=== PATIENT | female | born 1995 | race Caucasian/White ===

== ENCOUNTER 2020-01-02 12:39 | Inpatient (IN) | payer OTHER ==
[2020-01-02] VITALS (8 sets, daily range): BP systolic 86–102; BP diastolic 51–64
[~2020-01-02] VITALS: Ht 154.9 cm; Wt 43.1 kg
[2020-01-02] MEDS ORDERED: HumuLIN R (REGULAR) INSULIN (NovoLIN R) **100U/ML** PER UNIT IV ONE (13:00)
[2020-01-02] MEDS ORDERED: NS 1,000 ML IV ONE (13:00)
[2020-01-02] MEDS ORDERED: ONDANSETRON 4MG/2ML VIAL IV ONE (13:00)
[2020-01-02 13:12] LABS: VENOUS HCO3 4.1 MEQ/L (23.0-27.0); VENOUS O2 SATURATION 91.5 % (60.0-80.0); VENOUS PARTIAL PRESSURE CO2 15.9 mmHg (38.0-50.0); VENOUS PARTIAL PRESSURE O2 72.7 mmHg (30.0-50.0); VENOUS PH 7.026 UNITS (7.330-7.430); VENOUS STANDARD HCO3 7.7 MEQ/L; VENOUS TOTAL CO2 4.6 MEQ/L (24.0-28.0)
[2020-01-02] MEDS ORDERED: INSULIN REGULAR IN 0.9 % NACL 100 UNIT in IV 1 EA IV SCH ×6 (13:16→14:53)
[2020-01-02 13:19] LABS: BASO % 0.4 % (0.0-1.0); EOS % 0.1 % (0.0-3.0); HEMATOCRIT 45.8 % (36.0-47.0); HEMOGLOBIN 14.4 g/dl (12.0-15.5); LYMPH % 11.4 % (24.0-44.0); MEAN CORPUSCULAR HEMOGLOBIN 31.4 pg (27.0-33.0); MEAN CORPUSCULAR HGB CONC 31.4 g/dl (32.0-36.5); MONO # 0.6 10^3/uL (0.0-0.8); NEUTROPHILS # 6.8 10^3/uL (1.5-8.5); NEUTROPHILS % 80.6 % (36.0-66.0); PLATELET COUNT, AUTOMATED 291 10^3/uL (150-450); RED BLOOD COUNT 4.58 10^6/uL (4.00-5.40); WHITE BLOOD COUNT 8.4 10^3/uL (4.0-10.0)
[2020-01-02] MEDS ORDERED: INSULIN IV RATE CHANGE DOCUMENTATION ML/HR XX SCH ×3 (13:30→15:00)
[2020-01-02 13:45] LABS: OSMOLALITY SERUM 328 MOSM/KG (275-295)
[2020-01-02 14:06] LABS: HEMOGLOBIN A1c 11.7 %
[2020-01-02 14:18] LABS: ACETONE/KETONE > 46.00 MG/DL (<2.81); ALBUMIN 3.9 GM/DL (3.2-5.2); ALT/SGPT 29 U/L (12-78); BILIRUBIN,DIRECT < 0.1 MG/DL (0.0-0.2); BILIRUBIN,TOTAL 0.6 MG/DL (0.2-1.0); BLOOD UREA NITROGEN 12 MG/DL (7-18); CALCIUM LEVEL 8.7 MG/DL (8.5-10.1); CARBON DIOXIDE LEVEL 6 MEQ/L (21-32); CHLORIDE LEVEL 108 MEQ/L (98-107); CREATININE FOR GFR 1.17 MG/DL (0.55-1.30); ETHYL ALCOHOL (ETHANOL) < 0.003 % (0.000-0.010); GLUCOSE, FASTING 533 MG/DL (70-100); LIPASE 34 U/L (73-393); POTASSIUM SERUM 4.6 MEQ/L (3.5-5.1); SODIUM LEVEL 135 MEQ/L (136-145); TOTAL PROTEIN 8.6 GM/DL (6.4-8.2)
[2020-01-02] MEDS ORDERED: GABA-843 PO (14:37)
[2020-01-02] MEDS ORDERED: BASA100I SC (14:37)
[2020-01-02] MEDS ORDERED: ADME100I SC (14:37)
[2020-01-02] MEDS ORDERED: TOPI25TA10 PO (14:37)
[2020-01-02] MEDS ORDERED: OMEP-221 PO (14:37)
[2020-01-02] MEDS ORDERED: SYMB16INH INH (14:37)
[2020-01-02] MEDS: INSULIN REGULAR IN 0.9 % NACL 100 UNIT in IV 1 EA IV SCH ×2 (14:53)
[2020-01-02] MEDS ORDERED: ONDANSETRON 4MG/2ML VIAL IV PRN (15:00)
[2020-01-02] MEDS: NS 1,000 ML IV SCH ×3 (15:03→16:15)
--- NOTE | 2020-01-02 15:08 | REPVR ---
PROCEDURE INFORMATION: Exam: XR Chest, 1 View Exam date and time: 01/02/2020 2:57 PM Age: 24 years old Clinical indication: Other: Dka, R/O pna; Additional info: Dka R/O pna TECHNIQUE: Imaging protocol: XR of the chest Views: 1 view. COMPARISON: No relevant prior studies available. FINDINGS: Lungs: No acute infiltrate. Pleural space: No pleural effusion. Heart/Mediastinum: No cardiomegaly. Bones/joints: Unremarkable. IMPRESSION: No acute infiltrate. Electronically signed by: Kai Gonzalez On 01/02/2020 15:08:03 PM
[2020-01-02 15:50] LABS: C REACTIVE PROTEIN QUANTITATIV 0.54 MG/DL (0.00-0.30)
[2020-01-02] MEDS: INSULIN IV RATE CHANGE DOCUMENTATION ML/HR XX SCH ×2 (15:55→17:03)
[2020-01-02] MEDS: CEPHALEXIN 500 MG CAP PO SCH ×2 (16:00→20:21)
[2020-01-02] MEDS ORDERED: ACETAMINOPHEN TAB 650MG DOSE (2X325MG) PO PRN (16:30)
[2020-01-02] MEDS ORDERED: D5W/0.9% SODIUM CHLORIDE 1,000 ML IV SCH (16:30)
[2020-01-02] MEDS ORDERED: KETOROLAC 30 MG/ML 1ML VIAL IV ONE (16:30)
[2020-01-02] MEDS ORDERED: METOCLOPRAMIDE INJ 10MG/2ML VIAL (J2765 PER 1) IV ONE (16:30)
[2020-01-02] MEDS ORDERED: NS 1,000 ML IV SCH (17:15)
[2020-01-02] MEDS ORDERED: SODIUM CHLORIDE IV ONE (18:00)
[2020-01-02] MEDS ORDERED: D5W IV ONE (18:00)
[2020-01-02 18:11] LABS: BLOOD UREA NITROGEN 9 MG/DL (7-18); CALCIUM LEVEL 7.5 MG/DL (8.5-10.1); CARBON DIOXIDE LEVEL 9 MEQ/L (21-32); CHLORIDE LEVEL 123 MEQ/L (98-107); CREATININE FOR GFR 0.94 MG/DL (0.55-1.30); GLOMERULAR FILTRATION RATE > 60.0 (>60); GLUCOSE, FASTING 183 MG/DL (70-100); PHOSPHORUS LEVEL 1.3 MG/DL (2.5-4.9); POTASSIUM SERUM 3.6 MEQ/L (3.5-5.1); SODIUM LEVEL 146 MEQ/L (136-145)
[2020-01-02] MEDS: SODIUM BICARBONATE 325 MG TAB PO SCH ×2 (18:33→20:24)
[2020-01-02] MEDS ORDERED: LEVEMIR (INSULIN DETEMIR) 1 UNITS/0.01ML SC ONE (19:00)
[2020-01-02] MEDS ORDERED: POTASSIUM PHOSPHATE INJ 20 MMOL in D5W 250 ML IV ONE (20:00)
[2020-01-02] MEDS: VANICREAM MOISTURIZING SKIN CREAM 113GM TUBE TOP SCH (20:22)
[2020-01-02 22:42] LABS: BLOOD UREA NITROGEN 6 MG/DL (7-18); CALCIUM LEVEL 6.3 MG/DL (8.5-10.1); CARBON DIOXIDE LEVEL 11 MEQ/L (21-32); CHLORIDE LEVEL 119 MEQ/L (98-107); GLOMERULAR FILTRATION RATE > 60.0 (>60); GLUCOSE, FASTING 332 MG/DL (70-100); PHOSPHORUS LEVEL 2.2 MG/DL (2.5-4.9); POTASSIUM SERUM 3.2 MEQ/L (3.5-5.1); SODIUM LEVEL 144 MEQ/L (136-145)
[2020-01-02] MEDS ORDERED: KCL 20MEQ in NS 1000ML 1,000 ML IV SCH (23:15)
[2020-01-03] VITALS (8 sets, daily range): BP systolic 90–103; BP diastolic 52–67
[2020-01-03] MEDS: DOXYCYCLINE HYCLATE 100 MG in D5W MINI-BAG PLUS 100 ML IV SCH ×2 (00:58→12:09)
[2020-01-03 03:16] LABS: BLOOD UREA NITROGEN 4 MG/DL (7-18); CALCIUM LEVEL 6.9 MG/DL (8.5-10.1); CARBON DIOXIDE LEVEL 15 MEQ/L (21-32); CHLORIDE LEVEL 118 MEQ/L (98-107); GLOMERULAR FILTRATION RATE > 60.0 (>60); GLUCOSE, FASTING 189 MG/DL (70-100); PHOSPHORUS LEVEL 2.7 MG/DL (2.5-4.9); POTASSIUM SERUM 3.3 MEQ/L (3.5-5.1); SODIUM LEVEL 144 MEQ/L (136-145)
[2020-01-03] MEDS ORDERED: GLUCOSE 4GM CHEW TABLET PO PRN (05:15)
[2020-01-03] MEDS ORDERED: GLUCAGON INJ 1MG VIAL SC PRN (05:15)
[2020-01-03] MEDS ORDERED: DEXTROSE 50% 50 ML SYRINGE As Ordered ONE (05:20)
[2020-01-03] MEDS: DEXTROSE 50% 50 ML SYRINGE IV PRN ×3 (05:35→08:24)
[2020-01-03] MEDS: LEVOTHYROXINE 12.5MCG PER 1/2 TAB (0.0125MG) PO SCH (06:00)
[2020-01-03 06:49] LABS: HEMATOCRIT 36.9 % (36.0-47.0); MEAN CORPUSCULAR HEMOGLOBIN 31.5 pg (27.0-33.0); MEAN CORPUSCULAR HGB CONC 33.1 g/dl (32.0-36.5); MEAN CORPUSCULAR VOLUME 95.3 fl (80.0-96.0); PLATELET COUNT, AUTOMATED 230 10^3/uL (150-450); RED BLOOD COUNT 3.87 10^6/uL (4.00-5.40); WHITE BLOOD COUNT 5.3 10^3/uL (4.0-10.0)
[2020-01-03 06:57] LABS: HEMOGLOBIN 12.2 g/dl (12.0-15.5)
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
[2020-01-03 07:24] LABS: ACETONE/KETONE 13.98 MG/DL (<2.81); BLOOD UREA NITROGEN 3 MG/DL (7-18); CALCIUM LEVEL 6.8 MG/DL (8.5-10.1); CARBON DIOXIDE LEVEL 18 MEQ/L (21-32); CHLORIDE LEVEL 120 MEQ/L (98-107); GLOMERULAR FILTRATION RATE > 60.0 (>60); GLUCOSE, FASTING 80 MG/DL (70-100); PHOSPHORUS LEVEL 1.8 MG/DL (2.5-4.9); POTASSIUM SERUM 3.1 MEQ/L (3.5-5.1); SODIUM LEVEL 145 MEQ/L (136-145)
[2020-01-03] MEDS ORDERED: KCL 20MEQ in NS 1000ML 1,000 ML IV SCH (07:30)
[2020-01-03] MEDS: SODIUM BICARBONATE 325 MG TAB PO SCH ×4 (08:24→20:41)
[2020-01-03] MEDS ORDERED: D10W/0.45% SODIUM CHLORIDE 1,000 ML IV SCH (08:30)
[2020-01-03] MEDS ORDERED: INFLUENZA QUADRIVALENT PF VACCINE 0.5ML SYRINGE IM SCH (09:00)
[2020-01-03] MEDS ORDERED: POTASSIUM CHLORIDE 10 MEQ SR TABLET PO ONE (09:00)
[2020-01-03] MEDS: VANICREAM MOISTURIZING SKIN CREAM 113GM TUBE TOP SCH ×2 (09:44→20:45)
[2020-01-03] MEDS: LEVEMIR (INSULIN DETEMIR) 1 UNITS/0.01ML SC SCH ×2 (09:45→20:42)
[2020-01-03] MEDS: NEOSPORIN TOP OINT 15GM TOP SCH ×2 (09:45→20:44)
[2020-01-03] MEDS ORDERED: POTASSIUM PHOSPHATE INJ 30 MMOL in D5W 500 ML IV ONE (10:00)
[2020-01-03] MEDS: INSULIN REGULAR IN 0.9 % NACL 100 UNIT in IV 1 EA IV SCH ×2 (14:53)
[2020-01-03] MEDS ORDERED: NS 1,000 ML IV ONE (15:00)
[2020-01-03 16:31] LABS: FREE THYROXINE INDEX 1.4 % (1.3-4.8); THYROID STIMULATING HORMONE 20.1 uIU/ML (0.358-3.740); THYROXINE (T4) 4.5 UG/DL (4.5-12.0)
[2020-01-03 17:35] LABS: BLOOD UREA NITROGEN 2 MG/DL (7-18); CALCIUM LEVEL 7.6 MG/DL (8.5-10.1); CARBON DIOXIDE LEVEL 16 MEQ/L (21-32); CHLORIDE LEVEL 111 MEQ/L (98-107); CREATININE FOR GFR 0.82 MG/DL (0.55-1.30); GLOMERULAR FILTRATION RATE > 60.0 (>60); GLUCOSE, FASTING 305 MG/DL (70-100); MAGNESIUM LEVEL 1.3 MG/DL (1.8-2.4); PHOSPHORUS LEVEL 4.3 MG/DL (2.5-4.9); SODIUM LEVEL 139 MEQ/L (136-145)
[2020-01-03] MEDS ORDERED: MAG SULF 1GM/100ML (MAG RUN) 1 GM in IV 1 EA IV ONE (19:00)
[2020-01-03] MEDS ORDERED: SODIUM BICARBONATE 150 MEQ in STERILE WATER LITER BAG 1,000 ML IV SCH (20:00)
[2020-01-03] MEDS: HumaLOG INSULIN (NovoLOG) PER UNIT SC SCH (20:36)
[2020-01-03 22:49] LABS: IONIZED CALCIUM 4.3 MG/DL (4.5-5.3)
[2020-01-03 23:46] LABS: BLOOD UREA NITROGEN 2 MG/DL (7-18); CALCIUM LEVEL 7.8 MG/DL (8.5-10.1); CARBON DIOXIDE LEVEL 29 MEQ/L (21-32); CHLORIDE LEVEL 112 MEQ/L (98-107); CREATININE FOR GFR 0.44 MG/DL (0.55-1.30); GLOMERULAR FILTRATION RATE > 60.0 (>60); GLUCOSE, FASTING 41 MG/DL (70-100); MAGNESIUM LEVEL 1.8 MG/DL (1.8-2.4); PHOSPHORUS LEVEL 1.8 MG/DL (2.5-4.9); SODIUM LEVEL 144 MEQ/L (136-145)
[2020-01-04] VITALS: BP 99/57
[2020-01-04] MEDS: DOXYCYCLINE HYCLATE 100 MG in D5W MINI-BAG PLUS 100 ML IV SCH ×2 (00:01→11:24)
[2020-01-04] MEDS: DEXTROSE 50% 50 ML SYRINGE IV PRN ×3 (00:09→05:04)
[2020-01-04] MEDS ORDERED: POTASSIUM CHLORIDE 10 MEQ SR TABLET PO ONE ×2 (00:30→09:00)
[2020-01-04] MEDS ORDERED: POTASSIUM PHOSPHATE INJ 15 MMOL in D5W 250 ML IV ONE (00:30)
[2020-01-04] MEDS: HumaLOG INSULIN (NovoLOG) PER UNIT SC SCH ×5 (01:54→22:06)
[2020-01-04 04:00] VITALS: BP 88/63
[2020-01-04 04:21] LABS: IONIZED CALCIUM 3.8 MG/DL (4.5-5.3)
[2020-01-04 04:23] LABS: HEMATOCRIT 33.3 % (36.0-47.0); HEMOGLOBIN 11.3 g/dl (12.0-15.5); MEAN CORPUSCULAR HEMOGLOBIN 31.6 pg (27.0-33.0); MEAN CORPUSCULAR HGB CONC 33.9 g/dl (32.0-36.5); PLATELET COUNT, AUTOMATED 190 10^3/uL (150-450); RED BLOOD COUNT 3.58 10^6/uL (4.00-5.40); WHITE BLOOD COUNT 3.9 10^3/uL (4.0-10.0)
[2020-01-04 05:10] LABS: BLOOD UREA NITROGEN 2 MG/DL (7-18); CALCIUM LEVEL 7.4 MG/DL (8.5-10.1); CARBON DIOXIDE LEVEL 30 MEQ/L (21-32); CHLORIDE LEVEL 109 MEQ/L (98-107); CREATININE FOR GFR 0.42 MG/DL (0.55-1.30); GLOMERULAR FILTRATION RATE > 60.0 (>60); GLUCOSE, FASTING 80 MG/DL (70-100); MAGNESIUM LEVEL 1.7 MG/DL (1.8-2.4); PHOSPHORUS LEVEL 3.5 MG/DL (2.5-4.9); POTASSIUM SERUM 3.3 MEQ/L (3.5-5.1); SODIUM LEVEL 143 MEQ/L (136-145)
[2020-01-04] MEDS ORDERED: KCL 20MEQ IN D5/0.45NS 1000ML 1,000 ML IV SCH (05:45)
[2020-01-04] MEDS: LEVOTHYROXINE 12.5MCG PER 1/2 TAB (0.0125MG) PO SCH (06:43)
[2020-01-04 08:00] VITALS: BP 111/76
[2020-01-04] MEDS ORDERED: D5W/LR 1,000 ML IV ONE (08:00)
[2020-01-04] MEDS ORDERED: MAG SULF 1GM/100ML (MAG RUN) 1 GM in IV 1 EA IV ONE (08:00)
[2020-01-04] MEDS: SODIUM BICARBONATE 325 MG TAB PO SCH (08:22)
[2020-01-04] MEDS: NEOSPORIN TOP OINT 15GM TOP SCH ×2 (08:22→22:08)
[2020-01-04] MEDS: VANICREAM MOISTURIZING SKIN CREAM 113GM TUBE TOP SCH ×2 (08:22→22:06)
[2020-01-04 12:00] VITALS: BP 105/72
[2020-01-04 12:10] LABS: BLOOD UREA NITROGEN 2 MG/DL (7-18); CALCIUM LEVEL 7.9 MG/DL (8.5-10.1); CARBON DIOXIDE LEVEL 27 MEQ/L (21-32); CHLORIDE LEVEL 105 MEQ/L (98-107); CREATININE FOR GFR 0.62 MG/DL (0.55-1.30); GLOMERULAR FILTRATION RATE > 60.0 (>60); GLUCOSE, FASTING 233 MG/DL (70-100); PHOSPHORUS LEVEL 2.6 MG/DL (2.5-4.9); POTASSIUM SERUM 3.6 MEQ/L (3.5-5.1); SODIUM LEVEL 141 MEQ/L (136-145)
[2020-01-04] MEDS ORDERED: D10W 1,000 ML IV SCH (17:00)
[2020-01-04] MEDS ORDERED: D5W 1,000 ML IV ONE (17:15)
[2020-01-04] MEDS: D5W 1,000 ML IV SCH (18:25)
[2020-01-04] MEDS ORDERED: LEVEMIR (INSULIN DETEMIR) 1 UNITS/0.01ML SC SCH (21:00)
[2020-01-04 22:00] VITALS: BP 114/79
[2020-01-05] MEDS: DOXYCYCLINE HYCLATE 100 MG in D5W MINI-BAG PLUS 100 ML IV SCH (00:06)
[2020-01-05] MEDS: D5W 1,000 ML IV SCH (00:11)
[2020-01-05 06:00] VITALS: BP 113/79
[2020-01-05] MEDS: LEVOTHYROXINE 12.5MCG PER 1/2 TAB (0.0125MG) PO SCH (06:05)
[2020-01-05 07:46] LABS: IONIZED CALCIUM 4.4 MG/DL (4.5-5.3)
[2020-01-05 07:52] LABS: HEMOGLOBIN 11.9 g/dl (12.0-15.5); MEAN CORPUSCULAR HEMOGLOBIN 31.8 pg (27.0-33.0); MEAN CORPUSCULAR VOLUME 93.6 fl (80.0-96.0); PLATELET COUNT, AUTOMATED 193 10^3/uL (150-450); RED BLOOD COUNT 3.74 10^6/uL (4.00-5.40); WHITE BLOOD COUNT 3.5 10^3/uL (4.0-10.0)
[2020-01-05] MEDS: NEOSPORIN TOP OINT 15GM TOP SCH (08:14)
[2020-01-05] MEDS: VANICREAM MOISTURIZING SKIN CREAM 113GM TUBE TOP SCH (08:14)
[2020-01-05] MEDS: HumaLOG INSULIN (NovoLOG) PER UNIT SC SCH (08:15)
[2020-01-05 08:23] LABS: BLOOD UREA NITROGEN 6 MG/DL (7-18); CALCIUM LEVEL 8.3 MG/DL (8.5-10.1); CARBON DIOXIDE LEVEL 31 MEQ/L (21-32); CHLORIDE LEVEL 99 MEQ/L (98-107); CREATININE FOR GFR 0.72 MG/DL (0.55-1.30); GLOMERULAR FILTRATION RATE > 60.0 (>60); GLUCOSE, FASTING 341 MG/DL (70-100); MAGNESIUM LEVEL 1.9 MG/DL (1.8-2.4); PHOSPHORUS LEVEL 3.1 MG/DL (2.5-4.9); POTASSIUM SERUM 4.3 MEQ/L (3.5-5.1); SODIUM LEVEL 137 MEQ/L (136-145)
[2020-01-05] MEDS ORDERED: CLIN150C14 PO (08:42)
[2020-01-05] MEDS ORDERED: BACIOIN5 OD (08:42)
[2020-01-05] MEDS ORDERED: BACI1CAP PO (08:42)
[2020-01-05] MEDS ORDERED: LEVEMIR (INSULIN DETEMIR) 1 UNITS/0.01ML SC SCH (09:00)
[2020-01-05] MEDS ORDERED: GABAPENTIN 300 MG CAP PO SCH (09:00)
[2020-01-05] MEDS ORDERED: SYMBICORT 160/4.5MCG INHALER 6GM INH SCH (09:00)
[2020-01-05] MEDS ORDERED: TOPIRAMATE (TopAMAX) 25 MG TAB PO SCH (09:00)
[2020-01-05] MEDS ORDERED: LEVO25TA5 PO (10:43)
--- NOTE | 2020-01-05 11:18 | ECGEPIP ---
[facility] - ED Test Date: 2020-01-02 Pat Name: JEOVANY LEWIS Department: Room: [place] [address] Gender: Female Senior Ui Ux Designer: ERNIE : 1995 Requested By: ANGELA GAGE Order Number: [id number] Reading MD: Reg Sims Measurements Intervals [place] Rate: 125 P: 66 CT: 112 QRS: 44 QRSD: 80 T: 87 QT: 336 QTc: 485 Interpretive Statements SINUS TACHYCARDIA WITH SHORT CT INTERVAL POOR R WAVE PROGRESSION NONSPECIFIC ST & T-WAVE ABNORMALITY NO PRIORS FOR COMPARISON Electronically Signed on 01-05-2020 11:18:18 EDT by Reg Sims
--- NOTE | 2020-01-11 17:30 | IPN ---
DATE: 01/03/2020 SUBJECTIVE: The patient denies any fever or chills, cough, still complains of pleuritis and has multiple lesions on the chest, bilateral upper and lower extremities. Left lower extremity has a wound infection and one in his mouth. No nausea, vomiting, no abdominal pain, anxious to eat. The patients bicarbonate is still at 15, still on insulin drip with low potassium. PHYSICAL EXAMINATION: Temperature 98.3, pulse 90, respiratory rate 14, blood pressure 92/52, 100% on room air. General: Awake, alert, oriented to person, place and time. Slightly slow speech, improved today than yesterday. Has no word finding difficulties. Face is symmetric. Tongue is midline. Dry mucous membranes. Poor dentition with dental caries, missing teeth. No jugular venous distention (JVD), no thyromegaly. Lungs are clear to auscultation. No wheezes, rales or rhonchi. Heart: S1, S2, sinus rhythm. Abdomen is soft, nontender, non- distended. Positive bowel sounds. Extremities: No cyanosis, clubbing or pitting edema. Left lower extremity has a 1.5 cm ulcer with purulent drainage, some erythema, no tenderness. She also has a 1 cm ulcer on the anterior chest, midsternal and in the right scalp. LABORATORY DATA: White count 5.3, hemoglobin 12, hematocrit 36, platelet count 230, sodium 144, potassium 3.3, chloride 118, bicarbonate 15, BUN 4, creatinine 0.8, glucose 189. A1c 11.7. Microbiology: Wound culture and blood cultures are pending. Chest x-ray negative ASSESSMENT AND PLAN: 24-year-old female with type 1 diabetes, noncompliant with her diet and insulin at home, presents with a right leg diabetic wound infection, chronic urticaria and diabetic ketoacidosis with hypokalemia. IMPRESSION: 1. Diabetic ketoacidosis. 2. Right lower extremity diabetic wound infection. 3. Chronic urticaria. 4. Protein calorie malnutrition, body mass index (BMI) of 17. 5. History of traumatic brain injury with chronic expressive aphasia and word- finding difficulty. PLAN: The patient is kept on insulin drip until bicarbonate is at least at 18 to 21 and anion gap is closed. Will continue with doxycycline for the extremity infection. Wait for wound culture and sensitivity, transfer to med-surg floor once acidemia has resolved and advance diet to consistent carbohydrate. 7. Deep venous thrombosis (DVT) prophylaxis with Lovenox. MTDD
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
--- NOTE | 2020-01-11 17:43 | DSES ---
DATE OF ADMISSION: 01/02/2020 DATE OF DISCHARGE: 01/05/2020 PRIMARY DISCHARGE DIAGNOSIS: 1. Diabetic ketoacidosis secondary to medical noncompliance with diet and medications. 2. Dental caries. 3. Left lower extremity diabetic leg infection with chronic ulcer 4. Chronic urticaria. 5. Hypomagnesemia 6. Hypokalemia. 7. Hypophosphatemia. 8. Hypocalcemia 9. Hyponatremia. 10. Metabolic acidosis due to diabetic ketoacidosis (DKA) 11. Hypothyroidism. 12. Diabetic neuropathy DISCHARGE INSTRUCTIONS DISCHARGE MEDICATIONS: - bacitracin topically to open lesions b.i.d. for 10 days - clindamycin 150 mg q.i.d. for 7 days - Bacid one tab with meals for 7 days. - Synthroid 12.5 mcg daily. - Symbicort 2 puffs inhaled b.i.d. - Gabapentin 300 mg b.i.d. - Basaglar insulin 8 units subcutaneous b.i.d. - Insulin sliding scale - Prilosec 40 mg daily - Topamax 25 mg b.i.d. HOSPITAL COURSE: This is a 24-year-old female with history of type 1 diabetes, presented to the emergency room with medical noncompliance with her diet and insulin, intractable nausea, vomiting and abdominal pain for two days, was found to have a purulent drainage and wound infection in the right leg. I saw open lesions in the right anterior chest and scalp from chronic urticaria. No fever, chills or elevated white count. She was found to have diabetic ketoacidosis and was admitted to the intensive care unit, placed on insulin drip with IV fluids and then q one hourly fingersticks and q 4 hourly basic metabolic panel, magnesium and phosphorus tracked. She was given IV magnesium, IV potassium and phosphorus until she closed her anion gap and was started on Levemir insulin b.i.d., with subsequent hypoglycemia with glucose of 40 and 20. She was given D5 and D10 in the intensive care unit and subsequently normalized when she started having oral intake, which she tolerated well. No more nausea, vomiting or abdominal pain and was cleared by physical therapy. Due to diabetic wound infection, she was initially placed on antibiotics intravenously and transition over to clindamycin due to dental caries and possible dental abscess. Orthopantogram could not be done as this was not available. DISCHARGE INSTRUCTIONS: 1. Primary care physician is to refer the patient to an oral surgeon regarding her poor dentition, dental caries and possible early dental abscess. She is to continue on clindamycin as outpatient to complete a full course. 2. Diabetic ketoacidosis, resolved. She is to followup with her supervisor properties for better glycemic control. She will need clearance in order to proceed with dental extractions for her dental caries and rotten teeth and possible dental infection. 3. Diabetic retinopathy and peripheral neuropathy. Tech Writer follow up for better advice for glycemic control. Refer to ophthalmology and nephrology for monitoring of neuropathy and retinopathy. 4. For chronic urticaria, PCP to refer to an occupational rehabilitation aide in order to determine triggers for the patient's chronic urticaria to prevent further open lesions and diabetic infections. PHYSICAL EXAMINATION ON DISCHARGE: Temperature 98.3, pulse 87, respiratory rate 16, blood pressure 113/79, 96% on room air . General: No respiratory distress. Poor dentition, rotting teeth, gingivitis. No jugular venous distention (JVD), no thyromegaly. Lungs are clear to auscultation. No wheezing or rales. Heart: S1, S2 sinus rhythm. Abdomen: Soft, nontender, non-distended. Positive bowel sounds. Extremities: No cyanosis or clubbing. The patient has open lesion in the carvajal measuring about 1.5 cm without any purulent drainage or malodorous discharge. Open lesion on the anterior chest measuring 1 cm and a scalp lesion on the right parietal area also measuring about 1 cm without any purulent. LABORATORY DATA: White count 3.5, hemoglobin 11, hematocrit 35, platelet count 193, sodium 137, potassium 4.2, chloride 99, bicarbonate 31, BUN 6, creatinine 0.72. MICROBIOLOGY: Methicillin-resistant Staphylococcus aureus (MRSA) in the right leg sensitive to clindamycin and tetracycline. IMAGING STUDIES: Chest x-ray 01/01: No acute infiltrate. TIME SPENT ON DISCHARGE: 30 minutes. RICHMOND
== END 2020-01-05 13:03 | disposition home or self-care (01) | DRG 420 ==
LOC: M ED 12:39 → EDBD 12:39 → M ED INP 14:10 → EEVIPCON 14:10 → ENRESERV 14:25 → M ICU 15:22 → M MSPAV 01-04 16:37
PROVIDERS: ADMIT General Practice; ATTEND General Practice
DX: E10.11 Type 1 diabetes mellitus with ketoacidosis with coma (principal); E46 Unspecified protein-calorie malnutrition; E11.628 Type 2 diabetes mellitus with other skin complications; E10.622 Type 1 diabetes mellitus with other skin ulcer; L50.8 Other urticaria; L98.498 Non-pressure chronic ulcer of skin of other sites with other specified severity; F80.1 Expressive language disorder; K02.9 Dental caries, unspecified; Z87.820 Personal history of traumatic brain injury; Z79.4 Long term (current) use of insulin; Z79.899 Other long term (current) drug therapy; Z68.1 Body mass index [BMI] 19.9 or less, adult

== ENCOUNTER 2020-02-04 08:41 | Inpatient (IN) | payer OTHER ==
[~2020-02-04] VITALS: Ht 154.9 cm; Wt 44.5 kg
[~2020-02-04 08:41] MED LIST: ADME100I SC; BACI1CAP PO; BACIOIN5 OD; BASA100I SC; CLIN150C14 PO; GABA-843 PO; LEVO25TA5 PO; OMEP-221 PO; SYMB16INH INH; TOPI25TA10 PO
[2020-02-04] MEDS: PANTOPRAZOLE 40MG VIAL (C9113 PER 1) IV SCH (09:00)
[2020-02-04] MEDS ORDERED: NS 1,000 ML IV ONE (09:15)
[2020-02-04 09:43] LABS: VENOUS BASE EXCESS -28.2 (-2.0-2.0); VENOUS HCO3 2.4 MEQ/L (23.0-27.0); VENOUS O2 SATURATION 98.4 % (60.0-80.0); VENOUS PARTIAL PRESSURE CO2 13.7 mmHg (38.0-50.0); VENOUS PARTIAL PRESSURE O2 193.3 mmHg (30.0-50.0); VENOUS PH 6.866 UNITS (7.330-7.430); VENOUS STANDARD HCO3 3.2 MEQ/L; VENOUS TOTAL CO2 2.8 MEQ/L (24.0-28.0)
[2020-02-04 09:45] LABS: LYMPH # 0.3 10^3/uL (1.5-5.0); LYMPH % 7.5 % (24.0-44.0); MEAN CORPUSCULAR HEMOGLOBIN 31.7 pg (27.0-33.0); MEAN CORPUSCULAR HGB CONC 29.5 g/dl (32.0-36.5); MEAN CORPUSCULAR VOLUME 107.2 fl (80.0-96.0); MONO # 0.3 10^3/uL (0.0-0.8); MONO % 6.5 % (0.0-5.0); NEUTROPHILS # 3.7 10^3/uL (1.5-8.5); NEUTROPHILS % 85.1 % (36.0-66.0); PLATELET COUNT, AUTOMATED 112 10^3/uL (150-450); RED BLOOD COUNT 1.39 10^6/uL (4.00-5.40); WHITE BLOOD COUNT 4.3 10^3/uL (4.0-10.0)
[2020-02-04 09:48] LABS: HEMATOCRIT 14.9 % (36.0-47.0)
[2020-02-04 09:50] LABS: HEMOGLOBIN 4.4 g/dl (12.0-15.5)
[2020-02-04] MEDS ORDERED: INSULIN REGULAR IN 0.9 % NACL 100 UNIT in IV 1 EA IV SCH ×4 (09:56→15:00)
[2020-02-04] MEDS ORDERED: HumuLIN R (REGULAR) INSULIN (NovoLIN R) **100U/ML** PER UNIT IV ONE (10:00)
[2020-02-04] MEDS ORDERED: ACETAMINOPHEN TAB 650MG DOSE (2X325MG) PO ONE (10:30)
[2020-02-04 10:32] LABS: HEMATOCRIT 44.2 % (36.0-47.0); MEAN CORPUSCULAR HEMOGLOBIN 31.2 pg (27.0-33.0); MEAN CORPUSCULAR HGB CONC 30.5 g/dl (32.0-36.5); MEAN CORPUSCULAR VOLUME 102.1 fl (80.0-96.0); RED BLOOD COUNT 4.33 10^6/uL (4.00-5.40); WHITE BLOOD COUNT 13.9 10^3/uL (4.0-10.0)
[2020-02-04 10:36] LABS: HEMOGLOBIN 13.5 g/dl (12.0-15.5)
[2020-02-04 10:37] LABS: PLATELET COUNT, AUTOMATED 329 10^3/uL (150-450)
--- NOTE | 2020-02-04 10:54 | REP ---
INDICATION: DKA COMPARISON: 01/02/2020 TECHNIQUE: Portable AP view FINDINGS: The mediastinum and cardiac silhouette are stable and within normal limits for portable technique. The lung kimble are clear without acute consolidation, effusion, or pneumothorax. Skeletal structures are intact. IMPRESSION: No acute cardiopulmonary process appreciated. <Electronically signed by Faheem Gross > 02/04/20 [id number]
[2020-02-04] MEDS ORDERED: LEVO25TA5 PO (11:02)
[2020-02-04 11:09] LABS: HEMOGLOBIN A1c 12.6 %
[2020-02-04] MEDS ORDERED: NS 1,000 ML IV SCH (11:30)
[2020-02-04] MEDS: D5W/0.45% SODIUM CHLORIDE 1,000 ML IV SCH ×2 (11:52→12:40)
[2020-02-04] MEDS: INSULIN IV RATE CHANGE DOCUMENTATION ML/HR XX SCH ×3 (11:54→20:56)
[2020-02-04 12:07] LABS: HCG, SERUM QUALITATIVE NEGATIVE (NEGATIVE)
[2020-02-04 12:43] LABS: ACETONE/KETONE > 46.00 MG/DL (<2.81); ALT/SGPT 28 U/L (12-78); BILIRUBIN,DIRECT < 0.1 MG/DL (0.0-0.2); BILIRUBIN,TOTAL 0.4 MG/DL (0.2-1.0); BLOOD UREA NITROGEN 11 MG/DL (7-18); CARBON DIOXIDE LEVEL 10 MEQ/L (21-32); CHLORIDE LEVEL 113 MEQ/L (98-107); CK-MB VALUE MASS < 1.0 NG/ML (<3.6); CPK CREATINE PHOSPHOKINASE 42 U/L (26-192); CREATININE FOR GFR 0.89 MG/DL (0.55-1.30); ETHYL ALCOHOL (ETHANOL) < 0.003 % (0.000-0.010); GLOMERULAR FILTRATION RATE > 60.0 (>60); GLUCOSE, FASTING 215 MG/DL (70-100); LIPASE 95 U/L (73-393); MAGNESIUM LEVEL 2.2 MG/DL (1.8-2.4); MB/CK RELATIVE INDEX 2.38 (< OR =4); POTASSIUM SERUM 3.7 MEQ/L (3.5-5.1); SODIUM LEVEL 138 MEQ/L (136-145); TOTAL PROTEIN 8.6 GM/DL (6.4-8.2); TROPONIN I < 0.02 NG/ML (< 0.10)
[2020-02-04 12:46] LABS: OSMOLALITY SERUM 306 MOSM/KG (275-295)
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
[2020-02-04] MEDS ORDERED: NS 250 ML IV ONE (14:15)
[2020-02-04] MEDS ORDERED: MOM 30ML SUSPENSION UDC PO PRN (14:15)
[2020-02-04] MEDS ORDERED: MAALOX 30 ML SUSP *UDC PO PRN (14:15)
[2020-02-04] MEDS ORDERED: ACETAMINOPHEN TAB 650MG DOSE (2X325MG) PO PRN (14:15)
[2020-02-04] MEDS ORDERED: KCL 10MEQ/100ML SWI (KRUN) 10 MEQ, SODIUM BICARBONATE 50 MEQ in IV 1 EA IV ONE (14:30)
[2020-02-04] MEDS ORDERED: DEXTROSE 50% 50 ML SYRINGE IV PRN (14:30)
[2020-02-04] MEDS ORDERED: GLUCOSE 4GM CHEW TABLET PO PRN (14:30)
[2020-02-04] MEDS ORDERED: GLUCAGON INJ 1MG VIAL SC PRN (14:30)
[2020-02-04] MEDS ORDERED: INSULIN IV RATE CHANGE DOCUMENTATION ML/HR XX SCH (14:45)
[2020-02-04 15:56] LABS: BLOOD UREA NITROGEN 10 MG/DL (7-18); CALCIUM LEVEL 7.7 MG/DL (8.5-10.1); CARBON DIOXIDE LEVEL 13 MEQ/L (21-32); CHLORIDE LEVEL 113 MEQ/L (98-107); CREATININE FOR GFR 0.74 MG/DL (0.55-1.30); GLOMERULAR FILTRATION RATE > 60.0 (>60); GLUCOSE, FASTING 125 MG/DL (70-100); POTASSIUM SERUM 3.8 MEQ/L (3.5-5.1); SODIUM LEVEL 139 MEQ/L (136-145)
[2020-02-04 15:57] LABS: MAGNESIUM LEVEL 1.9 MG/DL (1.8-2.4); PHOSPHORUS LEVEL 1.9 MG/DL (2.5-4.9)
[2020-02-04] MEDS ORDERED: KCL IV SCH ×2 (16:00)
[2020-02-04] MEDS ORDERED: D5 IV SCH ×2 (16:00)
[2020-02-04] MEDS ORDERED: [UNRECOGNIZED DRUG - OTHER] IV SCH ×2 (16:00)
[2020-02-04] MEDS ORDERED: SODIUM BICARBONATE IV SCH ×2 (16:00)
[2020-02-04] MEDS: D5 IV SCH ×4 (16:48→17:07)
[2020-02-04] MEDS: SODIUM BICARBONATE IV SCH ×4 (16:48→17:07)
[2020-02-04] MEDS: [UNRECOGNIZED DRUG - OTHER] IV SCH ×4 (16:48→17:07)
[2020-02-04] MEDS: KCL IV SCH ×4 (16:48→17:07)
[2020-02-04 17:30] VITALS: BP 96/63
[2020-02-04] MEDS ORDERED: hydrOXYzine 10 MG TAB PO PRN (18:00)
[2020-02-04 18:36] LABS: BLOOD UREA NITROGEN 9 MG/DL (7-18); CALCIUM LEVEL 7.9 MG/DL (8.5-10.1); CARBON DIOXIDE LEVEL 15 MEQ/L (21-32); CHLORIDE LEVEL 111 MEQ/L (98-107); GLOMERULAR FILTRATION RATE > 60.0 (>60); GLUCOSE, FASTING 123 MG/DL (70-100); MAGNESIUM LEVEL 1.9 MG/DL (1.8-2.4); PHOSPHORUS LEVEL 2.1 MG/DL (2.5-4.9); POTASSIUM SERUM 3.4 MEQ/L (3.5-5.1); SODIUM LEVEL 138 MEQ/L (136-145)
[2020-02-04 19:00] VITALS: BP 105/71
[2020-02-04 19:36] LABS: ABG BASE EXCESS -11.5 (-2.0-2.0); ABG HCO3 12.9 MEQ/L (22.0-26.0); ABG O2 SATURATION 99.4 % (95.0-99.0); ABG PARTIAL PRESSURE CO2 25.7 mmHg (35.0-45.0); ABG PARTIAL PRESSURE O2 163.4 mmHg (75.0-100.0); ABG STANDARD HCO3 15.5 MEQ/L (22.0-26.0); ABG TOTAL CO2 13.7 MEQ/L (22.0-29.0)
[2020-02-04] MEDS: LEVEMIR (INSULIN DETEMIR) 1 UNITS/0.01ML SC SCH (19:42)
[2020-02-04 20:00] VITALS: BP 102/57
[2020-02-04] MEDS ORDERED: POTASSIUM PHOSPHATE IV ONE ×3 (20:00→20:30)
[2020-02-04] MEDS ORDERED: NS 0.45% IV ONE ×3 (20:00→20:30)
[2020-02-04] MEDS ORDERED: POTASSIUM CHLORIDE IV ONE (20:30)
[2020-02-04 21:00] VITALS: BP 97/57
[2020-02-04] MEDS ORDERED: ENOXAPARIN 40MG/0.4ML SYRINGE (J1650 PER 10MG) SC SCH (21:00)
[2020-02-04] MEDS ORDERED: HumaLOG INSULIN (NovoLOG) PER UNIT SC SCH (21:00)
[2020-02-04] MEDS: DOCUSATE SODIUM 100 MG CAP PO SCH (21:32)
[2020-02-04] MEDS: NEOSPORIN TOP OINT 15GM TOP SCH (21:32)
[2020-02-04] MEDS: GABAPENTIN 300 MG CAP PO SCH (21:42)
[2020-02-04 22:00] VITALS: BP 84/51
[2020-02-04 23:00] VITALS: BP 95/53
[2020-02-04 23:04] LABS: BLOOD UREA NITROGEN 7 MG/DL (7-18); CALCIUM LEVEL 7.3 MG/DL (8.5-10.1); CARBON DIOXIDE LEVEL 19 MEQ/L (21-32); CHLORIDE LEVEL 112 MEQ/L (98-107); CREATININE FOR GFR 0.68 MG/DL (0.55-1.30); GLOMERULAR FILTRATION RATE > 60.0 (>60); GLUCOSE, FASTING 74 MG/DL (70-100); MAGNESIUM LEVEL 1.7 MG/DL (1.8-2.4); PHOSPHORUS LEVEL 1.8 MG/DL (2.5-4.9); POTASSIUM SERUM 3.4 MEQ/L (3.5-5.1); SODIUM LEVEL 139 MEQ/L (136-145)
[2020-02-05] VITALS (8 sets, daily range): BP systolic 91–99; BP diastolic 56–62
[2020-02-05 03:07] LABS: BLOOD UREA NITROGEN 6 MG/DL (7-18); CALCIUM LEVEL 7.3 MG/DL (8.5-10.1); CARBON DIOXIDE LEVEL 20 MEQ/L (21-32); CHLORIDE LEVEL 113 MEQ/L (98-107); CREATININE FOR GFR 0.62 MG/DL (0.55-1.30); GLOMERULAR FILTRATION RATE > 60.0 (>60); GLUCOSE, FASTING 109 MG/DL (70-100); MAGNESIUM LEVEL 1.7 MG/DL (1.8-2.4); PHOSPHORUS LEVEL 2.9 MG/DL (2.5-4.9); POTASSIUM SERUM 3.5 MEQ/L (3.5-5.1); SODIUM LEVEL 141 MEQ/L (136-145)
[2020-02-05] MEDS ORDERED: MAG SULF 1GM/100ML (MAG RUN) 1 GM in IV 1 EA IV ONE (04:45)
[2020-02-05] MEDS ORDERED: CALCIUM CARBONATE 500 MG CHEW U/D PO PRN (06:00)
[2020-02-05] MEDS ORDERED: LEVOTHYROXINE 12.5MCG PER 1/2 TAB (0.0125MG) PO SCH (06:00)
[2020-02-05] MEDS: HumaLOG INSULIN (NovoLOG) PER UNIT SC SCH ×2 (07:30→12:54)
--- NOTE | 2020-02-05 08:12 | ECGEPIP ---
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
[2020-02-05 08:35] LABS: ABG BASE EXCESS -6.5 (-2.0-2.0); ABG HCO3 17.7 MEQ/L (22.0-26.0); ABG O2 SATURATION 98.6 % (95.0-99.0); ABG PARTIAL PRESSURE CO2 31.1 mmHg (35.0-45.0); ABG PARTIAL PRESSURE O2 108.2 mmHg (75.0-100.0); ABG STANDARD HCO3 19.2 MEQ/L (22.0-26.0); ABG TOTAL CO2 18.7 MEQ/L (22.0-29.0); ABG pH (ARTERIAL) 7.373 UNITS (7.350-7.450)
[2020-02-05] MEDS ORDERED: INFLUENZA QUADRIVALENT PF VACCINE 0.5ML SYRINGE IM PRN (09:00)
[2020-02-05] MEDS: LEVEMIR (INSULIN DETEMIR) 1 UNITS/0.01ML SC SCH (10:03)
[2020-02-05] MEDS: PANTOPRAZOLE 40MG VIAL (C9113 PER 1) IV SCH (10:03)
[2020-02-05] MEDS: GABAPENTIN 300 MG CAP PO SCH (10:03)
[2020-02-05] MEDS: DOCUSATE SODIUM 100 MG CAP PO SCH (10:04)
[2020-02-05] MEDS: NEOSPORIN TOP OINT 15GM TOP SCH (10:05)
[2020-02-05] MEDS ORDERED: PHAR1TES VI (11:07)
[2020-02-05] MEDS ORDERED: BASA100I SC (11:07)
[2020-02-05] MEDS ORDERED: GABA-843 PO (11:07)
[2020-02-05] MEDS ORDERED: ADME100I SC (11:07)
[2020-02-05] MEDS ORDERED: LEVO25TA5 PO (11:07)
[2020-02-05] MEDS ORDERED: SYMB16INH INH (11:07)
--- NOTE | 2020-02-05 11:22 | DS.PDOC ---
Discharge Summary General Date of Admission Feb 04, 2020 at 14:01 Date of Discharge 02/05/2020 Discharge Summary PROCEDURES PERFORMED DURING STAY: [None]. ADMITTING DIAGNOSES: 1. High blood sugar DISCHARGE DIAGNOSES: 1. DKA COMPLICATIONS/CHIEF COMPLAINT: DKA. HISTORY OF PRESENT ILLNESS: HPI from admitting H&P: 25 yo F with a PMHx of Type 1 DM, TBI (with expressive aphasia), chronic urticaria, presented to ED with polyuria, malaise, nausea after copious sugar intake (soda). Diagnosed with DKA. Fingerstick glucose 507. WBC 13.9. Hemoglobin 13.5. K3.7. Chloride 113. Creatinine 0.89. PH 7.09, CO2 12.3, bicarbonate 3.7. Admit to ICU for acute management requiring insulin drip. PFS to assist with PCP, access to medications on discharge HOSPITAL COURSE: 25 yo F with a PMHx of Type 1 DM, TBI (with expressive aphasia), chronic urticaria, presented to ED with polyuria, malaise, nausea after copious sugar intake (soda). Diagnosed with DKA. Admit to ICU for acute management requiring insulin drip. PFS to assist with PCP, access to medications on discharge. Patient had the fast recovery during her hospital course and was quickly transitioned off of the insulin drip to subcutaneous insulin after tolerating meals. Her anion gap closed. It seemed to big contributor to her developing DKA was inability to obtain medications as she is currently homeless and ran out of her short acting insulin in addition to that she drank soda at a green party. I've asked her case management to assist patient with obtaining medications upon discharge as well as close follow-up with her primary care doctor and die developer. The time of discharge patient was doing well sugars were controlled anion gap had closed and patient was eager to go home. # DKA: Admitted on day 1 to the ICU and then downgraded to the medical unit after being transitioned off of the insulin drip. Tolerating diet. Initially was on Bicarb drip in 0.45%NS with potassium. Insulin drip until AG <16, HCO3 > 16, pH > 7.3. Transitioned with SC levemir 8 units BID with 2 hour overlap. Consistent carbohydrate diet. Hypoglycemic precautions. CXR wnl. A1c 13.0. Suspect social issues at play (poor medication access, education, living situation). 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 Needs local PCP. Endo follow up. # Leukocytosis: possible peripheral recruitment stress rxn. CXR wnl. # Tinea capitis with superimposed seborrheic dermatitis: Recommended [id number] antidandruff shampoo as well as following up with her primary care doctor for the tinea capitis # chronic urticaria: atarax prn. # Diabetic wound on RLE: completed course of bactrim 1 mo ago. Healing # Protein-calorie malnutrition:spee Body mass index (BMI) of 17. diabetic teaching. 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 ALLERGIES: Please see below. PHYSICAL EXAMINATION ON DISCHARGE: Constitutional: Awake and alert, in no apparent distress ENT: Sclera are clear. Mucosa is moist. Respiratory: Lungs CTA bilaterally. No respiratory distress. No use of accessory muscles. Cardiovascular: RRR S1 and S2 are normal, no murmur Gastrointestinal: Abdomen is soft, non distended, non tender, BS present. Musculoskeletal: No edema. No joint deformities. RUE 5/5, LUE 5/5, BLE 5/5 Neurologic: No focal neurological deficit. Mental Status: A&O x3, normal affect Skin: Warm, dry LABORATORY DATA: Please see below. IMAGING: None PROGNOSIS: Fair ACTIVITY: [As tolerated]. DIET: Diabetic diet DISPOSITION: Home with boyfriend DISCHARGE INSTRUCTIONS: Please follow up with your primary care physician within 1 week from discharge. If you do not have one, please follow up with us to schedule an appointment. Please keep all of your follow up appointments. Please call central to book your appointments with hospital specialists. Please take all your medications as prescribed. Please call/come to Clinic or go to the Emergency Department if - Temp >101, intractable Nausea/Vomiting, Diarrhea, Mouth sores, Headaches, Altered mental status, Seizures, sudden onset of swelling, bleeding, shortness of breath or chest pain. ITEMS TO FOLLOWUP ON ON OUTPATIENT: 1. Follow-up with PCP within 2-5 days of discharge as well as endocrinology 2. 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 TIME SPENT ON DISCHARGE: 40 minutes Vital Signs/I&Os Vital Signs Date Time Temp Pulse Resp B/P (MAP) Pulse Ox O2 Delivery O2 Flow Rate FiO2 10/20/20 05:20 100.1 80 14 98/62 (74) 97 Room Air I&O- Last 24 Hours up to 6 AM 02/05/20 06:00 Intake Total 4891.3 ml Output Total 1400 ml Balance 3491.3 ml Laboratory Data Labs 24H Laboratory Tests 2 02/04/20 11:38: Bedside Glucose (Misc Panel) 172H 02/04/20 12:35: Bedside Glucose (Misc Panel) 115H 02/04/20 13:28: Bedside Glucose (Misc Panel) 122H 02/04/20 14:17: Bedside Glucose (Misc Panel) 111H 02/04/20 14:51: Anion Gap 13, Glomerular Filtration Rate > 60.0, Calcium Level 7.7L, Phosphorus Level 1.9L, Magnesium Level 1.9 02/04/20 15:27: Bedside Glucose (Misc Panel) 128H 02/04/20 16:37: Bedside Glucose (Misc Panel) 123H 02/04/20 17:40: Bedside Glucose (Misc Panel) 114H 02/04/20 17:57: Anion Gap 12, Glomerular Filtration Rate > 60.0, Calcium Level 7.9L, Phosphorus Level 2.1L, Magnesium Level 1.9 02/04/20 19:20: Blood Gas Bicarbonate Standard 15.5L, Arterial Blood pH 7.320L, Arterial Blood Partial Pressure CO2 25.7L, Arterial Blood Partial Pressure O2 163.4H, Arterial Blood Total CO2 13.7L, Arterial Blood HCO3 12.9L, Arterial Blood Base Excess - 11.5L, Arterial Blood Oxygen Saturation 99.4H 02/04/20 19:23: Bedside Glucose (Misc Panel) 201H 02/04/20 20:52: Bedside Glucose (Misc Panel) 188H 02/04/20 21:34: Bedside Glucose (Misc Panel) 119H 02/04/20 22:34: Anion Gap 8, Glomerular Filtration Rate > 60.0, Calcium Level 7.3L, Phosphorus Level 1.8L, Magnesium Level 1.7L 02/04/20 23:31: Bedside Glucose (Misc Panel) 53L 02/05/20 00:32: Bedside Glucose (Misc Panel) 110H 02/05/20 02:08: Bedside Glucose (Misc Panel) 99 02/05/20 02:26: Anion Gap 8, Glomerular Filtration Rate > 60.0, Calcium Level 7.3L, Phosphorus Level 2.9#, Magnesium Level 1.7L 02/05/20 05:26: Bedside Glucose (Misc Panel) 48L 02/05/20 06:04: Bedside Glucose (Misc Panel) 104 02/05/20 08:18: Blood Gas Bicarbonate Standard 19.2L, Arterial Blood pH 7.373, Arterial Blood Partial Pressure CO2 31.1L, Arterial Blood Partial Pressure O2 108.2H, Arterial Blood Total CO2 18.7L, Arterial Blood HCO3 17.7L, Arterial Blood Base Excess - 6.5L, Arterial Blood Oxygen Saturation 98.6 CBC/BMP Laboratory Tests 02/04/20 14:51 02/04/20 17:57 02/04/20 22:34 02/05/20 02:26 FSBS Laboratory Tests Test 02/04/20 11:38 02/04/20 12:35 02/04/20 13:28 02/04/20 14:17 Range/Units Bedside Glucose (Misc Panel) 172 115 122 111 70-105 MG/DL Test 02/04/20 15:27 02/04/20 16:37 02/04/20 17:40 02/04/20 19:23 Range/Units Bedside Glucose (Misc Panel) 128 123 114 201 70-105 MG/DL Test 02/04/20 20:52 02/04/20 21:34 02/04/20 23:31 02/05/20 00:32 Range/Units Bedside Glucose (Misc Panel) 188 119 53 110 70-105 MG/DL Test 02/05/20 02:08 02/05/20 05:26 02/05/20 06:04 Range/Units Bedside Glucose (Misc Panel) 99 48 104 70-105 MG/DL Microbiology Microbiology 02/04/20 Blood Culture - Preliminary, Resulted No growth after 24 hours . All specim... 02/04/20 Blood Culture - Preliminary, Resulted No growth after 24 hours . All specim... Discharge Medications Scheduled Blood Sugar Diagnostic (Test Strips) 1 Each Strip, 1 ORLIN BIDPC Budesonide/Formoterol (Symbicort 160-4.5 Mcg Inhaler) 6 Gm Hfa.aer.ad, 2 PUFF INH BID Gabapentin (Gabapentin) 300 Mg Capsule, 300 MG PO BID Insulin Glargine,Hum.rec.anlog (Basaglar Kwikpen U-100) 100 Unit/1 Ml Insuln.pen, 8 UNIT SC BID Insulin Lispro (Admelog) 100 Unit/1 Ml Vial, 1 DOSE SC AC PER SLIDING SCALE Levothyroxine Sodium (Levothyroxine Sodium) 25 Mcg Tablet, 12.5 MCG PO QAM NOT PICKED UP FROM PHARMACY, NEW MED Omeprazole (Omeprazole) 40 Mg Capsule.dr, 40 MG PO DAILY, (Reported) Topiramate (Topiramate) 25 Mg Tablet, 25 MG PO BID, (Reported) Allergies Coded Allergies: amoxicillin (Verified Allergy, Mild, HIVES, 02/04/20) clavulanic acid (Verified Allergy, Mild, HIVES, 02/04/20) Iodinated Contrast Media (Verified Allergy, Unknown, ANAPHYLAXIS, 0) ELLIS ZHANG MD Feb 05, 2020 11:21
[2020-02-05 11:47] LABS: APPEARANCE, URINE CLEAR (CLEAR); BACTERIA, URINE AUTO NEGATIVE (NEGATIVE); BILIRUBIN, URINE AUTO NEGATIVE (NEGATIVE); BLOOD, URINE BLOOD 2+ (NEGATIVE); COLOR, URINE STRAW (YELLOW); GLUCOSE, URINE (UA) AUTO 3+ mg/dL (NEGATIVE); KETONE, URINE AUTO NEGATIVE (NEGATIVE); LEUKOCYTE ESTERASE, URINE AUTO NEGATIVE (NEGATIVE); MUCUS, URINE SMALL (NEGATIVE); NITRITE, URINE AUTO NEGATIVE (NEGATIVE); PROTEIN, URINE AUTO NEGATIVE (NEGATIVE); RBC, URINE AUTO 3 /HPF (0-3); SPECIFIC GRAVITY URINE AUTO 1.002 (1.002-1.035); SQUAMOUS EPITHELIAL CELL UR AU 0 /HPF (0-6); UROBILINOGEN, URINE AUTO 0.2 mg/dL (0.0-2.0); WBC, URINE AUTO 2 /HPF (0-3)
[2020-02-05 12:01] LABS: HEMATOCRIT 33.3 % (36.0-47.0); MEAN CORPUSCULAR HEMOGLOBIN 31.4 pg (27.0-33.0); MEAN CORPUSCULAR HGB CONC 33.3 g/dl (32.0-36.5); MEAN CORPUSCULAR VOLUME 94.3 fl (80.0-96.0); PLATELET COUNT, AUTOMATED 251 10^3/uL (150-450); RED BLOOD COUNT 3.53 10^6/uL (4.00-5.40); WHITE BLOOD COUNT 6.1 10^3/uL (4.0-10.0)
[2020-02-05 12:12] LABS: HEMOGLOBIN 11.1 g/dl (12.0-15.5)
[2020-02-05 12:23] LABS: BLOOD UREA NITROGEN 4 MG/DL (7-18); CALCIUM LEVEL 7.5 MG/DL (8.5-10.1); CARBON DIOXIDE LEVEL 19 MEQ/L (21-32); CHLORIDE LEVEL 111 MEQ/L (98-107); CREATININE FOR GFR 0.64 MG/DL (0.55-1.30); GLOMERULAR FILTRATION RATE > 60.0 (>60); GLUCOSE, FASTING 237 MG/DL (70-100); POTASSIUM SERUM 3.6 MEQ/L (3.5-5.1); SODIUM LEVEL 140 MEQ/L (136-145)
== END 2020-02-05 14:55 | disposition home or self-care (01) | DRG 420 ==
LOC: M ED 08:41 → EDBD 08:41 → M ED INP 14:01 → ENRESERV 14:17 → M ICU 17:25 → M MS5PR 02-05 05:22
PROVIDERS: ADMIT Family Medicine; ATTEND Family Medicine
DX: E10.10 Type 1 diabetes mellitus with ketoacidosis without coma (principal); E10.628 Type 1 diabetes mellitus with other skin complications; E46 Unspecified protein-calorie malnutrition; D72.829 Elevated white blood cell count, unspecified; B35.0 Tinea barbae and tinea capitis; Z68.1 Body mass index [BMI] 19.9 or less, adult; Z87.820 Personal history of traumatic brain injury; F80.1 Expressive language disorder; L50.8 Other urticaria; Z79.4 Long term (current) use of insulin; Z79.899 Other long term (current) drug therapy; Z88.0 Allergy status to penicillin; Z88.8 Allergy status to other drugs, medicaments and biological substances; Z91.041 Radiographic dye allergy status; Z91.120 Patient's intentional underdosing of medication regimen due to financial hardship; T38.3X6A Underdosing of insulin and oral hypoglycemic [antidiabetic] drugs, initial encounter

== ENCOUNTER 2020-03-13 22:11 | Inpatient (IN) | payer OTHER ==
[~2020-03-13] VITALS: Ht 154.9 cm; Wt 48.0 kg
[~2020-03-13 22:11] MED LIST changes: +PHAR1TES VI
[2020-03-13] MEDS ORDERED: OLAN5TAB PO (22:31)
[2020-03-13] MEDS ORDERED: DEPA250T32 PO (22:31)
[2020-03-13 22:56] LABS: VENOUS BASE EXCESS -11.1 (-2.0-2.0); VENOUS HCO3 13.6 MEQ/L (23.0-27.0); VENOUS O2 SATURATION 93.8 % (60.0-80.0); VENOUS PH 7.305 UNITS (7.330-7.430); VENOUS STANDARD HCO3 15.8 MEQ/L; VENOUS TOTAL CO2 14.5 MEQ/L (24.0-28.0)
[2020-03-13 23:02] LABS: HEMATOCRIT 40.2 % (36.0-47.0); HEMOGLOBIN 13.2 g/dl (12.0-15.5); MEAN CORPUSCULAR HEMOGLOBIN 31.5 pg (27.0-33.0); MEAN CORPUSCULAR HGB CONC 32.8 g/dl (32.0-36.5); MEAN CORPUSCULAR VOLUME 95.9 fl (80.0-96.0); PLATELET COUNT, AUTOMATED 306 10^3/uL (150-450); RED BLOOD COUNT 4.19 10^6/uL (4.00-5.40); WHITE BLOOD COUNT 7.8 10^3/uL (4.0-10.0)
[2020-03-13 23:27] LABS: AMPHETAMINES LEVEL URINE NEGATIVE (NEGATIVE); BARBITURATES URINE NEGATIVE (NEGATIVE); BENZODIAZEPINES URINE NEGATIVE (NEGATIVE); CANNABINOIDS URINE NEGATIVE (NEGATIVE); COCAINE METABOLITE URINE NEGATIVE (NEGATIVE); METHADONE URINE NEGATIVE (NEGATIVE); OPIATES URINE NEGATIVE (NEGATIVE); PHENCYCLIDINE URINE NEGATIVE (NEGATIVE)
[2020-03-13 23:45] LABS: ACETAMINOPHEN LEVEL < 2.0 UG/ML (10.0-30.0); ALT/SGPT 39 U/L (12-78); BILIRUBIN,DIRECT < 0.1 MG/DL (0.0-0.2); BILIRUBIN,TOTAL 0.5 MG/DL (0.2-1.0); BLOOD UREA NITROGEN 17 MG/DL (7-18); CARBON DIOXIDE LEVEL 16 MEQ/L (21-32); CHLORIDE LEVEL 97 MEQ/L (98-107); CREATININE FOR GFR 1.22 MG/DL (0.55-1.30); ETHYL ALCOHOL (ETHANOL) < 0.003 % (0.000-0.010); GLOMERULAR FILTRATION RATE 56.7 (>60); GLUCOSE, FASTING 263 MG/DL (70-100); POTASSIUM SERUM 3.7 MEQ/L (3.5-5.1); SALICYLATE LEVEL 1.9 MG/DL (5.0-30.0); SODIUM LEVEL 132 MEQ/L (136-145); TOTAL PROTEIN 8.3 GM/DL (6.4-8.2)
[2020-03-13] MEDS ORDERED: HumuLIN R (REGULAR) INSULIN (NovoLIN R) **100U/ML** PER UNIT SC STA (23:56)
[2020-03-14] MEDS ORDERED: LEVOTHYROXINE 125MCG TABLET (0.125MG) PO ONE
[2020-03-14 00:45] LABS: VALPROIC ACID (DEPAKOTE) 5.1 UG/ML (50.0-100.0)
[2020-03-14 01:54] LABS: VENOUS BASE EXCESS -9.5 (-2.0-2.0); VENOUS HCO3 16.1 MEQ/L (23.0-27.0); VENOUS O2 SATURATION 98.1 % (60.0-80.0); VENOUS PARTIAL PRESSURE CO2 34.3 mmHg (38.0-50.0); VENOUS PARTIAL PRESSURE O2 114.3 mmHg (30.0-50.0); VENOUS STANDARD HCO3 16.9 MEQ/L; VENOUS TOTAL CO2 17.2 MEQ/L (24.0-28.0)
[2020-03-14 02:32] LABS: BLOOD UREA NITROGEN 14 MG/DL (7-18); CALCIUM LEVEL 8.4 MG/DL (8.5-10.1); CARBON DIOXIDE LEVEL 17 MEQ/L (21-32); CHLORIDE LEVEL 105 MEQ/L (98-107); CREATININE FOR GFR 0.72 MG/DL (0.55-1.30); GLOMERULAR FILTRATION RATE > 60.0 (>60); GLUCOSE, FASTING 189 MG/DL (70-100); POTASSIUM SERUM 4.5 MEQ/L (3.5-5.1); SODIUM LEVEL 135 MEQ/L (136-145)
[2020-03-14] MEDS ORDERED: LEVOTHYROXINE 25MCG TABLET (0.025MG) PO SCH (06:00)
[2020-03-14] MEDS ORDERED: LEVOTHYROXINE 12.5MCG PER 1/2 TAB (0.0125MG) PO SCH ×2 (06:00→11:56)
--- NOTE | 2020-03-14 06:46 | ECGEPIP ---
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
[2020-03-14] MEDS ORDERED: ATOR1TAB19 PO (07:20)
[2020-03-14] MEDS ORDERED: DIVA250T7 PO ×2 (07:20→19:42)
[2020-03-14] MEDS ORDERED: NS 1,000 ML IV ONE ×2 (08:00)
[2020-03-14 10:19] LABS: BLOOD UREA NITROGEN 9 MG/DL (7-18); CALCIUM LEVEL 7.9 MG/DL (8.5-10.1); CARBON DIOXIDE LEVEL 23 MEQ/L (21-32); CHLORIDE LEVEL 107 MEQ/L (98-107); CREATININE FOR GFR 0.74 MG/DL (0.55-1.30); GLOMERULAR FILTRATION RATE > 60.0 (>60); GLUCOSE, FASTING 385 MG/DL (70-100); POTASSIUM SERUM 4.8 MEQ/L (3.5-5.1); SODIUM LEVEL 137 MEQ/L (136-145)
[2020-03-14] MEDS ORDERED: DEXTROSE 50% 50 ML SYRINGE IV PRN (11:15)
[2020-03-14] MEDS ORDERED: GLUCOSE 4GM CHEW TABLET PO PRN (11:15)
[2020-03-14] MEDS ORDERED: GLUCAGON INJ 1MG VIAL SC PRN (11:15)
[2020-03-14] MEDS ORDERED: LEVEMIR (INSULIN DETEMIR) 1 UNITS/0.01ML SC ONE (12:30)
[2020-03-14] MEDS: HumaLOG INSULIN (NovoLOG) PER UNIT SC SCH ×2 (12:49→18:17)
[2020-03-14 13:40] LABS: BLOOD UREA NITROGEN 10 MG/DL (7-18); CALCIUM LEVEL 8.4 MG/DL (8.5-10.1); CARBON DIOXIDE LEVEL 22 MEQ/L (21-32); CHLORIDE LEVEL 105 MEQ/L (98-107); GLOMERULAR FILTRATION RATE > 60.0 (>60); GLUCOSE, FASTING 610 MG/DL (70-100); POTASSIUM SERUM 4.6 MEQ/L (3.5-5.1); SODIUM LEVEL 136 MEQ/L (136-145)
[2020-03-14] MEDS ORDERED: BASA100I SC (19:45)
[2020-03-14] MEDS ORDERED: SYMB16INH INH (19:45)
[2020-03-14] MEDS ORDERED: GABA-843 PO (19:45)
[2020-03-14] MEDS ORDERED: ADME100I SC (19:45)
[2020-03-14] MEDS ORDERED: OLAN5TAB PO (19:46)
[2020-03-14] MEDS ORDERED: TIRO100C3 PO (19:47)
[2020-03-14] MEDS ORDERED: GABAPENTIN 300 MG CAP PO SCH (21:00)
[2020-03-14] MEDS ORDERED: HumaLOG INSULIN (NovoLOG) PER UNIT SC SCH (21:00)
[2020-03-14] MEDS ORDERED: DIVALPROEX 250MG *ER* TAB PO SCH (21:00)
[2020-03-14] MEDS ORDERED: LEVEMIR (INSULIN DETEMIR) 1 UNITS/0.01ML SC SCH (21:00)
[2020-03-14] MEDS ORDERED: OLANZapine 5 MG TAB PO SCH (21:00)
[2020-03-15] VITALS (10 sets, daily range): BP systolic 78–103; BP diastolic 48–64
[2020-03-15] MEDS ORDERED: DEXTROSE 50% 50 ML SYRINGE IV STA (02:47)
[2020-03-15 04:23] LABS: BLOOD UREA NITROGEN 10 MG/DL (7-18); CALCIUM LEVEL 8.4 MG/DL (8.5-10.1); CARBON DIOXIDE LEVEL 25 MEQ/L (21-32); CHLORIDE LEVEL 107 MEQ/L (98-107); CREATININE FOR GFR 0.59 MG/DL (0.55-1.30); GLOMERULAR FILTRATION RATE > 60.0 (>60); GLUCOSE, FASTING 163 MG/DL (70-100); POTASSIUM SERUM 3.2 MEQ/L (3.5-5.1); SODIUM LEVEL 140 MEQ/L (136-145)
[2020-03-15] MEDS ORDERED: MAALOX 30 ML SUSP *UDC PO PRN (04:45)
[2020-03-15] MEDS ORDERED: ACETAMINOPHEN TAB 650MG DOSE (2X325MG) PO PRN (04:45)
[2020-03-15] MEDS ORDERED: MOM 30ML SUSPENSION UDC PO PRN (04:45)
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
[2020-03-15] MEDS ORDERED: POTASSIUM CHLORIDE 10 MEQ SR TABLET PO ONE (05:00)
[2020-03-15 05:42] LABS: MAGNESIUM LEVEL 1.9 MG/DL (1.8-2.4)
[2020-03-15] MEDS ORDERED: HumaLOG INSULIN (NovoLOG) PER UNIT SC SCH (06:00)
[2020-03-15] MEDS: LEVOTHYROXINE 100MCG TABLET (0.1MG) PO SCH (06:35)
[2020-03-15] MEDS: HumaLOG INSULIN (NovoLOG) PER UNIT SC SCH ×4 (07:30→20:11)
[2020-03-15] MEDS ORDERED: GLUCOSE 4GM CHEW TABLET PO PRN (07:45)
[2020-03-15] MEDS ORDERED: DEXTROSE 50% 50 ML SYRINGE IV PRN (07:45)
[2020-03-15] MEDS ORDERED: GLUCAGON INJ 1MG VIAL SC PRN (07:45)
[2020-03-15] MEDS: SYMBICORT 160/4.5MCG INHALER 6GM INH SCH ×2 (07:47→20:20)
[2020-03-15] MEDS ORDERED: NS 1,000 ML IV ONE ×3 (08:15→19:45)
[2020-03-15 08:19] LABS: BASO % 0.7 % (0.0-1.0); EOS # 0.3 10^3/uL (0.0-0.5); EOS % 4.4 % (0.0-3.0); HEMATOCRIT 37.4 % (36.0-47.0); HEMOGLOBIN 12.1 g/dl (12.0-15.5); LYMPH # 2.1 10^3/uL (1.5-5.0); LYMPH % 36.8 % (24.0-44.0); MEAN CORPUSCULAR HEMOGLOBIN 32.3 pg (27.0-33.0); MEAN CORPUSCULAR HGB CONC 32.4 g/dl (32.0-36.5); MEAN CORPUSCULAR VOLUME 99.7 fl (80.0-96.0); MONO # 0.6 10^3/uL (0.0-0.8); MONO % 11.1 % (0.0-5.0); NEUTROPHILS # 2.7 10^3/uL (1.5-8.5); NEUTROPHILS % 46.8 % (36.0-66.0); PLATELET COUNT, AUTOMATED 257 10^3/uL (150-450); RED BLOOD COUNT 3.75 10^6/uL (4.00-5.40); WHITE BLOOD COUNT 5.7 10^3/uL (4.0-10.0)
[2020-03-15] MEDS ORDERED: ATORVASTATIN 10 MG TAB PO SCH (09:00)
[2020-03-15] MEDS: LEVEMIR (INSULIN DETEMIR) 1 UNITS/0.01ML SC SCH ×2 (09:31→20:10)
[2020-03-15] MEDS: GABAPENTIN 300 MG CAP PO SCH ×2 (09:32→20:10)
[2020-03-15] MEDS: DIVALPROEX 250MG *ER* TAB PO SCH ×2 (09:32→20:10)
[2020-03-15 09:48] LABS: APPEARANCE, URINE CLOUDY (CLEAR); BACTERIA, URINE AUTO 1+ (NEGATIVE); BILIRUBIN, URINE AUTO NEGATIVE (NEGATIVE); BLOOD, URINE BLOOD NEGATIVE (NEGATIVE); COLOR, URINE YELLOW (YELLOW); GLUCOSE, URINE (UA) AUTO 3+ mg/dL (NEGATIVE); KETONE, URINE AUTO 1+ mg/dL (NEGATIVE); LEUKOCYTE ESTERASE, URINE AUTO 3+ (NEGATIVE); MUCUS, URINE SMALL (NEGATIVE); NITRITE, URINE AUTO NEGATIVE (NEGATIVE); PROTEIN, URINE AUTO NEGATIVE (NEGATIVE); RBC, URINE AUTO 7 /HPF (0-3); SPECIFIC GRAVITY URINE AUTO 1.025 (1.002-1.035); SQUAMOUS EPITHELIAL CELL UR AU 6 /HPF (0-6); UROBILINOGEN, URINE AUTO 0.2 mg/dL (0.0-2.0); WBC, URINE AUTO 30 /HPF (0-3)
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
[2020-03-15] MEDS: OLANZapine 5 MG TAB PO SCH (20:10)
[2020-03-16] VITALS: BP 108/58
[2020-03-16 04:00] VITALS: BP_SYST 108; BP_SYST 110; BP_DIAS 60
[2020-03-16 05:19] LABS: HEMATOCRIT 36.6 % (36.0-47.0); HEMOGLOBIN 11.6 g/dl (12.0-15.5); MEAN CORPUSCULAR HEMOGLOBIN 32.6 pg (27.0-33.0); MEAN CORPUSCULAR HGB CONC 31.7 g/dl (32.0-36.5); MEAN CORPUSCULAR VOLUME 102.8 fl (80.0-96.0); PLATELET COUNT, AUTOMATED 234 10^3/uL (150-450); RED BLOOD COUNT 3.56 10^6/uL (4.00-5.40); WHITE BLOOD COUNT 4.7 10^3/uL (4.0-10.0)
[2020-03-16 05:41] LABS: BLOOD UREA NITROGEN 4 MG/DL (7-18); CARBON DIOXIDE LEVEL 25 MEQ/L (21-32); CHLORIDE LEVEL 110 MEQ/L (98-107); CREATININE FOR GFR 0.56 MG/DL (0.55-1.30); GLOMERULAR FILTRATION RATE > 60.0 (>60); GLUCOSE, FASTING 177 MG/DL (70-100); POTASSIUM SERUM 3.6 MEQ/L (3.5-5.1); SODIUM LEVEL 140 MEQ/L (136-145)
[2020-03-16] MEDS: LEVOTHYROXINE 100MCG TABLET (0.1MG) PO SCH (06:18)
[2020-03-16] MEDS: SYMBICORT 160/4.5MCG INHALER 6GM INH SCH ×2 (07:02→20:19)
[2020-03-16 08:10] VITALS: BP 99/57
[2020-03-16] MEDS ORDERED: POTASSIUM CHLORIDE 10 MEQ SR TABLET PO ONE (09:00)
[2020-03-16] MEDS: HumaLOG INSULIN (NovoLOG) PER UNIT SC SCH ×4 (09:31→20:51)
[2020-03-16] MEDS: LEVEMIR (INSULIN DETEMIR) 1 UNITS/0.01ML SC SCH ×2 (09:31→20:50)
[2020-03-16] MEDS: DIVALPROEX 250MG *ER* TAB PO SCH ×2 (09:32→20:50)
[2020-03-16] MEDS: GABAPENTIN 300 MG CAP PO SCH ×2 (09:32→20:49)
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
--- NOTE | 2020-03-16 11:24 | MHCRPDOC ---
[facility] Consultation Consultation DATE OF CONSULTATION: 03/16/20 CONSULTATION REQUESTED BY: internal medicine service REASON FOR CONSULTATION: self injurious behavior RELEVANT HISTORY: The patient a 25-year-old wound with a history of bipolar and schizophrenia presents after becoming increasingly irritable last several weeks. She reports that she is prescribed Zyprexa and Depakote, she is not seeing a psychiatrist currently but has been attempting to get in with a psychiatrist back in [place]. She reports that she is not been taking her medications consistently noticing that she is becoming more irritable and lashing out more. She denies any auditory hallucinations at this time, but reports that they do occur intermittently outside of mood variation. She reports that she had been frustrated with her boyfriend attempting to injure herself by slamming her head against the wall repeatedly requiring hospitalization... PAST PSYCHIATRIC HISTORY: reports diagnosis of bipolar and schizophrenia, currently on Depakote and valproate, denies any history of suicide attempts, reports inpatient admissions several years ago. PAST MEDICAL HISTORY: diabetes FAMILY HISTORY: reports having an uncle with bipolar disorder PERSONAL AND SOCIAL HISTORY: The patient was born and raised in [place], but recently relocated to live with her spouse and [place] Resides in: [place] Marital Status: M Children: denies Employment: unemployed currently on disability SUBSTANCE ABUSE HISTORY: Smoking: denies ETOH:. Denies Illicit Drugs:. Denies LEGAL HISTORY: none elicited . MENTAL STATUS EXAMINATION: General: [Well dressed with good hygiene] Speech: some stutter present Thought processes: [Linear and logical] Thought content: hopelessness Abstract reasoning, and computation: [Intact] Description of associations: [Intact] Description of abnormal or psychotic thoughts: denies any SI at this time Judgment:, limited Insight: limited Orientation: [Alert and orientated 3] Recent and remote memory: [Intact] Attention span and concentration: [Intact] Fund of knowledge: [Adequate] Mood: ["okay"] Affect: dysthymic and constricted DIAGNOSIS: 1. Unspecified bipolar disorder. PLAN: 1., Recommend continuing home medications, at this time. 2. Admission to inpatient [facility] recommended, continue one-to-one sitter Vital Signs Vital Signs Date Time Temp Pulse Resp B/P (MAP) Pulse Ox O2 Delivery O2 Flow Rate FiO2 03/16/20 08:10 97.2 86 16 99/57 (71) 100 Room Air Laboratory Data 24H Labs Laboratory Tests 2 03/15/20 12:20: Bedside Glucose (Misc Panel) 263H 03/15/20 16:51: Bedside Glucose (Misc Panel) 197H 03/15/20 19:25: Bedside Glucose (Misc Panel) 217H 03/16/20 05:01: Nucleated Red Blood Cells % (auto) 0.0, Anion Gap 5L, Glomerular Filtration Rate > 60.0, Calcium Level 8.0L Home Medications Current Medications Current Medications Medications (Trade) Dose Ordered Sig/Yamilet Route PRN Reason Start Time Stop Time Status Last Admin Dose Admin Acetaminophen (Tylenol Tab) 650 mg Q4H PRN PO PAIN OR FEVER 03/15/20 04:45 Al Hydrox/Mg Hydrox/Simethicone (Mylanta) 30 ml DAILY PRN PO DYSPEPSIA 03/15/20 04:45 Atorvastatin Calcium (Lipitor) 10 mg DAILY PO 03/15/20 09:00 03/15/20 05:06 DC Budesonide/ Formoterol Fumarate (Symbicort 160/ 4.5mcg) 2 puff RBID INH 03/15/20 08:00 03/16/20 07:02 Dextrose (Dextrose 50%) 25 ml ASDIRECTED PRN IV SEE LABEL COMMENTS 03/14/20 11:15 03/15/20 05:06 DC Dextrose (Dextrose 50%) 25 ml ASDIRECTED PRN IV SEE LABEL COMMENTS 03/15/20 07:45 Dextrose (Dextrose 50%) 50 ml STAT STAT IV 03/15/20 02:47 03/15/20 02:48 DC 03/15/20 03:19 Divalproex Sodium (Depakote Er) 250 mg QHS PO 03/15/20 21:00 03/15/20 20:10 Divalproex Sodium (Depakote Er) 500 mg DAILY PO 03/15/20 09:00 03/16/20 09:32 Divalproex Sodium (Depakote Er) 500 mg QHS PO 03/14/20 21:00 03/15/20 05:06 DC 03/14/20 21:58 Gabapentin (Neurontin) 300 mg BID PO 03/14/20 21:00 03/15/20 05:07 DC 03/14/20 21:58 Gabapentin (Neurontin) 300 mg BID PO 03/15/20 09:00 03/16/20 09:32 Glucagon (Glucagon) 1 mg ASDIRECTED PRN SC SEE LABEL COMMENTS 03/14/20 11:15 03/15/20 05:07 DC Glucagon (Glucagon) 1 mg ASDIRECTED PRN SC SEE LABEL COMMENTS 03/15/20 07:45 Glucose (Glucose) 16 GM ASDIRECTED PRN PO SEE LABEL COMMENTS 03/14/20 11:15 03/15/20 05:07 DC Glucose (Glucose) 16 GM ASDIRECTED PRN PO SEE LABEL COMMENTS 03/15/20 07:45 Home Med (Med Rec Complete!) ASDIRECTED XX 03/14/20 20:00 03/14/20 19:51 DC Insulin Detemir (Levemir Insulin) 6 units BID SC 03/15/20 09:00 03/16/20 09:31 Insulin Detemir (Levemir Insulin) 8 units BID SC 03/14/20 21:00 03/15/20 04:45 DC 03/14/20 22:00 Insulin Human Lispro (HumaLOG INSULIN) SEE PROTOCOL TABLE AC AK 03/14/20 12:00 03/15/20 04:45 DC 03/14/20 18:17 Insulin Human Lispro (HumaLOG INSULIN) SEE PROTOCOL TABLE AC AK 03/15/20 07:30 03/16/20 09:31 Insulin Human Lispro (HumaLOG INSULIN) SEE PROTOCOL TABLE QHS AK 03/14/20 21:00 03/15/20 04:45 DC 03/14/20 22:01 Insulin Human Lispro (HumaLOG INSULIN) SEE PROTOCOL TABLE QHS AK 03/15/20 21:00 Insulin Human Lispro (HumaLOG INSULIN) See Protocol Table Q2H AK 03/15/20 06:00 03/15/20 07:44 DC Insulin Human Regular (HumuLIN R INSULIN) 5 units STAT STAT SC 03/13/20 23:56 03/13/20 23:57 DC 03/14/20 00:41 Levothyroxine Sodium (Synthroid) 12.5 mcg DAILY@0600 PO 03/14/20 06:00 03/14/20 11:56 DC Levothyroxine Sodium (Synthroid) 12.5 mcg DAILY@0600 PO 03/14/20 06:00 03/15/20 05:08 DC Levothyroxine Sodium (Synthroid) 12.5 mcg DAILY@0600 PO 03/14/20 11:56 03/14/20 11:56 DC Levothyroxine Sodium (Synthroid) 100 mcg DAILY@0600 PO 03/15/20 06:00 03/16/20 06:18 Magnesium Hydroxide (Milk Of Magnesia) 30 ml DAILY PRN PO CONSTIPATION 03/15/20 04:45 Olanzapine (ZyPREXA) 5 mg QPM PO 03/14/20 21:00 03/15/20 05:08 DC 03/14/20 21:58 Olanzapine (ZyPREXA) 5 mg QPM PO 03/15/20 21:00 03/15/20 20:10 Scheduled Atorvastatin Calcium (Atorvastatin Calcium) 10 Mg Tablet, 10 MG PO DAILY, (Reported) Budesonide/Formoterol (Symbicort 160-4.5 Mcg Inhaler) 6 Gm Hfa.aer.ad, 2 PUFF INH BID, (Reported) Divalproex Sodium (Divalproex Sodium ER) 250 Mg Tab.er.24h, 500 MG PO QAM, (Reported) Divalproex Sodium (Divalproex Sodium ER) 250 Mg Tab.er.24h, 250 MG PO QHS, (Reported) Gabapentin (Gabapentin) 300 Mg Capsule, 300 MG PO BID, (Reported) Insulin Glargine,Hum.rec.anlog (Basaglar Kwikpen U-100) 100 Unit/1 Ml Insuln.pen, 8 UNIT SC BID, (Reported) Insulin Lispro (Admelog) 100 Unit/1 Ml Vial, 1 DOSE SC per sliding scale, (Reported) Levothyroxine Sodium (Tirosint) 100 Mcg Capsule, 100 MCG PO QAM, (Reported) Olanzapine (Olanzapine) 5 Mg Tablet, 5 MG PO QPM, (Reported) Allergies Coded Allergies: amoxicillin (Verified Allergy, Mild, HIVES, 02/04/20) clavulanic acid (Verified Allergy, Mild, HIVES, 02/04/20) Iodinated Contrast Media (Verified Allergy, Unknown, ANAPHYLAXIS, 02/04/20) STEVE THORNE DO Mar 16, 2020 11:24
[2020-03-16 11:53] VITALS: BP 100/62
[2020-03-16 19:08] LABS: CHLAMYDIA DNA AMPLIFICATION NEGATIVE (NEGATIVE); GC DNA AMPLIFICATION NEGATIVE (NEGATIVE)
[2020-03-16] MEDS: OLANZapine 5 MG TAB PO SCH (20:49)
[2020-03-16 22:00] VITALS: BP 99/58
[2020-03-17] MEDS: LEVOTHYROXINE 100MCG TABLET (0.1MG) PO SCH (05:40)
[2020-03-17 06:00] VITALS: BP 99/60
[2020-03-17] MEDS: SYMBICORT 160/4.5MCG INHALER 6GM INH SCH (07:35)
[2020-03-17 08:27] LABS: HEMATOCRIT 37.3 % (36.0-47.0); HEMOGLOBIN 11.8 g/dl (12.0-15.5); MEAN CORPUSCULAR HEMOGLOBIN 31.8 pg (27.0-33.0); MEAN CORPUSCULAR HGB CONC 31.6 g/dl (32.0-36.5); MEAN CORPUSCULAR VOLUME 100.5 fl (80.0-96.0); PLATELET COUNT, AUTOMATED 228 10^3/uL (150-450); RED BLOOD COUNT 3.71 10^6/uL (4.00-5.40); WHITE BLOOD COUNT 4.5 10^3/uL (4.0-10.0)
[2020-03-17] MEDS: GABAPENTIN 300 MG CAP PO SCH (08:30)
[2020-03-17] MEDS: DIVALPROEX 250MG *ER* TAB PO SCH (08:30)
[2020-03-17] MEDS: LEVEMIR (INSULIN DETEMIR) 1 UNITS/0.01ML SC SCH (08:31)
[2020-03-17] MEDS: HumaLOG INSULIN (NovoLOG) PER UNIT SC SCH ×3 (08:31→17:00)
[2020-03-17 09:13] LABS: BLOOD UREA NITROGEN 7 MG/DL (7-18); CALCIUM LEVEL 8.3 MG/DL (8.5-10.1); CARBON DIOXIDE LEVEL 26 MEQ/L (21-32); CHLORIDE LEVEL 105 MEQ/L (98-107); CREATININE FOR GFR 0.51 MG/DL (0.55-1.30); GLOMERULAR FILTRATION RATE > 60.0 (>60); GLUCOSE, FASTING 155 MG/DL (70-100); SODIUM LEVEL 138 MEQ/L (136-145)
--- NOTE | 2020-03-17 11:44 | DS.PDOC ---
Discharge Summary General Date of Admission Mar 15, 2020 at 04:32 Date of Discharge 03/17/20 Discharge Summary PROCEDURES PERFORMED DURING STAY: [None]. ADMITTING DIAGNOSES: Hypoglycemia Hypokalemia Type 1 diabetes Hypothyroidism Intentional Self Harm/psychosis TBI with expressive aphasia Pyuria DISCHARGE DIAGNOSES: Hypoglycemia Hypokalemia Type 1 diabetes Hypothyroidism Intentional Self Harm/psychosis TBI with expressive aphasia Pyuria COMPLICATIONS/CHIEF COMPLAINT: Uncontrolled Diabetes Mellitus. HISTORY OF PRESENT ILLNESS: Patient is a 25-year-old with a history of type 1 diabetes, chronic urticaria, hypothyroidism, and TBI was initially brought to the hospital for evaluation after intentionally harming herself; plans were to transfer to an inpatient psych facility but her sugars have been labile. Therefore, she'll be admitted to the medical floor pending better control of her diabetes. HOSPITAL COURSE: During hospital stay following issue addressed Hypoglycemia Resolved Hypokalemia Replaced Type 1 diabetes Insulin sliding scale Detemir twice a day Hypothyroidism Noncompliant to treatment Continue levothyroxine Intentional Self Harm/psychosis Transfer to [facility] OF [facility] after initial stabilization Appreciate/agree with psych consult TBI with expressive aphasia Pyuria Patient denied dysuria urine for gonococcal, chlamydia infection negative DISCHARGE MEDICATIONS: Please see below. ALLERGIES: Please see below. PHYSICAL EXAMINATION ON DISCHARGE: VITAL SIGNS: Please see below. GENERAL APPEARANCE: NAD HEENT: no scleral icterus, no JVD, EOMI CARDIOVASCULAR: S1S2 LUNGS: CTA ABDOMEN: soft & not tender w palpitation MUSCULOSKELETAL: no cyanosis, no swelling INTEGUMENT: no generalized palor NEUROLOGICAL: cranial nerve function from 2-12 intact intact, follows commands LABORATORY DATA: Please see below. PROGNOSIS: Fair ACTIVITY: [As tolerated]. DIET: Diabetes DISCHARGE PLAN:ON LICENSE OF [facility] ITEMS TO FOLLOWUP ON ON OUTPATIENT: Follow-up with psychiatrist DISCHARGE CONDITION: [Stable]. TIME SPENT ON DISCHARGE: Greater than 20 minutes. Vital Signs/I&Os Vital Signs Date Time Temp Pulse Resp B/P (MAP) Pulse Ox O2 Delivery O2 Flow Rate FiO2 03/17/20 06:00 97.9 90 16 99/60 (73) 98 Room Air I&O- Last 24 Hours up to 6 AM 03/17/20 05:59 Intake Total 420 ml Output Total 800 ml Balance -380 ml Laboratory Data Labs 24H Laboratory Tests 2 03/16/20 11:49: Bedside Glucose (Misc Panel) 152H 03/16/20 16:57: Bedside Glucose (Misc Panel) 192H 03/16/20 17:09: Chlamydia trachomatis DNA ([place]) NEGATIVE, Neisseria gonorrhoeae DNA ([place]) NEGATIVE, Trichomonas vaginalis (PCR) NOT DETECTED 03/16/20 20:51: Bedside Glucose (Misc Panel) 213H 03/17/20 05:59: Bedside Glucose (Misc Panel) 180H 03/17/20 08:12: Nucleated Red Blood Cells % (auto) 0.0, Anion Gap 7L, Glomerular Filtration Rate > 60.0, Calcium Level 8.3L CBC/BMP Laboratory Tests 03/17/20 08:12 FSBS Laboratory Tests Test 03/16/20 11:49 03/16/20 16:57 03/16/20 20:51 03/17/20 05:59 Range/Units Bedside Glucose (Misc Panel) 152 192 213 180 70-105 MG/DL Microbiology Microbiology 03/15/20 Respiratory Virus Panel (PCR) ([facility]) - Final, Complete Discharge Medications Scheduled Atorvastatin Calcium (Atorvastatin Calcium) 10 Mg Tablet, 10 MG PO DAILY, (Reported) Budesonide/Formoterol (Symbicort 160-4.5 Mcg Inhaler) 6 Gm Hfa.aer.ad, 2 PUFF INH BID, (Reported) Divalproex Sodium (Divalproex Sodium ER) 250 Mg Tab.er.24h, 500 MG PO QAM, (Reported) Divalproex Sodium (Divalproex Sodium ER) 250 Mg Tab.er.24h, 250 MG PO QHS, (Reported) Gabapentin (Gabapentin) 300 Mg Capsule, 300 MG PO BID, (Reported) Insulin Glargine,Hum.rec.anlog (Basaglar Kwikpen U-100) 100 Unit/1 Ml Insuln. pen, 8 UNIT SC BID, (Reported) Insulin Lispro (Admelog) 100 Unit/1 Ml Vial, 1 DOSE SC per sliding scale, (Reported) Levothyroxine Sodium (Tirosint) 100 Mcg Capsule, 100 MCG PO QAM, (Reported) Olanzapine (Olanzapine) 5 Mg Tablet, 5 MG PO QPM, (Reported) Allergies Coded Allergies: amoxicillin (Verified Allergy, Mild, HIVES, 02/04/20) clavulanic acid (Verified Allergy, Mild, HIVES, 02/04/20) Iodinated Contrast Media (Verified Allergy, Unknown, ANAPHYLAXIS, 02/04/20) JENNIE VILLATORO DO Mar 17, 2020 11:44
[2020-03-17 14:00] VITALS: BP 110/72
--- NOTE | 2020-03-18 17:02 | ECGEPIP ---
[facility] - ED Test Date: 2020-03-14 Pat Name: JEOVANY LEWIS Department: Room: [place] [id number] Gender: Female Supervisor Fleshing: GIANA : 1995 Requested By: Reg Coates Order Number: [id number] Reading MD: Rachelle Schneider Measurements Intervals [place] Rate: 138 P: 161 SC: 140 QRS: -29 QRSD: 73 T: 0 QT: 288 QTc: 438 Interpretive Statements SINUS TACHYCARDIA PROBABLE BASELINE ARTIFACT LIMITS INTEPRETATION LOW QRS VOLTAGE IN EXTREMITY LEADS POSSIBLE ANTERIOR MYOCARDIAL INFARCTION, OF INDETERMINATE AGE INFERIOR MYOCARDIAL INFARCTION, PROBABLY OLD Electronically Signed on 03-18-2020 17:01:47 EST by Rachelle Schneider
== END 2020-03-17 17:15 | DRG 420 ==
LOC: M ED 22:11 → M ED INP 03-15 04:32 → ENRESERV 03-15 04:39 → M PCU 03-15 06:32 → M MS5PR 03-16 11:25
PROVIDERS: ADMIT Internal Medicine; ATTEND Internal Medicine
DX: E10.649 Type 1 diabetes mellitus with hypoglycemia without coma (principal); R45.851 Suicidal ideations; E03.9 Hypothyroidism, unspecified; E87.6 Hypokalemia; L50.8 Other urticaria; F31.9 Bipolar disorder, unspecified; F80.1 Expressive language disorder; E10.40 Type 1 diabetes mellitus with diabetic neuropathy, unspecified; E10.319 Type 1 diabetes mellitus with unspecified diabetic retinopathy without macular edema; F29 Unspecified psychosis not due to a substance or known physiological condition; R82.81 Pyuria; Z79.4 Long term (current) use of insulin; Z79.899 Other long term (current) drug therapy; Z91.14 Patient's other noncompliance with medication regimen; Z88.0 Allergy status to penicillin; Z88.8 Allergy status to other drugs, medicaments and biological substances; Z91.041 Radiographic dye allergy status; Z87.820 Personal history of traumatic brain injury

== ENCOUNTER 2020-03-17 14:07 | Inpatient (IN) | payer OTHER ==
[~2020-03-17] VITALS: Ht 156.2 cm; Wt 47.2 kg
[~2020-03-17 14:07] MED LIST changes: +ATOR1TAB19 PO; +DEPA250T32 PO; +DIVA250T7 PO; +OLAN5TAB PO; +TIRO100C3 PO
[2020-03-17] MEDS ORDERED: traZODone 50 MG TAB PO PRN (14:15)
[2020-03-17] MEDS ORDERED: MAALOX 30 ML SUSP *UDC PO PRN (14:15)
[2020-03-17] MEDS ORDERED: MOM 30ML SUSPENSION UDC PO PRN (14:15)
[2020-03-17] MEDS ORDERED: DEXTROSE 50% 50 ML SYRINGE IV PRN (17:30)
[2020-03-17] MEDS ORDERED: GLUCAGON INJ 1MG VIAL SC PRN (17:30)
[2020-03-17] MEDS ORDERED: GLUCOSE 4GM CHEW TABLET PO PRN (17:30)
[2020-03-17] MEDS: HumaLOG INSULIN (NovoLOG) PER UNIT SC SCH ×2 (17:30→21:00)
[2020-03-17 18:06] VITALS: BP 101/64
[2020-03-17] MEDS: LEVEMIR (INSULIN DETEMIR) 1 UNITS/0.01ML SC SCH (21:12)
[2020-03-18 06:25] VITALS: BP 110/64
[2020-03-18] MEDS: HumaLOG INSULIN (NovoLOG) PER UNIT SC SCH ×4 (06:30→21:01)
[2020-03-18] MEDS ORDERED: INFLUENZA QUADRIVALENT PF VACCINE 0.5ML SYRINGE IM ONE (09:00)
[2020-03-18] MEDS: LEVEMIR (INSULIN DETEMIR) 1 UNITS/0.01ML SC SCH ×2 (09:00→21:00)
--- NOTE | 2020-03-18 10:40 | MHHPEPDOC ---
General Date Of Admission: Mar 18, 2020 Legal Status: 9.39 Chief Complaint "It's going. History of Present Illness HISTORY OF THE PRESENT ILLNESS: Patient is a 25 -year-old , female, who presents to [facility] after attempting to slam her head into a wall, she required medical treatment, she reported a history of increasing irritability, moodiness and depression over the last several weeks, she reports that she has been compliant with her home medications, after she has not been able to see a psychiatrist for quite some time. She was brought in after she was engage in self injurious behavior, screens negative for overt bipolar disorder, but does report auditory hallucinations present at times Psychiatric Review of Systems Depression (2 or more weeks): depressed mood Sofie (4 or more days of): irritable/elevated mood, engages in risky behavior Psychosis: auditory hallucination Anxiety: situational anxiety, stressor related anxiety Past Psychiatric History Previous Psychiatric Diagnosis: bipolar disorder. Previous Psychiatric Admissions: last several years ago. Suicide Attempts:. Denies. Psychiatric Follow-up: none. Psychiatric medications: Depakote and Zyprexa. Past Medical History Medical Problems Diabetes Family Medical/Psychiatric HX Psychiatric Disorders: Yes (Uncle with bipolar disorder) Addiction History denies Social History Current Living Situation: lives with boyfriend and [place], recently moved from [facility]. Education: high school education. Employment: unemployed on disability. Social Support: some support. Legal: none elicited. Marital: reportedly no children. Mental Status Examination General Appearance: unkempt Build: thin Demeanor: average Eye Contact: avoidant Activity: average Behavior: cooperative Speech: slurred Mood: anxious Affect: constricted Thought Process: logical/linear Thought Content (Delusions): none reported, denies SI, HI, AVH Thought Content (Other): none reported Thought Content (Aggressive): none reported Perception (Hallucinations): none reported Perception (Other): none reported Cognition (Impairment of): none reported Cognition(Intelligence Est.): borderline Oriented: Oriented times three Insight: poor Judgment: Poor Psychosis: Denies Assessment The patient presents after having increasing irritability, possible depression versus bipolar, would do best on a mood stabilizing agent, likely would meet criteria for schizoaffective disorder, unspecified, we do best on a long-acting injectable antipsychotic as she reports she has difficulty of compliance Problem List Problems: (1) Schizoaffective disorder Status: Chronic Response to Treatment: Uncontrolled Discussed With: Patient Problem Text: Start paliperidone 3 mg nightly (2) Uncontrolled diabetes mellitus Status: Chronic Response to Treatment: Controlled Problem Specific Plan: Consult Specialist Initial Treatment Plan 1. Patient was admitted on a [9.39] status. 2. Complete history was obtained. 3. With patients permission, family will be contacted and database will be expanded. 4. Patients medication regimen will be reviewed and changed accordingly. 5. Patient will be provided with protected environment. 6. Patient will be treated with individual, group, and milieu therapies. 7. Patient will receive supportive psych-education. 8. Discharge planning will commence immediately. 9. Outpatient follow-up treatment will be strongly recommended. 10. The initial treatment plan will focus initially on: Depression. Risk for suicide. ESTIMATED LENGTH OF STAY: 2-4 DAYS. TIME SPENT COUNSELING AND COORDINATING INITIAL CARE: 30 minutes. Vital Signs Vital Signs Date Time Temp Pulse Resp B/P (MAP) Pulse Ox O2 Delivery O2 Flow Rate FiO2 03/18/20 06:25 99.1 86 16 110/64 (79) 03/17/20 18:06 99 Room Air Laboratory Data 24H Labs Laboratory Tests 2 03/17/20 21:07: Bedside Glucose (Misc Panel) 164H 03/18/20 06:16: Bedside Glucose (Misc Panel) 79 Medications Scheduled Atorvastatin Calcium (Atorvastatin Calcium) 10 Mg Tablet, 10 MG PO DAILY, (Reported) Budesonide/Formoterol (Symbicort 160-4.5 Mcg Inhaler) 6 Gm Hfa.aer.ad, 2 PUFF INH BID, (Reported) Divalproex Sodium (Divalproex Sodium ER) 250 Mg Tab.er.24h, 500 MG PO QAM, (Reported) Divalproex Sodium (Divalproex Sodium ER) 250 Mg Tab.er.24h, 250 MG PO QHS, (Reported) Gabapentin (Gabapentin) 300 Mg Capsule, 300 MG PO BID, (Reported) Insulin Glargine,Hum.rec.anlog (Basaglar Kwikpen U-100) 100 Unit/1 Ml Insuln.pen, 8 UNIT SC BID, (Reported) Insulin Lispro (Admelog) 100 Unit/1 Ml Vial, 1 DOSE SC per sliding scale, (Reported) Levothyroxine Sodium (Tirosint) 100 Mcg Capsule, 100 MCG PO QAM, (Reported) Olanzapine (Olanzapine) 5 Mg Tablet, 5 MG PO QPM, (Reported) Allergies Coded Allergies: amoxicillin (Verified Allergy, Mild, HIVES, 02/04/20) clavulanic acid (Verified Allergy, Mild, HIVES, 02/04/20) Iodinated Contrast Media (Verified Allergy, Unknown, ANAPHYLAXIS, 02/04/20) STEVE THORNE DO Mar 18, 2020 10:40
[2020-03-18 18:00] VITALS: BP 110/71
[2020-03-18] MEDS ORDERED: HumaLOG INSULIN (NovoLOG) PER UNIT SC ONE (18:30)
[2020-03-18] MEDS: PALIPERIDONE 3 MG ER TAB (INVEGA) PO SCH (21:00)
--- NOTE | 2020-03-18 22:32 | HPEPDOC ---
[facility] Medical History & Physical Date of Admission Mar 17, 2020 Date of Service: Mar 18, 2020 History and Physical CHIEF COMPLAINT: Intent for self-harm HISTORY OF PRESENT ILLNESS: Ms. 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 Today, she denies any fever/chills, chest pain, dyspnea, abdominal pain, or dysuria. She used to have an insulin pump and is interested in having another pump, but due to her non- compliance she does not have one. Her PCP wants her to demonstrate she can manage her insulin before being prescribed an insulin pump. PAST MEDICAL HISTORY: 1. Type 1 diabetes mellitus, located by adenopathy and neuropathy 2. Chronic urticaria 3. Tried brain injury with expressive aphasia 4. Hypothyroidism PAST SURGICAL HISTORY: 1. Cleft palate repair 2. Part of her adenoids removed. 3. Tubes inner ears 5. SOCIAL HISTORY: Tobacco use: Former smoker. She quit when she was 16 years old. Reports smoking for a couple years, about 1 pack per day. ETOH: Sometimes drinks alcohol. Last alcohol drink was a couple months ago Illicit drug use: Occasionally uses marijuana. Last use was about 3-4 months ago FAMILY HISTORY: Father: Type 1 diabetes mellitus Mother: Type 2 diabetes mellitus, high blood pressure, hyperlipidemia ALLERGIES: Please see below. REVIEW OF SYSTEMS: CONSTITUTIONAL: Denies any fever or chills. Denies lightheadedness or dizziness. ENT: Denies rhinorrhea. Denies sore throat. RESPIRATORY: Denies shortness of breath. Denies cough. CARDIOVASCULAR: Denies chest pain. GASTROINTESTINAL: Denies abdominal pain. Denies diarrhea. Denies constipation GENITOURINARY: Denies dysuria. CUTANEOUS: Reports scar on upper back MUSCULOSKELETAL: Denies muscle weakness. NEUROLOGICAL: Reports bilateral neuropathy in her legs HEMATOLOGY: Denies easy bruisability HOME MEDICATIONS: Please see below. PHYSICAL EXAMINATION: VITAL SIGNS: Temperature 99, pulse 97, respiratory rate 16, blood pressure 110/71, pulse oximetry 99 % on room air. GENERAL: Comfortable, in no apparent distress. HEENT: Head normocephalic/atraumatic, EOMI, sclera clear. NECK: Supple, no JVD. RESPIRATORY: Lungs clear to auscultation bilaterally, no rales, wheeze or rhonchi. CARDIOVASCULAR: Regular rate and rhythm. ABDOMEN: Soft, nontender, no guarding or rebound tenderness. Normal bowel sounds. MUSCLE SKELETAL: Muscle strength 5/5 in all extremities. NEUROLOGICAL: CN 312 grossly intact, no focal deficits noted. PSYCHOLOGICAL: Normal mood and affect LABORATORY DATA: See below. ASSESSMENT and PLAN: 1. Intent for self-harm Being managed in the inpatient mental health unit 2. Poorly controlled diabetes mellitus Last HbA1c was in January 2020 which was 12.6 Continue Levemir insulin scale insulin 3. Hypothyroidism Continue levothyroxine Thank you for consulting us, we will sign off at this time. If there is any further questions or concerns please do not hesitate to reconsult us. Vital Signs Vital Signs Date Time Temp Pulse Resp B/P (MAP) Pulse Ox O2 Delivery O2 Flow Rate FiO2 03/18/20 18:00 99.0 97 16 110/71 (84) 03/17/20 18:06 99 Room Air Laboratory Data Labs 24H Laboratory Tests 2 03/17/20 21:07: Bedside Glucose (Misc Panel) 164H 03/18/20 06:16: Bedside Glucose (Misc Panel) 79 03/18/20 17:00: Bedside Glucose (Misc Panel) 584*H 03/18/20 17:03: Bedside Glucose (Misc Panel) 581*H 03/18/20 17:23: Bedside Glucose Confirm (Misc) 563*H Home Medications Scheduled Atorvastatin Calcium (Atorvastatin Calcium) 10 Mg Tablet, 10 MG PO DAILY Budesonide/Formoterol (Symbicort 160-4.5 Mcg Inhaler) 6 Gm Hfa.aer.ad, 2 PUFF INH BID Divalproex Sodium (Divalproex Sodium ER) 250 Mg Tab.er.24h, 500 MG PO QAM Divalproex Sodium (Divalproex Sodium ER) 250 Mg Tab.er.24h, 250 MG PO QHS Gabapentin (Gabapentin) 300 Mg Capsule, 300 MG PO BID Insulin Glargine,Hum.rec.anlog (Basaglar Kwikpen U-100) 100 Unit/1 Ml Insuln.pen, 8 UNIT SC BID Insulin Lispro (Admelog) 100 Unit/1 Ml Vial, 1 DOSE SC per sliding scale Levothyroxine Sodium (Tirosint) 100 Mcg Capsule, 100 MCG PO QAM Olanzapine (Olanzapine) 5 Mg Tablet, 5 MG PO QPM Allergies Coded Allergies: amoxicillin (Verified Allergy, Mild, HIVES, 02/04/20) clavulanic acid (Verified Allergy, Mild, HIVES, 02/04/20) Iodinated Contrast Media (Verified Allergy, Unknown, ANAPHYLAXIS, 02/04/20) A-FIB/CHADSVASC A-FIB History Current/History of A-Fib/PAF?: No LEYLA CLANCY DO Mar 18, 2020 20:16
[2020-03-19] MEDS: LEVOTHYROXINE 100MCG TABLET (0.1MG) PO SCH (06:20)
[2020-03-19 06:28] VITALS: BP 121/62
[2020-03-19] MEDS: HumaLOG INSULIN (NovoLOG) PER UNIT SC SCH ×4 (06:48→20:20)
[2020-03-19] MEDS: LEVEMIR (INSULIN DETEMIR) 1 UNITS/0.01ML SC SCH ×2 (08:20→20:20)
[2020-03-19] MEDS: SYMBICORT 160/4.5MCG INHALER 6GM INH SCH ×2 (08:20→20:17)
--- NOTE | 2020-03-19 09:57 | MHIPNPDOC ---
[facility] Progress Note Progress Note DATE OF SERVICE: 03/19/20 HISTORY: the patient is met with today, she reports she is doing better on the paliperidone, she reports no side effects and reports that she is feeling more at ease, she's going to groups engaging well without any significant problem.. VITAL SIGNS: See below. NEW TEST RESULTS: none. CURRENT MEDICATIONS: See below. MENTAL STATUS EXAMINATION: General: [Well dressed with good hygiene] Speech: stutter chronic Thought processes: [Linear and logical] Thought content: [Future orientated] Abstract reasoning, and computation: [Intact] Description of associations: [Intact] Description of abnormal or psychotic thoughts:[Denies any suicidal or homicidal ideation. Denies any auditory or visual hallucinations. Does not appear to be responding to internal stimuli. Does not appear to be endorsing any bizarre or paranoid ideation.] Judgment: [fair] Insight: [fair] Orientation: [Alert and orientated 3] Recent and remote memory: [Intact] Attention span and concentration: [Intact] Fund of knowledge: [Adequate] Mood: ["okay"] Affect: more euthymic DIAGNOSES: 1. Schizoaffective disorder, bipolar type. ASSESSMENT: will continue with paliperidone 3 mg nightly, likely will go to injectable MANAGEMENT PLAN: continue paliperidone, injectable after another day of observation. TIME SPENT: 15 minutes. Vital Signs Vital Signs Date Time Temp Pulse Resp B/P (MAP) Pulse Ox O2 Delivery O2 Flow Rate FiO2 03/19/20 06:28 98.6 82 16 121/62 (81) 03/17/20 18:06 99 Room Air Laboratory Data 24H Labs Laboratory Tests 2 03/18/20 17:00: Bedside Glucose (Misc Panel) 584*H 03/18/20 17:03: Bedside Glucose (Misc Panel) 581*H 03/18/20 17:23: Bedside Glucose Confirm (Misc) 563*H 03/18/20 20:53: Bedside Glucose (Misc Panel) 289H 03/19/20 06:24: Bedside Glucose (Misc Panel) 67L Current Medications Current Medications Medications (Trade) Dose Ordered Sig/Yamilet Route PRN Reason Start Time Stop Time Status Last Admin Dose Admin Acetaminophen (Tylenol Tab) 650 mg Q6HP PRN PO HEADACHE or DISCOMFORT 03/17/20 14:15 Al Hydrox/Mg Hydrox/Simethicone (Mylanta) 30 ml Q4HP PRN PO HEARTBURN/INDIGESTION 03/17/20 14:15 Budesonide/ Formoterol Fumarate (Symbicort 160/ 4.5mcg) 2 puff RBID INH 03/19/20 08:00 03/19/20 08:20 Dextrose (Dextrose 50%) 25 ml ASDIRECTED PRN IV SEE LABEL COMMENTS 03/17/20 17:30 Glucagon (Glucagon) 1 mg ASDIRECTED PRN SC SEE LABEL COMMENTS 03/17/20 17:30 Glucose (Glucose) 16 GM ASDIRECTED PRN PO SEE LABEL COMMENTS 03/17/20 17:30 Insulin Detemir (Levemir Insulin) 8 units BID SC 03/17/20 21:00 03/19/20 08:20 Insulin Human Lispro (HumaLOG INSULIN) SEE PROTOCOL TABLE AC SC 03/17/20 17:30 Insulin Human Lispro (HumaLOG INSULIN) SEE PROTOCOL TABLE QHS SC 03/17/20 21:00 03/18/20 21:01 Levothyroxine Sodium (Synthroid) 100 mcg DAILY@06 PO 03/19/20 06:00 03/19/20 06:20 Magnesium Hydroxide (Milk Of Magnesia) 30 ml DAILYPRN PRN PO CONSTIPATION 03/17/20 14:15 Paliperidone (Invega) 3 mg QHS PO 03/18/20 21:00 03/18/20 21:00 Trazodone HCl (Desyrel) 50 mg QHSP PRN PO INSOMNIA 03/17/20 14:15 03/18/20 21:00 Allergies Coded Allergies: amoxicillin (Verified Allergy, Mild, HIVES, 02/04/20) clavulanic acid (Verified Allergy, Mild, HIVES, 02/04/20) Iodinated Contrast Media (Verified Allergy, Unknown, ANAPHYLAXIS, 02/04/20) STEVE THORNE DO Mar 19, 2020 09:57
[2020-03-19 19:47] VITALS: BP 135/59
[2020-03-19] MEDS: PALIPERIDONE 3 MG ER TAB (INVEGA) PO SCH (20:17)
[2020-03-19] MEDS: GABAPENTIN 300 MG CAP PO SCH (20:18)
[2020-03-20] MEDS: LEVOTHYROXINE 100MCG TABLET (0.1MG) PO SCH (05:58)
[2020-03-20 06:47] VITALS: BP 95/60
[2020-03-20] MEDS: HumaLOG INSULIN (NovoLOG) PER UNIT SC SCH ×4 (07:21→20:10)
[2020-03-20] MEDS: ATORVASTATIN 10 MG TAB PO SCH (09:11)
[2020-03-20] MEDS: SYMBICORT 160/4.5MCG INHALER 6GM INH SCH ×2 (09:12→20:10)
[2020-03-20] MEDS: GABAPENTIN 300 MG CAP PO SCH ×2 (09:12→20:10)
[2020-03-20] MEDS: LEVEMIR (INSULIN DETEMIR) 1 UNITS/0.01ML SC SCH ×2 (09:13→20:10)
[2020-03-20] MEDS: POLYSPORIN TOPICAL OINTMENT 15GM TOP SCH (09:18)
--- NOTE | 2020-03-20 10:38 | MHIPNPDOC ---
[facility] Progress Note Progress Note DATE OF SERVICE: 03/20/20 HISTORY: the patient is met with today, she reports she is doing very well, feeling much more at ease and that she is tolerating the medication very well. She denies any side effects, she is been more social nursing staff report. She is more engaged. She's very open to the injectable medication and feels that it be quite helpful as she has difficulty being compliant as an outpatient, causing her to become more irritable and unable to function. VITAL SIGNS: See below. NEW TEST RESULTS: none. CURRENT MEDICATIONS: See below. MENTAL STATUS EXAMINATION: General: [Well dressed with good hygiene] Speech: stutter chronic Thought processes: [Linear and logical] Thought content: [Future orientated] Abstract reasoning, and computation: [Intact] Description of associations: [Intact] Description of abnormal or psychotic thoughts:[Denies any suicidal or homicidal ideation. Denies any auditory or visual hallucinations. Does not appear to be responding to internal stimuli. Does not appear to be endorsing any bizarre or paranoid ideation.] Judgment: [fair] Insight: [fair] Orientation: [Alert and orientated 3] Recent and remote memory: [Intact] Attention span and concentration: [Intact] Fund of knowledge: [Adequate] Mood: ["okay"] Affect: more euthymic DIAGNOSES: 1. Schizoaffective disorder, bipolar type. ASSESSMENT: will start the injectable series, with likely discharge on Tuesday MANAGEMENT PLAN: continue paliperidone 3 mg QHS, loading dose of paliperidone depot 234 mg given intramuscular, with 2nd dose on Tuesday before discharge TIME SPENT: 15 minutes. Vital Signs Vital Signs Date Time Temp Pulse Resp B/P (MAP) Pulse Ox O2 Delivery O2 Flow Rate FiO2 03/20/20 06:47 98.6 81 16 95/60 (72) 99 03/17/20 18:06 Room Air Laboratory Data 24H Labs Laboratory Tests 2 03/19/20 12:04: Bedside Glucose (Misc Panel) 441H 03/19/20 17:21: Bedside Glucose (Misc Panel) 301H 03/19/20 20:12: Bedside Glucose (Misc Panel) 192H 03/20/20 06:04: Bedside Glucose (Misc Panel) 167H Current Medications Current Medications Medications (Trade) Dose Ordered Sig/Yamilet Route PRN Reason Start Time Stop Time Status Last Admin Dose Admin Acetaminophen (Tylenol Tab) 650 mg Q6HP PRN PO HEADACHE or DISCOMFORT 03/17/20 14:15 Al Hydrox/Mg Hydrox/Simethicone (Mylanta) 30 ml Q4HP PRN PO HEARTBURN/INDIGESTION 03/17/20 14:15 Atorvastatin Calcium (Lipitor) 10 mg DAILY PO 03/20/20 09:00 03/20/20 09:11 Bacitracin/ Polymyxin B Sulfate (Polysporin Top Oint) Left arm DAILY TOP 03/20/20 09:00 03/25/20 08:59 03/20/20 09:18 Budesonide/ Formoterol Fumarate (Symbicort 160/ 4.5mcg) 2 puff RBID INH 03/19/20 08:00 03/20/20 09:12 Dextrose (Dextrose 50%) 25 ml ASDIRECTED PRN IV SEE LABEL COMMENTS 03/17/20 17:30 Gabapentin (Neurontin) 300 mg BID PO 03/19/20 21:00 03/20/20 09:12 Glucagon (Glucagon) 1 mg ASDIRECTED PRN SC SEE LABEL COMMENTS 03/17/20 17:30 Glucose (Glucose) 16 GM ASDIRECTED PRN PO SEE LABEL COMMENTS 03/17/20 17:30 Insulin Detemir (Levemir Insulin) 8 units BID SC 03/17/20 21:00 03/20/20 09:13 Insulin Human Lispro (HumaLOG INSULIN) SEE PROTOCOL TABLE AC SC 03/17/20 17:30 03/20/20 07:21 Insulin Human Lispro (HumaLOG INSULIN) SEE PROTOCOL TABLE QHS SC 03/17/20 21:00 03/18/20 21:01 Levothyroxine Sodium (Synthroid) 100 mcg DAILY@06 PO 03/19/20 06:00 03/20/20 05:58 Magnesium Hydroxide (Milk Of Magnesia) 30 ml DAILYPRN PRN PO CONSTIPATION 03/17/20 14:15 Paliperidone (Invega) 3 mg QHS PO 03/18/20 21:00 03/19/20 20:17 Trazodone HCl (Desyrel) 50 mg QHSP PRN PO INSOMNIA 03/17/20 14:15 03/18/20 21:00 Allergies Coded Allergies: amoxicillin (Verified Allergy, Mild, HIVES, 02/04/20) clavulanic acid (Verified Allergy, Mild, HIVES, 02/04/20) Iodinated Contrast Media (Verified Allergy, Unknown, ANAPHYLAXIS, 02/04/20) STEVE THORNE DO Mar 20, 2020 10:38
[2020-03-20 16:39] VITALS: BP 100/62
[2020-03-20] MEDS ORDERED: PALIPERIDONE PALMITATE 234MG/1.5ML INJ (INVEGA)(FREE PSY INPT ONLY) IM ONE (18:00)
[2020-03-20] MEDS: PALIPERIDONE 3 MG ER TAB (INVEGA) PO SCH (20:10)
[2020-03-21] MEDS: LEVOTHYROXINE 100MCG TABLET (0.1MG) PO SCH (05:59)
[2020-03-21 06:19] VITALS: BP 101/65
[2020-03-21] MEDS: HumaLOG INSULIN (NovoLOG) PER UNIT SC SCH ×4 (07:10→20:12)
[2020-03-21] MEDS: ATORVASTATIN 10 MG TAB PO SCH (08:17)
[2020-03-21] MEDS: GABAPENTIN 300 MG CAP PO SCH ×2 (08:17→20:14)
[2020-03-21] MEDS: SYMBICORT 160/4.5MCG INHALER 6GM INH SCH ×2 (08:17→20:14)
[2020-03-21] MEDS: LEVEMIR (INSULIN DETEMIR) 1 UNITS/0.01ML SC SCH ×2 (08:18→20:15)
[2020-03-21] MEDS: POLYSPORIN TOPICAL OINTMENT 15GM TOP SCH (08:18)
[2020-03-21] MEDS: ACETAMINOPHEN TAB 650MG DOSE (2X325MG) PO PRN ×2 (08:22→20:21)
--- NOTE | 2020-03-21 09:43 | MHIPNPDOC ---
[facility] Progress Note Progress Note DATE OF SERVICE: 03/21/20 HISTORY: The patient is met with today, she reports she is doing well on the medication, she reports no side effects, denying shakiness, jitteriness or other issues. She is quite well without any major irritability, feeling more at ease and improved. VITAL SIGNS: See below. NEW TEST RESULTS: none. CURRENT MEDICATIONS: See below. MENTAL STATUS EXAMINATION: General: [Well dressed with good hygiene] Speech: stutter chronic Thought processes: [Linear and logical] Thought content: [Future orientated] Abstract reasoning, and computation: [Intact] Description of associations: [Intact] Description of abnormal or psychotic thoughts:[Denies any suicidal or homicidal ideation. Denies any auditory or visual hallucinations. Does not appear to be responding to internal stimuli. Does not appear to be endorsing any bizarre or paranoid ideation.] Judgment: [fair] Insight: [fair] Orientation: [Alert and orientated 3] Recent and remote memory: [Intact] Attention span and concentration: [Intact] Fund of knowledge: [Adequate] Mood: ["okay"] Affect: more euthymic DIAGNOSES: 1. Schizoaffective disorder, bipolar type. ASSESSMENT: Will likely discharge Tuesday MANAGEMENT PLAN: continue paliperidone 3 mg QHS, final injection to be given on Tuesday before discharge TIME SPENT: 15 minutes. Vital Signs Vital Signs Date Time Temp Pulse Resp B/P (MAP) Pulse Ox O2 Delivery O2 Flow Rate FiO2 03/21/20 06:19 97.8 81 16 101/65 (77) 97 Room Air 03/20/20 16:39 98.0 Laboratory Data 24H Labs Laboratory Tests 2 03/20/20 12:00: Bedside Glucose (Misc Panel) 144H 03/20/20 17:22: Bedside Glucose (Misc Panel) 318H 03/20/20 20:06: Bedside Glucose (Misc Panel) 187H 03/21/20 06:02: Bedside Glucose (Misc Panel) 124H Current Medications Current Medications Medications (Trade) Dose Ordered Sig/Yamilet Route PRN Reason Start Time Stop Time Status Last Admin Dose Admin Acetaminophen (Tylenol Tab) 650 mg Q6HP PRN PO HEADACHE or DISCOMFORT 03/17/20 14:15 03/21/20 08:22 Al Hydrox/Mg Hydrox/Simethicone (Mylanta) 30 ml Q4HP PRN PO HEARTBURN/INDIGESTION 03/17/20 14:15 Atorvastatin Calcium (Lipitor) 10 mg DAILY PO 03/20/20 09:00 03/21/20 08:17 Bacitracin/ Polymyxin B Sulfate (Polysporin Top Oint) Left arm DAILY TOP 03/20/20 09:00 03/25/20 08:59 03/21/20 08:18 Budesonide/ Formoterol Fumarate (Symbicort 160/ 4.5mcg) 2 puff RBID INH 03/19/20 08:00 03/21/20 08:17 Dextrose (Dextrose 50%) 25 ml ASDIRECTED PRN IV SEE LABEL COMMENTS 03/17/20 17:30 Gabapentin (Neurontin) 300 mg BID PO 03/19/20 21:00 03/21/20 08:17 Glucagon (Glucagon) 1 mg ASDIRECTED PRN SC SEE LABEL COMMENTS 03/17/20 17:30 Glucose (Glucose) 16 GM ASDIRECTED PRN PO SEE LABEL COMMENTS 03/17/20 17:30 Insulin Detemir (Levemir Insulin) 8 units BID SC 03/17/20 21:00 03/21/20 08:18 Insulin Human Lispro (HumaLOG INSULIN) SEE PROTOCOL TABLE AC SC 03/17/20 17:30 03/21/20 07:10 Insulin Human Lispro (HumaLOG INSULIN) SEE PROTOCOL TABLE QHS SC 03/17/20 21:00 03/18/20 21:01 Levothyroxine Sodium (Synthroid) 100 mcg DAILY@06 PO 03/19/20 06:00 03/21/20 05:59 Magnesium Hydroxide (Milk Of Magnesia) 30 ml DAILYPRN PRN PO CONSTIPATION 03/17/20 14:15 Paliperidone (Invega) 3 mg QHS PO 03/18/20 21:00 03/20/20 20:10 Trazodone HCl (Desyrel) 50 mg QHSP PRN PO INSOMNIA 03/17/20 14:15 03/18/20 21:00 Allergies Coded Allergies: amoxicillin (Verified Allergy, Mild, HIVES, 02/04/20) clavulanic acid (Verified Allergy, Mild, HIVES, 02/04/20) Iodinated Contrast Media (Verified Allergy, Unknown, ANAPHYLAXIS, 02/04/20) STEVE THORNE DO Mar 21, 2020 09:43
[2020-03-21 16:00] VITALS: BP 111/70
[2020-03-21] MEDS: PALIPERIDONE 3 MG ER TAB (INVEGA) PO SCH (20:14)
[2020-03-22 06:34] VITALS: BP 121/73
[2020-03-22] MEDS: LEVOTHYROXINE 100MCG TABLET (0.1MG) PO SCH (06:45)
[2020-03-22] MEDS: HumaLOG INSULIN (NovoLOG) PER UNIT SC SCH ×4 (06:50→20:17)
[2020-03-22] MEDS: LEVEMIR (INSULIN DETEMIR) 1 UNITS/0.01ML SC SCH ×2 (08:47→20:16)
[2020-03-22] MEDS: ATORVASTATIN 10 MG TAB PO SCH (08:47)
[2020-03-22] MEDS: POLYSPORIN TOPICAL OINTMENT 15GM TOP SCH (08:47)
[2020-03-22] MEDS: SYMBICORT 160/4.5MCG INHALER 6GM INH SCH ×2 (08:47→20:16)
[2020-03-22] MEDS: GABAPENTIN 300 MG CAP PO SCH ×2 (08:47→20:17)
[2020-03-22 17:26] VITALS: BP 105/70
[2020-03-22] MEDS: PALIPERIDONE 3 MG ER TAB (INVEGA) PO SCH (20:17)
[2020-03-22] MEDS: ACETAMINOPHEN TAB 650MG DOSE (2X325MG) PO PRN (20:23)
[2020-03-23] MEDS: LEVOTHYROXINE 100MCG TABLET (0.1MG) PO SCH (06:14)
[2020-03-23 06:25] VITALS: BP 112/72
[2020-03-23] MEDS: HumaLOG INSULIN (NovoLOG) PER UNIT SC SCH ×4 (06:27→20:30)
[2020-03-23] MEDS: POLYSPORIN TOPICAL OINTMENT 15GM TOP SCH (09:31)
[2020-03-23] MEDS: GABAPENTIN 300 MG CAP PO SCH ×2 (09:31→20:28)
[2020-03-23] MEDS: SYMBICORT 160/4.5MCG INHALER 6GM INH SCH ×2 (09:31→20:28)
[2020-03-23] MEDS: LEVEMIR (INSULIN DETEMIR) 1 UNITS/0.01ML SC SCH ×2 (09:32→20:30)
[2020-03-23] MEDS: ATORVASTATIN 10 MG TAB PO SCH (09:32)
[2020-03-23] MEDS: ACETAMINOPHEN TAB 650MG DOSE (2X325MG) PO PRN (14:46)
[2020-03-23 18:26] VITALS: BP 98/58
[2020-03-23] MEDS: PALIPERIDONE 3 MG ER TAB (INVEGA) PO SCH (20:28)
[2020-03-24] MEDS: LEVOTHYROXINE 100MCG TABLET (0.1MG) PO SCH (06:02)
[2020-03-24 06:34] VITALS: BP 120/73
[2020-03-24] MEDS: HumaLOG INSULIN (NovoLOG) PER UNIT SC SCH ×2 (07:10→12:02)
[2020-03-24] MEDS ORDERED: PALIPERIDONE PALMITATE 156MG/1ML INJ(INVEGA)(FREE PSY INPT ONLY) IM ONE (09:00)
[2020-03-24] MEDS: ATORVASTATIN 10 MG TAB PO SCH (09:28)
[2020-03-24] MEDS: GABAPENTIN 300 MG CAP PO SCH (09:28)
[2020-03-24] MEDS: POLYSPORIN TOPICAL OINTMENT 15GM TOP SCH (09:28)
[2020-03-24] MEDS: LEVEMIR (INSULIN DETEMIR) 1 UNITS/0.01ML SC SCH (09:28)
[2020-03-24] MEDS: SYMBICORT 160/4.5MCG INHALER 6GM INH SCH (09:29)
--- NOTE | 2020-03-24 09:53 | MHDSPDOC ---
[facility] Discharge Summary Discharge Summary DATE OF ADMISSION: Mar 17, 2020 at 17:17 DATE OF DISCHARGE: Mar 24, 2020 at 14:40 DISCHARGE DIAGNOSES: Schizoaffective disorder unspecified CONSULTANTS INVOLVED:[ None (basic hospitalist screening)] REASON FOR ADMISSION & TREATMENT AND PROGRESS ON THE UNIT : The patient was admitted from the medical floor after engaging in some irritability and self mutilating behavior by slamming her head on a wall during an argument, she reports medical treatment on the medical floor before coming to our unit. She was initially started on Depakote and Zyprexa, which was changed to Invega 3 mg nightly. This was with the intention to change her to a long- acting injectable which would help improve her compliance, of which she identified was one of her issues. She then improved reported that she was becoming more euthymic and engaged less irritable and more calm. She subsequently then was injected with 234 mg intramuscular once and then observed over the weekend where she got her second injection of 154 mg doing very well, she engaged well in the unit and generally was amenable and fairly flexible. Her diabetes was well managed and she did not have any significant concerning behaviors DISCHARGE ASSESSMENT[improved] Legal status considerations: The patient at the time of discharge did not meet criteria for involuntary admission/extension due to having a [normal] mental status exam, [fair] insight into the situation, They are engaged in the discharge process, as well as being friendly and amenable in behavioral control and havent been engaging in any observed concerning behavior or ideation recently. They decline voluntary extension/admission at this time and must be discharged in good ac, as Im unable to make a case for holding the patient against their will. They may have historical risk factors of admissions and other interactions with psychiatry however, those are not modifiable from a clinical perspective. The patient will need to be discharged in good ac. MENTAL STATUS EXAMINATION ON DISCHARGE: [General: Well dressed with good hygiene Speech: Spontaneous and fluid Thought processes: Linear and logical Thought content: Future orientated Abstract reasoning, and computation: Intact Description of associations: Intact Description of abnormal or psychotic thoughts:Denies any suicidal or homicidal ideation. Denies any auditory or visual hallucinations. Does not appear to be responding to internal stimuli. Does not appear to be endorsing any bizarre or paranoid ideation. Judgment: fair Insight: fair Orientation: Alert and orientated 3 Recent and remote memory: Intact Attention span and concentration: Intact Fund of knowledge: Adequate Mood: "okay" Affect: Euthymic with a full range] PLAN/FOLLOWUP ARRANGEMENTS: Follow up appointments made (PCP and MH in 5 days of D/C date) and safety plan completed. Safety Planning aspects completed prior to discharge Long-acting injectable medication to improve compliance and reduce chance of readmission and mortality/morbidity [Family contact completed, educated on safe practices, instructed on removal and mitigation of dangerous means] [RN reviewed crisis hotline information and other aspects to empower patient to access care in interim before next appointment.] The amount of time spent in the coordination of care for this patient was approximately 30 minutes. Vital Signs/I&Os Vital Signs Date Time Temp Pulse Resp B/P (MAP) Pulse Ox O2 Delivery O2 Flow Rate FiO2 03/24/20 06:34 97.9 75 16 120/73 (89) Room Air 03/23/20 18:26 97 03/20/20 16:39 98.0 Laboratory Data Labs 24H Laboratory Tests 2 03/23/20 11:34: Bedside Glucose (Misc Panel) 335H 03/23/20 16:57: Bedside Glucose (Misc Panel) 358H 03/23/20 20:24: Bedside Glucose (Misc Panel) 186H 03/24/20 06:07: Bedside Glucose (Misc Panel) 203H Medications Scheduled Atorvastatin Calcium (Atorvastatin Calcium) 10 Mg Tablet, 10 MG PO DAILY, (Rep orted) Budesonide/Formoterol (Symbicort 160-4.5 Mcg Inhaler) 6 Gm Hfa.aer.ad, 2 PUFF INH BID, (Reported) Gabapentin (Gabapentin) 300 Mg Capsule, 300 MG PO BID, (Reported) Insulin Glargine,Hum.rec.anlog (Basaglar Kwikpen U-100) 100 Unit/1 Ml Insuln.pen, 8 UNIT SC BID, (Reported) Insulin Lispro (Admelog) 100 Unit/1 Ml Vial, 1 DOSE SC per sliding scale, (Reported) Levothyroxine Sodium (Tirosint) 100 Mcg Capsule, 100 MCG PO QAM, (Reported) Paliperidone Palmitate (Invega Sustenna) 156 Mg/1 Ml Syringe, 1 SYRINGE IM Q30D for thoughts for 30 Days, #1 next dose due 04/24/20 Allergies Coded Allergies: amoxicillin (Verified Allergy, Mild, HIVES, 02/04/20) clavulanic acid (Verified Allergy, Mild, HIVES, 02/04/20) Iodinated Contrast Media (Verified Allergy, Unknown, ANAPHYLAXIS, 02/04/20) STEVE THORNE DO Mar 24, 2020 09:53
[2020-03-24] MEDS ORDERED: INVE156I IM (10:42)
== END 2020-03-24 14:40 | disposition home or self-care (01) | DRG 750 ==
LOC: M PSY 17:17
PROVIDERS: ADMIT Psychiatry & Neurology Addiction Medicine; ATTEND Psychiatry & Neurology Addiction Medicine
DX: F25.0 Schizoaffective disorder, bipolar type (principal); E10.40 Type 1 diabetes mellitus with diabetic neuropathy, unspecified; E10.65 Type 1 diabetes mellitus with hyperglycemia; Z79.4 Long term (current) use of insulin; Z79.899 Other long term (current) drug therapy; Z88.0 Allergy status to penicillin; Z88.8 Allergy status to other drugs, medicaments and biological substances; L50.9 Urticaria, unspecified; Z87.820 Personal history of traumatic brain injury; F80.1 Expressive language disorder; Z87.891 Personal history of nicotine dependence

== ENCOUNTER 2020-06-04 23:45 | Inpatient (IN) | payer OTHER ==
[~2020-06-04] VITALS: Ht 154.9 cm; Wt 45.9 kg
[~2020-06-04 23:45] MED LIST changes: -CLIN150C14 PO; +CLIN150C15 PO; +GABA-282 PO; -GABA-843 PO; +INVE156I IM
--- OUTSIDE RECORDS SUMMARY | 2020-06-05 01:49 | CCD ---
Author Author [facility] Organization [facility] Address Unknown Phone Unavailable Care Team Providers Care Automobile Tire Builder Name Role Phone Sunny Rainey MD Unavailable Unavailable Sunny Rainey MD Unavailable Unavailable Sunny Rainey MD Unavailable Unavailable Sunny Rainey MD Unavailable Unavailable Sunny Rainey MD Unavailable Unavailable Sunny Rainey MD Unavailable Unavailable Sunny Rainey MD Unavailable Unavailable Sunny Rainey MD Unavailable Unavailable Martha GANN MD Unavailable Unavailable Martha GANN MD Unavailable Unavailable Martha GANN MD Unavailable Unavailable Martha GANN MD Unavailable Unavailable Martha GANN MD Unavailable Unavailable Martha GANN MD Unavailable Unavailable Martha GANN MD Unavailable Unavailable Martha GANN MD Unavailable Unavailable Martha GANN MD Unavailable Unavailable Martha GANN MD Unavailable Unavailable Martha GANN MD Unavailable Unavailable Martha GANN MD Unavailable Unavailable Martha GANN MD Unavailable Unavailable Martha Garrett MD Unavailable Unavailable Martha Garrett MD Unavailable Unavailable Martha Garrett MD Unavailable Unavailable Martha Garrett MD Unavailable Unavailable Martha Garrett MD Unavailable Unavailable Martha Garrett MD Unavailable Unavailable Martha Garrett MD Unavailable Unavailable Martha Garrett MD Unavailable Unavailable Martha Garrett MD Unavailable Unavailable Martha Garrett MD Unavailable Unavailable Martha Garrett MD Unavailable Unavailable Martha Garrett MD Unavailable Unavailable Martha Garrett MD Unavailable Unavailable Martha Garrett MD Unavailable Unavailable Martha Garrett MD Unavailable Unavailable Martha Garrett MD Unavailable Unavailable Martha Garrett MD Unavailable Unavailable Martha Garrett MD Unavailable Unavailable Martha Garrett MD Unavailable Unavailable Martha Garrett MD Unavailable Unavailable Martha Garrett MD Unavailable Unavailable Martha Garrett MD Unavailable Unavailable Martha Garrett MD Unavailable Unavailable Martha Garrett MD Unavailable Unavailable Martha Garrett MD Unavailable Unavailable Martha Garrett MD Unavailable Unavailable Win, S Elliot MD Unavailable Unavailable Win, S Elliot MD Unavailable Unavailable Win, S Elliot MD Unavailable Unavailable Win, S Elliot MD Unavailable Unavailable Win, S Elliot MD Unavailable Unavailable Win, S Elliot MD Unavailable Unavailable Win, S Elliot MD Unavailable Unavailable Win, S Elliot MD Unavailable Unavailable Win, S Elliot MD Unavailable Unavailable Win, S Elliot MD Unavailable Unavailable Win, S Elliot MD Unavailable Unavailable Win, S Elliot MD Unavailable Unavailable Win, S Elliot MD Unavailable Unavailable Win, S Elliot MD Unavailable Unavailable Win, S Elliot MD Unavailable Unavailable Win, S Elliot MD Unavailable Unavailable MAXX GANN MD Unavailable Unavailable Dilshad Hyatt M.D. Unavailable [phone] Dilshad Hyatt M.D. Unavailable Dilshad Hyatt M.D. Unavailable Dilshad Hyatt M.D. Unavailable [phone] Dilshad Hyatt M.D. Unavailable [phone] VANWAGNER, SOMMER DO Unavailable Unavailable VANWAGNER, SOMMER DO Unavailable Unavailable VANWAGNER, SOMMER DO Unavailable Unavailable VANWAGNER, SOMMER DO Unavailable Unavailable VANWAGNER, SOMMER DO Unavailable Unavailable VANWAGNER, SOMMER DO Unavailable Unavailable VANWAGNER, SOMMER DO Unavailable Unavailable VANWAGNER, SOMMER DO Unavailable Unavailable VANWAGNER, SOMMER DO Unavailable Unavailable VANWAGNER, SOMMER DO Unavailable Unavailable VANWAGNER, SOMMER DO Unavailable Unavailable VANWAGNER, SOMMER DO Unavailable Unavailable VANWAGNER, SOMMER DO Unavailable Unavailable VANWAGNER, SOMMER DO Unavailable Unavailable VANWAGNER, SOMMER DO Unavailable Unavailable VANWAGNER, SOMMER DO Unavailable Unavailable MAURICIO, JASON KIRSTEN CNM Unavailable Unavailable MAURICIO, JASON KIRSTEN CNM Unavailable Unavailable MAURICIO, JASON KIRSTEN CNM Unavailable Unavailable MAURICIO, JASON KIRSTEN CNM Unavailable Unavailable MAURICIO, JASONALBA MAURICEARA CNM Unavailable Unavailable MAURICIO, JASON KIRSTEN CNM Unavailable Unavailable MAURICIO, JASON KIRSTEN CNM Unavailable Unavailable MAURICIO, JASON KIRSTEN CNM Unavailable Unavailable MAURICIO, JASON KIRSTEN CNM Unavailable Unavailable ALDO ORTIZ MD Unavailable Unavailable Garcia, J Devon PA Unavailable [phone] Garcia, J Devon PA Unavailable [phone] Garcia, J Devon PA Unavailable [phone] Garcia, J Devon PA Unavailable [phone] Garcia, J Devon PA Unavailable [phone] Garcia, J Devon PA Unavailable [phone] Garcia, J Devon PA Unavailable [phone] Garcia, J Devon PA Unavailable [phone] Garcia, J Devon PA Unavailable [phone] Garcia, J Devon PA Unavailable [phone] Garcia, J Devon PA Unavailable [phone] DORA RAINEY MD Unavailable Unavailable VERÓNICA GARCIA MD Unavailable Unavailable VERÓNICA GARCIA MD Unavailable Unavailable Garcia J Devon PA Unavailable Unavailable Win, S Elliot Unavailable Unavailable Win, S Elliot MD Unavailable Unavailable Win, S Elliot MD Unavailable Unavailable Win, S Elliot MD Unavailable Unavailable Win, S Elliot MD Unavailable Unavailable Win, S Elliot MD Unavailable Unavailable Win, S Elliot MD Unavailable Unavailable Win, S Elliot MD Unavailable Unavailable Win, S Elliot MD Unavailable Unavailable Win, S Elliot MD Unavailable Unavailable Win, S Elliot MD Unavailable Unavailable Win, S Elliot MD Unavailable Unavailable Win, S Elliot MD Unavailable Unavailable Win, S Elliot MD Unavailable Unavailable Win, S Elliot MD Unavailable Unavailable Win, S Elliot MD Unavailable Unavailable Derrick Vela Debbie LOGISTICAL ENGINEER Unavailable Unavailable Sienkiewycz, L Debbie LOGISTICAL ENGINEER Unavailable Unavailable Sienkiewycz, L Debbie LOGISTICAL ENGINEER Unavailable Unavailable Sienkiewycz, L Debbie LOGISTICAL ENGINEER Unavailable Unavailable AL-Kin, Tate ANTONIO Unavailable Unavailable AL-Kin, Tate MD Unavailable Unavailable AL-Kin, Tate MD Unavailable Unavailable AL-Kin, Tate MD Unavailable Unavailable AL-Kin, Tate MD Unavailable Unavailable AL-Kin, Tate MD Unavailable Unavailable AL-Kin, Tate MD Unavailable Unavailable AL-Kni, Tate MD Unavailable Unavailable AL-Kin, Tate MD Unavailable Unavailable Brydges, I Eliud DO Unavailable Unavailable Brydges, I Eliud DO Unavailable Unavailable Brydges, I Eliud DO Unavailable Unavailable Brydges, I Eliud DO Unavailable Unavailable Brydges, I Eliud DO Unavailable Unavailable Brydges, I Eliud DO Unavailable Unavailable Brydges, I Eliud DO Unavailable Unavailable Brydges, I Eliud DO Unavailable Unavailable Brydges, I Eliud DO Unavailable Unavailable Brydges, I Eliud DO Unavailable Unavailable Brydges, I Eliud DO Unavailable Unavailable Brydges, I Eliud DO Unavailable Unavailable Brydges, I Eliud DO Unavailable Unavailable Brydges, I Eliud DO Unavailable Unavailable Brydges, I Eliud DO Unavailable Unavailable Brydges, I Eliud DO Unavailable Unavailable Brydges, I Eliud DO Unavailable Unavailable Brydges, I Eliud DO Unavailable Unavailable Brydges, I Eliud DO Unavailable Unavailable Brydges, I Eliud DO Unavailable Unavailable Brydges, I Eliud DO Unavailable Unavailable Brydges, I Eliud DO Unavailable Unavailable Brydges, I Eliud DO Unavailable Unavailable Brydges, I Eliud DO Unavailable Unavailable Brydges, I Eliud DO Unavailable Unavailable Brydges, I Eliud DO Unavailable Unavailable Brydges, I Eliud DO Unavailable Unavailable Brydges, I Eliud DO Unavailable Unavailable Brydges, I Eliud DO Unavailable Unavailable Brydges, I Eliud DO Unavailable Unavailable Brydges, I Eliud DO Unavailable Unavailable Brydges, Jacklyn Kline DO Unavailable Unavailable Re-disclosure Warning The records that you are about to access may contain information from federally-assisted alcohol or drug abuse programs. If such information is present, then the following federally mandated warning applies: This information has been disclosed to you from records protected by federal confidentiality rules (42 CFR part 2). The federal rules prohibit you from making any further disclosure of this information unless further disclosure is expressly permitted by the written consent of the person to whom it pertains or as otherwise permitted by 42 CFR part 2. A general authorization for the release of medical or other information is NOT sufficient for this purpose. The Federal rules restrict any use of the information to criminally investigate or prosecute any alcohol or drug abuse patient.The records that you are about to access may contain highly sensitive health information, the redisclosure of which is protected by Article 27-F of the [facility] Public Health law. If you continue you may have access to information: Regarding HIV / AIDS; Provided by facilities licensed or operated by the [facility] Office of Mental Health; or Provided by the [facility] Office for People With Developmental Disabilities. If such information is present, then the following [facility] mandated warning applies: This information has been disclosed to you from confidential records which are protected by state law. State law prohibits you from making any further disclosure of this information without the specific written consent of the person to whom it pertains, or as otherwise permitted by law. Any unauthorized further disclosure in violation of state law may result in a fine or senior care sentence or both. A general authorization for the release of medical or other information is NOT sufficient authorization for further disc losure. Allergies and Adverse Reactions Type Description Substance Reaction Status Data Source(s ) Allergy Allergy Amoxicillin [facility] Allergy Allergy clavulanic acid [facility] Allergy Allergy iodine BREATHING DIFFICULTY [facility] Encounters Encounter Providers Location Date Indications Data Source(s ) Outpatient Attender: Mary Garrett MD 0 06/02/2020 01:40:11 PM EST - 06/02/2020 02:21:50 PM EST [facility] Outpatient Attender: Mary Garrett MD 0 05/16/2020 02:11:21 PM EST - 05/16/2020 02:36:56 PM EST [facility] Outpatient Attender: Devon CHANG CPSCAORT-CPSCAEND 04/24/2020 03:03:00 PM EST - 04/24/2020 03:04:00 PM EST [facility] Patient discharged. Outpatient Attender: Devon SOTOttender: Jorge A CHANG CPSCAORT-CPSCAEND 03/12/2020 02:35:00 PM EST - 03/12/2020 02:36:00 PM ES T E10.65 [facility] E10.65 Patient discharged. Outpatient Attender: Devon CHANG CPSCAORT-CPSCAEND 02/13/2020 01:30:00 PM EDT [facility] Outpatient Attender: Devon CHANG CPSCAORT-CPSCAEND 12/06/2019 01:46:00 PM EDT - 12/06/2019 01:47:00 PM EDT [facility] Patient discharged. Outpatient Attender: Eliud Rose DO ER-WOUND 11/01/2019 01:50:0 0 PM EDT [facility] Outpatient Attender: Eliud Rose DO ER-WOUND 10/18/2019 01:46:0 0 PM EDT [facility] Outpatient Attender: Eliud Rose DO ER-WOUND 10/11/2019 01:42:0 0 PM EDT [facility] Outpatient Attender: Devon SOTOttender: Jorge A CHANG CPSCAORT-CPSCAEND 10/05/2019 01:51:00 PM EDT - 10/05/2019 01:52:00 PM ED T E10.65, E03.9, N92.6 [facility] E10.65, E03.9, N92.6 Patient discharged. Outpatient Attender: Eliud Rose DO ER-WOUND 10/04/2019 02:40:0 0 PM EDT [facility] Emergency Attender: Tate Hooper MD ER-ER 0 09/26/2019 07:17:00 PM EDT - 09/27/2019 04:34:00 AM EDT [facility] Patient discharged. Outpatient Attender: Eliud Rose DO ER-WOUND 07/06/2019 10:51:0 0 AM EDT [facility] Outpatient Attender: Devon Garcia PAAttender: Jorge A CHANG CPSCAORT-CPSCAEND 07/04/2019 02:15:00 PM EDT - 07/04/2019 02:16:00 PM ED T E11.65 [facility] E11.65 Patient discharged. Emergency Attender: Dora Rainey MDAttender: DORA RAINEY MD ER-ER 07/03/2019 03:43:00 PM EDT - 07/03/2019 03:56:00 PM EDT [facility] Patient discharged. Outpatient Attender: Eliud Rose DO ER-WOUND 06/29/2019 10:59:0 0 AM EDT [facility] Outpatient Attender: MAXX GANN MDAttender: MAXX GANN MD ER-WOUND 06/07/2019 09:05:00 AM [facility] Outpatient Attender: Devon CHANG CPSCAORT-CPSCAEND 06/04/2019 08:11:00 AM EST - 06/04/2019 08:12:00 AM EST [facility] Patient discharged. Outpatient Attender: SOMMER SANCHEZ DO CPSCAORT-CPSLAOPT 01:34:00 PM EST - 05/22/2019 01:35:00 PM EST [facility] Patient discharged. Outpatient Attender: KIRSTEN MARTÍNEZ CNM Attender: Tom Hyatt M.D.Attender: Elliot Leal MDAttender: Debbie Vela NP [facility] 05/08/2019 12:09:00 PM [facility] Outpatient Attender: Devon Garcia PAAttender: Jorge A CHANG CPSCAORT-CPSCAEND 05/04/2019 02:04:00 PM EST - 05/04/2019 02:05:00 PM ES T E03.9, Z3A.01 [facility] E03.9, Z3A.01 Patient discharged. Emergency Attender: Dora Rainey MDAttender: DORA RAINEY MD ER-ER 04/14/2019 07:54:00 PM EST - 04/14/2019 08:23:00 PM EST [facility] Patient discharged. Outpatient Attender: Devon Julesender: Jorge A CHANG CPSCAORT-CPSCAEND 03/29/2019 02:18:00 PM EST - 03/29/2019 02:19:00 PM ES T E10.65 [facility] E10.65 Patient discharged. Inpatient Attender: HENOK ORTIZ MDAt tender: Tate Hooper MDAdmitter: HENOK ORTIZ MD ER-3RD 11/16/2018 04:15:00 PM EDT - 11/22/2018 01:31:00 PM EDT [facility] Patient discharged. Emergency Attender: VERÓNICA GARCIA MD ER-ER 01/2019 11:54:00 AM EDT - 08/25/2018 04:43:00 PM EDT [facility] Outpatient Attender: Elliot Leal MD ER-LAB 08/25/2018 11:14:00 AM EDT [facility] Outpatient Attender: Eliud Rose DO ER-WOUND 08/16/2018 10:25:0 0 AM [facility] Outpatient Attender: Eliud Rose DO ER-WOUND 08/10/2018 [facility]55[facility] Eliud Rose DO ER-WOUND 08/04/2018 10:01:0 0 AM [facility] Outpatient Attender: Eliud Rose DO ER-WOUND 08/02/2018 01:28:0 0 PM EDT [facility] Outpatient Attender: Eliud Rose DO ER-WOUND 07/28/2018 09:56:0 0 AM [facility] Insurance Providers Payer name Policy type / Coverage type Policy ID Covered green party ID Covered green party's relationship to amos Policy Amos Plan Information NORMA [id number] SP [id number] [employer] [id number] Self [id number] [facility] [id number] Unemployed [id number] [facility] [id number] [facility] [id number] SP [id number] [employer] [id number] SP [id number] [employer] [id number] S [id number] [facility] [id number] S [id number] [employer] [id number] SP [id number] Problems, Conditions, and Diagnoses Code Display Name Description Problem Type Effective Dates Data Source(s) Z53.29 Procedure and treatment not carried out because of patient's decision for other reasons PROC/TRTMT NOT CRD OUT BEC PT DECISION FOR OTH REASONS Diagn osis 02/13/2020 01:30:[address] [facility] Z91.19 Patient's noncompliance with other medic al treatment and regimen PATIENT'S NONCOMPLIANCE W OTH MEDICAL TREATMENT AND REGIMEN Diagnosis 02/13/2020 01:30:[address] [facility] Z91.14 Patient's other noncompliance with medic ation regimen PATIENT'S OTHER NONCOMPLIANCE WITH MEDICATION REGIMEN Diagnosis 02/13/2020 01:30:[address] [facility] Z91.11 Patient's noncompliance with dietary reg imen PATIENT'S NONCOMPLIANCE WITH DIETARY REGIMEN Diagnosis 02/13/2020 01:30:00 PM [facility] Z79.4 buttermaker (current) use of insulin USP (CU RRENT) USE OF INSULIN Diagnosis 02/13/2020 01:30:[address] [facility] E03.9 Hypothyroidism, unspecified HYPOTHYROIDISM, UNSPECIFIE D Diagnosis 02/13/2020 01:30:[address] 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 NON- PRESSURE CHRONIC ULCER OF RIGHT CALF W FAT LAY Diagnosis 020 01:50:00 PM [facility] I87.311 Chronic venous hypertension (idiopathic) with ulcer of right lower extremity CHRONIC VENOUS HYPERTENSION W ULCER OF R LOW EXTREM Diagnosi s 11/01/2019 01:50:00 PM [facility] S51.802A Unspecified open wound of left forearm, initial encounter UNSPECIFIED OPEN WOUND OF LEFT FOREARM, INITIAL EN Diagnosis 10/11/2019 01:42:00 P M [facility] Y99.9 Unspecified external cause status UNSPECIFIED EX TERNAL CAUSE STATUS Diagnosis 10/04/2019 02:40:00 PM [facility] Y92.[address] or not applicable UNSPECIFIED PLACE OR NOT APPLICABLE Diagnosis 10/04/2019 02:40:00 PM [facility] Y93.9 Activity, unspecified ACTIVITY, UNSPECIFIED Diagnosis 10/04/2019 02:40:00 PM [facility] X58.XXXA Exposure to other specified factors, ini tial encounter EXPOSURE TO OTHER SPECIFIED FACTORS, INITIAL ENCOU Diagnosis 10/04/2019 02:40:00 P M [facility] S21.209A Unspecified open wound of un specified back wall of thorax without penetration into thoracic cavity, initial encounter UNSP OPN WND UNSP BK WL OF THORAX W/O PENET THOR CAV, INIT Diagnosis 10/04/2019 02:40:00 PM EDT [facility] Z79.4 buttermaker (current) use of insulin USP (CU RRENT) USE OF INSULIN Diagnosis 09/26/2019 07:17:00 PM [facility] R53.83 Other fatigue OTHER FATIGUE Diagnosis 09/26/2019 07:17:00 PM [facility] E10.649 Type 1 diabetes mellitus with hypoglycem ia without coma TYPE 1 DIABETES MELLITUS WITH HYPOGLYCEMIA WITHOUT COMA Diagnosis 09/26/2019 07:17:00 PM [facility] K02.9 Dental caries, unspecified DENTAL CARIES, UNSPECIFIED Diagnosis 07/03/2019 03:43:00 PM [facility] M19.90 Unspecified osteoarthritis, unspecified site UNSPECIFIED OSTEOARTHRITIS, UNSPECIFIED SITE Diagnosis 06/07/2019 09:05:[facility] M06.9 Rheumatoid arthritis, unspecified RHEUMATOID ART HRITIS, UNSPECIFIED Diagnosis 06/07/2019 09:05:00 AM [facility] I25.10 Atherosclerotic heart diseas e of [place] coronary artery without angina pectoris ATHSCL HEART DISEASE OF [place] CORONARY ARTERY W/O Diagnosis 06/07/2019 09:05:00 AM [facility] J45.909 Unspecified asthma, uncomplicated UNSPECIFIED THMA, UNCOMPLICATED Diagnosis 06/07/2019 09:05:00 AM [facility] E10.9 Type 1 diabetes mellitus without complic ations TYPE 1 DIABETES MELLITUS WITHOUT COMPLICATIONS Diagnosis 06/07/2019 09:05:00 AM [facility] Z3A.01 Less than 8 weeks gestation of LESS THAN 8 WEEKS GESTATION OF Diagnosis 05/04/2019 02:04:00 PM [facility] M25.511 Pain in right shoulder PAIN IN RIGHT SHOULDER Diagnosi s 04/14/2019 07:54:00 PM [facility] Surgeries/Procedures Procedure Description Date Indications Data Source(s) OFFICE OUTPATIENT VISIT 10 MINUTES OFFICE/OUTPATIENT VISIT E ST 02/13/2020 12:00:[address] [facility] GLUC BLD GLUC MNTR DEV CLEARED FDA SPEC HOME USE GLUCOSE BLO OD TEST 02/13/2020 12:00:[address] [facility] OFFICE OUTPATIENT VISIT 5 MINUTES OFFICE/OUTPATIENT VISIT ES T 05/04/2019 12:00:00 AM [facility] THYROXINE FREE ASSAY OF FREE THYROXINE 05/04/2019 12:00:00 AM [facility] THYROID STIMULATING HORMONE TSH ASSAY THYROID STIM HORMONE 0 05/04/2019 12:00:00 AM [facility] COLLECTION VENOUS BLOOD VENIPUNCTURE ROUTINE VENIPUNCTURE 12:00:00 AM [facility] GONADOTROPIN CHORIONIC QUALITATIVE CHORIONIC GONADOTROPIN SAY 05/04/2019 12:00:00 AM [facility] Results ID Date Data Source [id number] 04/01/2020 01:02:00 AM [facility] Name Value Range Interpretation Code Description Data Gisela rce(s) Supporting Document(s) Hemoglobin A1C % Less than 5.7% Above high normal [facility] HBA1C: Normal: Less than 5.7% Prediabetes: 5.7% to 6.4% Diabetes: 6.5% or higher HA1C % vs Estimated Average Glucose (eAG) % eAG % eAG 6% 126 mg/dL 10% 240 mg/dL 7% 154 mg/dL 11% 269 mg/dL 8% 183 mg/dL 12% 298 mg/dL 9% 212 mg/dL Reference: [place] [employer], 2017 ID Date Data Source [id number] 04/01/2020 01:02:00 AM [facility] Name Value Range Interpretation Code Description Data Gisela rce(s) Supporting Document(s) Sodium 137 mmol/L 137-145 Normal (applies to non-numeric resul ts) [facility] Potassium 3.5-5.1 Normal (applies to non-numeric resul ts) [facility] Chloride 106 mmol/L 98-112 Normal (applies to non-numeric resul ts) [facility] Carbon Dioxide CO2 22.0-33.0 Normal (applies to non-numer ic results) [facility] Anion Gap 4.0-11.0 Normal (applies to non-numeric resul ts) [facility] BUN 9 mg/dL 7-17 Normal (applies to non-numeric resul ts) [facility] Creatinine 0.70-1.20 Below low normal [facility] GFR >60 Normal (applies to non-numeric results) [facility] Result based on MDRD formula. Glucose Level 184 mg/dL 74-99 Above high normal [facility] The reference range is only applicable w hen fasting. Calcium-Uncorrected 8.4-10.2 Normal (applies to non-nume vanessa results) [facility] Corrected Calcium 8.4-10.2 Normal (applies to non-numeri c results) [facility] ID Date Data Source [id number] 04/01/2020 01:02:00 AM [facility] Name Value Range Interpretation Code Description Data Gisela rce(s) Supporting Document(s) Free T4 (Free Thyroxine) 0.76-1.46 Normal (applies to non -numeric results) [facility] ID Date Data Source [id number] 04/01/2020 01:02:00 AM [facility] Name Value Range Interpretation Code Description Data Gisela rce(s) Supporting Document(s) Thyroid Stimulate Hormone TSH 0.358-3.740 Above high ivana l [facility] ID Date Data Source [id number] 11/01/2019 02:00:00 PM [facility] [place] [address]PATIENT NAME: JEOVANY LEWIS DATE OF SERVICE: 11/01/19MR#: [id number] DATE OF : [birth year]ACCOUNT #: [id number], KENDRA Lizzette ([id number])Visit Report for 11/01/2019Advanced Modalities Screening Tool DetailsPatient Name:Date of Service:JEOVANY LEWIS Lizzette 11/01/2019 2:00PMMedical Record Number:[id number] Patient of /Sex:Treating RN:1995 (24 y.o. F) Renée Quinones Care Provider: Terence Valentino Clinician:Referring Provider: TreatingProvider/Construction Job Cost Estimator:Rasheed Rose PAULWeeks in Treatment: 21Advanced Modalities Screening Check ListHyperbaric Oxygen Therapy: Reviewed LCD or HBO policy from [employer] and/or NCDTherapy Not IndicatedNo Appropriate IndicationElectronic Signature(s)Signed: 11/05/2019 3:49:19 PM By: Judith QuinonesPrevious Signature: 11/01/2019 2:05:39 PM Version By: Judith QuinonesEntermaribel By: Judith Quinones on 11/01/2019 14 :29:29 Arriv al Information DetailsPatient Name:Date of Service:JEOVANY LEWIS 11/01/2019 2:00PMMedical Record Number:[id number] Patient of /Sex:Treating RN:1995 (24 y.o. F) Susanna Rangel Care Provider: Terence Valentino Clinician:Referring Provider: TreatingProvider/Construction Job Cost Estimator:Rasheed Rose PAULWeeks in Treatment: 21Visit Information History SinceLast VisitHas Dressing in Place as Prescribed: YesPatient Arrived: AmbulatoryPain Present Now: NoArrival Time: 14:01Transfer Assistance: NonePatient Identification Verified: YesSecondary Verification Process Completed: YesElectronic Signature(s)Signed: 11/01/2019 3:51:42 PM By: Rohini Rangel By: Asia Rangel on 11/01/2019 14:01: 57 Discharge Instructions DetailsPatient Name:Date of Service:JEOVANY LEWISFrancis 11/01/20192:00 PMMedical Record Number:[id number] Patient of /Sex:Treating RN:1995 (24 y.o. F) Renée Quinones Care Provider: Sade valdovinos MyoOren Clinician:Referring Provider: TreatingProvider/Construction Job Cost Estimator:Rasheed Rose PAULWeeks in Treatment: 21Follow-up AppointmentsReturn Appointment in 1 week. Should you experience any significant changes inyour wound(s) or have anyquestions regarding your home care instructions please contact the woundcenter. If after regular business hours,please call your family doctor or local emergency room. - 11/08/19 @ 1:30 PMDressing Change FrequencyDo not change entire dressing for one week.Wound Cleansing. - keep dressing dry,Primary Wound DressingOther: - MepilexAdditional Orders / InstructionsOther: - high protein dietPatient Received Instructions: YesElectronic Signature(s)Sig yash: 11/02/2019 7:43:36 AM By: Holly HillEntered By: Holly Hill on 11/01/2019 14:29:51 Enc ounter Discharge Information DetailsPatient Name:Date of Service:JEOVANY LEWIS Lizzette 11/01/2019 2:00PMMedical Record Number:[id number] Patient of /Sex:Treating RN:1995 (24 y.o. F) Renée Quinones Care Provider: Terence Valentino Clinician:Referring Provider: TreatingProvider/Construction Job Cost Estimator:Rasheed Rose PAULWeeks in Treatment: 21Encounter Discharge Information ItemsDischarge Condition: StableAmbulatory S tatus: AmbulatoryDischarge Destination: HomeTransportation: Private AutoAccompanied By: Jessie Follow-up Appointment: Moe esClinical Summary of Care: Patient DeclinedElectronic Signature(s)Signed: 11/05/2019 3:49:19 PM By: Yaron Quinones By: Judith Quinones on 11/01/2019 14:32:56 Low er Extremity Assessment DetailsPatient Name:Date of Service:JEOVANY LEWIS Lizzette 11/01/2019 2:00PMMedical Record Number:[id number] Patient of /Sex:Treating RN:1995 (24 y.o. F) Susanna Rangel Care Provider: Terence Valentino Clinician:Referring Provider: TreatingProvider/Construction Job Cost Estimator:Rasheed Rose PAULWeeks in Treatment: 21Electronic Signature(s)Signed: 11/01/2019 3:51:42 PM By: Rohini Rangel By: Asia Rangel on 11/01/2019 14:03:51 Mul ti Wound Chart DetailsPatient Name:Date of Service:JEOVANY LEWIS 11/01/2019 2:00 PMMedical Record Number:[id number] Patient of /Sex:Treating RN:1995 (24 y.o. F) Renée Quinones Care Provider: Sade valdovinos MyoOren Clinician:Referring Provider: TreatingProvider/Construction Job Cost Estimator:Rasheed Rose PAULWeeks in Treatment: 21Vital SignsHeight(in):Pulse(bpm):108Weight(lbs): BloodPressure(mmHg): 91/66Body Mass Index(BMI):Temperature(F): 97.4Respiratory 17Rate(breaths/min):N/APhotos: [2:No Photos]Wound Location: Back - Midline, Proximal Right Lower Leg -Lateral N/AWounding Event: Gradually Appeared Gradually AppearedN/APrimary Etiology: Abscess Diabetic Wound/Ulcerof the N/ALower ExtremityComorbid History: Type I Diabetes, Asthma, Type I Diabetes,Asthma, N/ACoronary Artery Disease, Coronary Artery Disease,Rheumatoid Arthritis, Rheumatoid Arthritis,Osteoarthritis OsteoarthritisDate Acquired: 03/07/2019 10/04/2019N/AWeeks of Treatment: 21 2N/AWound Status: Open Healed -Epithelialized N/AMeasurements L x W x D 0.7x0.6x0.1 0x0x0N/A(cm)Area (cm) : 0.33 0N/AVolume (cm) : 0.033 0N/A%Reduction in Area: 88.80% 100.00%N/A%Reduction in Volume: 88.80% 100.00%N/AClassification: Full Thickness Without Grade 2N/AExposed Support StructuresExudate Amount: None Present N/AN/AGranulation Amount: Large (67-100%) None Present (0%)N/AGranulation Quality: Red N/AN/ANecrotic Amount: None Present (0%) None Present (0%)N/ATreatment NotesNotesDr Rose valdovinos. Right leg wound healed. FU in one week.Electronic Signature(s)Signed: 11/05/2019 3:49:19 PM By: Yaron Quinones By: Judith Quinones on 11/01/2019 14:29:51 --Multi-Disciplinary Care Plan DetailsPatient Name:Date of Service:JEOVANY LEWIS 11/01/2019 2:00PMMedical Record Number:[id number] Patient of /Sex:Treating RN:1995 (24 y.o. F) Nani [facility] Care Provider: Sade valdovinos MyoOther Clinician:Referring Provider: TreatingProvider/Construction Job Cost Estimator:Rasheed Rose PAULWeeks in Treatment: 21Active InactiveElectronic Signature(s)Signed: 01/15/2020 2:54:47 PM By: Elba Rangelgned: 01/23/2020 2:29:21 PM By: Brock Quinones Signature: 11/05/2019 3:49:19 PM Version By: Brock Quinones Signature: 11/01/2019 2:05:35 PM Version By: Yaron Quinones By: Asia Rangel on 12/11/2019 14:39:19 Yonis n Assessment DetailsPatient Name:Date of Service:JEOVANY LEWIS 11/01/2019 2:00PMMedical Record Number:[id number] Patient of /Sex:Treating RN:1995 (24 y.o. F) Susanna Rangel Provider: Terence Valentino Clinician:Referring Provider: TreatingProvider/Construction Job Cost Estimator:Rasheed Rose PAULWeeks in Treatment: 21Active ProblemsLocation of Pain Severity andDescription of PainPatient Has Pain? NoSite LocationsPain Management and MedicationCurrent Pain Management:Electronic Signature(s)Signed: 11/01/2019 3:51:42 PM By: Rohini Rangel By: Asia Rangel on 11/01/2019 14:06:29 Patient/Caregiver Education DetailsPatient Name:Date of Service:JEOVANY LEWIS 11/01/20193872ykdkzzq9:00 PMMedical Record Number:[id number] Patient of /Gender:Treating RN:1995 (24 y.o. F) Susanna Rangel Physician: Terence Valentino Clinician:Referring Physician: TreatingPhysician/Construction Job Cost Estimator:Rasheed Rose PAULWeeks in Treatment: 21Education AssessmentEducation Provided To:PatientEducation Topics ProvidedBasic Hygiene:Methods: Explain/VerbalElectronic Signature(s)Signed: 11/01/2019 3:51:42 PM By: Rohini Rangel By: Asia Rangel on 11/01/2019 14:06:39Treatment Notes SummaryWound #2 (Proximal, Midline Back)3. Primary Dressing AppliedFoam ---Vitals DetailsPatient Name:Date of Service:JEOVANY LEWIS 11/01/2019 2:00 PMMedical Record Number:[id number] Patient of /Sex:Treating RN:1995 (24 y.o. F) Susanna Rangel Care Provider: Terence Valentino Clinician:Referring Provider: TreatingProvider/Construction Job Cost Estimator:Rasheed Rose PAULWeeks in Treatment: 21Vital SignsTime Taken: 14:02Temperature (F):97.4Pulse (bpm): 108Respiratory Rate (breaths/min): 17Blood Pressure (mmHg): 91/66Reference Range: 80 - 120 mg / dlElectronic Signature(s)Signed: 11/01/2019 3:51:42 PM By: Rohini Rangel By: Asia Rangel on 11/01/2019 14:03:43 [place] Assessment DetailsPatient Name:Date of Service:JEOVANY LEWIS 11/01/2019 2:00 PMMedical Record Number:[id number] Patient of /Sex:Treating RN:1995 (24 y.o. F) Susanna Rangel Care Provider: Terence Valentino Clinician:Referring Provider: TreatingProvider/Extende r:Rasheed Rose PAULWeeks in Treatment: 21Wound StatusWound Number: 2 Primary AbscessEtiology:Wound Location: Back - Midline, ProximalWound OpenWounding Event: Gradually AppearedStatus:Date Acquired: 03/07/2019Comorbid Type I Diabetes, Asthma, Coronary ArteryWeeks Of Treatment: 21History: Disease, Rheumatoid Arthritis, OsteoarthritisClustered Wound: NoWound MeasurementsLength: (cm) 0.7 % RedArea: 88.8%Width: (cm) 0.6 % RedVolume: 88.8%Depth: (cm) 0.1Area: (cm) 0.33Volume: (cm) 0.033Wound DescriptionClassification: Full Thickness Without Exposed SupportStructuresExudate None PresentAmount:Wound BedGranulation Amount: Large (67-100%)Granulation Quality: RedNecrotic Amount: None Present (0%)uction inuction inElectronic Signature(s)Signed: 11/01/2019 3:51:42 PM By: Al Rangelered By: Asia Rangel on 11/01/2019 14:05:44 [place] Assessment DetailsPatient Name:Date of Service:JEOVANY LEWIS 11/01/2019 2:00 PMMedical Record Number:[id number] Patient of /Sex:Treating RN:1995 (24 y.o. F) Misty Rangelimarodríguez Care Provider: Sade valdovinos MyoOren Clinician:Referring Provider: TreatingProvider /Construction Job Cost Estimator:Rasheed Rose PAULWeeks in Treatment: 21Wound StatusWound Number: 5 Primary DiabeticWound/Ulcer of the Lower ExtremityEtiology:Wound Location: Right Lower Leg - LateralWound Healed - EpithelializedWounding Event: Gradually AppearedStatus:Date Acquired: 10/04/2019Comorbid Type I Diabetes, Asthma, Coronary ArteryWeeks Of Treatment: 2History: Disease, Rheumatoid Arthritis, OsteoarthritisClustered Wound: NoPhotosWound MeasurementsLength: (cm) 0 % RedArea: 100%Width: (cm) 0 % RedVolume: 100%Depth: (cm) 0Area: (cm) 0Volume: (cm) 0Wound DescriptionClassification: Grade 2Wound BedGranulation Amount: None Present (0%)Necrotic Amount: None Present (0%)uction inuction inElectronic Signature(s)Signed: 11/01/2019 3:51:42 PM By: Elba Rangelgned: 11/05/2019 3:49:19 PM By: Judith QuinonesEntered By: Judith Quinones on 11/01/2019 14:26:46 DIC 1400TRANS:11/01/19 1400 WOUND CENTERTRANS BY:ABNER SIGNED:TIME SIGNED:REPORT COPY TO: Name Value Range Interpretation Code Description Data Gisela rce(s) Supporting Document(s) ID Date Data Source [id number] 11/01/2019 02:00:00 PM EDT [place], [place] [address]PATIENT NAME: JEOVANY LEWIS DATE OF SERVICE: 11/01/19MR#: [id number] DATE OF : [birth year]ACCOUNT #: [id number] FOWLER ([id number])Visit Report for 11/01/2019Chief Complaint Document DetailsPatient Name:Date of Service:JEOVANY LEWIS 11/01/2019 2:00 PMMedical Record Number:[id number] Patient of /Sex:Treating RN:1995 (24 y.o. F)Primary Care Provider: Terence Valentino Clinician:Referring Provider: TreatingProvider/Construction Job Cost Estimator:Rasheed Rose PAULWeeks in Treatment: 21Information Obtained from: PatientChief ComplaintBack woundsRight lateral calf venous woundElectronic Signature(s)Signed: 11/02/2019 11:10:22 AM By: Ilya Rose D.O., FACSEntered By: Eliud Rose on 11/01/2019 14:10:21 HPI DetailsPatient Name:Date of Service:JEOVANY LEWIS 11/01/2019 2:00 PMMedical Record Number:[id number] Patient of /Sex:Treating RN:1995 (24 y.o. F)Primary Care Provider: Terence Valentino Clinician:Referring Provider: TreatingProvider/Construction Job Cost Estimator:Rasheed Rose PAULWeeks in Treatment: 21History of Present IllnessHPI Description: This is a poorly controlled type 1 diabetic smoker whopresented [facility] the [facility] with a wound onher left plantar heel area. This had been present for approximately 2-3 monthsand appears to have occurred while shewas admitted to the hospital during a diabetic coma where she was unconsciousfor approximately 4 days and requiredventilator support.She had been caring for this at home and her HgbA1c on 05/27/18 was 13.4.She had started seeing an Abattoir Supervisor after this to assist with her bloodsugars.Positive DiabetesPositive TobaccoNegative Obesity (BMI 19.11)Negative Rapid Weight LossNegative Steroids or Atntpxhcowcp62/11/19: Ankle Brachial Index: Left 0.98 Right 1.0807 Wound Culture: MRSA sensitive to levaquin07/06/2019: She is on Clindamycin for a tooth abscess and the original twowounds are smaller. She has a new thirdwound on her back. She had trouble keeping the dressing on this week.10/04/2019: She was last seen on 07/05 and the back wounds remain as well as anew left forearm wound. She is eatingwell.10/11/2019: She did well this week and the wounds are smaller. She is eatingwell.10/18/2019: She did well this week and the wounds are smaller. She has a new areaon her right lateral calf. She is eatingwell.AllergiesAugmentin-liquid (Reaction: hives), Iodinated Contrast- Oral (Reaction:anaphylaxis)Family HistoryCancer - Paternal GrandparentsDiabetes - Mother,Father,Maternal GrandparentsHypertension - MotherThyroid Problems - Maternal GrandparentsNo family history of Heart Disease, Kidney Disease, Lung Disease, Seizures,Stroke, TuberculosisSocial HistoryCurrent some day smokerMarital Status - MarriedAlcohol Use - RarelyDrug Use - Current History - marijuana every day if I have i tCaffeine Use - Rarely - energy drinksMedical HistoryType I Diabetes treated with InsulinCoronary Artery DiseaseRheumatoid ArthritisOsteoarthritisThyroid disorderdepression andanxietyNotesHer culture came back with MRSA sensitive to Levaquin and that was sent on10/22/2019. She is doing well with that.The back wound is almost healed and the leg wound is healed today.She is eating well.Electronic Signature(s)Signed: 11/02/2019 11:10:22 AM By: Eliud Rose D.O., FACSEntered By: Eliud Rose on 11/01/2019 14:28:57 Demetris campbell Orders DetailsPatient Name:Date of Service:JEOVANY LEWISFrancis 11/01/2019 2:00PMMedical Record Number:[id number] Patient of /Sex:Treating RN:1995 (24 y.o. F) Renée Quinones Care Provider: Sade valdovinos MyoOther Clinician:Referring Provider: TreatingProvider/Construction Job Cost Estimator:Rasheed Rose PAULWeeks in Treatment: 21Verbal / Phone Orders: NoDiagnosis CodingFollow-up AppointmentsReturn Appointment in 1 week.Dressing Change FrequencyDo not change entire dressing for one week.Wound CleansingOther: - keep dressing dry,Primary Wound DressingOther: - MepilexAdditional Orders / Inst ructionsOther: - high protein dietElectronic Signature(s)Signed: 11/02/2019 11:10:22 AM By: Eliud Rose D.O., FACSSigned: 11/05/2019 3:49:19 PM By: Judith QuinonesPrevious Signature: 11/01/2019 2:05:28 PM Version By: Yaron Quinones By: Judith Quinones on 11/01/2019 14:28:54 Pro blem List DetailsPatient Name:Date of Service:JEOVANY LEWIS 11/01/2019 2:00PMMedical Record Number:[id number] Patient of /Sex:Treating RN:1995 (24 y.o. F)Primary Care Provider: Sade valdovinos MyoOther Clinician:Referring Provider: TreatingProvider/Construction Job Cost Estimator:Rasheed Rose PAULWeeks in Treatment: 21Active ProblemsICD-10Evaluated EncounterCode Description ActiveDate Today LmwaaoatyM14.209A Unspecified open wound of un specified back wall of06/07/2019 No Yesthorax without penetration into thoracic cavity, zxszfdwximygnfsyX19.212 Non-pressure chronic ulcer of right calf with fat layer10/18/2019 No SpptboxjawF08.311 Chronic venous hypertension (idiopathic) with ulcer of10/18/2019 No Yesright lower extremityInactive ProblemsResolved ProblemsICD-10Code DescriptionActive Date Resolved DateS51.802A Unspecified open wound of left forearm, initial encounter10/04/2019 10/04/2019S51.802S Unspecified open wound of left forearm, sequela10/04/2019 10/04/2019Electronic Signature(s)Signed: 11/02/2019 11:10:22 AM By: Eliud Rose D.O., FACSEntered By: Eliud Rose on 11/01/2019 14:10:13 DIC 1400TRANS:11/01/19 1400 WOUND CENTERTRANS BY:ABNER SIGNED:TIME SIGNED:REPORT COPY TO: Name Value Range Interpretation Code Description Data Gisela rce(s) Supporting Document(s) ID Date Data Source [id number] 11/01/2019 02:00:00 PM EDT [facility] [address]DOYMDOQ NAME: JEOVANY LEWIS DATE OF SERVICE: 11/01/19MR#: [id number] DATE OF : [birth year]ACCOUNT #: [id number] FOWLER ([id number])Visit Report for 11/01/2019Advanced Modalities Screening Tool DetailsPatient Name:Date of Service:JEOVANY LEWIS 11/01/2019 2:00PMMedical Record Number:[id number] Patient of /Sex:Treating RN:1995 (24 y.o. F) Renée Quinones Care Provider: Terence Valentino Clinician:Referring Provider: TreatingProvider/Construction Job Cost Estimator:Rasheed Rose PAULWeeks in Treatment: 21Advanced Modalities Screening Check ListHyperbaric Oxygen Therapy: Reviewed LCD or HBO policy from [employer] and/or NCDTherapy Not IndicatedNo Appropriate IndicationElectronic Signature(s)Signed: 11/05/2019 3:49:19 PM By: Judith QuinonesPrevious Signature: 11/01/2019 2:05:39 PM Version By: Yaron Quinones By: Judith Quinones on 11/01/2019 14 :29:29 Arriv al Information DetailsPatient Name:Date of Service:JEOVANY LEWISFrancis 11/01/2019 2:00PMMedical Record Number:[id number] Patient of /Sex:Treating RN:1995 (24 y.o. F) Susanna Rangel Care Provider: Terence Valentino Clinician:Referring Provider: TreatingProvider/Construction Job Cost Estimator:Rasheed Rose PAULWeeks in Treatment: 21Visit Information History SinceLast VisitHas Dressing in Place as Prescribed: YesPatient Arrived: AmbulatoryPain Present Now: NoArrival Time: 14:01Transfer Assistance: NonePatient Identification Verified: YesSecondary Verification Process Completed: YesElectronic Signature(s)Signed: 11/01/2019 3:51:42 PM By: Rohini Rangel By: Asia Rangel on 11/01/2019 14:01: 57 Discharge Instructions DetailsPatient Name:Date of Service:JEOVANY LEWISFrancis 11/01/20192:00 PMMedical Record Number:[id number] Patient of /Sex:Treating RN:1995 (24 y.o. F) Renée Quinones Care Provider: Terence Valentino Clinician:Referring Provider: TreatingProvider/Construction Job Cost Estimator:Rasheed Rose PAULWeeks in Treatment: 21Follow-up AppointmentsReturn Appointment in 1 week. Should you experience any significant changes inyour wound(s) or have anyquestions regarding your home care instructions please contact the woundcenter. If after regular business hours,please call your family doctor or local emergency room. - 11/08/19 @ 1:30 PMDressing Change FrequencyDo not change entire dressing for one week.Wound Cleansing. - keep dressing dry,Primary Wound DressingOther: - MepilexAdditional Orders / InstructionsOther: - high protein dietPatient Received Instructions: YesElectronic Signature(s)Sig yash: 11/02/2019 7:43:36 AM By: Odalys Hilled By: Holly Hill on 11/01/2019 14:29:51 Enc ounter Discharge Information DetailsPatient Name:Date of Service:JEOVANY LEWIS 11/01/2019 2:00PMMedical Record Number:[id number] Patient of /Sex:Treating RN:1995 (24 y.o. F) Renée Quinones Care Provider: Terence Valentino Clinician:Referring Provider: TreatingProvider/Construction Job Cost Estimator:Rasheed Rose PAULWeeks in Treatment: 21Encounter Discharge Information ItemsDischarge Condition: StableAmbulatory S tatus: AmbulatoryDischarge Destination: HomeTransportation: Private AutoAccompanied By: Jessie Follow-up Appointment: Moe esClinical Summary of Care: Patient DeclinedElectronic Signature(s)Signed: 11/05/2019 3:49:19 PM By: Yaron Quinones By: Judith Quinones on 11/01/2019 14:32:56 Low er Extremity Assessment DetailsPatient Name:Date of Service:JEOVANY LEWIS 11/01/2019 2:00PMMedical Record Number:[id number] Patient of /Sex:Treating RN:1995 (24 y.o. F) Susanna Rangel Care Provider: W in, MyoOther Clinician:Referring Provider: TreatingProvider/Construction Job Cost Estimator:Rasheed Rose PAULWeeks in Treatment: 21Electronic Signature(s)Signed: 11/01/2019 3:51:42 PM By: Rohini Rangel By: Asia Rangel on 11/01/2019 14:03:51 Mul ti Wound Chart DetailsPatient Name:Date of Service:LEWISJEOVANY 11/01/2019 2:00 PMMedical Record Number:[id number] Patient of /Sex:Treating RN:1995 (24 y.o. F) Renée Quinones Care Provider: Sade valdovinos MyoOren Clinician:Referring Provider: TreatingProvider/Construction Job Cost Estimator:Rasheed Rose PAULWeeks in Treatment: 21Vital SignsHeight(in):Pulse(bpm):108Weight(lbs): BloodPressure(mmHg): 91/66Body Mass Index(BMI):Temperature(F): 97.4Respiratory 17Rate(breaths/min):N/APhotos: [2:No Photos]Wound Location: Back - Midline, Proximal Right Lower Leg -Lateral N/AWounding Event: Gradually Appeared Gradually AppearedN/APrimary Etiology: Abscess Diabetic Wound/Ulcerof the N/ALower ExtremityComorbid History: Type I Diabetes, Asthma, Type I Diabetes,Asthma, N/ACoronary Artery Disease, Coronary Artery Disease,Rheumatoid Arthritis, Rheumatoid Arthritis,Osteoarthritis OsteoarthritisDate Acquired: 03/07/2019 10/04/2019N/AWeeks of Treatment: 21 2N/AWound Status: Open Healed -Epithelialized N/AMeasurements L x W x D 0.7x0.6x0.1 0x0x0N/A(cm)Area (cm) : 0.33 0N/AVolume (cm) : 0.033 0N/A%Reduction in Area: 88.80% 100.00%N/A%Reduction in Volume: 88.80% 100.00%N/AClassification: Full Thickness Without Grade 2N/AExposed Support StructuresExudate Amount: None Present N/AN/AGranulation Amount: Large (67-100%) None Present (0%)N/AGranulation Quality: Red N/AN/ANecrotic Amount: None Present (0%) None Present (0%)N/ATreatment NotesNotesDr Rose valdovinos. Right leg wound healed. FU in one week.Electronic Signature(s)Signed: 11/05/2019 3:49:19 PM By: Yaron Quinones By: Judith Quinones on 11/01/2019 14:29:51 --Multi-Disciplinary Care Plan DetailsPatient Name:Date of Service:JEOVANY LEWIS 11/01/2019 2:00PMMedical Record Number:[id number] Patient of /Sex:Treating RN:1995 (24 y.o. F) Renée Quinones Care Provider: Terence Valentino Clinician:Referring Provider: TreatingProvider/Construction Job Cost Estimator:Rasheed Rose PAULWeeks in Treatment: 21Active InactiveNutritionNursing Diagnoses:Impaired glucose control: actual or potentialGoals:Patient/caregiver verbalizes understanding of need to maintain therapeuticglucose control per primary care physicianDate Initiated: 06/07/2019T arget Resolution Date: 08/09/2019Goal Status: ActiveInterventions:Assess patient nutrition upon admission and as needed per policyProvide education on elevated blood sugars and impact on wound healingNotes:Electronic Signature(s)Signed: 11/05/2019 3:49:19 PM By: Judith QuinonesPrevious Signature: 11/01/2019 2:05:35 PM Version By: Yaron Quinones By: Stacie, Judith on 11/01/2019 14:29:16 Pain Assessment DetailsPatient Name:Date of Service:JEOVANY LEWIS 11/01/2019 2:00 PMMedical Record Number:[id number] Patient of /Sex:Treating RN:1995 (24 y.o. F) Susanna Rangel Provider: Terence Valentino Clinician:Referring Provider: TreatingProvider/Construction Job Cost Estimator:Rasheed Rose PAULWeeks in Treatment: 21Active ProblemsLocation of Pain Severity andDescription of PainPatient Has Pain? NoSite LocationsPain Management and MedicationCurrent Pain Management:Electronic Signature(s)Signed: 11/01/2019 3:51:42 PM By: Rohini Rangel By: Asia Rangel on 11/01/2019 14:06:29 Pat ient/Caregiver Education DetailsPatient Name:Date of Service:JEOVANY LEWIS 11/01/20193898hqfucza1:00 PMMedical Record Number:[id number] Patient of /Gender:Treating RN:1995 (24 y.o. F) Susanna Rangel Physician: Terence Valentino Clinician:Referring Physician: TreatingPhysician/Construction Job Cost Estimator:Rasheed Rose PAULWeeks in Treatment: 21Education AssessmentEducation Provided To:PatientEducation Topics ProvidedB asic Hygiene:Methods: Explain/VerbalElectronic Signature(s)Signed: 11/01/2019 3:51:42 PM By: Rohini Rangel By: Asia Rangel on 11/01/2019 14:06:39Treatment Notes SummaryWound #2 (Proximal, Midline Back)3. Primary Dressing AppliedFoam Vitals DetailsPatient Name:Date of Service:JEOVANY LEWIS 11/01/2019 2:00 PMMedical Record Number:[id number] Patient of /Sex:Treating RN:1995 (24 y.o. F) Susanna Rangel Care Provider: Terence Valentino Clinician:Referring Provider: TreatingProvider/Ext murphy:Rasheed Rose PAULWeeks in Treatment: 21Vital SignsTime Taken: 14:02Temperature (F):97.4Pulse (bpm): 108Respiratory Rate (breaths/min): 17Blood Pressure (mmHg): 91/66Reference Range: 80 - 120 mg / dlElectronic Signature(s)Signed: 11/01/2019 3:51:42 PM By: Rohini Rnagel By: Asia Rangel on 11/01/2019 14:03:43 Wound Assessment DetailsPatient Name:Date of Service:JEOVANY LEWIS 11/01/2019 2:00 PMMedical Record Number:[id number] Patient of /Sex:Treating RN:1995 (24 y.o. F) Susanna Rangel Care Provider: Terence Valentino Clinician:Referring Provider: TreatingProvider/Construction Job Cost Estimator:Rasheed Rose PAULWeeks in Treatment: 21Wound StatusWound Number: 2 Primary AbscessEtiology:Wound Location: Back - Midline, ProximalWound OpenWounding Event: Gradually AppearedStatus:Date Acquired: 03/07/2019Comorbid Type I Diabetes, Asthma, Coronary ArteryWeeks Of Treatment: 21History: Disease, Rheumatoid Arthritis, OsteoarthritisClustered Wound: NoWound MeasurementsLength: (cm) 0.7 % RedArea: 88.8%Width: (cm) 0.6 % RedVolume: 88.8%Depth: (cm) 0.1Area: (cm) 0.33Volume: (cm) 0.033Wound DescriptionClassification: Full Thickness Without Exposed SupportStructuresExudate None PresentAmount:Wound BedGranulation Amount: Large (67-100%)Granulation Quality: RedNecrotic Amount: None Present (0%)uction inuction inTreatment NotesWound #2 (Proximal, Midline Back)3. Primary Dressing AppliedFoamElectronic Signature(s)Signed: 11/01/2019 3:51:42 PM By: Rohini Rangel By: Asia Rangel on 11/01/2019 14:05:44 Wou nd Assessment DetailsPatient Name:Date of Service:JEOVANY LEWIS 11/01/2019 2:00 PMMedical Record Number:[id number] Patient of /Sex:Treating RN:1995 (24 y.o. F) Susanna Rangel Care Provider: Terence Valentino Clinician:Referring Provider: TreatingProvider/Construction Job Cost Estimator:Rasheed Rose PAULWeeks in Treatment: 21Wound StatusWound Number: 5 Primary DiabeticWound/Ulcer of the Lower ExtremityEtiology:Wound Location: Right Lower Leg - LateralWound Healed - EpithelializedWounding Event: Gradually AppearedStatus:Date Acquired: 10/04/2019Comorbid Type I Diabetes, Asthma, Coronary ArteryWeeks Of Treatment: 2History: Disease, Rheumatoid Arthritis, OsteoarthritisClustered Wound: NoPhotosWound MeasurementsLength: (cm) 0 % RedArea: 100%Width: (cm) 0 % RedVolume: 100%Depth: (cm) 0Area: (cm) 0Volume: (cm) 0Wound DescriptionClassification: Grade 2Wound BedGranulation Amount: None Present (0%)Necrotic Amount: None Present (0%)uction inuction inElectronic Signature(s)Signed: 11/01/2019 3:51:42 PM By: Elba Rangelgned: 11/05/2019 3:49:19 PM By: Judith QuinonesEntered By: Judith Quinones on 11/01/2019 14:26:46 DIC 1400TRANS:11/01/19 1400 WOUND CENTERTRANS BY:ABNER SIGNED:TIME SIGNED:REPORT COPY TO: Name Value Range Interpretation Code Description Data Gisela rce(s) Supporting Document(s) ID Date Data Source [id number] 10/18/2019 02:00:00 PM EDT [facility] [address] [address] NAME: JEOVANY LEWIS DATE OF SERVICE: 10/18/19MR#: [id number] DATE OF : [birth year]ACCOUNT #: [id number] FOWLER ([id number])Visit Report for 10/18/2019Advanced Modalities Screening Tool DetailsPatient Name:Date of Service:JEOVANY LEWIS 10/18/2019 2:00PMMedical Record Number:[id number] Patient of /Sex:Treating RN:1995 (24 y.o. F) Renée Quinones Care Provider: Terence Valentino Clinician:Referring Provider: TreatingProvider/Construction Job Cost Estimator:Rasheed Rose PAULWeeks in Treatment: 19Advanced Modalities Screening Check ListHyperbaric Oxygen Therapy: Reviewed LCD or HBO policy from [employer] and/or NCDTherapy Not IndicatedNo Ap propriate IndicationElectronic Signature(s)Signed: 10/18/2019 3:44:51 PM By: Yaron Quinones By: Judith Quinones on 10/18/2019 14:10:37 -----Arrival Information DetailsPatient Name:Date of Service:JEOVANY LEWIS 10/18/2019 2:00PMMedical Record Number:[id number] Patient of /Sex:Treating RN:1995 (24 y.o. F) Susanna Rangel Care Provider: Terence Valentino Clinician:Referring Provider: TreatingProvider/Construction Job Cost Estimator:Rasheed Rose PAULWeeks in Treatment: 19Visit Information History SinceLast VisitHas Dressing in Place as Prescribed: YesPatient Arrived: AmbulatoryPain Present Now: NoArrival Time: 14:03Transfer Assistance: NonePatient Identification Verified: YesSecondary Verification Process Completed: YesElectronic Signature(s)Signed: 10/18/2019 3:50:19 PM By: Rohini Rangel By: Asia Rangel on 10/18/2019 14:03:50 D ischarge Instructions DetailsPatient Name:Date of Service:JEOVANY LEWIS Lizzette 10/18/20192:00 PMMedical Record Number:[id number] Patient of /Sex:Treating RN:1995 (24 y.o. F) Renée Quinones Care Provider: Terence Valentino Clinician:Referring Provider: TreatingProvider/Construction Job Cost Estimator:Rasheed Rose PAULWeeks in Treatment: 19Follow-up AppointmentsReturn Appointment in 1 week. Should you experience any significant changes inyour wound(s) or have anyquestions regarding your home care instructions please contact the woundcenter. If after regular business hours,please call your family doctor or local emergency room. - 10/25/19 @ 2PMDressing Change FrequencyDo not change entire dressing for one week.Wound Cleansing. - keep dressing dry, on days showering- remove dressing and shower then dryarea and put new dressing on woundPrimary Wound DressingCut Bionanoplus Ag to fit wound bed - to leg and back wounds, cover back woundswith MepilexEdema Control2 Layer Compression System - Right Lower Extremity: Do not get legs withcompression wrap wet. If wraps seemtoo tight, elevate legs above level of heart for one hour. If no relief, callthe wound center.Additional Orders / Inst ructionsOther: - high protein dietPatient Received Instructions: YesElectronic Signature(s)Signed: 10/23/2019 1:09:36 PM By: Holly HillEntered By: Holly Hill on 10/18/2019 14:53:39 Encounter Discharge Information DetailsPatient Name:Date of Service:JEOVANY LEWIS Lizzette 10/18/2019 2:00PMMedical Record Number:[id number] Patient of /Sex:Treating RN:1995 (24 y.o. F) Judith QuinonesIdsanjay Angella Provider: Terence Valentino Clinician:Referring Provider: TreatingProvider/Construction Job Cost Estimator:Rasheed Rose PAULWeeks in Treatment: 19Encounter Discharge Information Items Post ProcedureVitalsDischarge Condition: Stable Temperature(F): 98.5Ambulatory Status: AmbulatoryPulse (bpm):94Discharge Destination: Home Respiratory Rate(breaths/min): 17Transportation: Private Auto Blood Pressure(mmHg): 93/63Accompanied By: selfSchberenice Follow-up Appointment: YesClinical Summary of Care: Patient DeclinedElectronic Signature(s)Signed: 10/18/2019 3:44:51 PM By: Yaron Quinones By: Judith Quinones on 10/18/2019 14:54:37 Low er Extremity Assessment DetailsPatient Name:Date of Service:LEWISJEOVANY 10/18/2019 2:00PMMedical Record Number:[id number] Patient of /Sex:Treating RN:1995 (24 y.o. F) Susanna Rangel Provi jonathan: Terence Valentino Clinician:Referring Provider: TreatingProvider/Construction Job Cost Estimator:Rasheed Rose PAULWeeks in Treatment: 19Electronic Signature(s)Signed: 10/18/2019 3:50:19 PM By: Rohini Rangel By: Asia Rangel on 10/18/2019 14:04:03 Mul ti Wound Chart DetailsPatient Name:Date of Service:JEOVANY LEWIS 10/18/2019 2:00 PMMedical Record Number:[id number] Patient of /Sex:Treating RN:1995 (24 y.o. F) Nani Quinonesimarodríguez Care Provider: Sade valdovinos, MyoOther Clinician:Referring Provider: TreatingProvider/Construction Job Cost Estimator:Rasheed Rose PAULWeeks in Treatment: 19Vital SignsHeight(in): Capillary Jwwvr458Guztmrd(mg/dl):Weight(lbs):Pulse(bpm): 102Body Mass Index(BMI):Blood Pressure(mmHg): 103/71Temperature(F): 98.6Respiratory 18Rate(breaths/min):5Photos: [2:No Photos]Wound Location: Back - Midline, Proximal Left ForearmRight Lower Leg - LateralWounding Event: Gradually Appeared Gradually AppearedGradually AppearedPrimary Etiology: Abscess AtypicalDiabetic Wound/Ulcer of theLower ExtremityComorbid History: Type I Diabetes, Asthma, Type I Diabetes,Asthma, Type I Diabetes, Asthma,Coronary Artery Disease, Coronary Artery Disease, Coronary ArteryDisease,Rheumatoid Arthritis, Rheumatoid Arthritis, Rheumatoid Arthritis,Osteoarthritis Osteoarthritis OsteoarthritisDate Acquired: 03/07/2019Weeks of Treatment: 19 20Wound Status: Open Healed -Epithelialized OpenMeasurements L x W x D 1x14.5x0.1 4k5h62w6.9x0.1(cm)Area (cm) : 11.388 00.707Volume (cm) : 1.139 00.071%Reduction in Area: -286.70% 100.00%N/A%Reduction in Volume: -286.10% 100.00%N/AClassification: Full Thickness Without Full ThicknessWithout Grade 2Exposed Support Structures Exposed Support StructuresExudate Amount: Medium N/ AMediumExudate Type: Serosanguineous N/AN/AExudate Color: red, brown N/AN/AGranulation Amount: Large (67-100%) None Present (0%)Large (67- 100%)Granulation Quality: Red N/AN/ANecrotic Amount: Small (1-33%) None Present (0%)Small (1-33%)Debridement: Debridement - Excisional N/ADebridement - ExcisionalPre-procedure 14:33 N/A14:33Verification/Time Out Taken:Pain Control: Lidocaine 2% Topical Gel N/ALidocaine 2% Topical GelTissue Debrided: Subcutaneous N/ASubcutaneousLevel: Skin/Subcutaneous Tissue N/ASkin/Subcutaneous TissueDebridement Area (sq cm): 14.5 N/A0.9Instrument: Curette N/ACuretteBleeding: Minimum N/AMinimumHemostasis Achieved: Pressure N/APressureProcedural Pain: 0 N/A0Post Procedural Pain: 1 N/C1Aepobrksgkk Treatment Procedure was tolerated well N/AProcedure was tolerated wellResponse:Post Debridement 1x14.5x0.1 N/A1x0.9x0.1Measurements L x W x D(cm)Post Debridement Volume: 1.139 N/A0.071(cm)Procedures Performed: Debridement N/ACompression TherapyDebridementTreatment NotesNotesDr Rose in. Culture obtained.Electronic Signature(s)Signed: 10/18/2019 3:44:51 PM By: Yaron Quinones By: Judith Quinones on 10/18/2019 14:41:53 -------Multi-Disciplinary Care Plan DetailsPatient Name:Date of Service:JEOVANY LEWIS 10/18/20192:00 PMMedical Record Number:[id number] Patient of /Sex:Treating RN:1995 (24 y.o. F) [facility] Care Provider: Sade valdovinos, MyoOther Clinician:Referring Provider: TreatingProvider/Construction Job Cost Estimator:Brydges, KennethTEJERA, PAULWeeks in Treatment: 19Active InactiveNutritionNursing Diagnoses:Impaired glucose control: actual or potentialGoals:Patient/caregiver verbalizes understanding of need to maintain therapeuticglucose control per primary care physicianDate Initiated: 06/07/19r Resolution Date: 08/09/2019Goal Status: ActiveInterventions:Assess patient nutrition upon admission and as needed per policyProvide education on elevated blood sugars and impact on wound healingNotes:Pain, Acute or ChronicNursing Diagnoses:Pain, acute or chronic: actual or potentialGoals:Patient will verbalize adequate pain control and receive pain controlinterventions during procedures as neededDate Initiated: 06/07/2019Target Resolution Date: 07/12/2019Goal Status: ActiveInterventions:Assess comfort goal upon admissionComplete pain assessment as per visit requirementsTreatment Activities:Administer pain control measures as ordered : 06/07/2019Notes:Wound/Skin ImpairmentNursing Diagnoses:Impaired tissue integrityGoals:Patient/caregiver will verbalize understanding of skin care regimenDate Initiated: 06/07/2019Tar Resolution Date: 07/12/2019Goal Status: ActiveInterventions:Assess ulceration(s) every visitTreatment Activities:Skin care regimen initiated : 06/07/2019Notes:Electronic Signature(s)Signed: 10/18/2019 3:44:51 PM By: Judith QuinonesEnter By: Judith Quinones on 10/18/2019 14:10:31 Yonis n Assessment DetailsPatient Name:Date of Service:JEOVANY LEWIS 10/18/2019 2:00 PMMedical Record Number:[id number] Patient of /Sex:Treating RN:1995 (24 y.o. F) Susanna Rangel Care Provider: Sade valdovinos, MyoOther Clinician:Referring Provider: TreatingProvider/Construction Job Cost Estimator:Rasheed Rose PAULWeeks in Treatment: 19Active ProblemsLocation of Pain Severity andDescription of PainPatient Has Pain? NoSite LocationsPain Management and MedicationCurrent Pain Management:Electronic Signature(s)Signed: 10/18/2019 3:50:19 PM By: Rohini Rangel By: Asia Rangel on 10/18/2019 14:04:21 Patient/Caregiver Education DetailsPatient Name:Date of Service:JEOVANY LEWIS 10/18/20195974fgupzjf3:00 PMMedical Record Number:[id number] Patient of /Gender:Treating RN:1995 (24 y.o. F) [facility]medical [facility] Care Physician: Sade valdovinos MyoOren Clinician:Referring Physician: TreatingPhysician/Construction Job Cost Estimator:Rasheed Rose PAULWeeks in Treatment: 19Education AssessmentEducation Provided To:PatientEducation Topics ProvidedBasic Hygiene:Methods: Explain/VerbalElectronic Signature(s)Signed: 10/18/2019 3:50:19 PM By: Rohini Rangel By: Asia Rangel on 10/18/2019 14:04:33Treatment Notes SummaryWound #2 (Proximal, Midline Back)3. Primary Dressing AppliedFoamSilver Dressings5. Secured withTapeNotestwo layer com pressionWound #5 (Right, Lateral Lower Leg)3. Primary Dressing AppliedFoamSilver Dressings5. Secured withTapeNotestwo layer compression --Vitals DetailsPatient Name:Date of Service:JEOVANY LEWIS 10/18/2019 2:00 PMMedical Record Number:[id number] Patient of /Sex:Treating RN:1995 (24 y.o. F) Susanna Rangel Care Provider: Terence Valentino Clinician:Referring Provider: TreatingProvider/Construction Job Cost Estimator:Rashede Rose PAULWeeks in Treatment: 19Vital SignsTime Taken: 14:05Temperature (F):98.6Pulse (bpm): 102Respiratory Rate (breaths/min): 18Blood Pressure (mmHg): 103/71Capillary Blood Glucose (mg/dl): 400Reference Range: 80 - 120 mg / dlElectronic Signature(s)Signed: 10/18/2019 3:50:19 PM By: Rohini Rangel By: Asia Rangel on 10/18/2019 14:05:28 [place] Assessment DetailsPatient Name:Date of Service:JEOVANY LEWIS 10/18/2019 2:00 PMMedical Record Number:[id number] Patient of /Sex:Treating RN:1995 (24 y.o. F) Susanna Rangel Care Provider: Terence Valentino Clinician:Referring Provider: TreatingProvider/Construction Job Cost Estimator:Rasheed Rose PAULWeeks in Treatment: 19Wound StatusWound Number: 2 Primary AbscessEtiology:Wound Location: Back - Midline, ProximalWound OpenWounding Event: Gradually AppearedStatus:Date Acquired: 03/07/2019Comorbid Type I Diabetes, Asthma, Coronary ArteryWeeks Of Treatment: 19History: Disease, Rheumatoid Arthritis, OsteoarthritisClustered Wound: NoWound MeasurementsLength: (cm) 1 % Redu-286.7%Width: (cm) 14.5 % ReduVolume: -286.1%Depth: (cm) 0.1Area: (cm) 11.388Volume: (cm) 1.139Wound DescriptionClassification: Full Thickness Without Exposed SupportStruct uresExudate MediumAmount:Exudate Type: SerosanguineousExudate Color: red, brownWound BedGranulation Amount: Large (67-100%)Granulation Quality: RedNecrotic Amount: Small (1-33%)Necrotic Quality: Adherent Sloughction in Area:ction inTreatment NotesWound #2 (Proximal, Midline Back)3. Primary Dressing AppliedFoamSilver Dressings5. Secured withTapeNotestwo layer compressionElectronic Signature(s)Signed: 10/18/2019 3:50:19 PM By: Rohini Rangel By: Asia Rangel on 10/18/2019 14:07:50 [place] Assessment DetailsPatient Name:Date of Service:JEOVANY LEWIS 10/18/2019 2:00 PMMedical Record Number:[id number] Patient of /Sex:Treating RN:1995 (24 y.o. F) Susanna Rangel Care Provider: Sade valdovinos MyoOther Clinician:Referring Provider: TreatingProvider/Construction Job Cost Estimator:Rasheed Rose PAULWeeks in Treatment: 19Wound StatusWound Number: 4 Primary AtypicalEtiology:Wound Location: Left ForearmWound Healed - EpithelializedWounding Event: Gradually AppearedStatus:Date Acquired: 09/19/2019Comorbid Type I Diabetes, Asthma, Coronary ArteryWeeks Of Treatment: 2History: Disease, Rheumatoid Arthritis, Osteoarth ritisClustered Wound: NoPhotosWound MeasurementsLength: (cm) 0 % Lsnq014%Width: (cm) 0 % ReduVolume: 100%Depth: (cm) 0Area: (cm) 0Volume: (cm) 0Wound DescriptionClassification: Full Thickness Without Exposed SupportStructuresWound BedGranulation Amount: None Present (0%)Necrotic Amount: None Present (0%)ction in Area:ction inElectronic Signature(s)Signed: 10/18/2019 3:50:19 PM By: Diony Rangelntered By: Asia Rangel on 10/18/2019 14:08:15 [place] Assessment DetailsPatient Name:Date of Service:JEOVANY LEWIS 10/18/2019 2:00 PMMedical Record Number:[id number] Patient of /Sex:Treating RN:1995 (24 y.o. F) Susanna Rangel Care Provider: Sade valdovinos MyoOther Clinician:Referring Provider: TreatingPr ovider/Construction Job Cost Estimator:Rasheed Rose PAULWeeks in Treatment: 19Wound StatusWound Number: 5 Primary Diabetic Wound/Ulcerof the Lower ExtremityEtiology:Wound Location: Right Lower Leg - LateralWound OpenWounding Event: Gradually AppearedStatus:Date Acquired: 10/04/2019Comorbid Type I Diabetes, Asthma, Coronary ArteryWeeks Of Treatment: 0History: Disease, Rheumatoid Arthritis, OsteoarthritisClustered Wound: NoPhotosWound MeasurementsLength: (cm) 1 % Reduction inWidth: (cm) 0.9 % Reduction inDepth: (cm) 0.1Area: (cm) 0.707Volume: (cm) 0.071Wound DescriptionClassification: Grade 2Exudate Amount: MediumWound BedGranulation Amount: Large (67-100%)Necrotic Amount: Small (1-33%)Necrotic Quality: Adherent SloughArea:Volume:Treatment NotesWound #5 (Right, Lateral Lower Leg)3. Primary Dressing AppliedFoamSilver Dressings5. Secured withTapeNotestwo layer compressionElectronic Signature(s)Signed: 10/18/2019 3:50:19 PM By: Rohini Rangel By: Asia Rangel on 10/18/2019 14:10:07 DICT: 10/18/19 1400TRANS:10/18/19 1400 WOUND CENTERTRANS BY:ABNER SIGNED:TIME SIGNED:REPORT COPY TO: Name Value Range Interpretation Code Description Data Gisela rce(s) Supporting Document(s) ID Date Data Source [id number] 10/18/2019 02:00:00 PM EDT [place] [facility] [place] [address]PATIENT NAME: JEOVANY LEWIS DATE OF SERVICE: 10/18/19MR#: [id number] DATE OF : [birth year]ACCOUNT #: [id number] FOWLER ([id number])Visit Report for 10/18/2019Chief Complaint Document DetailsPatient Name:Date of Service:JEOVANY LEWIS 10/18/2019 2:00 PMMedical Record Number:[id number] Patient of /Sex:Treating RN:1995 (24 y.o. F)Primary Care Provider: Sade valdovinos, MyoOther Clinician:Referring Provider: TreatingProvider/Construction Job Cost Estimator:Rasheed Rose PAULWeeks in Treatment: 19Information Obtained from: PatientChief ComplaintBack woundsRight lateral calf venous woundElectronic Signature(s)Signed: 10/22/2019 4:14:25 PM By: Eliud Rose D.O., FACSEntered By: Eliud Rose on 10/18/2019 14:40:00 HPI DetailsPatient Name:Date of Service:JEOVANY LEWIS 10/18/2019 2:00 PMMedical Record Number:[id number] Patient of /Sex:Treating RN:1995 (24 y.o. F)Primary Care Provider: Sade valdovinos MyoOther Clinician:Referring Provider: TreatingProvider/Construction Job Cost Estimator:Rasheed Rose PAULWeeks in Treatment: 19History of Present IllnessHPI Description: This is a poorly controlled type 1 diabetic smoker whopresented [facility] the [facility] with a wound onher left plantar heel area. This had been present for approximately 2-3 monthsand appears to have occurred while shewas admitted to the hospital during a diabetic coma where she was unconsciousfor approximately 4 days and requiredventilator support.She had been caring for this at home and her HgbA1c on 05/27/18 was 13.4.She had started seeing an Abattoir Supervisor after this to assist with her bloodsugars.Positive DiabetesPositive TobaccoNegative Obesity (BMI 19.11)Negative Rapid Weight LossNegative Steroids or Bdhnjpfgkfot24/11/19: Ankle Brachial Index: Left 0.98 Right 1.083: She is on Clindamycin for a tooth abscess and the original twowounds are smaller. She has a new thirdwound on her back. She had trouble keeping the dressing on this week.10/04/2019: She was last seen on 07/05 and the back wounds remain as well as anew left forearm wound. She is eatingwell.10/11/2019: She did well this week and the wounds are smaller. She is eatingwell.AllergiesAugmentin-liquid (Reaction: hives), Iodinat ed Contrast- Oral (Reaction:anaphylaxis)Family HistoryCancer - Paternal GrandparentsDiabetes - Mother,Father,Maternal GrandparentsHypertension - MotherThyroid Problems - Maternal GrandparentsNo family history of Heart Disease, Kidney Disease, Lung Disease, Seizures,Stroke, TuberculosisSocial HistoryCurrent some day smokerMarital Status - MarriedAlcohol Use - RarelyDrug Use - Current History - marijuana every day if I have itCaffeine Use - Rarely - energy drinksMedical HistoryType I Diabetes treated with InsulinCoronary Artery DiseaseRheumatoid ArthritisOsteoarthritisThyroid disorderdepression andanxie Daljit did well this week and the wounds are smaller.She has a new area on her right lateral calf.She is eating well.Electronic Signature(s)Signed: 10/22/2019 4:14:25 PM By: Eliud Rose D.O., FACSEntered By: Eliud Rose on 10/18/2019 14:40:13 Demetris campbell Orders DetailsPatient Name:Date of Service:JEOVANY LEWIS Lizzette 10/18/20192:00 PMMedical Record Number:[id number] Patient of /Sex:Treating RN:1995 (24 y.o. 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 vkrswldnvtbxQ43.311 Chronic venous hypertension (idiopathic) with ulcer ofright lower extremityFollow-up AppointmentsReturn Appointment in 1 week.Dressing Change FrequencyDo not change entire dressing for one week.Wound CleansingOther: - keep dressing dry, on days showering- remove dressing and shower thendry area and put new dressing onwoundPrimary Wound DressingAquacel Ag - to leg and back wounds, cover back wounds with MepilexEdema Control2 Layer Compression System - Right Lower ExtremityAdditional Orders / InstructionsOther: - high protein dietLaboratoryBacteria identified in Wound by Culture (MICRO) - (ICD10 L97.212 - Non-pressurechronic ulcer of right calf with fatlayer exposed)LOINC Code: 6462- 6Convenience Name: Wound culture routineElectronic Signature(s)Signed: 10/18/2019 3:44:51 PM By: Petr Quinonesigned: 10/22/2019 4:14:25 PM By: Eliud Rose D.O., FACSPrevious Signature: 10/18/2019 2:41:06 PM Version By: Eliud Rose D.O., FACSEntered By: Judith Quinones on 10/18/2019 14:43:08 Pro blem List DetailsPatient Name: Date ofService:JEOVANY LEWIS 10/18/20192:00 PMMedical Record Number:[id number] PatientAccount Number: [id number] of /Sex:Treating RN:1995 (24 y.o. F)Primary Care Provider: Elliot Valentino OtherClinician:Referring Provider: TreatingProvider/Construction Job Cost Estimator:Rasheed Rose PAULWeeks in Treatment: 19Active ProblemsICD-10Evaluated EncounterCode Description ActiveDate Today ZupjyjplyH01.209A Unspecified open wound of unspecified back wall of06/07/2019 No Yesthorax without penetration into thoracic cavity, qzswpgyzddbdswysG82.212 Non-pressure chronic ulcer of right calf with fat layer10/18/2019 No VqfjcgajdwI42.311 Chronic venous hypertension (idiopathic) with ulcer of10/18/2019 No Yesright lower extremityInactive ProblemsResolved ProblemsICD-10Code DescriptionActive Date Resolved DateS51.802A Unspecified open wound of left forearm, initial encounter10/04/2019 10/04/2019S51.802S Unspecified open wound of left forearm, sequela10/04/2019 10/04/2019Electronic Signature(s)Signed: 10/22/2019 4:14:25 PM By: Eliud Rose D.O., FACSEntered By: Eliud Rose on 10/18/2019 14:39:27 DIC 1400TRANS:10/18/19 1400 WOUND CENTERTRANS BY:ABNER SIGNED:TIME SIGNED:REPORT COPY TO: Name Value Range Interpretation Code Description Data Gisela rce(s) Supporting Document(s) ID Date Data Source [id number] 10/18/2019 02:00:00 PM EDT [place] [facility] [place] [address]PATIENT NAME: JEOVANY LEWIS DATE OF SERVICE: 10/18/19MR#: [id number] DATE OF : [birth year]ACCOUNT #: [id number] FOWLER ([id number])Visit Report for 10/18/2019Compression Therapy DetailsPatient Name:Date of Service:JEOVANY LEWIS 10/18/2019 2:00 PMMedical Record Number:[id number] Patient of /Sex:Treating RN:1995 (24 y.o. F) Nani Quinonesimarodríguez Care Provider: Sade valdovinos, MyoOther Clinician:Referring Provider: TreatingProvider/Construction Job Cost Estimator:Rasheed Rose PAULWeeks in Treatment: 19Compression Therapy Performed for Wound Assessment: Wound #5 Right,LateralLower LegPerformed By: Clinician Judith Quinones, ANNCompression Type: Double LayerPost Procedure DiagnosisSame as Pre-procedureElectronic Signature(s)Signed: 10/18/2019 3:44:51 PM By: Judith QuinonesEntered By: Judith Quinones on 10/18/2019 14:38:49 Debridement DetailsPatient Name:Date of Service:JEOVANY LEWIS Lizzette 10/18/2019 2:00 PMMedical Record Number:[id number] Patient of /Sex:Treating RN:1995 (24 y.o. F) Renée Quinones Care Provider: Terence Valentino Clinician:Referring Provider: TreatingProvider/Construction Job Cost Estimator:Rasheed Rose PAULWeeks in Treatment: 19Debridement Performed for Wound #2 Proximal,Midline BackAssessment:Performed By: Physician Eliud Rose DODebridement Type: DebridementLevel of Consciousness (Pre- Awake and AlertAwake and Alertprocedure):Pre-procedure Verification/Time Y - 14:33esOut Taken:Start Time: 14:33Pain Control: Lidocaine 2% Topical GelTotal Area Debrided (L x W): 1 (cm) x 14.5 (cm) = 14.5 (cm)Tissue and other material Non-Viable, Subcutaneous, Biofilmdebrided:Level: Skin/Subcutaneous TissueDebridement Description: ExcisionalInstrument: CuretteBleeding: MinimumHemostasis Achieved: PressureEnd Time: 14:35Procedural Pain: 0Post Procedural Pain: 1Response to Treatment: Procedure was tolerated wellLevel of Consciousness Responds to Painful Stimuli(Post-procedure):Post Debridement Measurements of Total WoundLength: (cm) 1Width: (cm) 14.5Depth: (cm) 0.1Volume: (cm) 1.139Character of Wound/Ulcer Post Debridement: ImprovedPost Procedure DiagnosisSame as Pre-procedureElectronic Signature(s)Signed: 10/18/2019 3:44:51 PM By: Petr Quinonesigned: 10/22/2019 4:14:25 PM By: Eliud Rose D.O., FACSEntered By: Judith Quinones on 10/18/2019 14:37:37 Pari ridement DetailsPatient Name:Date of Service:JEOVANY LEWISFrancis 10/18/2019 2:00 PMMedical Record Number:[id number] Patient of /Sex:Treating RN:1995 (24 y.o. F) [facility] Care Provider: Terence Valentino Clinician:Referring Provider: TreatingProvider/Construction Job Cost Estimator:Rasheed Rose PAULWeeks in Treatment: 19Debridement Performed for Wound #5 Right,Lateral Lower LegAssessment:Performed By: Physician Eliud Rose DODebridement Type: DebridementSeverity of Tissue Pre Fat layer exposedDebridement:Level of Consciousness (Pre-Level of Consciousness (Pre- Awake and Alertprocedure):Pre-procedure Verification/Time Y - 14:33esOut Taken:Start Time: 14:33Pain Control: Lidocaine 2% Topical GelTotal Area Debrided (L x W): 1 (cm) x 0.9 (cm) = 0.9 (cm)Tissue and other material Non-Viable, Subcutaneous, Biofilmdebrided:Level: Skin/Subcutaneous TissueDebridement Description: ExcisionalInstrument: CuretteBleeding: MinimumHemostasis Achieved: PressureEnd Time: 14:35Procedural Pain: 0Post Procedural Pain: 1Response to Treatment: Procedure was tolerated wellLevel of Consciousness Responds to Painful Stimuli(Post-procedure):Post Debridement Measurements of Total WoundLength: (cm) 1Width: (cm) 0.9Depth: (cm) 0.1Volume: (cm) 0.071Character of Wound/Ulcer Post Debridement: ImprovedSeverity of Tissue Post Debridement: Fat layer exposedPost Procedure DiagnosisSame as Pre-procedureElectronic Signature(s )Signed: 10/18/2019 3:44:51 PM By: Petr Quinonesigned: 10/22/2019 4:14:25 PM By: Eliud Rose D.O., FACSEntered By: Judith Quinones on 10/18/2019 14:38:27 DICT: 10/18/19 1400TRANS:10/18/19 1400 WOUND CENTERTRANS BY:ABNER SIGNED:TIME SIGNED:REPORT COPY TO: Name Value Range Interpretation Code Description Data Gisela rce(s) Supporting Document(s) ID Date Data Source [id number] 10/20/2019 12:06:[address] [facility] Name Value Range Interpretation Code Description Data Gisela rce(s) Supporting Document(s) ORGANISM [facility] COLONY COUNT N [facility] ID Date Data Source [id number] 10/11/2019 02:00:00 PM EDT [address] [id number] NAME: JEOVANY LEWIS DATE OF SERVICE: 10/11/19MR#: [id number] DATE OF : [birth year]ACCOUNT #: [id number] LEWIS ([id number])Visit Report for 10/11/2019Debridement DetailsPatient Name:Date of Service:JEOVANY LEWIS 10/11/2019 2:00 PMMedical Record Number:[id number] Patient of /Sex:Treating RN:1995 (24 y.o. F) Judith QuinonesPrimarodríguez Care Provider: Sade valdovinos, MyoOther Clinician:Referring Provider: TreatingProvider/Construction Job Cost Estimator:Rasheed Rose PAULWeeks in Treatment: 18Debridement Performed for Wound #2 Proximal,Midline BackAssessment:Performed By: Physician Eliud Rose DODebridement Type: DebridementLevel of Consciou sness (Pre- Awake and Alertprocedure):Pre-procedure Verification/Time Y - 14:20esOut Taken:Start Time: 14:20Pain Control: LidocaineTotal Area Debrided (L x W): 2 (cm) x 14.5 (cm) = 29 (cm)Tissue and other material Non-Viable, Subcutaneous, Biofilmdebrided:Level: Skin/Subcutaneous TissueDebridement Description: ExcisionalInstrument: CuretteBleeding: MinimumHemostasis Achieved: PressureEnd Time: 14:23Procedural Pain: 0Post Procedural Pain: 0Response to Treatment: Procedure was tolerated wellLevel of Consciousness Awake and Alert(Post-procedure):Post Debridement Measurements of Total WoundLength: (cm) 2Width: (cm) 14.5Depth: (cm) 0.1Volume: (cm) 2.278Character of Wound/Ulcer Post Debridement: ImprovedPost Procedure DiagnosisSame as Pre-procedureElectronic Signature(s)Signed: 10/12/2019 10:13:48 AM By: Eliud Rose D.O., FACSSigned: 10/18/2019 3:52:46 PM By: Yaron Quinones By: Judith Quinones on 10/11/2019 14:24:[address] DetailsPatient Name:Date of Service:JEOVANY LEWIS 10/11/2019 2:00 PMMedical Record Number:[id number] Patient of /Sex:Treating RN:1995 (24 y.o. F) Renée Quinones Care Provider: Sade valdovinos, MyoOther Clinician:Referring Provider: TreatingProvider/Construction Job Cost Estimator:Rasheed Rose PAULWeeks in Treatment: 18Debridement Performed for Wound #4 Left ForearmAssessment:Performed By: Physician Eliud Rose DODebridement Type: DebridementLevel of Consciousness (Pre- Awake and Alertprocedure):Pre-procedure Verification/Time Y - 14:20esOut Taken:Start Time: 14:20Pain Control: LidocaineTotal Area Debrided (L x W): 0.9 (cm) x 0.5 (cm) = 0.45 (cm)Tissue and other material Non-Viable, Subcutaneous, Biofilmdebrided:Level: Skin/Subcutaneous TissueDebridement Description: ExcisionalInstrument: CuretteBleeding: MinimumHemostasis Achieved: PressureEnd Time: 14:23Procedural Pain: 0Post Procedural Pain: 0Response to Treatment: Procedure was tolerated wellLevel of Consciousness Awake and Alert(Post-procedure):Post Debridement Measurements of Total WoundLength: (cm) 0.9Width: (cm) 0.5Depth: (cm) 0.1Volume: (cm) 0.035Character of Wound/Ulcer Post Debridement: ImprovedPost Procedure DiagnosisSame as Pre-procedureElectronic Signature(s)Signed: 10/12/2019 10:13:48 AM By: Eliud Rose D.O., FACSSigned: 10/18/2019 3:52:46 PM By: Judith QuinonesEntered By: Judith Quinones on 10/11/2019 14:25:03 DIC 1400TRANS:10/11/19 1400 WOUND CENTERTRANS BY:ABNER SIGNED:TIME SIGNED:REPORT COPY TO: Name Value Range Interpretation Code Description Data Gisela rce(s) Supporting Document(s) ID Date Data Source [id number] 10/11/2019 02:00:00 PM EDT [facility] [address] [id number] NAME: JEOVANY LEWIS DATE OF SERVICE: 10/11/19MR#: [id number] DATE OF : [birth year]ACCOUNT #: [id number] LEWIS ([id number])Visit Report for 10/11/2019Chi Complaint Document DetailsPatient Name:Date of Service:JEOVANY LEWIS 10/11/2019 2:00 PMMedical Record Number:[id number] Patient of /Sex:Treating RN:1995 (24 y.o. F)Primary Care Provider: Terence Valentino Clinician:Referring Provider: TreatingProvider/Construction Job Cost Estimator:Rasheed Rose PAULWeeks in Treatment: 18Information Obtained from: [facility] ComplaintLeft heel diabetic foot wound for approximately 3 months.Electronic Signature(s)Signed: 10/12/2019 10:13:48 AM By: Eliud Rose D.O., FACSEntered By: Eliud Rose on 10/11/2019 14:16:22 HPI DetailsPatient Name:Date of Service:JEOVANY LEWISFrancis 10/11/2019 2:00 PMMedical Record Number:[id number] Patient of /Sex:Treating RN:1995 (24 y.o. F)Primary Care Provider: Terence Valentino Clinician:Referring Provider: TreatingProvider/Construction Job Cost Estimator:Rasheed Rose PAULWeeks in Treatment: 18History of Present IllnessHPI Description: This is a poorly controlled type 1 diabetic smoker [facility]opresent[facility] with a wound onher left plantar heel area. This had been present for approximately 2-3 monthsand appears to have occurred while shewas admitted to the hospital during a diabetic coma where she was unconsciousfor approximately 4 days and requiredventilator support.She had been caring for this at home and her HgbA1c on 05/27/18 was 13.4.She had started seeing an Abattoir Supervisor after this to assist with her bloodsugars.Positive DiabetesPositive TobaccoNegative Obesity (BMI 19.11)Negative Rapid Weight LossNegative Steroids or Yubbdcgjoyjw61/11/19: Ankle Brachial Index: Left 0.98 Right 1.0807/06/2019: She is on Clindamycin for a tooth abscess and the original twowounds are smaller. She has a new thirdwound on her back. She had trouble keeping the dressing on this week.10/04/2019: She was last seen on 07/05 and the back wounds remain as well as anew left forearm wound. She is eatingwell.AllergiesAugmentin-liquid (Reaction: hives), Iodinated Contrast- Oral (Reaction:anaphylaxis)Family HistoryCancer - Paternal GrandparentsDiabetes - Mother,Father,Maternal GrandparentsHypertension - MotherThyroid Problems - Maternal GrandparentsNo family history of Heart Disease, Kidney Disease, Lung Disease, Seizures,Stroke, TuberculosisSocial HistoryCurrent some day smokerMarital Status - MarriedAlcohol Use - RarelyDrug Use - Current History - marijuana every day if I have itCaffeine Use - Rarely - energy drinksMedical HistoryType I Diabetes treated with InsulinCoronary Artery DiseaseRheumatoid ArthritisOsteoarthritisThyroid disorderdepression andanxietyNotesShe did well this week and the wounds are smaller.She is eating well.Electronic Signature(s)Signed: 10/12/2019 10:13:48 AM By: Eliud Rose D.O., FACSEntered By: Eliud Rose on 10/11/2019 14:27:30 Physician Orders DetailsPatient Name:Date of Service:JEOVANY LEWIS 10/11/2019 2:00PMMedical Record Number:[id number] Patient of /Sex:Treating RN:1995 (24 y.o. F) Renée Quinones Care Provider: Terence Valentino Clinician:Referring Provider: TreatingProvider/Construction Job Cost Estimator:Rasheed Rose PAULWeeks in Treatment: 18Verbal / Phone Orders: NoDiagnosis CodingFollow-up AppointmentsReturn Appointment in 1 week.Dressing Change FrequencyDo not change entire dressing for one week.Wound CleansingOther: - keep dressing dry, on days showering- remove dr essing and shower thendry area and put new dressing onwoundPrimary Wound DressingAquacel Ag - to both wounds, cover with MepilexAdditional Orders / InstructionsOther: - high protein dietElectronic Signature(s)Signed: 10/12/2019 10:13:48 AM By: Eliud oRse D.O., FACSSigned: 10/18/2019 3:52:46 PM By: Yaron Quinones By: Judith Quinones on 10/11/2019 14:25:41 Problem List DetailsPatient Name:Date of Service:JEOVANY LEWIS 10/11/2019 2:00PMMedical Record Number:[id number] Patient of /Sex:Treating RN:1995 (24 y.o. F)Primary Care Provider: Terence Valentino Clinician:Referring Provider: TreatingProvider/Construction Job Cost Estimator:Rasheed Rose PAULWeeks in Treatment: 18Active ProblemsICD-10Evaluated EncounterCode Description ActiveDate Today TlnksugdyD79.209A Unspecified open wound of unspecified back wall of06/07/2019 No Yesthorax without penetration into thoracic cavity, jmyxcqrhpaiyebosM74.802A Unspecified open wound of left forearm, initial encounter 10/04/2019No YesS51.802S Unspecified open wound of left forearm, sequela 10/04/2019 NoYesInactive ProblemsResolved ProblemsElectronic Signature(s)Signed: 10/12/2019 10:13:48 AM By: Eliud Rose D.O., FACSEntered By: Eliud Rose on 10/11/2019 14:16:18 DIC 1400TRANS:10/11/19 1400 WOUND CENTERTRANS BY:ABNER SIGNED:TIME SIGNED:REPORT COPY TO: Name Value Range Interpretation Code Description Data Gisela rce(s) Supporting Document(s) ID Date Data Source [id number] 10/11/2019 02:00:00 PM EDT [facility] [place] [address]PATIENT NAME: JEOVANY LEWIS DATE OF SERVICE: 10/11/19MR#: [id number] DATE OF : [birth year]ACCOUNT #: [id number] LEWIS ([id number])Visit Report for 10/11/2019Advanced Modalities Screening Tool DetailsPatient Name:Date of Service:JEOVANY LEWIS 10/11/2019 2:00PMMedical Record Number:[id number] Patient of /Sex:Treating RN:1995 (24 y.o. F) Renée Quinones Care Provider: Sade valdovinos MyoOther Clinician:Referring Provider: TreatingProvider/Construction Job Cost Estimator:Rasheed Rose PAULWeeks in Treatment: 18Advanced Modalities Screening Check ListHyperbaric Oxygen Therapy: Reviewed LCD or HBO policy from [employer] and/or NCDTherapy Not IndicatedNo Appropriate IndicationElectronic Signature(s)Signed: 10/18/2019 3:52:46 PM By: Yaron Quinones By: Judith Quinones on 10/11/2019 14:26:02 -------Arrival Information DetailsPatient Name:Date of Service:JEOVANY LEWIS 10/11/2019 2:00PMMedical Record Number:[id number] Patient of /Sex:Treating RN:1995 (24 y.o. F) Susanna Rangel Care Provider: Terence Valentino Clinician:Referring Provider: TreatingProvider/Construction Job Cost Estimator:Rasheed Rose PAULWeeks in Treatment: 18Visit Information History SinceLast VisitHas Dressing in Place as Prescribed: YesPatient Arrived: AmbulatoryPain Present Now: YesArrival Time: 13:55Transfer Assistance: NonePatient Identification Verified: YesSecondary Verification Proc ess Completed: YesElectronic Signature(s)Signed: 10/11/2019 3:22:58 PM By: Rohini Rangel By: Asia Rangel on 10/11/2019 13:56:19 ----Discharge Instructions DetailsPatient Name:Date of Service:JEOVANY LEWIS 10/11/20192:00 PMMedical Record Number:[id number] Patient of /Sex:Treating RN:1995 (24 y.o. F) Renée Quinones Care Provider: Terence Valentino Clinician:Referring Provider: TreatingProvider/Construction Job Cost Estimator:Rasheed Rose PAULWeeks in Treatment: 18Follow-up AppointmentsReturn Appointment in 1 week. Should you experience any significant changes inyour wound(s) or have anyquestions regarding your home care instructions please contact the woundcenter. If after regular business hours,please call your family doctor or local emergency room. - 10/18/19 @ 2 PMDressing Change FrequencyDo not change entire dressing for one week.Wound Cleansing. - keep dressing dry, on days showering- remove dressing and shower then dryarea and put new dressing on woundPrimary Wound DressingCut Bionanoplus Ag to fit wound bed - to both wounds, cover with MepilexAdditional Orders / InstructionsOther: - high protein dietPatient Received Instructions: YesElectronic Signature(s)Signed: 10/11/2019 3:34:40 PM By: Holly HillEntered By: Holly Hill on 10/11/2019 14:55:33 Lower Extremity Assessment DetailsPatient Name:Date of Service:JEOVANY LEWIS 10/11/2019 2:00PMMedical Record Number:[id number] Patient of /Sex:Treating RN:1995 (24 y.o. F) Susanna Rangel Care Provider: Terence Valentino Clinician:Referring Provider: TreatingProvider/Construction Job Cost Estimator:Rasheed Rose PAULWeeks in Treatment: 18Electronic Signature(s)Signed: 10/11/2019 3:22:58 PM By: Rohini Rangel By: Asia Rangel on 10/11/2019 13:57:58 Mul ti Wound Chart DetailsPatient Name:Date of Service:JEOVANY LEWIS 10/11/2019 2:00PMMedical Record Number:[id number] Patient of /Sex:Treating RN:1995 (24 y.o. F) Renée Quinones Care Provider: Sade valdovinos, MyoOther Clinician:Referring Provider: TreatingProvider/Construction Job Cost Estimator:Rasheed Rose PAULWeeks in Treatment: 18Vital SignsHeight(in): Capillary Udxcp725Kbiyawj(mg/dl):Weight(lbs):Pulse(bpm): 103Body Mass Index(BMI):Blood Pressure(mmHg): 124/85Temperature(F):Respiratory 18Rate(breaths/min):N/APhotos: [2:No Photos] [4:No Photos]N/AWound Location: [2:Back - Midline, Proximal] [4:L eft Forearm]N/AWounding Event: [2:Gradually Appeared] [4:Gradually Appeared]N/APrimary Etiology: [2:Abscess] [4:Atypical]N/AComorbid History: [2:Type I Diabetes, Asthma,] [4:Type I Diabetes,]Asthma, [2:N/A]Coronary Artery Disease, [2:Coronary Artery Disease,]Rheumatoid Arthritis, [2:Rheumatoid Arthritis,]Osteoarthritis [2:Osteoarthritis]Date Acquired: [2:03/07/2019] [4:09/19/2019]N/AWeeks of Treatment: [2:18] [4:1]N/AWound Status: [2:Open] [4:Open]N/AMeasurements L x W x D [2:2x14.5x0.1] [4:0.9x0.5x0.1]N/A(cm)Area (cm) : [2:22.777] [4:0.353]N/AVolume (cm) : [2:2.278] [4:0.035]N/A%Reduction in Area: [2:-673.40%] [4:35.80%]N/A%Reduction in Volume: [2:-672.20%] [4:36.40%]N/AClassification: [2:Full Thickness Without] [4:Full Thickness]Without [2:N/A]Exposed Support Structures [2:Exposed Support Structur es]Exudate Amount: [2:None Present] [4:None Present]N/AGranulation Amount: [2:None Present (0%)] [4:None Present (0%)]N/ANecrotic Amount: [2:Large (67- 100%)] [4:Large (67-100%)]N/ADebridement: [2:Debridement - Excisional] [4:Debridement -]Excisional [2:N/A]Pre-procedure [2:14:20] [4:14:20]N/AVerification/Time Out Taken:Pain Control: [2:Lidocaine] [4:Lidocaine]N/ATissue Debrided: [2:Subcutaneous] [4:Subcutaneous]N/ALevel: [2:Skin/Subcutaneous Tissue] [4:Skin/Subcutaneous]Tissue [2:N/A]Debridement Area (sq cm): [2:29] [4:0.45]N/AInstrument: [2:Curette] [4:Curette]N/ABleeding: [2:Minimum] [4:Minimum]N/AHemostasis Achieved: [2:Pressure] [4:Pressure]N/AProcedural Pain: [2:0] [4:0]N/APost Procedural Pain: [2:0] [4:0]N/ADebridement Treatment [2:Procedure was tolerated well] [4:Procedure was]tolerated well [2:N/A]Response:Post Debridement [2:2x14.5x0.1] [4:0.9x0.5x0.1]N/AMeasurements L x W x D(cm)Post Debridement Volume: [2:2.278] [4:0.035]N/A(cm)Procedures Performed: [2:Debridement] [4:Debridement]Treatment NotesNotesDr Brydges in and discussed dressings. Changing to Ag and MepilexElectronic Signature(s)Signed: 10/18/2019 3:52:46 PM By: Yaron Quinones By: Judith Quinones on 10/11/2019 14:26:28--- Multi-Discipli nary Care Plan DetailsPatient Name:Date of Service:JEOVANY LEWISFrancis 10/11/2019 2:00PMMedical Record Number:[id number] Patient of /Sex:Treating RN:1995 (24 y.o. F) Renée Quinones Care Provider: Terence Valentino Clinician:Referring Provider: TreatingProvider/Construction Job Cost Estimator:Rasheed Rose PAULWeeks in Treatment: 18Active InactiveNutritionNursing Diagnoses:Impaired glucose control: actual or potentialGoals:Patient/caregiver verbalizes understanding of need to maintain therapeuticglucose control per primary care physicianDate Initiated: 06/07/2019Target Resolution Date: 08/09/2019Goal Status: ActiveInterventions:Assess patient nutrition upon admission and as needed per policyProvide education on elevated blood sugars and impact on wound healingNotes:Pain, Acute or ChronicNursing Diagnoses:Pain, acute or chronic: actual or potentialGoals:Patient will verbalize adequate pain control and receive pain controlinterventions during procedures as neededDate Initiated: 06/07/2019Target Resolution Date: 07/12/2019Goal Status: ActiveInterventions:Assess comfort goal upon admissionComplete pain assessment as per visit requirementsTreatment Activities:Administer pain control measures as ordered : 06/07/2019Notes:Wound/Skin ImpairmentNursing Diagnoses:Impaired tissue integrityGoals:Patient/caregiver will verbalize understanding of skin care regimenDate Initiated: 06/07/2019Target Resolution Date: 07/12/2019Goal Status: ActiveInterventions:Assess ulceration(s) every visitTreatment Activities:Skin care regimen initiated : 06/07/2019Notes:Electronic Signature(s)Signed: 10/18/2019 3:52:46 PM By: Yaron Quinones By: Judith Quinones on 10/11/2019 14:25:56 Patient/Caregiver Education DetailsPatient Name:Date of Service:JEOVANY LEWIS 10/11/20194585intzrxm8:00PMMedical Record Number:[id number] Patient of /Gender:Treating RN:1995 (24 y.o. F) [facility] Phys[facility]: Terence Valentino Clinician:Referring Physician: TreatingPhysician/Construction Job Cost Estimator:Rasheed Rose PAULWeeks in Treatment: 18Education AssessmentEducation Provided To:PatientEducation Topics ProvidedWound/Skin Impairment:Methods: Explain/VerbalResponses: State content correctlyElectronic Signature(s)Signed: 10/18/2019 3:52:46 PM By: Yaron Quinones By: Judith Quinones on 10/11/2019 14:26:57 Vit als DetailsPatient Name:Date of Service:JEOVANY LEWIS 10/11/20192:00 PMMedical Record Number:[id number] Patient of /Sex:Treating RN:1995 (24 y.o. F) Susanna Rangel Provider: Terence Valentino Clinician:Referring Provider: TreatingProvider/Construction Job Cost Estimator:Rasheed Rose PAULWeeks in Treatment: 18Vital SignsTime Taken: 13:56Pulse (bpm):103Respiratory Rate (breaths/min): 18Blood Pressure (mmHg): 124/85Capillary Blood Glucose (mg/dl): 200Reference Range: 80 - 120 mg / dlElectronic Signature(s)Signed: 10/11/2019 3:22:58 PM By: Rohini Rangel By: Asia Rangel on 10/11/2019 13:56:59 Wound Assessment DetailsPatient Name:Date of Service:JEOVANY LEWIS Lizzette 10/11/2019 2:00 PMMedical Record Number:[id number] Patient of /Sex:Treating RN:1995 (24 y.o. F) Susanna Rangel Care Provider: Terence Valentino Clinician:Referring Provider: TreatingProvider/Construction Job Cost Estimator:Rasheed Rose PAULWeeks in Treatment: 18Wound StatusWound Number: 2 Primary AbscessEtiology:Wound Location: Back - Midline, ProximalWound OpenWounding Event: Gradually AppearedStatus:Date Acquired: 03/07/2019Comorbid Type I Diabetes, Asthma, Coronary ArteryWeeks Of Treatment: 18History: Disease, Rheumatoid Arthritis, OsteoarthritisClustered Wound: NoWound MeasurementsLength: (cm) 2 % RedArea: -673.4%Width: (cm) 14.5 % RedVolume: -672.2%Depth: (cm) 0.1Area: (cm) 22.777Volume: (cm) 2.278Wound DescriptionClassification: Full Thickness Without Exposed SupportStructuresExudate None PresentAmount:Wound BedGranulation Amount: None Present (0%)Necrotic Amount: Large (67-100%)Necrotic Quality: Adherent Sloughuction inuction inElectronic Signature(s)Signed: 10/11/2019 3:22:58 PM By: Rohini Rangel By: Asia Rangel on 10/11/2019 14:02:17- Wound Assessment DetailsPatient Name:Date of Service:JEOVANY LEWIS 10/11/2019 2:00 PMMedical Record Number:[id number] Patient of /Sex:Treating RN:1995 (24 y.o. F) Susanna Rangel Care Provider: Terence Valentino Clinician:Referring Provider: TreatingProvider/Construction Job Cost Estimator:Rasheed Rose PAULWeeks in Treatment: 18Wound StatusWound Number: 4 Primary AtypicalEtiology:Wound Location: Left ForearmWound OpenWounding Event: Gradually AppearedStatus:Date Acquired: 09/19/2019Comorbid Type I Diabetes, Asthma, Coronary ArteryWeeks Of Treatment: 1History: Disease, Rheumatoid Arthritis, OsteoarthritisClustered Wound: NoWound MeasurementsLength: (cm) 0.9 % RedArea: 35.8%Width: (cm) 0.5 % RedVolume: 36. 4%Depth: (cm) 0.1Area: (cm) 0.353Volume: (cm) 0.035Wound DescriptionClassification: Full Thickness Without Exposed SupportStructuresExudate None PresentAmount:Wound BedGranulation Amount: None Present (0%)Necrotic Amount: Large (67-100%)Necrotic Quality: Adherent Sloughuction inuction inElectronic Signature(s)Signed: 10/11/2019 3:22:58 PM By: Rohini Rangel By: Asia Rangel on 10/11/2019 14: 01:49 DICT: 10/11/19 1400TRANS:10/11/19 1400 WOUND CENTERTRANS BY:ABNER SIGNED:TIME SIGNED:REPORT COPY TO: Name Value Range Interpretation Code Description Data Gisela rce(s) Supporting Document(s) ID Date Data Source [id number] 10/05/2019 06:59:00 PM EDT [facility] Name Value Range Interpretation Code Description Data Gisela rce(s) Supporting Document(s) Sodium 133 mmol/L 137-145 Below low normal [facility] Potassium 3.5-5.1 Normal (applies to non-numeric resul ts) [facility] Chloride 100 mmol/L 98-112 Normal (applies to non-numeric resul ts) [facility] Carbon Dioxide CO2 22.0-33.0 Normal (applies to non-numer ic results) [facility] Anion Gap 4.0-11.0 Normal (applies to non-numeric resul ts) [facility] BUN 9 mg/dL 7-17 Normal (applies to non-numeric resul ts) [facility] Creatinine 0.70-1.20 Normal (applies to non-numeric resul ts) [facility] GFR 84 mL/min >60 Normal (applies to non-numeric resul ts) [facility] Result based on MDRD formula. Glucose Level 321 mg/dL 74-99 Above high normal [facility] The reference range is only applicable w hen fasting. Calcium-Uncorrected 8.4-10.2 Normal (applies to non-nume vanessa results) [facility] Corrected Calcium 8.4-10.2 Normal (applies to non-numeri c results) [facility] ID Date Data Source [id number] 10/05/2019 06:59:00 PM EDT [facility] Name Value Range Interpretation Code Description Data Gisela rce(s) Supporting Document(s) Thyroid Stimulate Hormone TSH 0.358-3.740 Above high ivana l [facility] ID Date Data Source [id number] 10/05/2019 06:59:00 PM EDT [facility] Name Value Range Interpretation Code Description Data Gisela rce(s) Supporting Document(s) Free T4 (Free Thyroxine) 0.76-1.46 Normal (applies to non -numeric results) [facility] ID Date Data Source [id number] 10/05/2019 06:46:00 PM EDT [facility] Name Value Range Interpretation Code Description Data Gisela rce(s) Supporting Document(s) Hemoglobin A1C % Less than 5.7% Above high normal [facility] HBA1C: Normal: Less than 5.7% Prediabetes: 5.7% to 6.4% Diabetes: 6.5% or higher HA1C % vs Estimated Average Glucose (eAG) % eAG % eAG 6% 126 mg/dL 10% 240 mg/dL 7% 154 mg/dL 11% 269 mg/dL 8% 183 mg/dL 12% 298 mg/dL 9% 212 mg/dL Reference: [place] [employer], 2017 ID Date Data Source [id number] 10/05/2019 06:44:00 PM EDT [facility] Name Value Range Interpretation Code Description Data Gisela rce(s) Supporting Document(s) Beta HCG Screen,Qualitative Negative Normal (appli es to non-numeric results) [facility] ID Date Data Source [id number] 10/04/2019 03:00:00 PM EDT [place], [place] [address]PATIENT NAME: JEOVANY LEWIS DATE OF SERVICE: 10/04/19MR#: [id number] DATE OF : [birth year]ACCOUNT #: [id number] LEWIS ([id number])Visit Report for 10/04/2019Debridement DetailsPatient Name:Date of Service:JEOVANY LEWIS 10/04/2019 3:00 PMMedical Record Number:[id number] Patient of /Sex:Treating RN:1995 (24 y.o. F) Renée Quinones Care Provider: Terence Valentino Clinician:Referring Provider: TreatingProvider/Construction Job Cost Estimator:Rasheed Rose PAULWeeks in Treatment: 17Debridement Performed for Wound #2 Proximal,Midline BackAssessment:Performed By: Physician Eliud Rose DODebridement Type: DebridementLevel of Consciou sness (Pre- Awake and Alertprocedure):Pre-procedure Verification/Time Y - 15:06esOut Taken:Start Time: 15:06Pain Control: Lidocaine 2% Topical GelTotal Area Debrided (L x W): 2 (cm) x 15.5 (cm) = 31 (cm)Tissue and other material Non-Viable, Subcutaneous, Biofilmdebrided:Level: Skin/Subcutaneous TissueDebridement Description: ExcisionalInstrument: CuretteBleeding: MinimumHemostasis Achieved: PressureEnd Time: 15:08Procedural Pain: 0Post Procedural Pain: 0Response to Treatment: Procedure was tolerated wellLevel of Consciousness Awake and Alert(Post-procedure):Post Debridement Measurements of Total WoundLength: (cm) 2Width: (cm) 15.5Depth: (cm) 0.1Volume: (cm) 2.435Character of Wound/Ulcer Post Debridement: ImprovedPost Procedure DiagnosisSame as Pre-procedureElectronic Signature(s)Signed: 10/05/2019 8:51:03 AM By: Eliud Rose D.O., FACSSigned: 10/10/2019 3:52:07 PM By: Judith QuinonesEntered By: Judith Quinones on 10/04/2019 15:08:41 ---DICT: 10/04/19 1500TRANS:10/04/19 1500 WOUND CENTERTRANS BY:ABNER SIGNED:TIME SIGNED:REPORT COPY TO: Name Value Range Interpretation Code Description Data Gisela rce(s) Supporting Document(s) ID Date Data Source [id number] 10/04/2019 03:00:00 PM EDT [facility] [address] [id number] NAME: JEOVANY LEWIS DATE OF SERVICE: 10/04/19MR#: [id number] DATE OF : [birth year]ACCOUNT #: [id number] LEWIS ([id number])Visit Report for 10/04/2019[facility] Complaint Document DetailsPatient Name:Date of Service:JEOVANY LEWIS 10/04/2019 3:00 PMMedical Record Number:[id number] Patient of /Sex:Treating RN:1995 (24 y.o. F)Primary Care Provider: Terence Valentino Clinician:Referring Provider: TreatingProvider/Construction Job Cost Estimator:Rasheed Rose PAULWeeks in Treatment: 17Information Obtained from: [facility] ComplaintLeft heel diabetic foot wound for approximately 3 months.Electronic Signature(s)Signed: 10/05/2019 8:51:03 AM By: Eliud Rose D.O., FACSEntered By: Eliud Rose on 10/04/2019 14:42:03 HPI DetailsPatient Name:Date of Service:JEOVANY LEWISFrancis 10/04/2019 3:00 PMMedical Record Number:[id number] Patient of /Sex:Treating RN:1995 (24 y.o. F)Primary Care Provider: Terence Valentino Clinician:Referring Provider: TreatingProvider/Construction Job Cost Estimator:Rasheed Rose PAULWeeks in Treatment: 17History of Present IllnessHPI Description: This is a poorly controlled type 1 diabetic smoker whopresented [facility] the [facility] with a wound onher left plantar heel area. This had been present for approximately 2-3 monthsand appears to have occurred while shewas admitted to the hospital during a diabetic coma where she was unconsciousfor approximately 4 days and requiredventilator support.She had been caring for this at home and her HgbA1c on 05/27/18 was 13.4.She had started seeing an Abattoir Supervisor after this to assist with her bloodsugars.Positive DiabetesPositive TobaccoNegative Obesity (BMI 19.11)Negative Rapid Weight LossNegative Steroids or Ndkcdqtaskie16/11/19: Ankle Brachial Index: Left 0.98 Right 1.0807/06/2019: She is on Clindamycin for a tooth abscess and the original twowounds are smaller. She has a new thirdwound on her back. She had trouble keeping the dressing on this week.AllergiesAugmentin-liquid (Reaction: hives), Iodinated Contrast- Oral (Reaction:anaphylaxis)Family HistoryCancer - Paternal GrandparentsDiabetes - Mother,Father,Maternal GrandparentsHypertension - MotherThyroid Problems - Maternal GrandparentsNo family history of Heart Disease, Kidney Disease, Lung Disease, Seizures,Stroke, TuberculosisSocial HistoryCurrent some day smokerMarital Status - MarriedAlcohol Use - RarelyDrug Use - Current History - marijuana every day if I have itCaffeine Use - Rarely - energy drinksMedical HistoryType I Diabetes treated with InsulinCoronary Artery DiseaseRheumatoid ArthritisOsteoarthritisThyroid disorderdepression andanxietyNotesShe was last seen on 07/05 and the back wounds remain as well as a new leftforearm wound.She is eating well.Electronic Signature(s)Signed: 10/05/2019 8:51:03 AM By: Eliud Rose D.O., FACSEntered By: Eliud Rose on 10/04/2019 15:10:34 Demetris Russo DetailsPatient Name:Date of Service:JEOVANY LEWIS 10/04/20193:00 PMMedical Record Number:[id number] Patient of /Sex:Treating RN:1995 (24 y.o. F) Renée Quinones Care Provider: Terence Valentino Clinician:Referring Provider: TreatingProvider/Construction Job Cost Estimator:Rasheed Rose PAULWeeks in Treatment: 17Verbal / Phone Orders: NoDiagnosis CodingICD-10 CodingCode DescriptionUnspecified open wound of unspecified back wall of thorax without penetrationinto thoracic cavity,S21.209A initial encounterFollow-up AppointmentsReturn Appointment in 1 week.Dressing Change FrequencyDo not change entire dressing for one week.Wound CleansingOther: - keep dressing dry, on days showering- remove dressing and shower thendry area and put new dressing onwoundPrimary Wound DressingAquacel Ag - Ag and mepilex to back wound. Neospor in and mepilex to left armwound.Additional Orders / InstructionsOther: - high protein dietElectronic Signature(s)Signed: 10/05/2019 8:51:03 AM By: Eliud Rose D.O., FACSSigned: 10/10/2019 3:52:07 PM By: Judith QuinonesEntermaribel By: Judith Quinones on 10/04/2019 15:09:39 Pro blem List DetailsPatient Name:Date of Service:JEOVANY LEWIS 10/04/20193:00 PMMedical Record Number:[id number] Patient of /Sex:Treating RN:1995 (24 y.o. F)Primary Care Provider: Terence Valentino Clinician:Referring Provider: TreatingProvider/Construction Job Cost Estimator:Rasheed Rose PAULWeeks in Treatment: 17Active ProblemsICD-10Evaluated EncounterCode Description ActiveDate Today PounuvjzwG76.209A Unspecified open wound of unspecified back wall of06/07/2019 No Yesthorax without penetration into thoracic cavity, zdaucyrlgcxtpbbmE60.802A Unspecified open wound of left forearm, initial encounter 10/04/2019No YesS51.802S Unspecified open wound of left forearm, sequela 10/04/2019No YesInactive ProblemsResolved ProblemsElectronic Signature(s)Signed: 10/05/2019 8:51:03 AM By: Eliud Rose D.O., FACSEntered By: Eliud Rose on 10/04/2019 15:11:25 DIC 1500TRANS:10/04/19 1500 WOUND CENTERTRANS BY:ABNER SIGNED:TIME SIGNED:REPORT COPY TO: Name Value Range Interpretation Code Description Data Gisela rce(s) Supporting Document(s) ID Date Data Source [id number] 10/04/2019 03:00:00 PM EDT Amanda [place] [address]PATIENT NAME: JEOVANY LEWIS DATE OF SERVICE: 10/04/19MR#: [id number] DATE OF : [birth year]ACCOUNT #: [id number] LEWIS ([id number])Visit Report for 10/04/2019Advanced Modalities Screening Tool DetailsPatient Name:Date of Service:JEOVANY LEWIS 10/04/20193:00 PMMedical Record Number:[id number] Patient of /Sex:Treating RN:1995 (24 y.o. F) Renée Quinones Care Provider: Sade valdovinos, MyoOther Clinician:Referring Provider: TreatingProvider/Construction Job Cost Estimator:Rasheed Rose PAULWeeks in Treatment: 17Advanced Modalities Screening Check ListHyperbaric Oxygen Therapy: Reviewed LCD or HBO policy from [employer] and/or NCDTherapy Not IndicatedNo Appropriate IndicationElectronic Signature(s)Signed: 10/10/2019 3:52:07 PM By: Yaron Quinones By: Judith Quinones on 10/04/2019 15:09:57 --------Arrival Information DetailsPatient Name:Date of Service:JEOVANY LEWIS 10/04/20193:00 PMMedical Record Number:[id number] Patient of /Sex:Treating RN:1995 (24 y.o. F) Susanna Rnagel Care Provider: Terence Valentino Clinician:Referring Provider: TreatingProvider/Construction Job Cost Estimator:Rasheed Rose PAULWeeks in Treatment: 17Visit Information History SinceLast VisitHas Dressing in Place as Prescribed: NoPatient Arrived: AmbulatoryPain Present Now: NoArrival Time: 14:51Transfer Assistance: NonePatient Identification Verified: YesSecondary Verification Process Completed: YesElectronic Signature(s)Signed: 10/04/2019 3:15:04 PM By: Rohini Rangel By: Asia Rangel on 10/04/2019 14:52:14 --Discharge Instructions DetailsPatient Name:Date of Service:JEOVANY LEWIS 10/04/20193:00 PMMedical Record Number:[id number] Patient of /Sex:Treating RN:1995 (24 y.o. F) Renée Quinones Care Provider: Terence Valentino Clinician:Referring Provider: TreatingProvider/Construction Job Cost Estimator:Rasheed Rose PAULWeeks in Treatment: 17Follow-up AppointmentsReturn Appointment in 1 week. Should you experience any significant changes inyour wound(s) or have anyquestions regarding your home care instructions please contact the woundcenter. If after regular business hours,please call your family doctor or local emergency room. - 10/11/19 @ 2 PMDressing Change FrequencyDo not change entire dressing for one week.Wound Cleansing. - keep dressing dry, on days showering- remove dressing and shower then dryarea and put new dressing on woundPrimary Wound DressingCut Aquacel Ag to fit wound bed - Ag and mepilex to back wound. Neosporin andmepilex to left arm wound.Additional Orders / InstructionsOther: - high protein dietPatient Received Instructions: YesElectronic Signature(s)Signed: 10/04/2019 3:36:40 PM By: Holly HillEntered By: Holly Hill on 10/04/2019 15:16:45--------- Encounter Discharge Information DetailsPatient Name:Date of Service:DEBBIE JEOVANY Lizzette 10/04/2019 3:00PMMedical Record Number:[id number] Patient of /Sex:Treating RN:1995 (24 y.o. F) Renée Quinones Care Provider: Terence Valentino Clinician:Referring Provider: TreatingProvider/Construction Job Cost Estimator:Rasheed Rose PAULWeeks in Treatment: 17Encounter Discharge Information Items Post ProcedureVitalsDischarge Condition: Stable Temperature(F): 98.6Ambulatory Status: AmbulatoryPulse (bpm):103Discharge Destination: Home Respiratory Rate(breaths/min): 16Transportation: Private Auto Blood Pressure(mmHg): 105/70Accompanied By: selfSchedule Follow-up Appointment: YesClinical Summary of Care: Patient DeclinedElectronic Signature(s)Signed: 10/10/2019 3:52:07 PM By: Yaron Quinones By: Judith Quinones on 10/04/2019 15:20:07 Low er Extremity Assessment DetailsPatient Name:Date of Service:JEOVANY LWEIS 10/04/2019 3:00PMMedical Record Number:[id number] Patient of /Sex:Treating RN:1995 (24 y.o. F) Susanna Rangel Care Provider: Terence Valentino Clinician:Referring Provider: TreatingProvider/Construction Job Cost Estimator:Rasheed Rose PAULWeeks in Treatment: 17Electronic Signature(s)Signed: 10/04/2019 3:15:04 PM By: Rohini Rangel By: Asia Rangel on 10/04/2019 14:53:07 Mul ti Wound Chart DetailsPatient Name:Date of Service:JEOVANY LEWIS 10/04/2019 3:00 PMMedical Record Number:[id number] Patient of /Sex:Treating RN:1995 (24 y.o. F) Renée Quinones Care Provider: Terence Valentino Clinician:Referring Provider: TreatingProvider/Construction Job Cost Estimator:Rasheed Rose PAULWeeks in Treatment: 17Vital SignsHeight(in):Pulse(bpm):108Weight(lbs): BloodPressure(mmHg): 114/74Body Mass Index(BMI):Temperature(F): 98.4Respiratory 17Rate(breaths/min):4Photos: [3:No Photos]Wound Location: Back - Midline, Proximal Back - Midline,Distal Left ForearmWounding Event: Gradually Appeared Gradually AppearedGradually AppearedP rimary Etiology: Abscess AbscessAtypicalComorbid History: Type I Diabetes, Asthma, Type I Diabetes,Asthma, Type I Diabetes, Asthma,Coronary Artery Disease, Coronary Artery Disease, Coronary ArteryDisease,Rheumatoid Arthritis, Rheumatoid Arthritis, Rheumatoid Arthritis,Osteoarthritis Osteoarthritis OsteoarthritisDate Acquired: 03/07/2019/06/2019Weeks of Treatment: 17 120Wound Status: Open ConvertedOpenMeasurements L x W x D 2x15.5x0.1 4w1a32y8.7x0.1(cm)Area (cm) : 24.347 00.55Volume (cm) : 2.435 00.055%Reduction in Area: -726.70% 100.00%N/A%Reduction in Volume: -725.40% 100.00%N/AClassification: Full Thickness Without Full ThicknessWithout Full Thickness WithoutExposed Support Structures Exposed Support Structures Exposed SupportStructuresExudate Amount: Medium N/AMediumExudate Type: Serosanguineous N/ASerosanguineousExudate Color: red, brown N/Ared, brownGranulation Amount: Medium (34-66%) N/ANone Present (0%)Granulation Quality: [place] N/AN/ANecrotic Amount: Medium (34-66%) N/ALarge (67-100%)Debridement: Debridement - Excisional N/AN/APre-procedure 15:06 N/AN/AVerification/Time Out Taken:Pain Control: Lidocaine 2% Topical Gel N/AN/ATissue Debrided: Subcutaneous N/AN/ALevel: Skin/Subcutaneous Tissue N/AN/ADebridement Area (sq cm): 31 N/AN/AInstrument: Curette N/AN/ABleeding: Minimum N/AN/AHemostasis Achieved: Pressure N/AN/AProcedural Pain: 0 N/AN/APost Procedural Pain: 0 N/AN/ADebridement Treatment Procedure was tolerated well N/AN/AResponse:Post Debridement 2x15.5x0.1 N/AN/AMeasurements L x W x D(cm)Post Debridement Volume: 2.435 N/AN/A(cm)Procedures Performed: Debridement N/AN/ATr eatment NotesNotesDr Rose in and discussed etiology of pt's woundsElectronic Signature(s)Signed: 10/10/2019 3:52:07 PM By: Judith QuinonesEntered By: Judith Quinones on 10/04/2019 15:10:33 Multi-Disciplinary Care Plan DetailsPatient Name:Date of Service:JEOVANY LEWISFrancis 10/04/20193:00 PMMedical Record Number:[id number] Patient of /Sex:Treating RN:1995 (24 y.o. F) [facility] Care Provider: Sade valdovinos, MyoOther Clinician:Referring Provider: TreatingProvider/Construction Job Cost Estimator:Rasheed Rose PAULWeeks in Treatment: 17Active InactiveNutritionNursing Diagnoses:Impaired glucose control: actual or potentialGoals:Patient/caregiver verbalizes understanding of need to maintain therapeuticglucose control per primary care physicianDate Initiated: 06/07/2019Target Resolution Date: 08/09/2019Goal Status: ActiveInterventions:Assess patient nutrition upon admission and as needed per policyProvide education on elevated blood sugars and impact on wound healingNotes:Pain, Acute or ChronicNursing Diagnoses:Pain, acute or chronic: actual or potentialGoals:Patient will verbalize adequate pain control and receive pain controlinterventions during procedures as neededDate Initiated: 06/07/2019Target Resolution Date: 07/12/2019Goal Status: ActiveInterventions:Assess comfort goal upon admissionComplete pain assessment as per visit requirementsTreatment Activities:Administer pain control measures as ordered : 06/07/2019Notes:Wound/Skin ImpairmentNursing Diagnoses:Impaired tissue integrityGoals:Patient/caregiver will verbalize understanding of skin care regimenDate Initiated: 06/07/2019Target Resolution Date: 07/12/2019Goal Status: ActiveInterventions:Assess ulceration(s) every visitTreatment Activities:Skin care regimen initiated : 06/07/2019Notes:Electronic Signature(s)Signed: 10/10/2019 3:52:07 PM By: Judith QuinonesEntermaribel By: Judith Quinones on 10/04/2019 15:09:47 Pain Assessment DetailsPatient Name:Date of Service:JEOVANY LEWIS 10/04/2019 3:00PMMedical Record Number:[id number] Patient of /Sex:Treating RN:1995 (24 y.o. F) Susanna Rangel Care Provider:Other Clinician:Sade valdovinos MyoReferrsalvador Provider: TreatingProvider/Construction Job Cost Estimator:Rasheed Rose PAULWeeks in Treatment: 17Active ProblemsLocation of Pain Severity andDescription of PainPatient Has Pain? NoSite LocationsPain Management and MedicationCurrent Pain Management:Electronic Signature(s)Signed: 10/04/2019 3:15:04 PM By: Rohini Rangel By: Asia Rangel on 10/04/2019 15:00:39 Pat ient/Caregiver Education DetailsPatient Name:Date of Service:JEOVANY LEWIS 10/04/20192760aupvavj2:00 PMMedical Record Number:[id number] Patient of /Gender:Treating RN:1995 (24 y.o. F) Susanna Rangel Care Physician: Terence Valentino Clinician:Referring Physician: TreatingPhysician/Construction Job Cost Estimator:Rasheed Rose PAULWeeks in Treatment: 17Education AssessmentEducation Provided To:PatientEducation Topics ProvidedBasic Hygiene:Methods: Explain/VerbalElectronic Signature(s)Signed: 10/04/2019 3:15:04 PM By: Rohini Rangel By: Asia Rangel on 10/04/2019 15:01:10Treatment Notes SummaryWound #2 (Proximal, Midline Back)3. Primary Dressing AppliedSilver DressingsOther primary dressing (specify in notes)4. Secondary DressingFoamNotesNeosporin and mepilex to arm, Ag and mepilex to back.Wound #4 (Left Forearm)3. Primary Dressing AppliedSilver DressingsOther primary dressing (specify in notes)4. Secondary DressingFoamNotesNeosporin and mepilex to arm, Ag and mepilex to back. Vitals DetailsPatient Name:Date of Service:JEOVANY LEWIS 10/04/2019 3:00 PMMedical Record Number:[id number] Patient of /Sex:Treating RN:1995 (24 y.o. F) Susanna Rangel Care Provider: Terence Valentino Clinician:Referring Provider: TreatingProvider/Construction Job Cost Estimator:Rasheed Rose PAULWeeks in Treatment: 17Vital SignsTime Taken: 14:40Temperature (F):98.4Pulse (bpm): 108Respiratory Rate (breaths/min): 17Blood Pressure (mmHg): 114/74Reference Range: 80 - 120 mg / dlElectronic Signature(s)Signed: 10/04/2019 3:15:04 PM By: Rohini Rangel By: Asia Rangel on 10/04/2019 14:52:53 Wou nd Assessment DetailsPatient Name:Date of Service:JEOVANY LEWISFrancis 10/04/2019 3:00 PMMedical Record Number:[id number] Patient of /Sex:Treating RN:1995 (24 y.o. F) Susanna Rnagel Care Provider: Terence Valentino Clinician:Referring Provider: TreatingProvider/Construction Job Cost Estimator:Rasheed Rose PAULWeeks in Treatment: 17Wound StatusWound Number: 2 Primary AbscessEtiology:Wound Location: Back - Midline, ProximalWound OpenWounding Event: Gradually AppearedStatus:Date Acquired: 03/07/2019Comorbid Type I Diabetes, Asthma, Coronary ArteryWeeks Of Treatment: 17History: Disease, Rheumatoid Arthritis, OsteoarthritisClustered Wound: NoPhotosWound MeasurementsLength: (cm) 2 % Reduct-726.7%Width: (cm) 15.5 % Reduct-725.4%Depth: (cm) 0.1Area: (cm) 24.347Volume: (cm) 2.435Wound DescriptionClassification: Full Thickness Without Exposed SupportStructuresExudate MediumAmount:Exudate Type: SerosanguineousExudate Color: red, brownWound BedGranulation Amount: Medium (34-66%)Granulation Quality: PinkNecrotic Amount: Medium (34-66%)Necrotic Quality: Adherent Sloughion in Area:ion in Volume:Treatment NotesWound #2 (Proximal, Midline Back)3. Primary Dressing AppliedSilver DressingsOther primary dressing (specify in notes)4. Secondary DressingFoamNotesNeosporin and mepilex to arm, Ag and mepilex to back.Electronic Signature(s)Signed: 10/04/2019 3:15:04 PM By: Rohini Rangel By: Asia Rangel on 10/04/2019 14:57:23 Wo und Assessment DetailsPatient Name:Date of Service:JEOVANY LEWIS 10/04/2019 3:00PMMedical Record Number:[id number] Patient of /Sex:Treating RN:1995 (24 y.o. F) Susanna Rangel Care Provider: Terence Valentino Clinician:Referring Provider: TreatingProvider/Construction Job Cost Estimator:Rasheed Rose PAULWeeks in Treatment: 17Wound StatusWound Number: 3 Primary AbscessEtiology:Wound Location: Back - Midline, DistalWound ConvertedWounding Event: Gradually AppearedStatus:Date Acquired: 07/06/2019Comorbid Type I Diabetes, Asthma, Coronary ArteryWeeks Of Treatment: 12History: Disease, Rheumatoid Arthritis, OsteoarthritisClustered Wound: NoWound MeasurementsLength: (cm) 0 % RedArea: 100%Width: (cm) 0 % RedVolume: 100%Depth: (cm) 0Area: (cm) 0Volume: (cm) 0Wound DescriptionClass ification: Full Thickness Without Exposed SupportStructuresuction inuction inElectronic Signature(s)Signed: 10/04/2019 3:15:04 PM By: Rohini Rangel By: Asia Rangel on 10/04/2019 14:57:32---- Wound Assessment DetailsPatient Name:Date of Service:JEOVANY LEWIS 10/04/2019 3:00 PMMedical Record Number:[id number] Patient of /Sex:Treating RN:1995 (24 y.o. F) Susanna Rangel Care Provider: Terence Valentino Clinician:Referring Provider: TreatingProvider/Construction Job Cost Estimator:Rasheed Rose PAULWeeks in Treatment: 17Wound StatusWound Number: 4 Primary AtypicalEtiology:Wound Location: Left ForearmWound OpenWounding Event: Gradually AppearedStatus:Date Acquired: 09/19/2019Comorbid Type I Diabetes, Asthma, Coronary ArteryWeeks Of Treatment: 0History: Disease, Rheumatoid Arthritis, OsteoarthritisClustered Wound: NoPhotosWound MeasurementsLength: (cm) 1 % ReductWidth: (cm) 0.7 % ReductDepth: (cm) 0.1Area: (cm) 0.55Volume: (cm) 0.055Wound DescriptionClassification: Full Thickness Without Exposed SupportStructuresExudate MediumAmount:Exudate Type: SerosanguineousExudate Color: red, brownWound BedGranulation Amount: None Present (0%)Necrotic Amount: Large (67-100%)Necrotic Quality: Adherent Sloughion in Area:ion in Volume:Treatment NotesWound #4 (Left Forearm)3. Primary Dressing AppliedSilver DressingsOther primary dressing (specify in notes)4. Secondary DressingFoamNotesNeosporin and mepilex to arm, Ag and mepilex to back.Electronic Signature(s)Signed: 10/04/2019 3:15:04 PM By: Rohini Rangel By: Asia Rangel on 10/04/2019 14:59:01 DIC 1500TRANS:10/04/19 1500 WOUND CENTERTRANS BY:ABNER SIGNED:TIME SIGNED:REPORT COPY TO: Name Value Range Interpretation Code Description Data Gisela rce(s) Supporting Document(s) ID Date Data Source [id number] 10/03/2019 10:02:00 AM EDT Amanda melendrez Exam Number: [id number] Reporte d By: Neil NORTH MD Signed By: GWEN NORTH MD Name Value Range Interpretation Code Description Data Gisela rce(s) Supporting Document(s) ID Date Data Source [id number] 09/27/2019 07:38:00 AM EDT Amanda melendrez Exam Number: [id number] OF EXAMINATIO N: 09/26/2019 21:29 EDTCHEST SINGLE VIEWHISTORY: Altered mental statusTECHNIQUE: Single frontal radiograph of chestCOMPARISON: None.FINDINGS:The lungs are clear. The heart is normal in size. The pulmonaryvasculature is normal in appearance.IMPRESSION:No acute disease.Electronically signed in PS360 by: Carmen Lakhani M.D. 09/27/2019 7:31EDT Reported By: Neil LAKHANI M.D. Signed By: Lianna LAKHANI M.D. Name Value Range Interpretation Code Description Data Gisela rce(s) Supporting Document(s) ID Date Data Source [id number] 09/27/2019 07:14:00 AM EDT Amanda melendrez Exam Number: [id number] OF EXAMINATIO N: 09/26/2019 19:17 EDTCT BRAIN W/O CONTRASTHISTORY: Altered mental statusTECHNIQUE:This CT exam was performed using the following dose reductiontechniques: automatic exposure control, adjustment of mA and/or kVaccording to the patient's size, and use of iterative reconstructiontechnique.Standard contiguous axial spiral imaging was obtained from the skullbase through the vertex with coronal reformatting.FINDINGS:There is no intraparenchymal hemorrhage, mass or midline shift. Theventricular system is normal in appearance. There is no extracerebralcollection. There is no fracture. The visualized sinuses are clear. .IMPRESSION:I there is no intracranial lesion.Electronically signed in PS360 by: Carmen Lakhani M.D. 09/27/2019 7:06EDT Reported By: Jean Pierre HERNANDEZD. Signed By: Lianna LAKHANI M.D. Name Value Range Interpretation Code Description Data Gisela rce(s) Supporting Document(s) ID Date Data Source [id number] 09/27/2019 03:27:00 AM EDT [facility] Name Value Range Interpretation Code Description Data Gisela rce(s) Supporting Document(s) FGLU 197 mg/dL 70-110 [facility] ID Date Data Source [id number] 09/27/2019 01:56:00 AM EDT [facility] Name Value Range Interpretation Code Description Data Gisela rce(s) Supporting Document(s) FGLU 131 mg/dL 70-110 H [facility] ID Date Data Source [id number] 09/26/2019 11:51:00 PM EDT [facility] Name Value Range Interpretation Code Description Data Gisela rce(s) Supporting Document(s) FGLU 196 mg/dL 70-110 [facility] ID Date Data Source [id number] 09/26/2019 10:25:00 PM EDT [facility] Name Value Range Interpretation Code Description Data Gisela rce(s) Supporting Document(s) FGLU 204 mg/dL 70-110 H [facility] ID Date Data Source [id number] 09/26/2019 10:27:00 PM EDT [facility] Name Value Range Interpretation Code Description Data Gisela rce(s) Supporting Document(s) PCP VISTA NEG NEGATIVE [facility] MINIMUM LEVEL OF DETECTION IS 25 ng/ml BENZODIAZEPINES [facility] MINIM[facility] LEVEL OF DETECTION IS 200 ng/ml COCAINE VISTA NEG NEGATIVE [facility] MINIMUM LEVEL OF DETECTION IS 300 ng/ml AMPHETAMINES NEG [facility]GATIVE [facility] MINIMUM LEVEL OF DETECTION IS 1000 ng/ml BARBITURATES NEG NEGATIVE N [facility] CUTOFF CONCENTRATION IS 200 ng/ml CANNABINOIDS NEG NEGATIVE [facility] CUTOFF CONCENTRATION IS 50 ng/ml METHADONE VISTA NEG NEGATIVE [facility] MINIMUM LEVEL OF DETECTION IS 300 ng/ml OPIATE VISTA NEG NEGATIVE [facility] MINIMUM DETECTION LEVEL IS 300 ng/ml ID Date Data Source [id number] 09/26/2019 10:20:00 PM EDT [facility] Name Value Range Interpretation Code Description Data Gisela rce(s) Supporting Document(s) URINE COLOR Yellow N [facility] UAPR Clear N [facility] UGLU 2+ NEGATIVE [facility] URINE BILIRUBIN [facility] UKET [facility]+ NEGATIVE [facility] USG 1.011 1.010-1.025 [facility] UBLO Negative NEGATIVE [facility] UpH 5.0 5.0-8.0 [facility] UPRO Negative Negative [facility] UUB 0.2 mg/dL 0.2-1.0 [facility] UNIT Negative Negative [facility] ULEU Trace Negative [facility] ID Date Data Source [id number] 09/26/2019 10:20:00 PM [facility]T [facility] Name Value Range Interpretation Code Description Data Gisela rce(s) Supporting Document(s) URINE RBC 0-5 RBCs/HPF NONE SEEN [facility] URINE WBC 0-5 WBCs/HPF NONE SEEN [facility] URINE BACTERIA Few [facility] EPI. Few NONE SEEN [facility] ID Date Data Source [id number] 09/26/2019 09:30:00 PM EDT [facility] Name Value Range Interpretation Code Description Data Gisela rce(s) Supporting Document(s) FGLU 198 mg/dL 70-110 H [facility] ID Date Data Source [id number] 09/26/2019 08:59:00 PM EDT [facility] Name Value Range Interpretation Code Description Data Gisela rce(s) Supporting Document(s) FGLU 225 mg/dL 70-110 H [facility] ID Date Data Source [id number] 09/26/2019 08:23:00 PM EDT [facility] Name Value Range Interpretation Code Description Data Gisela rce(s) Supporting Document(s) FGLU 55 mg/dL 70-110 L [facility] ID Date Data Source [id number] 09/26/2019 08:45:00 PM EDT [facility] Name Value Range Interpretation Code Description Data Gisela rce(s) Supporting Document(s) TROPI < 0.015 ng/mL 0.000-0.079 [facility] ID Date Data Source [id number] 09/26/2019 08:45:00 PM EDT [facility] Name Value Range Interpretation Code Description Data Gisela rce(s) Supporting Document(s) MAGNESIUM 2.0 mg/dL 1.6-2.6 [facility] ID Date Data Source [id number] 09/26/2019 08:45:00 PM EDT [facility] Name Value Range Interpretation Code Description Data Gisela rce(s) Supporting Document(s) SALICYLATE < 1.7 mg/dL 2.8-20.0 [facility] ID Date Data Source [id number] 09/26/2019 08:45:00 PM EDT [facility] Name Value Range Interpretation Code Description Data Gisela rce(s) Supporting Document(s) ACETAMINOPHEN < 2.0 ug/mL 0-30 N [facility] ID Date Data Source [id number] 09/26/2019 08:45:00 PM EDT [facility] Name Value Range Interpretation Code Description Data Gisela rce(s) Supporting Document(s) HCG QUAL SERUM Negative Negative N [facility] ID Date Data Source [id number] 09/26/2019 08:45:00 PM EDT [facility] Name Value Range Interpretation Code Description Data Gisela rce(s) Supporting Document(s) ETOH NONE DETECTED [facility] NONE DETECTED ID Date Data Source [id number] 09/26/2019 08:45:00 PM EDT [facility] Name Value Range Interpretation Code Description Data Gisela rce(s) Supporting Document(s) GLU 53 mg/dL 70-110 [facility] Patients taking Sulfasalazine may have f alsely depressedGlucose levels. Patients taking Sulfapyridine may havefalsely elevated Glucose levels. Patients should be drawnfor Glucose before the initial administration of eitherdrug. BUN 13 mg/dL 7-23 [facility] CRE 0.960 mg/dL 0.500-1.300 [facility] GFR > 60 mL/min [facility] CHLORIDE 106 mmol/L 99-110 [facility] NA 139 mmol/L 136-147 [facility] POTASSIUM 4.1 mmol/L 3.5-5.1 [facility] TCO2 22 mmol/L 20-33 [facility] ANION GAP 15.1 10.0-20.0 [facility] CA 9.9 mg/dL 8.3-10.7 [facility] ALKALINE PHOS 119 U/L 45-117 H [facility] TP 8.2 g/dL 6.0-7.8 H [facility] ALB 3.8 g/dL 3.5-5.0 [facility] ESRD Dialysis patient Albumin reference range: 2.9-4.4 g/dL GL 4.4 g/dL 2.3-3.5 H [facility] A/G 0.9 1.0-2.5 [facility] T. BILIRUBIN 0.4 mg/dL 0.1-1.1 [facility] [employer] [place] Total Bilirubin is n ot recommended forpatients undergoing treatment with eltrombopag (Promacta)due to the potential for falsely elevated results. ALTI 23 U/L 6-54 [facility] Patients taking Sulfasalazine and/or Sul fapyridine may havefalsely depressed ALT levels. Patients should be drawn forALT before the initial administration of either drug. AST 14 U/L 6-38 [facility] Patients taking Sulfasalazine and/or Sul fapyridine may havefalsely depressed AST levels. Patients should be drawn forAST before the initial administration of either drug. ID Date Data Source [id number] 09/26/2019 08:22:00 PM EDT [facility] Name Value Range Interpretation Code Description Data Gisela rce(s) Supporting Document(s) WBC 10.21 x10E3/uL 4.0-10.5 [facility] l RBC 4.42 x10E6/uL 4.20-5.40 [facility] Hemoglobin 13.0 g/dL 12.0-16.0 [facility] Hematocrit 40.3 % 37.0-47.0 [facility] MCV 91.2 fL 81.0-99.0 [facility] MCH 29.4 pg 27.0-31.0 [facility] MCHC 32.3 g/dL 32.7-35.6 L [facility] RDW 14.7 % 11.5-14.0 [facility] Platelet count 296 x10E3/uL 150-450 [facility] MPV 11.4 fl 6.9-9.5 [facility] Neutrophils 83.0 % 34-64 [facility] Lymphocytes 9.2 % 25-45 [facility] Monocytes 6.5 % 1.7-10.6 [facility] Eosinophils 0.5 % 0.4-7.0 N [facility] Basophils 0.5 % 0.1-2.0 N [facility] Imm. Gran. 0.3 % 0.1-2.0 [facility] Abs. Neutro. 8.5 x10E3/uL 1.2-7.6 [facility] Abs. Lymph. 0.9 x10E3/uL 1.0-3.5 [facility] Abs. [place]. 0.7 x10E3/uL 0.1-1.0 N [facility] Abs. Eosin. 0.1 x10E3/uL 0.1-0.7 [facility] Abs. Baso. 0.1 x10E3/uL 0.0-0.1 [facility] Abs. Imm. Gran. 0.0 x10E3/uL 0.0-0.1 N [facility] pital ANRBC% 0 % 0 N [facility] ID Date Data Source [id number] 09/27/2019 04:34:00 AM EDT [facility] Physician DocumentationClmaryann-Chandan Westbrook edical CenterName: Jeovany BarberAge: 24 yrsSex: FemaleDOB: 1995MRN: [id number] Date: 09/26/2019Time: 19:17Account#: [id number] MD:ED Physician Juan Hooper Summary:09/27/19 03:40Discharge OrderedLocation: Home Self Care nj3Nvdqcaz: new kc4Rssouwgh: are resolved th8Ijhlrjdvg: Stable ds8Vhzscoxdx- Hypoglycemia, unspecified uq0Rlpdlqca: na1- With: Private Physician- When: 2 - 3 days- Reason: Recheck today's complaints, Continuance of care, Changein ConditionDischarge Instructions:- Discharge Summary Sheet na1- HYPOGLYCEMIC REACTION [Child] dp9Eoprq:- Medication Reconciliation na1- Medication Reconciliation Form - 2nd Copy na1HPI:09/1018:40 This 24 yrs old White Female presents to ER via Ambulance with dz4jtichkkxai of Unresponsive.19:40 PT. BROUGHT TO ED BY EMS FOR AMS, EMS WAS CALLED FOR AMS, PT. WITH na1H/O IDDM, SHE TOOK HER LEVEMIR INSULIN 20 UNITS & ADMELOG INSULIN 20UNITS SQ FOR FSG READING TOO HIGH TO RECORD, ONE HOUR LATER SHE TOOKADDITIONAL 14 UNITS OF ADMELOG INSULIN SQ,SHE HAD FSG 82 MG/DL WHENCHECKED BY EMS, & 70 MG/DL IN ED ON ARRIVAL. SHE IS MILDLY LETHARGICDENIES SUBSTANCE ABUSE,ALCOHOL ABUSE, SUICIDAL ATTEMPT OR THOUGHTS,INJURIES. NO WITNESSED SEIZURES.. Onset: The symptoms/episodebegan/occurred just prior to arrival. Severity of symptoms: At theirworst the symptoms were mild. The patient has not recently seen aphysician.Historical:- Allergies: Augmentin; IODINE; IODINE CONTAINING; oral contrast;- Home Meds:1. Admelog Insulin Unknown before meals sliding scale2. gabapentin 300 mg oral cap 1 cap 2 times a day3. Levemir U-100 Insulin 100 unit/mL subcutaneous soln 22 units qAM,20 units qHS4. levothyroxine 100 mcg oral cap- PMHx: Diabetes - Type 1; GERD; HIGH CHOLESTEROL; MIGRAINES;Neuropathy; RHEUMATOID ARTHRITIS; THYROID PROBLEM;- PSHx: Adenoid excision; Appendectomy; cleft palette; tympanostomytubes;- Immunization history: Flu vaccine is up to date.- Social history: Smoking status: Patient states was never smoker oftobacco. ETOH status Denies use of ETOH.- Advance Directives:: None.ROS:19:40 Constitutional: Negative for chills, fever. Neck: Negative for injury na1or acute deformity, pain with movement, pain at rest, stiffness,swelling, tenderness. Cardiovascular: Negative for chest pain, edema,orthopnea, palpitations. Respiratory: Negative for cough, shortnessof breath, wheezing. Abdomen/GI: Negative for abdominal pain, nausea,vomiting, diarrhea. : Negative for urinary symptoms. Skin: Positivefor MULTIPLE DEEJAY ABRASIONS UPPER POSTERIOR CHEST FORM CAT SCRATCHES.Neuro: Negative for dizziness, headache, loss of consciousness,numbness, seizure activity, speech changes, syncope, visual changes,weakness. All other systems are negative.Exam :19:40 Head/Face: Normocephalic, atraumatic. Eyes: Pupils equal round and ds7zojvybib to light, extra-ocular motions intact. Lids and lashesnormal. Conjunctiva and sclera are non-icteric and not injected.Cornea within normal limits. Periorbital areas with no swelling,redness, or edema. ENT: Nares patent. No nasal discharge, no septalabnormalities noted. Tympanic membranes are normal and externalauditory canals are clear. Oropharynx with no redness, swelling, ormasses, exudates, or evidence of obstruction, uvula midline. Mucousmembranes moist. Neck: Trachea midline, no thyromegaly or massespalpated, and no cervical lymphadenopathy. Supple, full range ofmotion without nuchal rigidity, or vertebral point tenderness. NoMeningismus.19:40 Cardiovascular: Regular rate and rhythm with a normal S1 and S2. Nogallops, murmurs, or rubs. Normal PMI, no JVD. No pulse deficits.19:40 Back: No spinal tenderness. No costovertebral tenderness. Fullrange of motion. MS/ Extremity: Pulses equal, no cyanosis.Neurovascular intact. Full, normal range of motion. Neuro: Awakeand alert, GCS 15, oriented to person, place, time, and situation.Cranial nerves II-XII grossly intact. Motor strength 5/5 in allextremities. Sensory grossly intact. Cerebellar exam normal.19:40 Constitutional: The patient appears in no acute distress, alert,awake, non-diaphoretic, non-toxic, well hydrated.19:40 Cardiovascular: Edema: is not appreciated.19:40 Respiratory: the patient does not display signs of respiratorydistress, Respirations: normal, Breath sounds: are normal, clearthroughout.19:40 Abdomen/GI: Inspection: abdomen appears normal, Bowel sounds: normal,Palpation: abdomen is soft and non-tender, no appreciatedorganomegaly.19:40 Skin: MULTIPLE SKIN ABRASIONS UPPER POSTERIOR CHEST WALL.Vital Signs:19:25 BP 108 / 76 (auto/); Pulse 102 MON; Resp 13; jw519:26 Pulse 100 MON; Resp 15; Temp 98; Pulse Ox 99% ; jw519:30 Pulse 99 MON; Resp 13; Pulse Ox 100% ; kk319:31 BP 111 / 79 (auto/); Pulse 100 MON; Resp 15; Pulse Ox 100% ; kk319:40 Pulse 101 MON; Resp 13; Pulse Ox 100% ; kk319:41 BP 118 / 82 (auto/); Pulse 102 MON; Resp 12; Pulse Ox 99% ; kk319:50 Pulse 90 MON; Resp 12; Pulse Ox 99% ; kk319:51 BP 114 / 79 (auto/); Pulse 101 MON; Resp 12; Pulse Ox 99% ; kk320:01 BP 110 / 81 (auto/); Pulse 99 MON; Resp 15; Pulse Ox 99% ; Pain 0/10; kk320:15 BP 108 / 71 (auto/); Pulse 99 MON; Resp 13; Pulse Ox 99% ; kk320:21 BP 108 / 78 (auto/); Pulse 97 MON; Resp 12; Pulse Ox 99% ; kk320:31 BP 112 / 74 (auto/); Pulse 104 MON; Resp 12; Pulse Ox 99% ; kk320:41 BP 105 / 71 (auto/); Pulse 96 MON; Resp 12; Pulse Ox 98% ; kk320:51 BP 104 / 73 (auto/); Pulse 96 MON; Resp 13; Pulse Ox 98% ; kk321:01 BP 105 / 71 (auto/); Pulse 94 MON; Resp 13; Pulse Ox 98% ; Pain 0/10; kk321:16 BP 101 / 68 (auto/); Pulse 95 MON; Resp 12; Pulse Ox 98% ; kk321:31 BP 114 / 80 (auto/); Pulse 103 MON; Resp 12; Pulse Ox 99% ; kk322:07 BP 111 / 76 (auto/); Pulse 100 MON; kk322:07 Pulse 100 MON; Resp 17; Pulse Ox 99% ; Pain 0/10; kk322:16 BP 102 / 75 (auto/); Pulse 92 MON; kk322:16 Pulse 93 MON; Resp 13; Pulse Ox 98% ; kk322:31 BP 103 / 74 (auto/); Pulse 94 MON; kk322:31 Pulse 94 MON; Resp 13; Pulse Ox 98% ; kk322:46 BP 102 / 72 (auto/); Pulse 90 MON; kk322:46 Pulse 91 MON; Resp 13; Pulse Ox 97% ; kk323:01 Pulse 92 MON; Resp 13; Pulse Ox 97% ; kk323:01 BP 96 / 67 (auto/); Pulse 93 MON; Pain 0/10; kk323:16 BP 97 / 67 (auto/); Pulse 93 MON; kk323:16 Pulse 93 MON; Resp 13; Pulse Ox 97% ; kk323:31 Pulse 91 MON; Resp 13; Pulse Ox 97% ; kk323:31 BP 95 / 66 (auto/); Pulse 92 MON; Temp 98.2(TE); kk323:46 BP 95 / 70 (auto/); Pulse 90 MON; jw523:46 Pulse 90 MON; Resp 14; Pulse Ox 97% ; jw506/1100:01 Pulse 89 MON; Resp 12; Pulse Ox 98% ; jw500:01 BP 102 / 71 (auto/); Pulse 89 MON; Pain 0/10; kk300:16 BP 85 / 53 (auto/); Pulse 88 MON; jw500:16 Pulse 88 MON; Resp 13; Pulse Ox 98% ; jw500:23 BP 99 / 66 (auto/); Pulse 96 MON; jw500:23 Pulse 95 MON; Resp 11; Pulse Ox 99% ; jw500:48 Pulse 90 MON; Resp 17; Pulse Ox 98% ; kk300:49 BP 91 / 56 (auto/); Pulse 90 MON; kk301:01 BP 102 / 69 (auto/); Pulse 89 MON; kk301:01 Pulse 89 MON; Resp 13; Pulse Ox 100% ; Pain 0/10; kk301:15 Pulse 100 MON; Resp 12; Pulse Ox 99% ; kk301:16 BP 117 / 82 (auto/); Pulse 99 MON; kk301:31 BP 115 / 90 (auto/); Pulse 101 MON; kk301:31 Pulse 101 MON; Resp 13; Pulse Ox 99% ; kk301:46 BP 113 / 78 (auto/); Pulse 99 MON; kk301:46 Pulse 99 MON; Resp 14; Pulse Ox 99% ; kk302:01 BP 100 / 59 (auto/); Pulse 98 MON; kk302:01 Pulse 98 MON; Resp 15; Pulse Ox 98% ; kk302:16 BP 95 / 55 (auto/); Pulse 97 MON; kk302:16 Pulse 97 MON; Resp 16; Pulse Ox 99% ; kk302:31 BP 90 / 52 (auto/); Pulse 95 MON; kk302:31 Pulse 95 MON; Resp 14; Pulse Ox 98% ; kk303:01 BP 93 / 50 (auto/); Pulse 93 MON; kk303:01 Pulse 93 MON; Resp 13; Pulse Ox 97% ; kk303:21 BP 99 / 65 (auto/); Pulse 98 MON; kk303:21 Pulse 98 MON; Resp 17; Pulse Ox 99% ; Pain 0/10; kk303:31 BP 96 / 63 (auto/); Pulse 91 MON; kk303:31 Pulse 92 MON; Resp 15; Pulse Ox 97% ; kk303:51 BP 103 / 60 (auto/); Pulse 109 MON; Resp 15; Temp 98.2(TE); Pulse Ox zv3945% on R/A; Pain 0/10;MDM:09/1018:34 Patient medically screened. na119:50 Data reviewed: vital signs, nurses no john, EKG. ECG:. na106/1103:38 Data reviewed: lab test result(s), radiologic studies, CT scan, na1CXR:NAD.09/1018:49 Order name: ETOH; Complete Time: 21:28 na9:49 Order name: Urine Drug Screen; Complete Time: 22:35 na9:49 Order name: UA; Complete Time: 22:35 na9:49 Order name: Salicylate Level; Complete Time: 21:28 na9:49 Order name: Acetaminophen Level; Complete Time: 21:28 na9:49 Order name: CBC with diff; Complete Time: 20:28 na0:28 Interpretation: WBC 10.21; Hemoglobin 13.0; Hematocrit 40.3; Platelet yt8prxvn 296; Neutrophils 83.0.09/1018:49 Order name: CMP; Complete Time: 21:28 na9:49 Order name: HCG Qualitative - Serum; Complete Time: 21:28 na106/1019:54 Order name: Troponin-I; Complete Time: 21:28 na106/1019:54 O rder name: Magnesium Level; Complete Time: 21:28 na106/1020:24 Order name: FGLU; Complete Time: 20:75EYIX36/1020:28 Interpretation: FGLU 55. na106/1020:59 Order name: FGLU; Complete Time: 21:35JVMA23/1021:30 Order name: FGLU; Complete Time: 22:31TCUN54/1022:25 Order name: FGLU; Complete Time: 22:69ABLK16/1019:49 Order name: Accucheck; Complete Time: 19:55 na106/1019:49 Order name: EKG in Patient's Room na106/1019:49 Order name: EKG.; Complete Time: 19:55 na106/1020:15 Order name: Accucheck; Complete Time: 20:19 kk306/1020:28 Order name: Other: D10W & 100 ML/HR; Complete Time: 20:24db8041020:32 Order name: Accucheck: complete at 2044; Complete Time: 20:56 kk3061021:29 Order name: CT Brain - without IV na106/1021:29 Order name: CXR-Single View na106/1021:45 Order name: Accucheck; Complete Time: 21:45 kk306/1023:51 Order name: FGLU; Complete Time: 00:40SAEW60/1100:49 Interpretation: FGLU 196. na106/1101:56 Order name: FGLU; Complete Time: 02:18WGFF43/1102:15 Interpretation: FGLU 131. na106/1103:27 Order name: FGLU; Complete Time: 03:50XTQG68/1103:38 Interpretation: FGLU 197. na106/1022:18 Order name: Accucheck; Complete Time: 22:22 kk306/1023:43 Order name: Accucheck; Complete Time: 23:43 kk306/1101:49 Order name: Accucheck; Complete Time: 01:53 kk306/1103:24 Order name: Accucheck; Complete Time: 03:24 vs1Gkwwuautk Medications:09/1018:05 Drug: NS 0.9% 1000 ml [sodium chloride 0.9 % intravenous solution] qr2Szrpx: IV; Rate: bolus; Site: left antecubital;20:10 Follow up: Response: No adverse reaction; IV Status: Completed sk5tfmgvkip; IV converted to saline lock; IV Intake: 8761nn66:27 Drug: D50W 1 amp Route: IVP; Site: left antecubital; kk320:57 Follow up: Response: No adverse reaction jw520:47 Drug: Dextrose 10 % in Water 1000 ml Route: IV; Rate: 100 mL/hr; nw7Zayc: left antecubital;09/1099:31 Follow up: Response: No adverse reaction; IV Status: Infusion wn6fkagfefrounm; IV Intake: 300sc84:31 Drug: NS 0.9% 1000 ml [sodium chloride 0.9 % intravenous solution] gf1Zvtom: IV; Rate: bolus; Site: left antecubital;01:37 Follow up: IV Status: Completed infusion; IV Intake: 1000ml jw5EC09/1018:50 Rate is 102 beats/min. Rhythm is regular, Sinus tachycardia. QRS [place] na1is Normal. DC interval is normal. QRS interval is normal. No Q waves.T waves are Inverted in leads I, II, III, aVF, V4, V5, V6. No STchanges noted. Clinical impression: Sinus tachycardia and NONSPECIFIC T-WAVES CHANGES. Interpreted by me. Reviewed by me.Point of Care Testing:Blood Glucose:19:26 Blood Glucose: 70 mg/dL; jw520:19 Blood Glucose: 55 mg/dL; kk320:54 Blood Glucose: 225 mg/dL; kk321:21 Blood Glucose: 198 mg/dL; kk322:22 Blood Glucose: 204 mg/dL; kk323:43 Blood Glucose: 196 mg/dL; kk306/1101:53 Blood Glucose: 131 mg/dL; kk303:21 Blood Glucose: 197 mg/dL; aw8Sbgbmk:Critical Glucose Levels:Adult <50 mg/dl or >400 mg/dl <40mg/dl or >180 mg/dlSignatures:Dispatcher [employer] Tate Washington MD MD cv0OjebgConstantino Alfonso RN RN bt2ApuchMarian, RN RN kk3 Name Value Range Interpretation Code Description Data Gisela rce(s) Supporting Document(s) ID Date Data Source [id number] 09/27/2019 04:34:00 AM EDT [facility]Name: Jeovany Vaughn: 24 yrsSex: FemaleDOB: 1995MRN: [id number] Date: 09/26/2019Time: 19:17Account#: [id number] MD:Diagnosis: Hypoglycemia, unspecifiedPresentation:09/1018:21 Presenting complaint: EMS states: on arrival reported patient rd4sjwvyvftc as unresponsive to EMS but was responsive to painfulstimuli did fail the arm drop test is reported to have taken insulinabout an hour prior glucose check 82. Coronavirus Screening: Patientnegative for fever and symptoms of lower respiratory illness (e.g.,cough, difficulty breathing). Patient denies exposure to infectiousperson. Patient denies travel to [place] or affected areas in the 14days before illness onset. No symptoms or risks identified at thistime. Care prior to arrival: See EMS report. IV initiated. Glucosecheck. 82. Communicable Disease Screen: Negative for fever>/= 100degrees Fahrenheit. Communicable disease screen is negative. (-) rashor unusual skin lesion (-) travel/contact with traveler (-)respiratory symptoms.19:21 Acuity: Triage 2 jw519:21 Method Of Arrival: Ambulance: [facility] jw519:24 Acuity Assignment: Triage 2 cr4Exvcka Assessment:19:25 General: Appears slender, unkempt, Behavior is listless. Sepsis ui8Rderdvlvz: (1)Signs/symptoms infection No. Pain: Denies pain. PSS-3Now I'm going to ask you some questions that we ask everyone treatedhere, no matter what problem they are here for. It is part of [facility] policy and it helps us to make sure we are not missinganything important. Over the past 2 weeks, have you felt down,depressed, or hopeless? No. Over the past 2 weeks, have had thoughtsof killing yourself? No. In your lifetime, have you ever attempted tokill yourself? No.Historical:- Allergies: Augmentin; IODINE; IODINE CONTAINING; oral contrast;- Home Meds:1. Admelog Insulin Unknown before meals sliding scale2. gabapentin 300 mg oral cap 1 cap 2 times a day3. Levemir U-100 Insulin 100 unit/mL subcutaneous soln 22 units qAM,20 units qHS4. levothyroxine 100 mcg oral cap- PMHx: Diabetes - Type 1; GERD; HIGH CHOLESTEROL; MIGRAINES;Neuropathy; RHEUMATOID ARTHRITIS; THYROID PROBLEM;- PSHx: Adenoid excision; Appendectomy; cleft palette; tympanostomytubes;- Immunization history: Flu vaccine is up to date.- Social history: Smoking status: Patient states was never smoker ofNomanini. ETOH status Denies use of ETOH.- Advance Directives:: None.Screenin:27 Abuse screen: Denies threats or abuse. Denies injuries from another. no6Rfnuklrzuts screening: No deficits noted. Offer of HIV testing:patient was previously offered screening.19:27 Fall Risk No fall in past 12 months (0 pts). Secondary diagnosis (15 pe1zzhkck) syncopal episode. IV access (20 points). Ambulatory Aid-None/Bed Rest/Nurse Assist (0 pts). Gait- Impaired (20 pts.). MentalStatus- Overestimates/Forgets Limitations (15 pts.). Total [place] FallScale indicates High Risk Score (45 or more points). Fall preventionmeasures have been instituted. Side Rails Up X 2 Placed Close toNursing Station Frequent Obs/Assessments Occuring As availablepatient and family educated on Fall Prevention Program and Strategies.Assessment:19:25 Pain: Denies pain. Derm: Skin is diaphoretic, Skin temperature is ju5ozux Patient has small open area on chest above right breast thatpatient states is from her cat. General: Appears ill, slender,Behavior is drowsy, Smells of ketones, Denies fatigue. Neuro: Levelof Consciousness is awake, confused, lethargic, Oriented to person,place, Director Operations are weak bilaterally Moves all extremities. Gait isunsteady, Speech is slurred, Facial symmetry appears normal, Facialsymmetry: tongue is midline, Pupils are sluggish, right eye and lefteye Denies blurred vision dizziness, headache. Cardiovascular:Capillary refill < 3 seconds in bilateral fingers Heart tones S1 I8izviyzx Edema is absent. Pulses are palpable in right radial artery, right posterior tibial artery, left radial artery and left posteriortibial artery Denies fatigue, lightheadedness, palpitations, Rhythmis sinus rhythm Chest pain is denied Parent/caregiver reports patienthas had EMS states that boyfriend found patient unresponsive andstates she is a diabetic and took insulin an hour before syncopalepisode. Respiratory: Airway is patent Respiratory effort is even,unlabored, Respiratory pattern is regular, symmetrical, Breath soundsare clear bilaterally. Denies cough, shortness of breath laboredbreathing. GI: Abdomen is flat, non- distended Bowel soundshypoactive in right upper quadrant, left upper quadrant, right lowerquadrant and left lower quadrant Abd is soft and non tender X 4quads. Reports normal bowel habits, tolerance of fluids, tolerance offood, Denies cons tipation, cramping, diarrhea, nausea, vomiting. :Denies burning with urination, cramping discharge, inability to void,incontinence, pain urinary frequency, urgency. Musculoskeletal:Circulation, motion, and sensation intact.20:30 Reassessment: Patient appears in no apparent distress at this time. nv3Yppmgat states feeling better. Patient states symptoms have improved.patient more alert and oriented.21:20 Reassessment: Patient lethargic and unresponsive to questions, be9jdweqqqoo to arouse; provider notified.22:06 Reassessment: Patient appears in no apparent distress at this time. fb2Bmzlbid denies pain at this time. Patient states feeling better.Patient states symptoms have improved. Patient awake and alert.23:45 Reassessment: Patient appears in no apparent distress at this time. qt1Gbxsnki denies pain at this time. Patient is resting quietly.09/1099:32 Reassessment: Patient appears in no apparent distress at this time. im8Mapekeb denies pain at this time.00:33 Reassessment: Provider notified of abnormal vital signs. jw501:11 Reassessment: Patient appears in no apparent distress at this time. kw8Lmmwpcy denies pain at this time. Patient states feeling better.Opal ent states symptoms have improved. Patient is sitting up in bedeating a snack.02:15 Reassessment: Patient appears in no apparent distress at this time. br5Uwyfhai denies pain at this time. Patient states feeling better.Patient states symptoms have improved.03:20 Reassessment: Patient appears in no apparent distress at this time. kk3No changes from previously documented assessment.Vital Signs:09/1018:25 BP 108 / 76 (auto/); Pulse 102 MON; Resp 13; jw519:26 Pulse 100 MON; Resp 15; Temp 98; Pulse Ox 99% ; jw519:30 Pulse 99 MON; Resp 13; Pulse Ox 100% ; kk319:31 BP 111 / 79 (auto/); Pulse 100 MON; Resp 15; Pulse Ox 100% ; kk319:40 Pulse 101 MON; Resp 13; Pulse Ox 100% ; kk319:41 BP 118 / 82 (auto/); Pulse 102 MON; Resp 12; Pulse Ox 99% ; kk319:50 Pulse 90 MON; Resp 12; Pulse Ox 99% ; kk319:51 BP 114 / 79 (auto/); Pulse 101 MON; Resp 12; Pulse Ox 99% ; kk320:01 BP 110 / 81 (auto/); Pulse 99 MON; Resp 15; Pulse Ox 99% ; Pain 0/10; kk320:15 BP 108 / 71 (auto/); Pulse 99 MON; Resp 13; Pulse Ox 99% ; kk320:21 BP 108 / 78 (auto/); Pulse 97 MON; Resp 12; Pulse Ox 99% ; kk320:31 BP 112 / 74 (auto/); Pulse 104 MON; Resp 12; Pulse Ox 99% ; kk320:41 BP 105 / 71 (auto/); Pulse 96 MON; Resp 12; Pulse Ox 98% ; kk320:51 BP 104 / 73 (auto/); Pulse 96 MON; Resp 13; Pulse Ox 98% ; kk321:01 BP 105 / 71 (auto/); Pulse 94 MON; Resp 13; Pulse Ox 98% ; Pain 0/10; kk321:16 BP 101 / 68 (auto/); Pulse 95 MON; Resp 12; Pulse Ox 98% ; kk321:31 BP 114 / 80 (auto/); Pulse 103 MON; Resp 12; Pulse Ox 99% ; kk322:07 BP 111 / 76 (auto/); Pulse 100 MON; kk322:07 Pulse 100 MON; Resp 17; Pulse Ox 99% ; Pain 0/10; kk322:16 BP 102 / 75 (auto/); Pulse 92 MON; kk322:16 Pulse 93 MON; Resp 13; Pulse Ox 98% ; kk322:31 BP 103 / 74 (auto/); Pulse 94 MON; kk322:31 Pulse 94 MON; Resp 13; Pulse Ox 98% ; kk322:46 BP 102 / 72 (auto/); Pulse 90 MON; kk322:46 Pulse 91 MON; Resp 13; Pulse Ox 97% ; kk323:01 Pulse 92 MON; Resp 13; Pulse Ox 97% ; kk323:01 BP 96 / 67 (auto/); Pulse 93 MON; Pain 0/10; kk323:16 BP 97 / 67 (auto/); Pulse 93 MON; kk323:16 Pulse 93 MON; Resp 13; Pulse Ox 97% ; kk323:31 Pulse 91 MON; Resp 13; Pulse Ox 97% ; kk323:31 BP 95 / 66 (auto/); Pulse 92 MON; Temp 98.2(TE); kk323:46 BP 95 / 70 (auto/); Pulse 90 MON; jw523:46 Pulse 90 MON; Resp 14; Pulse Ox 97% ; jw506/1100:01 Pulse 89 MON; Resp 12; Pulse Ox 98% ; jw500:01 BP 102 / 71 (auto/); Pulse 89 MON; Pain 0/10; kk300:16 BP 85 / 53 (auto/); Pulse 88 MON; jw500:16 Pulse 88 MON; Resp 13; Pulse Ox 98% ; jw500:23 BP 99 / 66 (auto/); Pulse 96 MON; jw500:23 Pulse 95 MON; Resp 11; Pulse Ox 99% ; jw500:48 Pulse 90 MON; Resp 17; Pulse Ox 98% ; kk300:49 BP 91 / 56 (auto/); Pulse 90 MON; kk301:01 BP 102 / 69 (auto/); Pulse 89 MON; kk301:01 Pulse 89 MON; Resp 13; Pulse Ox 100% ; Pain 0/10; kk301:15 Pulse 100 MON; Resp 12; Pulse Ox 99% ; kk301:16 BP 117 / 82 (auto/); Pulse 99 MON; kk301:31 BP 115 / 90 (auto/); Pulse 101 MON; kk301:31 Pulse 101 MON; Resp 13; Pulse Ox 99% ; kk301:46 BP 113 / 78 (auto/); Pulse 99 MON; kk301:46 Pulse 99 MON; Resp 14; Pulse Ox 99% ; kk302:01 BP 100 / 59 (auto/); Pulse 98 MON; kk302:01 Pulse 98 MON; Resp 15; Pulse Ox 98% ; kk302:16 BP 95 / 55 (auto/); Pulse 97 MON; kk302:16 Pulse 97 MON; Resp 16; Pulse Ox 99% ; kk302:31 BP 90 / 52 (auto/); Pulse 95 MON; kk302:31 Pulse 95 MON; Resp 14; Pulse Ox 98% ; kk303:01 BP 93 / 50 (auto/); Pulse 93 MON; kk303:01 Pulse 93 MON; Resp 13; Pulse Ox 97% ; kk303:21 BP 99 / 65 (auto/); Pulse 98 MON; kk303:21 Pulse 98 MON; Resp 17; Pulse Ox 99% ; Pain 0/10; kk303:31 BP 96 / 63 (auto/); Pulse 91 MON; kk303:31 Pulse 92 MON; Resp 15; Pulse Ox 97% ; kk303:51 BP 103 / 60 (auto/); Pulse 109 MON; Resp 15; Temp 98.2(TE); Pulse Ox fn9575% on R/A; Pain 0/10;ED Course:09/1018:18 Patient arrived in ED. jw519:21 Constantino Alfonso, RN is Primary Nurse. jw519:24 Triage completed. jw519:27 Patient placed on stretcher. jw519:27 Placed in gown. Bed in low position. Call light in reach. Side rails jw5up X2. 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 Pulse ox on. NIBP on. Verbal reassurancegiven.19:28 EKG done. (by ED staff). Reviewed by Tate Sanderson MD. Maintain wh4pxzcd IV. Dressing intact. Good blood return noted. Site clean & dry.Gauge & site: 20 gauge Left AC.19:34 Tate Hooper MD is Attending Physician. na120:00 Spoke with patient who gave permission to speak with her boyfriend Ken [phone]:10 Labs drawn. Collected by lab. kk321:40 Urine collected. Clean catch specimen. kk321:42 Patient moved to [place]. kk306/1100:34 No Physician assisted procedures completed. jw503:24 Warm blanket given. kk303:58 Discontinued lock intact, bleeding controlled, pressure dressing je9fwmqpjf, No redness/swelling at site.04:05 waiting for ride. iv9Nlxxsebjbpmh Medications:09/1018:05 Drug: NS 0.9% 1000 ml [sodium chloride 0.9 % intravenous solution] hy0Wxauh: IV; Rate: bolus; Site: left antecubital;20:10 Follow up: Response: No adverse reaction; IV Status: Completed nm2lmsaaknk; IV converted to saline lock; IV Intake: 7817ec37:27 Drug: D50W 1 amp Route: IVP; Site: left antecubital; kk320:57 Follow up: Response: No adverse reaction jw520:47 Drug: Dextrose 10 % in Water 1000 ml Route: IV; Rate: 100 mL/hr; ml7Msig: left antecubital;09/1099:31 Follow up: Response: No adverse reaction; IV Status: Infusion ri8hdsezzchfgkl; IV Intake: 462uu75:31 Drug: NS 0.9% 1000 ml [sodium chloride 0.9 % intravenous solution] rf0Toess: IV; Rate: bolus; Site: left antecubital;01:37 Follow up: IV Status: Completed infusion; IV Intake: 1000ml yx6Mzans of Care Testing:Blood Glucos e:09/1018:26 Blood Glucose: 70 mg/dL; jw520:19 Blood Glucose: 55 mg/dL; kk320:54 Blood Glucose: 225 mg/dL; kk321:21 Blood Glucose: 198 mg/dL; kk322:22 Blood Glucose: 204 mg/dL; kk323:43 Blood Glucose: 196 mg/dL; kk306/1101:53 Blood Glucose: 131 mg/dL; kk303:21 Blood Glucose: 197 mg/dL; jb6Ejsqrk:Critical Glucose Levels:Adult <50 mg/dl or >400 mg/dl <40mg/dl or >180 mg/dlIntake:09/1019:10 IV: 1000ml; Total: 1000ml. kk306/1100:31 IV: 373ml; Total: 1373ml. jw501:37 IV: 1000ml; Total: 2373ml. jk2Rfqgwpf:03:40 Discharge ordered by . na103:51 Disposition: Discharged to home ambulatory, with significant other. kk303:51 Condition: ricmxstx27:51 Discharge instructions given to patient, Instructed on dischargeinstructions, follow up and referral plans. Demonstratedunderstanding of instructions.03:51 Discharge Assessment: Patient awake, alert and oriented x 3. Nocognitive and/or functional deficits noted. Patient verbalizedunderstanding of disposition instructions. Patient verbalizedunderstanding of disposition instructions. Patient has no functionaldeficits.04:34 Patient left the ED. od9Mbcygtmolk:Tate Hooper MD MD cx1YrufzConstantino humphreys RN RN sr8LehxsMarian Gudino RN RN zy6Iyvntczgpyp: (The following items were deleted from the chart)09/1019:10 20:00 Spoke with patient who gave permission to speak with her vz7pzuljacwimimi Edwards jw521:26 21:20 Reassessment: Patient lethargic and unresponsive to questions, jb9cfmmaccix to arouse. kk323:45 20:01 BP 110 / 81 Auto; Pulse 99bpm; MonitorResp 15bpm; Pulse Ox 99%; es0oh298:45 21:01 BP 105 / 71 Auto; Pulse 94bpm; MonitorResp 13bpm; Pulse Ox 98%; xo1wq366:45 22:07 Pulse 100bpm; MonitorResp 17bpm; Pulse Ox 99%; kk3 kk323:48 23:31 BP 95 / 66 Auto; Pulse 92bpm; Monitor; kk3 kk306/1101:12 00:01 BP 102 / 71 Auto; Pulse 89bpm; Monitor; jw5 kk301:12 01:01 Pulse 89bpm; MonitorResp 13bpm; Pulse Ox 100%; kk3 kk3 Name Value Range Interpretation Code Description Data Gisela rce(s) Supporting Document(s) ID Date Data Source [id number] 07/06/2019 11:00:00 AM EDT [facility] [place] [address]PATIENT NAME: JEOVANY LEWIS DATE OF SERVICE: 07/06/19MR#: [id number] DATE OF : [birth year]ACCOUNT #: [id number], KENDRA ([id number])Visit Report for 07/06/2019Advanced Modalities Screening Tool DetailsPatient Name:Date of Service:JEOVANY LEWIS 07/06/2019 11:00 AMMedical Record Number:[id number] Patient of /Sex:Treating RN:1995 (24 y.o. F) Feliciano Cervantes Care Provider: Sade vladovinos MyoOren Clinician:Referring Provider: TreatingProvider/Construction Job Cost Estimator:Rasheed Rose PAULWeeks in Treatment: 4Advanced Modalities Screening Check ListHyperbaric Oxygen Therapy: Reviewed LCD or HBO policy from [employer] and/or NCDTherapy Not IndicatedNo Appro priate IndicationElectronic Signature(s)Signed: 07/06/2019 2:41:25 PM By: Chelita CervantesEntered By: Chelita Cervantes on 07/06/2019 11:14:26 ---Allergy List DetailsPatient Name:Date of Service:JEOVANY LEWIS 07/06/2019 11:00 AMMedical Record Number:[id number] Patient of /Sex:Treating RN:1995 (24 y.o. F) Feliciano Cervantes Care Provider: Terence Valentino Clinician:Referring Provider: TreatingProvider/Construction Job Cost Estimator:Rasheed Rose PAULWeeks in Treatment: 4AllergiesActive AllergiesAugmentin-liquidReaction: hivesSeverity: ModerateIodinated Contrast- OralReaction: anaphylaxisSeverity: SevereadhesiveReaction: itching, soreness,rednessSeverity: ModerateAllergy NotesElectronic Signature(s)Signed: 07/06/2019 2:41:25 PM By: Chelita CervantesEntered By: Chelita Cervantes on 07/06/2019 10:57:20 Arr ival Information DetailsPatient Name:Date of Service:LEWISJEOVANY 07/06/201911:00 AMMedical Record Number:[id number] Patient of /Sex:Treating RN:1995 (24 y.o. F) Renée Quinones Care Provider: Terence Valentino Clinician:Referring Provider: TreatingProvider/Construction Job Cost Estimator:Rasheed Rose PAULWeeks in Treatment: 4Visit Information History SinceLast VisitAdded or deleted any medications: YesPatient Arrived: AmbulatoryAny new allergies or adverse reactions: NoArrival Time: 10:50Had a fall or experienced change in NoAccompanied By: boyfriendactivities of daily living that may affectTransfer Assistance: Nonerisk of falls:Patient Identification Verified: YesSigns or symptoms of abuse/neglect since last visit? NoSecondary Verification Process Completed: YesHospitalized since last visit: NoPatient Requires Transmission-Based NoImplantable device outside of the clinic excluding NoPrecautions:cellular tissue based products placed in the centerPatient Has Alerts: Nosince last visit:Pain Present Now: NoElectronic Signature(s)Signed: 07/10/2019 3:29:34 PM By: Judith QuinonesEntered By: Judith Quinones on 07/06/2019 10:52:30 Dis charge Instructions DetailsPatient Name:Date of Service:JEOVANY LEWIS 07/06/2019 11:00AMMedical Record Number:[id number] Patient of /Sex:Treating RN:1995 (24 y.o. F) Feliciano Cervantes Care Provider: Sade valdovinos MyoOren Clinician:Referring Provider: TreatingProvider/Construction Job Cost Estimator:Rasheed Rose PAULWeeks in Treatment: 4Follow-up AppointmentsReturn Appointment in 1 week. Should you experience any significant changes inyour wound(s) or have anyquestions regarding your home care instructions please contact the woundcenter. If after regular business hours,please call your family doctor or local emergency room. - 07/13/19 @ 11 AMDressing Change FrequencyDo not change entire dressing for one week.Wound Cleansing. - keep dressing dry, on days showering- remove dressing and shower then dryarea and put new dressing on woundPrimary Wound DressingCut Aquacel Ag to fit wound bedSecondary DressingProximel - proximel and (tegaderm if needed)Additional Orders / InstructionsOther: - high protein dietPatient Received Instructions: YesElectronic Signature(s)Signed: 07/06/2019 3:46:11 PM By: Holly HillEntered By: Holly Hill on 07/06/2019 11:19:17 Encounter Discharge Information DetailsPatient Name:Date of Service:JEOVANY LEWIS 07/06/2019 11:00AMMedical Record Number:[id number] Patient of /Sex:Treating RN:1995 (24 y.o. F) Feliciano Cervantes Care Provider: Terence Valentino Clinician:Referring Provider: TreatingProvider/Construction Job Cost Estimator:Rasheed Rose PAULWeeks in Treatment: 4Encounter Discharge Information Items Post ProcedureVitalsDischarge Condition: StableTemperature (F):97.6Ambulatory Status: AmbulatoryPulse (bpm):62Discharge Destination: Home Respiratory Rate(breaths/min): 17Transportation: Private Auto Blood Pressure(mmHg): 106/56Accompanied By: selfSchedule Follow-up Appointment: YesClinical Summary of Care: Patient DeclinedElectronic Signature(s)Signed: 07/06/2019 2:41:25 PM By: Nguyen Cervantes By: Chelita Cervantes on 07/06/2019 11:20:37 Low er Extremity Assessment DetailsPatient Name:Date of Service:JEOVANY LEWIS 07/06/2019 11:00AMMedical Record Number:[id number] Patient of /Sex:Treating RN:1995 (24 y.o. F) Feliciano Cervantes Care Provider: Terence Valentino Clinician:Referring Provider: TreatingProvider/Construction Job Cost Estimator:Rasheed Roes PAULWeeks in Treatment: 4Electronic Signature(s)Signed: 07/06/2019 2:41:25 PM By: Nguyen Cervantes By: Chelita Cervantes on 07/06/2019 10:57: 42 Multi Wound Chart DetailsPatient Name:Date of Service:JEOVANY LEWIS 07/06/2019 11:00AMMedical Record Number:[id number] Patient of /Sex:Treating RN:1995 (24 y.o. F) Feliciano Cervantes Care Provider: Sade valdovinos MyoOren Clinician:Referring Provider: TreatingProvider/Construction Job Cost Estimator:Rasheed Rose PAULWeeks in Treatment: 4Vital SignsHeight(in):Pulse(bpm):108Weight(lbs): BloodPressure(mmHg): 120/79Body Mass Index(BMI):Temperature(F): 97.7Respiratory 17Rate(breaths/min):N/APhotos:Wound Location: Back - Midline Back - Midline,Distal N/AWounding Event: Gradually Appeared Gradually AppearedN/APrimary Etiology: Abscess AbscessN/AComorbid History: Type I Diabetes, Asthma, Type I Diabetes,Asthma, N/ACoronary Artery Disease, Coronary Artery Disease,Rheumatoid Arthritis, Rheumatoid Arthritis,Osteoarthritis OsteoarthritisDate Acquired: 03/07/2019 07/06/2019N/AWeeks of Treatment: 4 0N/AWound Status: Open OpenN/AMeasurements L x W x D 0.5x0.5x0.1 0.5x0.7x0.1N/A(cm)Area (cm) : 0.196 0.275N/AVolume (cm) : 0.02 0.027N/A%Reduction in Area: 93.30% 0.00%N/A%Reduction in Volume: 93.20% 0.00%N/AClassification: Full Thickness Without Full ThicknessWithout N/AExposed Support Structures Exposed Support StructuresExudate Amount: Medium MediumN/AExudate Type: Serosanguineous SerosanguineousN/AExudate Color: red, bro wn red, brownN/AGranulation Amount: Large (67-100%) Large (67- 100%)N/AGranulation Quality: Red, [place] Red, PinkN/ANecrotic Amount: None Present (0%) Small (1-33%)N/AExposed Structures: Fat Layer (Subcutaneous Fat Layer(Subcutaneous N/ATissue) Exposed: Y esTissue) Exposed: Y esDebridement: Debridement - Excisional Debridement -Excisional N/APre-procedure 11:12 11:12N/AVerification/Time Out Taken:Pain Control: Lidocaine 2% Topical Gel Lidocaine 2%Topical Gel N/ATissue Debrided: Fat, Subcutaneous Fat, SubcutaneousN/ALevel: Skin/Subcutaneous Tissue Skin/SubcutaneousTissue N/ADebridement Area (sq cm): 0.25 0.35N/AInstrument: Curette CuretteN/ABleeding: Minimum MinimumN/AHemostasis Achieved: Silver Nitrate Silver NitrateN/AProcedural Pain: 0 0N/APost Procedural Pain: 0 0N/ADebridement Treatment Procedure was tolerated well Procedure wastolerated well N/AResponse:Post Debridement 0.5x0.5x0.1 0.5x0.7x0.1N/AMeasurements L x W x D(cm)Post Debridement Volume: 0.02 0.027N/A(cm)Periwound Skin Texture: No Abnorm alities Noted No AbnormalitiesNoted N/APeriwound Skin Moisture: No Abnormalities Noted No AbnormalitiesNoted N/APeriwound Skin Color: No Abnormalities NotedErythema: Y esN/AErythema Location: N/A CircumferentialN/ATenderness on Palpation: No NoN/AWound Preparation:Ulcer Cleansing: Ulcer Cleansing:N/ARinsed/Irrigated with Saline Rinsed/Irrigated with SalineTopical Anesthetic Applied:Topical Anesthetic Applied:Lidocaine 2% Ointment Lidocaine 2% OintmentProcedures Performed: Debridement DebridementN/ATreatment NotesElectronic Signature(s)Signed: 07/06/2019 2:41:25 PM By: Chelita CervantesEntered By: Chelita Cervantes on 07/06/2019 11:14:31 Mul ti-Disciplinary Care Plan DetailsPatient Name:Date of Service:JEOVANY LEWIS 07/06/201911:00 AMMedical Record Number:[id number] Patient of /Sex:Treating RN:1995 (24 y.o. F) Feliciano Cervantes Care Provider: Sade valdovinos MyoOther Clinician:Referring Provider: TreatingProvider/Construction Job Cost Estimator:Rasheed Rose PAULWeeks in Treatment: 4Active InactiveNutritionNursing Diagnoses:Impaired glucose control: actual or potentialGoals:Patient/caregiver verbalizes understanding of need to maintain therapeuticglucose control per primary care physicianDate Initiated: 06/07/2019Target Resolution Date: 08/09/2019Goal Status: ActiveInterventions:Assess patient nutrition upon admission and as needed per policyProvide education on elevated blood sugars and impact on wound healingNotes:Pain, Acute or ChronicNursing Diagnoses:Pain, acute or chronic: actual or potentialGoals:Patient will verbalize adequate pain control and receive pain controlinterventions during procedures as neededDate Initiated: 06/07/2019r Resolution Date: 07/12/2019Goal Status: ActiveInterventions:Assess comfort goal upon admissionComplete pain assessment as per visit requirementsTreatment Activities:Administer pain control measures as ordered : 06/07/2019Notes:Wound/Skin ImpairmentNursing Diagnoses:Impaired tiss ue integrityGoals:Patient/caregiver will verbalize understanding of skin care regimenDate Initiated: 06/07/2019Target Resolution Date: 07/12/2019Goal Status: ActiveInterventions:Assess ulceration(s) every visitTreatment Activities:Skin care regimen initiated : 06/07/2019Notes:Electronic Signature(s)Signed: 07/06/2019 2:41:25 PM By: Chelita CervantesEntered By: Chelita Cervantes on 07/06/2019 11:14:21 Pain Assessment DetailsPatient Name:Date of Service:JEOVANY LEWIS 07/06/2019 11:00 AMMedical Record Number:[id number] Patient of /Sex:Treating RN:1995 (24 y.o. F) Feliciano Cervantes Care Provider: Terence Valentino Clinician:Referring Provider: TreatingProvider/Construction Job Cost Estimator:Rasheed Rose PAULWeeks in Treatment: 4Active ProblemsLocation of Pain Severity andDescription of PainPatient Has Pain? NoSite LocationsPain Management and MedicationCurrent Pain Management:Electronic Signature(s)Signed: 07/06/2019 2:41:25 PM By: Nguyen Cervantes By: Chelita Cervantes on 07/06/2019 10:55:39 Pat ient/Caregiver Education DetailsPatient Name:Date of Service:GERALDO LEWIS07/06/20192555upouugy02:00 AMMedical Record Number:[id number] Patient of /Gender:Treating RN:1995 (24 y.o. F) Feliciano Cervantes Care Physician: Terence Valentino Clinician:Referring Physician: TreatingPhysician/Construction Job Cost Estimator:Rasheed Rose PAULWeeks in Treatment: 4Education AssessmentEducation Provided To:PatientEducation Topics ProvidedWound/Skin Impairment:Methods: Explain/VerbalResponses: State content correctlyElectronic Signature(s)Signed: 07/06/2019 2:41:25 PM By: Nguyen Cervantes By: Chelita Cervantes on 07/06/2019 10:55:14Treatment Notes SummaryWound #2 (Proximal, Midline Back)3. Primary Dressing AppliedSilver Dressings4. Secondary DressingFoamNotesAG, proximels to both wounds; pt tolerated well.Wound #3 (Distal, Midline Back)3. Primary Dressing AppliedSilver Dressings4. Secondary DressingFoamNotesAG, proximels to both wounds; pt tolerated well. Vitals DetailsPatient Name:Date of Service:LEWISJEOVANY 07/06/201911:00 AMMedical Record Number:[id number] Patient of /Sex:Treating RN:1995 (24 y.o. F) Renée Quinones Care Provider: Terence Valentino Clinician:Referring Provider: TreatingProvider/Construction Job Cost Estimator:Rasheed Rose PAULWeeks in Treatment: 4Vital SignsTime Taken: 10:52 Temperature(F): 97.7Pulse (bpm): 108Respiratory Rate (breaths/min): 17Blood Pressure (mmHg): 120/79Reference Range: 80 - 120 mg / dlElectronic Signature(s)Signed: 07/10/2019 3:29:34 PM By: Judith QuinonesProvidence Hospitalmaribel By: Judith Quinones on 07/06/2019 10:52:58-- Wound Assessment DetailsPatient Name:Date of Service:JEOVANY LEWIS 07/06/2019 11:00AMMedical Record Number:[id number] Patient of /Sex:Treating RN:1995 (24 y.o. F) Feliciano Cervantes Care Provider: W in, MyoOther Clinician:Referring Provider: TreatingProvider/Construction Job Cost Estimator:Rasheed Rose PAULWeeks in Treatment: 4Wound StatusWound Number: 2 Primary AbscessEtiology:Wound Location: Back - MidlineWound OpenWounding Event: Gradually AppearedStatus:Date Acquired: 03/07/2019Comorbid Type I Diabetes, A sthma, Coronary ArteryWeeks Of Treatment: 4History: Disease, Rheumatoid Arthritis, OsteoarthritisClustered Wound: NoPhotosWound MeasurementsLength: (cm) 0.5 % ReArea: 93.3%Width: (cm) 0.5 % ReVolume: 93.2%Depth: (cm) 0.1Area: (cm) 0.196Volume: (cm) 0.02Wound DescriptionClassification: Full Thickness Without Exposed Support FouCleansing: NoStructures Slough/Fibrin?NoExudate MediumAmount:Exudate Type: SerosanguineousExudate Color: red, brownWound BedGranulation Amount: Large (67-100%)Exposed StructureGranulation Quality: Red, [place] Fa(Subcutaneous Tissue) Exposed: YesNecrotic Amount: None Present (0%)P eriwound Skin TextureTexture CNo Abnormalities Noted: No NoNoted: NoMoistureNo Abnormalities Noted: NoWound PreparationUlcer Cleansing: Rinswith SalineTopical Anesthetic Applied: LidoOintmentl Odor Aftert LayerolorAbnormalitiesed/Irrigatedcaine 2%duction induction inElectronic Signature(s)Signed: 07/06/2019 2:41:25 PM By: Chelita CervantesEntered By: Chelita Cervantes on 07/06/2019 11:03:11 Wound Assessment DetailsPatient Name:Date of Service:JEOVANY LEWIS 07/06/201911:00 AMMedical Record Number:[id number] Patient of /Sex:Treating RN:1995 (24 y.o. F) [facility]antesPrm[facility] center [facility] Care Provider: Sade valdovinos, MyoOther Clinician:Referring Provider: TreatingProvider/Construction Job Cost Estimator:Rasheed Rose PAULWeeks in Treatment: 4Wound StatusWound Number: 3 Primary AbscessEtiology:Wound Location: Back - Midline, DistalWound OpenWounding Event: Gradually AppearedStatus:Date Acquired: 07/06/2019Comorbid Type I Diabetes, Asthma, Coronary ArteryWeeks Of Treatment: 0History: Disease, Rheumatoid Arthritis, OsteoarthritisClustered Wound: NoPhotosWound MeasurementsLength: (cm) 0.5 % RArea: 0%Width: (cm) 0.7 % RVolume: 0%Depth: (cm) 0.1Area: (cm) 0.275Volume: (cm) 0.027Wound DescriptionClassification: Full Thickness Without Exposed Support FoCleansing: NoStructures Slough/Fibrin?YesExudate MediumAmount:Exudate Type: SerosanguineousExudate Color: red, brownWound BedGranulation Amount: Large (67-100%)Exposed StructureGranulation Quality: Red, [place] Fat(Subcutaneous Tissue) Exposed: YesNecrotic Amount: Small (1-33%)Necrotic Quality: Adherent SloughPeriwound Skin TextureTextureNo Abnormalities Noted: No NoNoted: NoErythema: YesMoistureErythema Location: CircumferentialNo Abnormalities Noted: NoWound PreparationUlcer Cleansing: Rinswith SalineTopical Anesthetic Applied: LidoOintmentul Odor AfterLayerColorAbnormalitiesed/Irrigatedcaine 2%eduction ineduction inTreatment NotesWound #3 (Distal, Midline Back)3. Primary Dressing AppliedSilver Dressings4. Secondary DressingFoamNotesAG, proximels to both wounds; pt tolerated well.Electronic Signature(s)Signed: 07/06/2019 2:41:25 PM By: Nguyen Cervantes By: Chelita Cervantes on 07/06/2019 11:05:57 DIC 1100TRANS:07/06/19 1100 WOUND CENTERTRANS BY:ABNER SIGNED:TIME SIGNED:REPORT COPY TO: Name Value Range Interpretation Code Description Data Gisela rce(s) Supporting Document(s) ID Date Data Source [id number] 07/06/2019 11:00:00 AM EDT [facility] [id number] NAME: JEOVANY LEWIS DATE OF SERVICE: 07/06/19MR#: [id number] DATE OF : [birth year]ACCOUNT #: [id number], JEOVANY ([id number])Visit Report for 07/06/2019Debridement DetailsPatient Name:Date of Service:JEOVANY LEWIS 07/06/2019 11:00 AMMedical Record Number:[id number] Patient of /Sex:Treating RN:1995 (24 y.o. F) Feliciano Cervantes Care Provider: Sade valdovinos MyoOther Clinician:Referring Provider: TreatingProvider/Construction Job Cost Estimator:Rasheed Rose PAULWeeks in Treatment: 4Debridement Performed for Wound #3 Distal,Midline BackAssessment:Performed By: Physician Eliud Rose DODebridement Type: DebridementLevel of Consciousness (Pre- Awake and Alertprocedure):Pre-procedure Verification/Time Y - 11:12esOut Taken:Start Time: 11:12Pain Control: Lidocaine 2% Topical GelTotal Area Debrided (L x W): 0.5 (cm) x 0.7 (cm) = 0.35 (cm)Tissue and other material Non-Viable, Fat, Subcutaneous, Skin: Dermis , Skin:Epidermis, Fibrin/Exudatedebrided:Level: Skin/Subcutaneous TissueDebridement Description: ExcisionalInstrument: CuretteBleeding: MinimumHemostasis Achieved: Silver NitrateEnd Time: 11:13Procedural Pain: 0Post Procedural Pain: 0Response to Treatment: Procedure was tolerated wellLevel of Consciousness Awake and Alert(Post-procedure):Post Debridement Measurements of Total WoundLength: (cm) 0.5Width: (cm) 0.7Depth: (cm) 0.1Volume: (cm) 0.027Character of Wound/Ulcer Post Debridement: ImprovedPost Procedure DiagnosisSame as Pre-procedureElectronic Signature(s)Signed: 07/06/2019 2:41:25 PM By: Chelita CervantesSigned: 07/09/2019 9:22:41 AM By: Eliud Rose D.O., FACSEntered By: Chelita Cervantes on 07/06/2019 11:13:58 Debridement DetailsPatient Name:Date of Service:JEOVANY LEWIS 07/06/2019 11:00 AMMedical Record Number:[id number] Patient of /Sex:Treating RN:1995 (24 y.o. F) Feliciano Cervantes Care Provider: Sade valdovinos MyoOren Clinician:Referring Provider: TreatingProvider/Construction Job Cost Estimator:Rasheed Rose PAULWeeks in Treatment: 4Debridement Performed for Wound #2 Proximal,Midline BackAssessment:Performed By: Physician Eliud Rose DODebridement Type: DebridementLevel of Consciousness (Pre- Awake and Alertprocedure):Pre-procedure Verification/Time Y - 11:12esOut Taken:Start Time: 11:12Pain Control: Lidocaine 2% Topical GelTotal Area Debrided (L x W): 0.5 (cm) x 0.5 (cm) = 0.25 (cm)Tissue and other material Non-Viable, Fat, Subcutaneous, Skin: Dermis , Skin:Epidermis, Fibrin/Exudatedebrided:Level: Skin/Subcutaneous TissueDebridement Description: ExcisionalInstrument: CuretteBleeding: MinimumHemostasis Achieved: Silver Nitrat eEnd Time: 11:13Procedural Pain: 0Post Procedural Pain: 0Response to Treatment: Procedure was tolerated wellLevel of Consciousness Awake and Alert(Post- procedure):Post Debridement Measurements of Total WoundLength: (cm) 0.5Width: (cm) 0.5Depth: (cm) 0.1Volume: (cm) 0.02Character of Wound/Ulcer Post ImprovedDebridement:Post Procedure DiagnosisSame as Pre-procedureElectronic Signature(s)Signed: 07/06/2019 2:41:25 PM By: Chelita CervantesSigned: 07/09/2019 9:22:41 AM By: Eliud Rose D.O., FACSEntered By: Chelita Cervantes on 07/06/2019 11:14:13 -----DICT: 07/06/19 1100TRANS:07/06/19 1100 WOUND CENTERTRANS BY:ABNER SIGNED:TIME SIGNED:REPORT COPY TO: Name Value Range Interpretation Code Description Data Gisela rce(s) Supporting Document(s) ID Date Data Source [id number] 07/06/2019 11:00:00 AM EDT [facility] [place], [place] [address]PATIENT NAME: JEOVANY LEWIS DATE OF SERVICE: 07/06/19MR#: [id number] DATE OF : [birth year]ACCOUNT #: [id number], KENDRA ([id number])Visit Report for 07/06/2019Chief Complaint Document DetailsPatient Name:Date of Service:JEOVANY LEWIS 07/06/2019 11:00AMMedical Record Number:[id number] Patient of /Sex:Treating RN:1995 (24 y.o. F)Primary Care Provider: Sade valdovinos, MyoOther Clinician:Referring Provider: TreatingProvider/Construction Job Cost Estimator:Brydges, KennethTEJERA, PAULWeeks in Treatment: 4Information Obtained from: PatientChief ComplaintLeft heel diabetic foot wound for approximately 3 months.Electronic Signature(s)Signed: 07/09/2019 9:22:41 AM By: Eliud Rose D.O., FACSEntered By: Eliud Rose on 07/06/2019 10:50:11 HPI DetailsPatient Name:Date of Service:JEOVANY LEWIS 07/06/2019 11:00AMMedical Record Number:[id number] Patient of /Sex:Treating RN:1995 (24 y.o. F)Primary Care Provider: Terence Valentino Clinician:Referring Provider: TreatingProvider/Construction Job Cost Estimator:Rasheed Rose PAULWeeks in Treatment: 4History of Present IllnessHPI Description: This is a poorly controlled type 1 diabetic smoker [facility]op[facility] with a wound onher left plantar heel area. This had been present for approximately 2-3 monthsand appears to have occurred while shewas admitted to the hospital during a diabetic coma where she was unconsciousfor approximately 4 days and requiredventilator support.She had been caring for this at home and her HgbA1c on 05/27/18 was 13.4.She had started seeing an Abattoir Supervisor after this to assist with her bloodsugars.Positive DiabetesPositive TobaccoNegative Obesity (BMI 19.11)Negative Rapid Weight LossNegative Steroids or Lgnmovfmrqxa73/11/19: Ankle Brachial Index: Left 0.98 Right 1.08AllergiesAugmentin-liquid (Reaction: hives), Iodinated Contrast- Oral (Reaction:anaphylaxis)Family HistoryCancer - Paternal GrandparentsDiabetes - Mother,Father,Maternal GrandparentsHypertension - MotherThyroid Problems - Maternal GrandparentsNo family history of Heart Disease, Kidney Disease, Lung Disease, Seizures,Stroke, TuberculosisSocial HistoryCurrent some day smokerMarital Status - MarriedAlcohol Use - RarelyDrug Use - Current History - marijuana every day if I have itCaffeine Use - Rarely - energy drinksMedical HistoryType I Diabetes treated with InsulinCoronary Artery DiseaseRheumatoid ArthritisOsteoarthritisThyroid disorderdepression andanxietyNotesShe is on Clindamycin for a tooth abscess and the original two wounds aresmaller. She has a new third wound on herback.She had trouble keeping the dressing on this week.Electronic Signature(s)Signed: 07/09/2019 9:22:41 AM By: Eliud Rose D.O., FACSEntered By: Eliud Rose on 07/06/2019 11:18:06 -------Physician Orders DetailsPatient Name:Date of Service:JEOVANY LEWIS 07/06/201911:00 AMMedical Record Number:[id number] Patient of /Sex:Treating RN:1995 (24 y.o. F) Feliciano Cervantes Care Provider: Sade valdovinos, MyoOther Clinician:Referring Provider: TreatingProvider/Construction Job Cost Estimator:Rasheed Rose PAULWeeks in Treatment: 4Verbal / Phone Orders: NoDiagnosis CodingICD-10 CodingCode DescriptionUnspecified open wound of unspecified back wall of thorax without penetrationinto thoracic cavity,S21.209A initial encounterFollow-up AppointmentsReturn Appointment in 1 week.Dressing Change FrequencyDo not change entire dressing for one week.Wound CleansingOther: - keep dressing dry, on days showering- remove dressing and shower thendry area and put new dressing onwoundPrimary Wound DressingAquacel AgSecondary DressingProximel - proximel and (tegaderm if needed)Additional Orders / InstructionsOther: - high protein dietElectronic Signature(s)Signed: 07/06/2019 2:41:25 PM By: Chelita CervantesSigned: 07/09/2019 9:22:41 AM By: Eliud Rose D.O., FACSEntered By: Chelita Cervantes on 07/06/2019 11:18:21 Pro blem List DetailsPatient Name:Date of Service:JEOVANY LEWIS 07/06/201911:00 AMMedical Record Number:[id number] Patient of /Sex:Treating RN:1995 (24 y.o. F)Primary Care Provider: Terence Valentino Clinician:Referring Provider: TreatingProvider/Construction Job Cost Estimator:Rasheed Rose PAULWeeks in Treatment: 4Active ProblemsICD-10Evaluated EncounterCode Description ActiveDate Today BcoauygxqF09.209A Unspecified open wound of unspecified back wall of06/07/2019 No Yesthorax without penetration into thoracic cavity, initialencounterInactive ProblemsResolved ProblemsElectronic Signature( s)Signed: 07/09/2019 9:22:41 AM By: Eliud Rose D.O., FACSEntered By: Eliud Rose on 07/06/2019 10:50:02 DIC 1100TRANS:07/06/19 1100 WOUND CENTERTRANS BY:ABNER SIGNED:TIME SIGNED:REPORT COPY TO: Name Value Range Interpretation Code Description Data Gisela rce(s) Supporting Document(s) ID Date Data Source [id number] 07/04/2019 06:13:00 PM EDT [facility] Name Value Range Interpretation Code Description Data Gisela rce(s) Supporting Document(s) Hemoglobin A1C % Less than 5.7% Above high normal [facility] HBA1C: Normal: Less than 5.7% Prediabetes: 5.7% to 6.4% Diabetes: 6.5% or higher HA1C % vs Estimated Average Glucose (eAG) % eAG % eAG 6% 126 mg/dL 10% 240 mg/dL 7% 154 mg/dL 11% 269 mg/dL 8% 183 mg/dL 12% 298 mg/dL 9% 212 mg/dL Reference: [place] [employer], 2017 ID Date Data Source [id number] 07/04/2019 06:01:00 PM EDT [facility] Name Value Range Interpretation Code Description Data Gisela rce(s) Supporting Document(s) Sodium 137 mmol/L 137-145 Normal (applies to non-numeric resul ts) [facility] Potassium 3.5-5.1 Normal (applies to non-numeric resul ts) [facility] Chloride 103 mmol/L 98-112 Normal (applies to non-numeric resul ts) [facility] Carbon Dioxide CO2 22.0-33.0 Normal (applies to non-numer ic results) [facility] Anion Gap 4.0-11.0 Normal (applies to non-numeric resul ts) [facility] BUN 3 mg/dL 7-17 Below low normal [facility] Creatinine 0.70-1.20 Normal (applies to non-numeric resul ts) [facility] GFR >60 Normal (applies to non-numeric results) [facility] Result based on MDRD formula. Glucose Level 264 mg/dL 74-99 Above high normal [facility] The reference range is only applicable w hen fasting. Calcium-Uncorrected 8.4-10.2 Normal (applies to non-nume vanessa results) [facility] Corrected Calcium 8.4-10.2 Normal (applies to non-numeri c results) [facility] ID Date Data Source [id number] 07/04/2019 06:01:00 PM EDT [facility] Name Value Range Interpretation Code Description Data Gisela rce(s) Supporting Document(s) Free T4 (Free Thyroxine) 0.76-1.46 Normal (applies to non -numeric results) [facility] ID Date Data Source [id number] 07/04/2019 06:01:00 PM EDT [facility] Name Value Range Interpretation Code Description Data Gisela rce(s) Supporting Document(s) Thyroid Stimulate Hormone TSH 0.358-3.740 Above high ivana l [facility] ID Date Data Source [id number] 07/03/2019 03:56:00 PM EDT [facility] an[facility] Physician DocumentationClaxnatalia-Chandan Westbrook edical CenterName: Jeovany Singerge: 24 yrsSex: FemaleDOB: 1995MRN: [id number] Date: 07/03/2019Time: 15:43Account#: [id number] 1Private MD: Out of town provider, -ED PhysicianDisposition Summary:07/03/19 15:50Discharge OrderedLocation: Home Self Care mkProblem: an ongoing problem mkSymptoms: are unchanged mkCondition: Stable mkDiagnosis- Dental caries, unspecified mkFollowup: mk- With: Carola Paez, DDS- When: 2 - 3 days- Reason: Further diagnostic work-up, Recheck today's complaints,Continuance of careFollowup: mk- With: Emergency Department- When: As needed- Reason: Worsening of condition, Change in Condit ionDischarge Instructions:- Discharge Summary Sheet mk- DENTAL CAVITY mk- DENTAL PAIN mkForms:- Medication Reconciliation mk- Medication Reconciliation Form - 2nd Copy mkPrescriptions:- Clindamycin HCl 300 mg Oral Capsule- take 1 capsule by ORAL route every 6 hours for 10 days; 40 mkcapsule; Refills: 0, Product Selection PermittedDisposition:06/1809:39 Attestation: I was available for consultation throughout this zx2ltxxrbc's ED visit.HPI:06/1714:52 This 24 yrs old White Female presents to ER via Private Vehicle with mkcomplaints of Toothache.15:52 The patient presents with pain. The problem is located in the right mkjaw. Onset: The symptoms/episode began/occurred today. Duration: Thesymptoms are continuous, and are steadily getting worse. Modifyingfactors: the symptoms are aggravated by chewing. Associated signs andsymptoms: Pertinent positives: pain, Pertinent negatives: anorexia,chills, dysphagia, fever, inability to eat, nausea, redness in area,swelling, vomiting. Severity of symptoms: At their worst the symptomswere mild. The patient has not experienced similar symptoms in thepast. The patient has not recently seen a physician.Historical:- Allergies: Augmentin;- PMHx: Diabetes - Type 1; GERD; HIGH CHOLESTEROL; MIGRAINES;Neuropathy; RHEUMATOID ARTHRITIS; THYROID PROBLEM;- PSHx: Adenoid excision; cleft palette; tympanostomy tubes;Appendectomy;- Immunization history: Flu vaccine is up to date.- Family history: Reviewed and not pertinent, No immediate familymembers are acutely ill.- Social history: Smoking status: Patient states was never smoker ofCumuLogic. ETOH status Denies use of ETOH.- Advance Directives:: None.- Hospitalizations: : No recent hospitalization is reported.ROS:15:53 Constitutional: Alert, orientated, conversing appropriately. Eyes: mkNegative for blurriness, tearing, itching, and acute vison loss.Neck: Negative for injury, pain, and swelling, Cardiovascular:Negative for chest pain, palpitations, JVD, edema, murmurRespiratory: Negative for shortness of breath, cough, sputum,wheezing, pleuritic chest pain, and hemoptysis. Abdomen/GI: Negativefor abdominal pain, nausea, vomiting, diarrhea, and constipation,Back: Negative for injury and pain, : Negative for injury,bleeding, discharge, and swelling, MS/Extremity: Negative for muscleatrophy, weakness; joint range of motion, instability, redness,swelling, tenderness; spine deviation; gait. Skin: Negative for skin,hair, nail changes; itching; rashes; sores; lumps; moles. Neuro:Negative for headache, weakness, numbness, tingling, tremors, andseizure. ENT: Positive for dental pain, Negative for ear pain, nasaldischarge, rhinorrhea, sinus congestion, sinus pain, sore throat,difficulty swallowing, difficulty handling secretions.Exam:15:53 Constitutional: This is a well developed, well nourished patient who mkis awake, alert, and in no acute distress. Head/Face: Normocephalic,atraumatic. Eyes: Pupils equal round and reactive to light,extra- ocular motions intact. Lids and lashes normal. Conjunctivaand sclera are non- icteric and not injected. Cornea within normallimits. Periorbital areas with no swelling, redness, or edema.15:53 Neck: Trachea midline, no thyromegaly or masses palpated, and nocervical lymphadenopathy. Supple, full range of motion withoutnuchal rigidity, or vertebral point tenderness. No Meningismus.Chest/axilla: Normal chest wall appearance and motion. Nontenderw ith no deformity. No lesions are appreciated. Cardiovascular:Regular rate and rhythm with a normal S1 adn S2. No gallops, murmurs,or rubs. Normal PMI, no JVD. No pulse deficits. Respiratory: Lungshave equal breath sounds bilaterally. No rales, rhonchi or wheezesnoted. No increased work of breathing, no retractions or nasalflaring. Abdomen/GI: Soft, non-tender, with normal bowel sounds. Nodistension or tympany. No guarding or rebound. No evidence oftenderness throughout. Back: No spinal tenderness. Nocostovertebral tenderness. Full range of motion. Skin: Warm, drywith normal turgor. Normal color with no rashes, no lesions, and noevidence of cellulitis. MS/ Extremity: Pulses equal, no cyanosis.Neurovascular intact. Full, normal range of motion. Neuro: Awakeand alert, GCS 15, oriented to person, place, time, and situation.Cranial nerves II-XII grossly intact. Motor strength 5/5 in allextremities. Sensory grossly intact. Cerebellar exam normal.Normal gait.15:53 ENT: Mouth: Gums: reddened, swollen, on the upper right first molar,abscess, is not appreciated, Dental exam: dental caries, that ismoderate, specifically in the upper right first molar (#3), upperright cuspid (#6) and upper right lateral incisor (#7), pain, that ismild, specifically in the upper right first molar (#3).Vital Signs:15:46 BP 144 / 97; Pulse 115; Resp 16; Temp 96.1; Pulse Ox 97% on R/A; fbg15:56 klp15:56 vs deferred per Sangeeta klpMDM:15:45 Patient medically screened. mk15:49 Data reviewed: vital signs, nurses notes, old medical records. mkDispensed Medications:No medications were administeredSignatures:Pool Arroyo RN RN fbgKndeo Sangeeta, Dora Weiss MD MD th4 Name Value Range Interpretation Code Description Data Gisela rce(s) Supporting Document(s) ID Date Data Source [id number] 07/03/2019 03:56:00 PM EDT [facility]Cl[facility] terName: Jeovany BarberAge: 24 yrsSex: FemaleDOB: 1995MRN: [id number] Date: 07/03/2019Time: 15:43Account#: [id number] 1Pulises ANTONIO: Out of town provider, -Diagnosis: Dental caries, unspecifiedPresentation:06/1714:44 Presenting complaint: Patient states: I have an abscess in my cheek fbgand the tooth directly below that hurts. Chemotherapy No. CoronavirusScreening: Patient negative for fever and symptoms of lowerrespiratory illness (e.g., cough, difficulty breathing). Patientdenies exposure to infectious person. Patient denies travel to [place] affected areas in the 14 days before illness onset. No symptoms orrisks identified at this time. Communicable Disease Screen: Negativefor fever>/= 100 degrees Fahrenheit. Communicable disease screen isnegative.15:44 Acuity: Triage 4 fbg15:44 Acuity Assignment: Triage 4 15:44 Method Of Arrival: Private Vehicle fbgTriage Assessment:15:45 General: Appears well nourished, Behavior is anxious, cooperative, fbgDenies fever, chills. Sepsis Screening: (1)Signs/symptoms infectionNo. Pain: Complains of pain in right cheek and right jaw Paincurrently is 9 out of 10 on a pain scale. Scaled used was Verbal.PSS-3 Now I'm going to ask you some questions that we ask everyonetreated here, no matter what problem they are here for. It is part ofthe hospital's policy and it helps us to make sure we are not missinganything important. Over the past 2 weeks, have you felt down,depressed, or hopeless? No. Over the past 2 weeks, have had thoughtsof killing yourself? No. In your lifetime, have you ever attempted tokill yourself? No. EENT: Poor dentition noted. Reports pain.Historical:- Allergies: Augmentin;- PMHx: Diabetes - Type 1; GERD; HIGH CHOLESTEROL; MIGRAINES;Neuropathy; RHEUMATOID ARTHRITIS; THYROID PROBLEM;- PSHx: Adenoid excision; cleft palette; tympanostomy tubes;Appendectomy;- Immunization history: Flu vaccine is up to date.- Family history: Reviewed and not pertinent, No immediate familymembers are acutely ill.- Social history: Smoking status: Patient states was never smoker oftoCumuLogic. ETOH status Denies use of ETOH.- Advance Directives:: None.- Hospitalizations: : No recent hospitalization is reported.Screenin:55 Abuse screen: Denies threats or abuse. Nutritional screening: No klpdeficits noted. Offer of HIV testing: patient was previously offeredscreening. Fall Risk None identified.Assessment:15:54 Pain: Complains of pain in upper right first molar Aggravated by klpeating, drinking. Sepsis Screening: Not applicable to this patient.General: Reports taking motrin 600-800 mg without effect at night andhaving trouble sleeping. EENT: Poor dentition noted. Neuro: Level ofConsciousness is awake, alert. Respiratory: No deficits noted.Respiratory effort is even, unlabored. GI: No deficits noted.Vital Signs:15:46 BP 144 / 97; Pulse 115; Resp 16; Temp 96.1; Pulse Ox 97% on R/A; fbg15:56 klp15:56 vs deferred per Sangeeta Valdez Course:15:43 Patient arrived in ED. fbg15:43 Out of town provider, - is Private Physician. fbg15:44 Triage completed. fbg15:45 Sangeeta Wetzel FNP-C is [facility]. mk15:46 Arm band placed on right wrist. Patient placed in exam room on fbgstretcher Patient notified of wait time.15:50 Carola Paez DDS is Referral Physician. mk15:56 Patient has correct armband on for positive identification. klp15:56 No Physician assisted procedures completed. klpAdministered Medications:No medications were administeredOutcome:15:50 Discharge ordered by MD. mk15:56 Disposition: Discharged to home ambulatory, with family. klp15:56 Condition: stable.15:56 Discharge instructions given to patient, Instructed on dischargeinstructions, follow up and referral plans. medication usage,Demonstra gurdeep understanding of instructions, medications,Prescriptions given X 1.15:56 Discharge Assessment: Patient awake, alert and oriented x 3. Nocognitive and/or functional deficits noted. Patient verbalizedunderstanding of disposition instructions. Patient verbalizedunderstanding of disposition instructions. Patient has no functionaldeficits.15:56 Patient left the ED. klpSignatures:Pool Arroyo RN RN fbgPike, Kathy, RN RN klpKnight, Mary, FNP-C FNP-Cmk Name Value Range Interpretation Code Description Data Gisela rce(s) Supporting Document(s) ID Date Data Source [id number] 06/29/2019 11:15:00 AM [facility]T [facility] [address] [address]VQMTSZE NAME: JEOVANY LEWIS DATE OF SERVICE: 06/29/19MR#: [id number] DATE OF : [birth year]ACCOUNT #: [id number], KENDRA ([id number])Visit Report for 06/29/2019Advanced Modalities Screening Tool DetailsPatient Name:Date of Service:JEOVANY LEWIS 06/29/2019 11:15 AMMedical Record Number:[id number] Patient of /Sex:Treating RN:1995 (24 y.o. F) Susanna Rangel Care Provider: Terence Valentino Clinician:Referring Provider: TreatingProvider/Construction Job Cost Estimator:Rasheed Rose PAULWeeks in Treatment: 3Advanced Modalities Screening Check ListHyperbaric Oxygen Therapy: Reviewed LCD or HBO policy from [employer] and/or NCDTherapy Not IndicatedNo Appr opriate IndicationElectronic Signature(s)Signed: 06/29/2019 3:31:06 PM By: Rohini Rangel By: Asia Rangel on 06/29/2019 11:25:00 ------Arrival Information DetailsPatient Name:Date of Service:JEOVANY LEWIS 06/29/2019 11:15 AMMedical Record Number:[id number] Patient of /Sex:Treating RN:1995 (24 y.o. F) Renée Quinones Care Provider: Terence Valentino Clinician:Referring Provider: TreatingProvider/Construction Job Cost Estimator:Rasheed Rose PAULWeeks in Treatment: 3Visit Information History Since LastVisitAdded or deleted any medications: NoPatient Arrived: AmbulatoryAny new allergies or adverse reactions: NoArrival Time: 11:09Had a fall or experienced change in NoAccompanied By: significantactivities of daily living that may affectotherotherrisk of falls:Transfer Assistance: NoneSigns or symptoms of abuse/neglect since last visit? NoPatient Identification Verified: YesHospitalized since last visit: NoSecondary Verification Process Completed: YesImplantable device outside of the clinic excluding NoPatient Requires Transmission-Based Nocellular tissue based products placed in the centerPrecautions:since last visit:Patient Has Alerts: Candace Present Now: NoElectronic Signature(s)Signed: 06/29/2019 3:54:07 PM By: Quinton Quinonesed By: Judith Quinones on 06/29/2019 11:10:26 Discharge Instructions DetailsPatient Name:Date of Service:JEOVANY LEWIS 06/29/2019 11:15AMMedical Record Number:[id number] Patient of /Sex:Treating RN:1995 (24 y.o. F) Susanna Rangel Care Provider: Terence Valentino Clinician:Referring Provider: TreatingProvider/Construction Job Cost Estimator:Rasheed Rose PAULWeeks in Treatment: 3Follow-up AppointmentsReturn Appointment in 1 week. Should you experience any significant changes inyour wound(s) or have anyquestions regarding your home care instructions please contact the [facility] r. If after regular business hours,please call your family doctor or local emergency room. - 07/06/19 @ 11 AMDressing Change FrequencyDo not change entire dressing for one week.Wound Cleansing. - keep dressing dry, on days showering- remove dressing and shower then dryarea and put new dressing on woundPrimary Wound DressingCut Aquacel Ag to fit wound bedSecondary DressingProximel - proximel and (tegaderm if needed)Additional Orders / InstructionsOther: - high protein dietPatient Received Instructions: YesElectronic Signature(s)Signed: 07/02/2019 3:09:32 PM By: Holly HillSigned: 07/02/2019 3:09:32 PM By: Cindy Hill By: Holly Hill on 06/29/2019 11:34:22 Enc ounter Discharge Information DetailsPatient Name:Date of Service:JEOVANY LEWIS 06/29/2019 11:15AMMedical Record Number:[id number] Patient of /Sex:Treating RN:1995 (24 y.o. F) Renée Quinones Care Provider: Terence Valentino Clinician:Referring Provider: MoizProamyder/Construction Job Cost Estimator:Rasheed Rose PAULWeeks in Treatment: 3Encounter Discharge Information ItemsDischarge Condition: StableAmbulatory Status: AmbulatoryDischarge Destination: HomeTransportation: Private AutoAccompanied By: selfSchedule Follow-up Appointment: YesClinical Summary of Care:Electronic Signature(s)Signed: 06/29/2019 3:54:07 PM By: Quinton Quinones ed By: Judith Quinones on 06/29/2019 11:37:00 Low er Extremity Assessment DetailsPatient Name:Date of Service:JEOVANY LEWIS 06/29/2019 11:15AMMedical Record Number:[id number] Patient of /Sex:Treating RN:1995 (24 y.o. F) Renée Quinones Care Provider: Terence Valentino Clinician:Referring Provider: Dank cottoProamyder/Construction Job Cost Estimator:Rasheed Rose PAULWeeks in Treatment: 3Notesmidline backElectronic Signature(s)Signed: 06/29/2019 3:54:07 PM By: Yaron Quinones By: Judith Quinones on 06/29/2019 1 1:13:19 Phi i Wound Chart DetailsPatient Name:Date of Service:JEOVANY LEWIS 06/29/201911:15 AMMedical Record Number:[id number] Patient of /Sex:Treating RN:1995 (24 y.o. F) Susanna Rangel Care Provider: Sade valdovinos MyoOren Clinician:Referring Provider: TreatingProvider/Construction Job Cost Estimator:Rasheed Rose PAULWeeks in Treatment: 3Vital SignsHeight(in):Pulse(bpm):106Weight(lbs): BloodPressure(mmHg): 111/77Body Mass Index(BMI):Temperature(F): 97.4Respiratory 17Rate(breaths/min):N/APhotos: [N/A:N/A]Wound Location: Back - Midline N/AN/AWounding Event: Gradually Appeared N/AN/APrimary Etiology: To be determined N/AN/AComorbid History: Type I Diabetes, Asthma, N/AN/ACoronary Artery Disease,Rheumatoid Arthr itis,OsteoarthritisDate Acquired: 03/07/2019 N/AN/AWeeks of Treatment: 3 N/AN/AWound Status: Open N/AN/AMeasurements L x W x D 2x2.5x0.1 N/AN/A(cm)Area (cm) : 3.927 N/AN/AVolume (cm) : 0.393 N/AN/A%Reduction in Area: -33.30% N/AN/A%Reduction in Volume: -33.20% N/AN/AClassification: Full Thickness Without N/AN/AExposed Support StructuresExudate Amount: None Present N/AN/AGranulation Amount: Large (67-100%) N/AN/AGranulation Quality: Red, [place] N/AN/ANecrotic Amount: None Present (0%) N/AN/AExposed Structures: Fat Layer (Subcutaneous N/AN/ATissue) Exposed: Y esPeriwound Skin Texture: No Abnormalities Noted N/AN/APeriwound Skin Moisture: No Abnormalities Noted N/AN/APeriwound Skin Color: No Abnormalities Noted N/AN/ATemperature: No Abnormality N/AN/ATenderness on Palpation: No N/AN/AWound Preparation:Ulcer Cleansing: N/AN/ARinsed/Irrigated with SalineTopical Anesthetic Applied:Lidocaine 2% OintmentTreatment NotesElectronic Signature(s)Signed: 06/29/2019 3:31:06 PM By: Al Rangelered By: Asia Rangel on 06/29/2019 11:30:23 Mul ti-Disciplinary Care Plan DetailsPatient Name:Date of Service:JEOVANY LEWIS 06/29/201911:15 AMMedical Record Number:[id number] Patient of /Sex:Treating RN:1995 (24 y.o. F) Susanna Rangel Care Provider: Sade valdovinos MyoOther Clinician:Referring Provider: TreatingProvider/Construction Job Cost Estimator:Rasheed Rose PAULWeeks in Treatment: 3Active InactiveNutritionNursing Diagnoses:Impaired glucose control: actual or potentialGoals:Patient/caregiver verbalizes understanding of need to maintain therapeuticglucose control per primary care physicianDate Initiated: 06/07/2019Target Resolution Date: 08/09/2019Goal Status: ActiveInterventions:Assess patient nutrition upon admission and as needed per policyProvide education on elevated blood sugars and impact on wound healingNotes:Pain, Acute or ChronicNursing Diagnoses:Pain, acute or chronic: actual or potentialGoals:Patient will verbalize adequate pain control and receive pain controlinterventions during procedures as neededDate Initiated: 06/07/2019Target Resolution Date: 07/12/2019Goal Status: ActiveInterventions:Assess comfort goal upon admissionComplete pain assessment as per visit requirementsTreatment Activities:Administer pain control measures as ordered : 06/07/2019Notes:Wound/Skin ImpairmentNursing Diagnoses:Impaired ti ssue integrityGoals:Patient/caregiver will verbalize understanding of skin care regimenDate Initiated: 06/07/2019Target Resolution Date: 07/12/2019Goal Status: ActiveInterventions:Assess ulceration(s) every visitTreatment Activities:Skin care regimen initiated : 06/07/2019Notes:Electronic Signature(s)Signed: 06/29/2019 3:31:06 PM By: Rohini Rangel By: Asia Rangel on 06/29/2019 11:24:56------- Pain Assessment DetailsPatient Name:Date of Service:JEOVANY LEWIS 06/29/201911:15 AMMedical Record Number:[id number] Patient of /Sex:Treating RN:1995 (24 y.o. F) Renée Quinones Care Provider: Sade valdovinos, MyoOther Clinician:Referring Provider: TreatingProvider/Construction Job Cost Estimator:Rasheed Rose PAULWeeks in Treatment: 3Active ProblemsLocation of Pain Severity andDescription of PainPatient Has Pain? NoSite LocationsPain Management and MedicationCurrent Pain Management:Electronic Signature(s)Signed: 06/29/2019 3:54:07 PM By: Yaron Quinones By: Judith Quinones on 06/29/2019 11:18:51 Pat ient/Caregiver Education DetailsPatient Name:Date of Service:JEOVANY LEWIS06/29/20195104waxlxtd61:15 AMMedical Record Number:[id number] Patient of /Gender:Treating RN:1995 (24 y.o. F) Renée Quinones Care Physician: Terence Valentino Clinician:Referring Physician: TreatingPhysician/Construction Job Cost Estimator:Rasheed Rose PAULWeeks in Treatment: 3Education AssessmentEducation Provided To:PatientEducation Topics ProvidedWound/Skin Impairment:Methods: Explain/VerbalResponses: State content correctlyElectronic Signature(s)Signed: 06/29/2019 3:54:07 PM By: Judith QuinonesEntered By: Judith Quinones on 06/29/2019 11:19:20Treatment Notes SummaryWound #2 (Midline Back)3. Primary Dressing AppliedFoamSilver Dressings Vi tals DetailsPatient Name:Date of Service:JEOVANY LEWIS 06/29/2019 11:15AMMedical Record Number:[id number] Patient of /Sex:Treating RN:1995 (24 y.o. F) Renée Quinones Care Provider: Terence Valentino Clinician:Referring Provider: TreatingProvider/Construction Job Cost Estimator:Rasheed Rose PAULWeeks in Treatment: 3Vital SignsTime Taken: 11:10Temperature (F):97.4Pulse (bpm): 106Respiratory Rate (breaths/min): 17Blood Pressure (mmHg): 111/77Reference Range: 80 - 120 mg / dlNotesPt states blood sugar was critical high this morning at 6am. States she tookher insulin 13u amalog.Electronic Signature(s)Signed: 06/29/2019 3:54:07 PM By: Judith QuinonesEntermaribel By: Judith Quinones on 06/29/2019 11:12:45 W[address] Assessment DetailsPatient Name:Date of Service:JEOVANY LEWIS 06/29/2019 11:15 AMMedical Record Number:[id number] Patient of /Sex:Treating RN:1995 (24 y.o. F) Renée Quinones Care Provider:Other Clinician:Sade valdovinos MyoReferring Provider: TreatingProvider/Construction Job Cost Estimator:Rasheed Rose PAULWeeks in Treatment: 3Wound StatusWound Number: 2 Primary To bedeterminedEtiology:Wound Location: Back - MidlineWound OpenWounding Event: Gradually AppearedStatus:Date Acquired: 03/07/2019Comorbid Type I Diabetes, Asthma, Coronary ArteryWeeks Of Treatment: 3History: Disease, Rheumatoid Arthritis, OsteoarthritisClustered Wound: NoPhotos Wound MeasurementsLength: (cm) 2 % RArea: -33.3%Width: (cm) 2.5 % RVolume: - 33.2%Depth: (cm) 0.1 TunNoArea: (cm) 3.927 UnNoVolume: (cm) 0.393Wound DescriptionClassification: Full Thickness Without Exposed Support FouCleansing: NoStructures Slough/Fibrin?NoExudate None PresentAmount:Wound BedGranulation Amount: Large (67-100%)Exposed StructureGranulation Quality: Red, [place] Fat(Subcutaneous Tissue) Exposed: YesNecrotic Amount: None Present (0%)Periwound Skin TextureTextureNo Abnormalities Noted: Yes NoNoted: YesMoisture TemperaturNo Abnormalities Noted: Yes TemNo AbnormalityWound PreparationUlcer Cl eansing: Rinsewith SalineTopical Anesthetic Applied: LidocOintmentl Odor AfterLayerColorAbnormalitiese / Painperature:d/Irrigatedaine 2%eduction ineduction inneling:dermining:Treatment NotesWound #2 (Midline Back)3. Primary Dressing AppliedFoamSilver DressingsElectronic Signature(s)Signed: 06/29/2019 3:54:07 PM By: Judith QuinonesEntered By: Judith Quinones on 06/29/2019 11:18:22 DICT: 06/29/19 1115TRANS:06/29/19 [facility] WOUND CENTERTRANS BY:ABNER SIGNED:TIME SIGNED:REPORT COPY TO: Name Value Range Interpretation Code Description Data Gisela rce(s) Supporting Document(s) ID Date Data Source [id number] 06/29/2019 11:15:00 AM [place] [address]PATIENT NAME: JEOVANY LEWIS DATE OF SERVICE: 06/29/19MR#: [id number] DATE OF : [birth year]ACCOUNT #: [id number], KENDRA ([id number])Visit Report for 06/29/2019Chief Complaint Document DetailsPatient Name:Date of Service:JEOVANY LEWIS 06/29/2019 11:15AMMedical Record Number:[id number] Patient of /Sex:Treating RN:1995 (24 y.o. F)Primary Care Provider: Terence Valentino Clinician:Referring Provider: TreatingProvider/Construction Job Cost Estimator:Rasheed Rose PAULWeeks in Treatment: 3Information Obtained from: PatientChief ComplaintLeft heel diabetic foot wound for approximately 3 months.Electronic Signature(s)Signed: 07/02/2019 12:45:22 PM By: Eliud Rose D.O., FACSEntered By: Eliud Rose on 06/29/2019 11:01:22 HPI DetailsPatient Name:Date of Service:JEOVANY LEWIS 06/29/2019 11:15AMMedical Record Number:[id number] Patient of /Sex:Treating RN:1995 (24 y.o. F)Primary Care Provider: Sade valdovinos MyoOren Clinician:Referring Provider: TreatingProvider/Construction Job Cost Estimator:Rasheed Rose PAULWeeks in Treatment: 3History of Present IllnessHPI Description: This is a poorly controlled type 1 diabetic smoker [facility]opresent[facility] with a wound onher left plantar heel area. This had been present for approximately 2-3 monthsand appears to have occurred while shewas admitted to the hospital during a diabetic coma where she was unconsciousfor approximately 4 days and requiredventilator support.She had been caring for this at home and her HgbA1c on 05/27/18 was 13.4.She had started seeing an Abattoir Supervisor after this to assist with her bloodsugars.Positive DiabetesPositive TobaccoNegative Obesity (BMI 19.11)Negative Rapid Weight LossNegative Steroids or Wmmxiswszqza73/11/19: Ankle Brachial Index: Left 0.98 Right 1.08AllergiesAugmentin-liquid (Reaction: hives), Iodinated Contrast- Oral (Reaction:anaphylaxis)Family HistoryCancer - Paternal GrandparentsDiabetes - Mother,Father,Maternal GrandparentsHypertension - MotherThyroid Problems - M aternal GrandparentsNo family history of Heart Disease, Kidney Disease, Lung Disease, Seizures,Stroke, TuberculosisSocial HistoryCurrent some day smokerMarital Status - MarriedAlcohol Use - RarelyDrug Use - Current History - marijuana every day if I have itCaffeine Use - Rarely - energy drinksMedical HistoryType I Diabetes treated with InsulinCoronary Artery DiseaseRheumatoid ArthritisOsteoarthritisThyroid disorderdepression andanxietyNotesShe did not get the Doxycycline and the wounds actually look pretty good today.She was last seen 06/07/2019Electronic Signature(s)Signed: 07/02/2019 12:45:22 PM By: Eliud Rose D.O., FACSEntered By: Eliud Rose on 06/29/2019 11:37:29 Phy sician Orders DetailsPatient Name:Date of Service:JEOVANY LEWIS 06/29/201911:15 AMMedical Record Number:[id number] Patient of /Sex:Treating RN:1995 (24 y.o. F) Susanna Rangel Care Provider: Sade valdovinos MyoOther Clinician:Referring Provider: TreatingProvider/Construction Job Cost Estimator:Rasheed Rose PAULWeeks in Treatment: 3Verbal / Phone Orders: NoDiagnosis CodingICD-10 CodingCode DescriptionUnspecified open wound of unspecified back wall of thorax without penetrationinto thoracic cavity,S21.209A initial encounterFollow-up AppointmentsReturn Appointment in 1 week.Dressing Change FrequencyDo not change entire dressing for one week.Wound CleansingOther: - keep dressing dry, on days showering- remove dressing and shower thendry area and put new dressing onwoundPrimary Wound DressingAquacel AgSecondary DressingProximel - proximel and (tegaderm if needed)Additional Orders / InstructionsOther: - high protein dietElectronic Signature(s)Signed: 06/29/2019 3:31:06 PM By: Elba Rangelgned: 07/02/2019 12:45:22 PM By: Eliud Rose D.O., FACSEntered By: Asia Rangel on 06/29/2019 11:29:30 Pro blem List DetailsPatient Name:Date of Service:JEOVANY LEWIS 06/29/201911:15 AMMedical Record Number:[id number] Patient of /Sex:Treating RN:1995 (24 y.o. F)Primary Care Provider: Terence Valentino Clinician:Referring Provider: TreatingProvider/Construction Job Cost Estimator:Rasheed Rose PAULWeeks in Treatment: 3Active ProblemsICD-10Evaluated EncounterCode Description ActiveDate Today WovxqvjywA20.209A Unspecified open wound of unspecified back wall of06/07/2019 No Yesthorax without penetration into thoracic cavity, initialencounterInactive ProblemsResolved ProblemsElectronic Signature(s)Signed: 07/02/2019 12:45:22 PM By: Eliud Rose D.O., FACSEntered By: Eliud Rose on 06/29/2019 11:01:04 DIC 1115TRANS:06/29/19 1115 WOUND CENTERTRANS BY:ABNER SIGNED:TIME SIGNED:REPORT COPY TO: Name Value Range Interpretation Code Description Data Gisela rce(s) Supporting Document(s) ID Date Data Source [id number] 06/07/2019 09:15:00 AM EST [facility] [place] [id number] NAME: JEOVANY LEWIS DATE OF SERVICE: 06/07/19MR#: [id number] DATE OF : [birth year]ACCOUNT #: [id number], KENDRA ([id number])Visit Report for 06/07/2019Abuse/Suicide Risk Screen DetailsPatient Name:Date of Service:JEOVANY LEWIS 06/07/2019 9:15 AMMedical Record Number:[id number] Patient of /Sex:Treating RN:1995 (24 y.o. F) Susanna Rangel Care Provider: Terence Valentino Clinician:Referring Provider: TreatingProvider/Construction Job Cost Estimator:GABRIELA GANN PAULWeeks in Treatment: 0Abuse/Suicide Risk Screen ItemsAnswerABUSE/SUICIDE RISK SCREEN:Has anyone close to you tried to hurt or harm you recently?NoDo you feel uncomfortable with anyone in your family?NoHas anyone forced you do things that you didnt want to do?NoDo you have any thoughts of harming yourself?NoPatient displays signs or symptoms of abuse and/or neglect.NoElectronic Signature(s)Signed: 06/07/2019 1:49:24 PM By: Rohini Rangel By: Asia Rangel on 06/07/2019 09:09:16 Act ivities of Daily Living DetailsPatient Name:Date of Service:JEOVANY LEWIS 06/07/2019 9:15 AMMedical Record Number:[id number] Patient of /Sex:Treating RN:1995 (24 y.o. F) Danielle Rangel Care Provider: Terence Valentino Clinician:Referring Provider: TreatingProvider/Construction Job Cost Estimator:GABRIELA GANN PAULWeeks in Treatment: 0Activities of Daily Living ItemsAnswerActivities of Daily Living (Please select one for each item)Drive Automobile Completely AbleTake Medications Completely AbleUse Telephone Completely AbleCare for Appearance Completely AbleUse Toilet Completely AbleBath / Shower Completely AbleDress Self Completely AbleFeed Self Completely AbleWalk Completely AbleGet In / Out Bed Completely AbleHousework Completely AblePrepare Meals Completely AbleHandle Money Completely AbleShop for Self Completely AbleElectronic Signature(s)Signed: 06/07/2019 1:49:24 PM By: Rohini Rangel By: Asia Rangel on 06/07/2019 09:09:39 Advanced Modalities Screening Tool DetailsPatient Name:Date of Service:JEOVANY LEWIS 06/07/20199:15 AMMedical Record Number:[id number] Patient of /Sex:Treating RN:1995 (24 y.o. F) Feliciano Cervantes Care Provider: Terence Valentino Clinician:Referring Provider: MoizProvider/Construction Job Cost Estimator:GABRIELA GANN PAULWeeks in Treatment: 0Advanced Modalities Screening Check ListHyperbaric Oxygen Therapy: Reviewed LCD or HBO policy from [employer] and/or NCDTherapy Not IndicatedNo Appropriate IndicationElectronic Signature(s)Signed: 06/07/2019 2:57:37 PM By: Nguyen Cervantes By: Chelita Cervantes on 06/07/2019 10:07:33 All ergy List DetailsPatient Name:Date of Service:JEOVANY LEWIS 06/07/2019 9:15 AMMedical Record Number:[id number] Patient of /Sex:Treating RN:1995 (24 y.o. F) Susanna Rangel Care Provider: Terence Valentino Clinician:Referring Provider: Ivonne Pierre/Construction Job Cost Estimator:GABRIELA GANN PAULWeeks in Treatment: 0AllergiesActive AllergiesAugmentin-liquidReaction: hivesSeverity: ModerateIodinated Contrast- OralReaction: anaphylaxisSeverity: SevereAllergy NotesElectronic Signature(s)Signed: 06/07/2019 1:49:24 PM By: Rohini Rangel By: Asia Rangel on 06/07/2019 09:17:14 --Arrival Information DetailsPatient Name:Date of Service:JEOVANY LEWIS 06/07/2019 9:15 AMMedical Record Number:[id number] Patient of /Sex:Treating RN:1995 (24 y.o. F) Susanna Rangel Care Provider: Terence Valentino Clinician:Referring Provider: TreatingProvider/Construction Job Cost Estimator:GABRIELA GANN PAULWeeks in Treatment: 0Visit Information History Since LastVisitPain Present Now: NoPatient Arrived: AmbulatoryArrival Time: 09:08Arrival Time: 09:08Transfer Assistance: NonePatient Identification Verified: YesSecondary Verification Process Completed: YesElectronic Signature(s)Signed: 06/07/2019 1:49:24 PM By: Rohini Rangel By: Asia Rangel on 06/07/2019 09:08:59 Dis charge Instructions DetailsPatient Name:Date of Service:JEOVANY LEWIS 06/07/2019 9:15 AMMedical Record Number:[id number] Patient of /Sex:Treating RN:1995 (24 y.o. F) Feliciano Cervantes Care Provider: Terence Valentino Clinician:Referring Provider: TreatingProvider/Construction Job Cost Estimator:GABRIELA GANN PAULWeeks in Treatment: 0Follow-up AppointmentsReturn Appointment in 1 week. Should you experience any significant changes inyour wound(s) or have anyquestions regarding your home care instructions please contact the woundcenter. If after regular business hours,please call your family doctor or local emergency room. - Start DoxycyclineDressing Change FrequencyChange dressing every other day or as needed for excessive drainage.Wound Cleansing. - keep dressing dry, on days showering- remove dressing and shower then dryarea and put new dressing on woundPrimary Wound DressingCut Aquacel Ag to fit wound bedSecondary DressingProximel - proximel and (tegaderm if needed)Additional Orders / InstructionsOther: - high protein dietElectronic Signature(s)Signed: 06/07/2019 1:31:03 PM By: Maxx Gann MDEntered By: Maxx Gann on 06/07/2019 10:56:22 ---------Education Assessment DetailsPatient Name:Date of Service:JEOVANY LEWIS 06/07/2019 9:15 AMMedical Record Number:[id number] Patient of /Sex:Treating RN:1995 (24 y.o. F) Tammy Shen Care Provider: Terence Valentino Clinician:Referring Provider: TreatingProvider/Construction Job Cost Estimator:GABRIELA GANN PAULWeeks in Treatment: 0Learning Preferences/Education Level/Primary LanguageLearning Preference: ExplanationHighest Education Level: High SchoolPreferred Language: EnglishCognitive Barrier Assessment/BeliefsLanguage Barrier: NoTranslator Needed: NoMemory Deficit: NoEmotional Barrier: NoCultural/Restoration Beliefs Affecting Medical Care: NoPhysical Barrier AssessmentDecreased Hand dexterity: NoKnowledge/Comprehension AssessmentKnowledge Level: MediumComprehension Level: MediumAbility to understand written Mediuminstructions:Ability to understand verbal Mediuminstructions:Motivation AssessmentAnxiety Level: CalmCooperation: CooperativePerception: CoherentElectronic Signature(s)Signed: 06/08/2019 4:14:48 PM By: Felisha Shen RNEntered By: Felisha Shen on 06/07/2019 08:50:12 Enc ounter Discharge Information DetailsPatient Name:Date of Service:JEOVANY LEWIS 06/07/20199:15 AMMedical Record Number:[id number] Patient of /Sex:Treating RN:1995 (24 y.o. F) Feliciano Cervantes Care Provider: Terence Valentino Clinician:Referring Provider: TreatingProvider/Construction Job Cost Estimator:GABRIELA GANN PAULWeeks in Treatment: 0Encounter Discharge Information Items Post ProcedureVitalsDischarge Condition: Stable Temperature(F): 97.8Ambulatory Status: AmbulatoryPulse (bpm):66Discharge Destination: Home Respiratory Rate(breaths/min): 17Transportation: Private Auto Blood Pressure(mmHg): 110/68Accompanied By: Jovanna Follow-up Appointment: YesClinical Summary of Care: Patient DeclinedElectronic Signature(s)Signed: 06/07/2019 2:57:37 PM By: Marizol Cervantesed By: Chelita Cervantes on 06/07/2019 10:28:33 Fal l Risk Assessment DetailsPatient Name:Date of Service:JEOVANY LEWIS :15 AMMedical Record Number:[id number] Patient of /Sex:Treating RN:1995 (24 y.o. F) Susanna Rangel Care Provider: Terence Valentino Clinician:Referring Provider: TreatingProvider/Construction Job Cost Estimator:GABRIELA GANN PAULWeeks in Treatment: 0Fall Risk Assessment ItemsHave you had 2 or more falls in the last 12 months?0 NoHave you had any fall that resulted in injury in the last 12 months?0 NoFALL RISK A SSESSMENT:History of falling - immediate or within 3 months0 NoSecondary diagnosis0 NoAmbulatory aidNone/bed rest/wheelchair/nurse0 NoCrutches/cane/walker0 NoFurniture0 NoIVAccess/Saline Lock0 NoGait/Zaki ningNormal/bed rest/immobile0 NoWeak0 NoImpaired0 NoMental StatusOriented to own ability0 YesOverestimates or forgets limitationsElectronic Signature(s)Signed: 06/07/2019 1:49:24 PM By: Diony Rangelntmauricio By: Asia Rangel on 06/07/2019 09:22:06 Chuyita t Assessment DetailsPatient Name:Date of Service:LEWISJEOVANY :15 AM Patient of /Sex:Treating RN:1995 (24 y.o. F) Susanna Rangel Care Provider: Terence Valentino Clinician:Referring Provider: TreatingProvider/Construction Job Cost Estimator:GABRIELA GANN PAULWeeks in Treatment: 0Foot Assessment ItemsSite Locations+ = Sensation present, - = Sensation absent, C = Callus, U = UlcerR = Redness, W = Warmth, M = Maceration, PU = Pre-ulcerative lesionF = Fissure, S = Swelling, D = DrynessAssessmentRight:Left:Other Deformity: No NoPrior Foot Ulcer: No NoPrior Amputation: No NoCharcot Joint: No NoAmbulatory Status:Gait:Electronic Signature(s)Signed: 06/07/2019 1:49:24 PM By: Rohini Rangel By: Asia Rangel on 06/07/2019 09:22:18 Low er Extremity Assessment DetailsPatient Name:Date of Service:JEOVANY LEWIS 06/07/2019 9:15 AMMedical Record Number:[id number] Patient of /Sex:Treating RN:1995 (24 y.o. F) Jorge A Rangel Care Provider: Terence Valentino Clinician:Referring Provider: TreatingProvider/Construction Job Cost Estimator:GABRIELA GANN PAULWeeks in Treatment: 0Electronic Signature(s)Signed: 06/07/2019 1:49:24 PM By: Rohini Rangel By: Asia Rangel on 06/07/2019 09:22:25 Mul ti Wound Chart DetailsPatient Name:Date of Service:JEOVANY LEWIS 06/07/2019 9:15 AMMedical Record Number:[id number] Patient of /Sex:Treating RN:1995 (24 y.o. F) Feliciano Cervantes Care Provider: Terence Valentino Clinician:Referring Provider: TreatingProvider/Construction Job Cost Estimator:GABRIELA GANN PAULWeeks in Treatment: 0Vital SignsHeight(in): 61 Capillary [id number](mg/dl):Weight(lbs): 106Pulse(bpm): 103Body Mass Index(BMI): 20Blood Pressure(mmHg): 108/71Temperature(F): 98.3Respiratory 17Rate(breaths/min):N/APhotos: [N/A:N/A]Wound Location: Back - Midline N/AN/AWounding Event: Gradually Appeared N/AN/APrimary Etiology: To be determin ed N/AN/AComorbid History: Type I Diabetes, Asthma, N/AN/ACoronary Artery Disease,Rheumatoid Arthritis,OsteoarthritisDate Acquired: 03/07/2019 N/AN/AWeeks of Treatment: 0 N/AN/AWound Status: Open N/AN/AMeasurements L x W x D 1.5x2.5x0.1 N/AN/A(cm)Area (cm) : 2.945 N/AN/AVolume (cm) : 0.295 N/AN/AClassification: Full Thickness Without N/AN/AExposed Support StructuresExudate Amount: Medium N/AN/AExudate Type: Serosanguineous N/AN/AExudate Color: red, brown N/AN/AGranulation Amount: Small (1-33%) N/AN/AGranulation Quality: [place] N/AN/ANecrotic Amount: Large (67-100%) N/AN/APeriwound Skin Texture: No Abnormalities Noted N/AN/APeriwound Skin Moisture: No Abnormalities Noted N/AN/APeriwound Skin Color: No Abnormalities Noted N/AN/ATenderness on Palpation: No N/AN/AWound Preparation:Ulcer Cleansing: N/AN/ARinsed/Irrigated with SalineTopical Anesthetic Applied:Lidocaine 2% OintmentTreatment NotesElectronic Signature(s)Signed: 06/07/2019 2:57:37 PM By: Chelita CervantesEntered By: Chelita Cervantes on 06/07/2019 10:07:46 Mul ti-Disciplinary Care Plan DetailsPatient Name:Date of Service:JEOVANY LEWIS 06/07/20199:15 AMMedical Record Number:[id number] Patient of /Sex:Treating RN:1995 (24 y.o. F) Feliciano Cervantes Care Provider: Sade valdovinos MyoOther Clinician:Referring Provider: TreatingProvider/Construction Job Cost Estimator:GABRIELA GANN PAULWeeks in Treatment: 0Active InactiveNutritionNursing Diagnoses:Impaired glucose control: actual or potentialGoals:Patient/caregiver verbalizes understanding of need to maintain therapeuticglucose control per primary care physicianDate Initiated: 06/07/2019Target Resolution Date: 08/09/2019Goal Status: ActiveInterventions:Assess patient nutrition upon admission and as needed per policyProvide education on elevated blood sugars and impact on wound healingNotes:Pain, Acute or ChronicNursing Diagnoses:Pain, acute or chronic: actual or potentialGoals:Patient will verbalize adequate pain control and receive pain controlinterventions during procedures as neededDate Initiated: 06/07/2019 Resolution Date: 07/12/2019Go Status: ActiveInterventions:Assess comfort goal upon admissionComplete pain assessment as per visit requirementsTreatment Activities:Administer pain control measures as ordered : 06/07/2019Notes:Wound/Skin ImpairmentNursing Diagnoses:Impaired tissue integrityGoals:Patient/caregiver will verbalize understanding of skin care regimenDate Initiated: 06/07/2019Target Resolution Date: 07/12/2019Go Status: ActiveInterventions:Assess ulceration(s) every visitTreatment Activities :Skin care regimen initiated : 06/07/2019Notes:Electronic Signature(s)Signed: 06/07/2019 2:57:37 PM By: Chelita CervantesEntered By: Chelita Cervantes on 06/07/2019 10:14:33 Nutrition Risk Assessment DetailsPatient Name:Date of Service:GERALDO LEWISRA 06/07/20199:15 AMMedical Record Number:[id number] Patient of /Sex:Treating RN:1995 (24 y.o. F) Susanna Rangel Care Provider: Sade valdovinos MyoOther Clinician:Referring Provider: TreatingProvider/Construction Job Cost Estimator:GABRIELA GANN PAULWeeks in Treatment: 0Height (in):Weight (lbs):Body Mass Index (BMI):Nutrition Risk Assessment ItemsNUTRITION RISK SCREEN:I have an illness or condition that made me change the kind and/or amount of0 Nofood I eatI eat fewer than two meals per day0 Wai eat few fruits and vegetables, or milk products0 Wai have three or more drinks of beer, liquor or wine almost every day0 Wai have tooth or mouth problems that make it hard for me to eat0 Wai don't always have enough money to buy the food I need0 Wai eat alone most of the time0 Wai take three or more different prescribed or xusm-gsg-nbfkuus drugs a day0 NoWithout wanting to, I have lost or gained 10 pounds in the last six months0 Wai am not always physically able to shop, cook and/or feed myself0 NoNutrition ProtocolsGood Risk ProtocolModerate Risk ProtocolElectronic Signature(s)Signed: 06/07/2019 1:49:24 PM By: Rohini Rangel By: Asia Rangel on 06/07/2019 09:22:13 Yonis n Assessment DetailsPatient Name:Date of Service:LEWISJEOVANY 06/07/2019 9:15 AMMedical Record Number:[id number] Patient of /Sex:Treating RN:1995 (24 y.o. F) Susanna Rangel Care Provider: Terence Valentino Clinician:Referring Provider: TreatingProvider/Construction Job Cost Estimator:GABRIELA GANN PAULWeeks in Treatment: 0Active ProblemsLocation of Pain Severity andDescription of PainPatient Has Pain? NoSite LocationsPain Management and MedicationCurrent Pain Management:Electronic Signature(s)Signed: 06/07/2019 1:49:24 PM By: Rohini Rangel By: Asia Rangel on 06/07/2019 09:33:12 Patient/Caregiver Education DetailsPatient Name:Date of Service:GERALDO LEWIS06/07/20196556ktbqrbg9:15 AMMedical Record Number:[id number] Patient of /Gender:Treating RN:1995 (24 y.o. F) Susanna Rangel Care Physician: Terence Valentino Clinician:Referring Physician: TreatingPhysician/Construction Job Cost Estimator:GABRIELA GANN PAULWeeks in Treatment: 0Education AssessmentEducation Provided To:PatientEducation Topics ProvidedBasic Hygiene:Methods: Explain/VerbalWound Debridement:Methods: Explain/VerbalResponses: State content correctlyWound/Skin Impairment:Methods: Explain/VerbalResponses: State content correctlyElectronic Signature(s)Signed: 06/07/2019 2:57:37 PM By: Chelita CervantesEntermaribel By: Chelita Cervantes on 06/07/2019 10:15:38Treatment Notes SummaryWound #2 (Midline Back)3. Primary Dressing AppliedSilver Dressings4. Secondary DressingFoamNotesAG, proximel applied to wound per order; pt tolerated well. Vitals DetailsPatient Name:Date of Service:JEOVANY LEWIS 06/07/2019 9:15 AMMedical Record Number:[id number] Patient of /Sex:Treating RN:1995 (24 y.o. F) Susanna Rangel Care Provider: Terence Valentino Clinician:Referring Provider: TreatingProvider/Construction Job Cost Estimator:GABRIELA GANN PAULWeeks in Treatment: 0Vital SignsTime Taken: 09:27Temperature (F):98.3Height (in): 61Pulse (bpm):103Weight (lbs): 106 Respiratory Rate(breaths/min): 17Body Mass Index (BMI): 20 Blood Pressure(mmHg): 108/71Capillary Blood Glucose (mg/dl): 300Refer ence Range: 80 - 120 mg / dlAirwayElectronic Signature(s)Signed: 06/07/2019 1:49:24 PM By: Rohini Rangel By: Asia Rangel on 06/07/2019 09:28:48 Wound Assessment DetailsPatient Name:Date of Service:JEOVANY LEWIS 06/07/2019 9:15 AMMedical Record Number:[id number] Patient of /Sex:Treating RN:1995 (24 y.o. F) Susanna Rangel Care Provider: Terence Valentino Clinician:Referring Provider: TreatingProvider/Construction Job Cost Estimator:GABRIELA GANN PAULWeeks in Treatment: 0Wound StatusWound Number: 2 Primary To bedeterminedEtiology:Wound Location: Back - MidlineWound OpenWounding Event: Gradually AppearedStatus:Date Acquired: 03/07/2019Date Acquired: 03/07/2019Comorbid Type I Diabetes, Asthma, Coronary ArteryWeeks Of Treatment: 0History: Disease, Rheumatoid Arthritis, OsteoarthritisClustered Wound: NoPhotosWound MeasurementsLength: (cm) 1.5 %Area:Width: (cm) 2.5 %Volume:Depth: (cm) 0.1Area: (cm) 2.945Volume: (cm) 0.295Wound DescriptionClassification: Full Thickness Without Exposed Support SYesStructuresExudate MediumAmount:Exudate Type: SerosanguineousExudate Color: red, brownWound BedGranulation Amount: Small (1-33%)Granulation Quality: PinkNecrotic Amount: Large (67-100%)Necrotic Quality: Adherent SloughPeriwound Skin TextureTextureNo Abnormalities Noted: No NoNoted: NoMoistureNo Abnormaliti es Noted: NoWound PreparationUlcer Cleansing: Rinwith SalineTopical Anesthetic Applied: LidOintmentlough/Fibrin?ColorAbnormalitiessed/Irrigatedocaine 2%Reduction inReduction inTreatment NotesWound #2 (Midline Back)3. Primary Dressing AppliedSilver Dressings4. Secondary DressingFoamNotesAG, proximel applied to wound per order; pt tolerated well.Electronic Signature(s)Signed: 06/07/2019 1:49:24 PM By: Rohini Rangel By: Asia Rangel on 06/07/2019 09:32:57 DIC 4TRANS:06/07/19914 WOUND CENTERTRANS BY:ABNER SIGNED:TIME SIGNED:REPORT COPY TO: Name Value Range Interpretation Code Description Data Gisela rce(s) Supporting Document(s) ID Date Data Source [id number] 06/07/2019 09:15:00 AM EST [facility] [address]ONFHSVE NAME: JEOVANY LEWIS DATE OF SERVICE: 06/07/19MR#: [id number] DATE OF : [birth year]ACCOUNT #: [id number], KENDRA ([id number])Visit Report for 06/07/2019Debridement DetailsPatient Name:Date of Service:JEOVANY LEWIS 06/07/2019 9:15 AMMedical Record Number:[id number] Patient of /Sex:Treating RN:1995 (24 y.o. F) Feliciano Cervantes Care Provider: Terence Valentino Clinician:Referring Provider: TreatingProvider/Construction Job Cost Estimator:GABRIELA GANN PAULWeeks in Treatment: 0Debridement Performed for Wound #2 Midline BackAssessment:Performed By: Physician MAXX GANN MDDebdenise Type: DebridementLevel of Consciousness (Pre- Awake and Alertprocedure):Pre-procedure Verification/Time Y - 10:08esOut Taken:Start Time: 10:08Pain Control: Lidocaine 2% Topical GelTotal Area Debrided (L x W): 1.5 (cm) x 2.5 (cm) = 3.75 (cm)Tissue and other material Non-Viable, Fat, Subcutaneous, Skin: Dermis , Skin:Epidermis, Fibrin/Exudatedebrided:Level: Skin/Subcutaneous TissueDebridement Description: ExcisionalInstrument: CuretteBleeding: MinimumHemostasis Achieved: PressureEnd Time: 10:09Procedural Pain: 0Post Procedural Pain: 0Response to Treatment: Procedure was tolerated wellLevel of Consciousness Awake and Alert(Post-procedure):Post Debridement Andreia surements of Total WoundLength: (cm) 1.5Width: (cm) 2.5Depth: (cm) 0.1Volume: (cm) 0.295Character of Wound/Ulcer Post Debridement: ImprovedPost Procedure DiagnosisSame as Pre-procedureElectronic Signature(s)Signed: 06/07/2019 1:31:03 PM By: Maxx Gann MDSigned: 06/07/2019 2:57:37 PM By: Chelita CervantesEntered By: Chelita Crevantes on 06/07/2019 10:09:42 DICT: 06/07/19 0915TRANS:06/07/19 0915 WOUND CENTERTRANS BY:ABNER SIGNED:TIME SIGNED:REPORT COPY TO: Name Value Range Interpretation Code Description Data Gisela rce(s) Supporting Document(s) ID Date Data Source [id number] 06/07/2019 09:15:00 AM EST [address] [address] NAME: JEOVANY LEWIS DATE OF SERVICE: 06/07/19MR#: [id number] DATE OF : [birth year]ACCOUNT #: [id number], KENDRA ([id number])Visit Report for 06/07/2019Chief Complaint Document DetailsPatient Name:Date of Service:JEOVANY LEWIS 06/07/2019 9:15AMMedical Record Number:[id number] Patient of /Sex:Treating RN:1995 (24 y.o. F)Primary Care Provider: Sade valdovinos, MyoOther Clinician:Referring Provider: TreatingProvider/Construction Job Cost Estimator:GABRIELA GANN PAULWeeks in Treatment: 0Information [facility]: [facility] ComplaintLeft heel diabetic foot wound for approximately 3 months.06/07/19 - The patient is seen at this time for wounds on her back attributed toscratching. She has multiple skin lesions onher arms, legs and torso which she attributes to her cat. She is hypothyroid onlevothyroxine and a Type I diabetic.Electronic Signature(s)Signed: 06/07/2019 1:31:03 PM By: Maxx Gann MDEntered By: Maxx Gann on 06/07/2019 10:55:38 HPI DetailsPatient Name:Date of Service:JEOVANY LEWIS 06/07/2019 9:15AMMedical Record Number:[id number] Patient of /Sex:Treating RN:1995 (24 y.o. F)Primary Care Provider: Sade valdovinos, MyoOther Clinician:Referring Provider: TreatingProvider/Construction Job Cost Estimator:GABRIELA GANN PAULWeeks in Treatment: 0History of Present IllnessLocation: wounds on backQuality: no painSeverity: No cellulitisDuration: a couple of monthsHPI Desc ription: This is a poorly controlled type 1 diabetic smoker [facility]op[facility] with a wound onher left plantar heel area. This had been present for approximately 2-3 monthsand appears to have occurred while shewas admitted to the hospital during a diabetic coma where she was unconsciousfor approximately 4 days and requiredventilator support.She had been caring for this at home and her HgbA1c on 05/27/18 was 13.4.She had started seeing an Abattoir Supervisor after this to assist with her bloodsugars.Positive DiabetesPositive TobaccoNegative Obesity (BMI 19.11)Negative Rapid Weight LossNe gative Steroids or Kcpugzwpcwoh58/11/19: Ankle Brachial Index: Left 0.98 Right 1.08AllergiesAugmentin-liquid (Reaction: hives), Iodinated Contrast- Oral (Reaction:anaphylaxis)Family HistoryCancer - Paternal GrandparentsDiabetes - Mother,Father,Maternal GrandparentsHypertension - MotherThyroid Problems - Maternal GrandparentsNo family history of Heart Disease, Kidney Disease, Lung Disease, Seizures,Stroke, TuberculosisSocial HistoryCurrent some day smokerMarital Status - MarriedAlcohol Use - RarelyDrug Use - Current History - marijuana every day if I have itCaffeine Use - Rarely - energy drinksMedical HistoryType I Diabetes treated with InsulinCoronary Artery DiseaseRheumatoid ArthritisOsteoarthritisThyroid disorderdepression andanxietyElectronic Signature(s)Signed: 06/07/2019 1:31:03 PM By: Maxx Gann MDEntered By: Maxx Gann on 06/07/2019 10:55:48 Phy sical Exam DetailsPatient Name:Date of Service:JEOVANY LEWIS 06/07/20199:15 AMMedical Record Number:[id number] Patient of /Sex:Treating RN:1995 (24 y.o. F)Primary Care Provider: Terence Valentino Clinician:Referring Provider: TreatingProvider/Construction Job Cost Estimator:GABRIELA GANN PAULWeeks in Treatment: 0ConstitutionalSitting or standing Blood Pressure is within target range for patient.. Pulseregular and within target range for patient..Respirations regular, non-labored and within target range.. Temperature isnormal and within the target range for thepatient.. No change in weight.. Patient's appearance is neat and clean. Appearsin no acute distress. Well nourished andwell developed..EyesConjunctivae clear. No discharge..Ears, Nose, Mouth, and ThroatExternal ears and nose are within normal limits No lesions present.. Patientcan hear normal speaking tones withoutdifficulty..NeckNeck supple and symmetrical. No masses or crepitus. Thyroid within normallimits, without enlargement, tenderness ormasses..RespiratoryRespiratory effort is easy and symmetric bilaterally. Rate is normal at restand on room air.. Bilateral breath sounds areclear and equal in all lobes with no wheezes, rales or rhonchi..CardiovascularHeart rhythm and rate regular, without murmur or gallop.. No carotid bruitsnoted.. Pedal pulses palpable and strongbilaterally.. Extremities are free of varicosities, clubbing or edema.Peripheral pulses strong and equal. Capillary refill < 3seconds..Gastrointestinal (GI)Abdomen is soft and non-distended without masses or tenderness. Bowel soundsactive in all quadrants.. Liver andspleen not palpable..LymphaticNo lymphadenopathy or glandu lar swelling noted in neck..MusculoskeletalGait and station stable.. Digits and nails without clubbing, cyanosis,infection, petechiae, ischemia, or inflammatoryconditions.. Spine / Ribs / Pelvis without misalignment, asymmetry,crepitation, pain, masses, flaccid, atrophy or abnormalmovement.. Spine / Ribs / Pelvis without misalignment, asymmetry, crepitation,pain, masses, flaccid, atrophy or abnormalmovement.. Right upper extremity without misalignment, asymmetry, crepitation,pain, masses, flaccid, atrophy orabnormal movement. Functional range of motion.. Left upper extremity withoutmisalignment, asymmetry, crepitation, pain,masses, flaccid, atrophy or abnormal movement. Functional range of motion..Right lower extremity without misalignment,asymmetry, crepitation, pain, masses, flaccid, atrophy or abnormal movement. Nocyanosis, clubbing or edema. Functionalrange of motion.. Left lower extremity without misalignment, asymmetry,crepitation, pain, masses, flaccid, atrophy orabnormal movement. No cyanosis, clubbing or edema. Functional range of motion..Integumentary (Hair, Skin)She has multiple wounds on limbs and torso in different stages of healing,mostly superficial, with no cellulits..Neurologi calSensation normal to touch, pin, and vibration. Sensation intact to 10 grammonofilament in extremities..PsychiatricJudgement and insight intact..Electronic Signature(s)Signed: 06/07/2019 1:31:03 PM By: Maxx Gann MDEntered By: Maxx Gann on 06/07/2019 10:55:58 Demetris Russo DetailsPatient Name:Date of Service:JEOVANY LEWIS 06/07/20199:15 AMMedical Record Number:[id number] Patient of /Sex:Treating RN:1995 (24 y.o. F) Feliciano Cervantes Care Provider: Terence Valentino Clinician:Referring Provider: TreatingProvider/Construction Job Cost Estimator:GABRIELA GANN PAULWeeks in Treatment: 0Verbal / Phone Orders: NoDiagnosis CodingFollow-up AppointmentsReturn Appointment in 1 week. - Start DoxycyclineDressing Change FrequencyChange Dressing every other day.Wound CleansingOther: - keep dressing dry, on days showering- remove dressing and shower thendry area and put new dressing onwoundPrimary Wound DressingAquacel AgSecondary DressingProximel - proximel and (tegaderm if needed)Additional Orders / InstructionsOther: - high protein dietPatient MedicationsAllergies: Iodinated Contrast- Oral, Augmentin-liquidNotifications Medication IndicationStart Enddoxycycline hyclate 06/07/2019DOSE 1 - oral 100 mg tablet - 1 tablet oral bidElectronic Signature(s)Signed: 06/07/2019 1:31:03 PM By: Maxx Gann MDPrevious Signature: 06/07/2019 10:50:18 AM Version By: Maxx Gann MDPrevious Signature: 06/07/2019 10:35:11 AM Version By: Maxx Gann MDEntered By: Maxx Gann on 06/07/2019 10:56:21 Problem List DetailsPatient Name:Date of Service:JEOVANY LEWIS 06/07/2019 9:15AMMedical Record Number:[id number] Patient of /Sex:Treating RN:1995 (24 y.o. F)Primary Care Provider: Terence Valentino Clinician:Referring Provider: TreatingProvider/Construction Job Cost Estimator:GABRIELA GANN PAULWeeks in Treatment: 0Active ProblemsICD-10Evaluated EncounterCode Description ActiveDate Today KtjvhdnqeA94.209A Unspecified open wound of unspecified back wall of06/07/2019 No Yesthorax without penetration into thoracic cavity, initialencounterInactive Pr oblemsResolved ProblemsNotesThe patient is seen for wounds on her back attributed to scratching. She haslesions in arms and legs and also her torsoin different stages of healing. No cellulitis is noted. She attributes thelesions on her skin to her cat.Electronic Signature(s)Signed: 06/07/2019 1:31:03 PM By: Maxx Gann MDEntered By: Maxx Gann on 06/07/2019 10:55:29Prescription 06/07/2019Patient Name: JEOVANY LEWISProvider:MAXX GANN MDDate of : 1995NPI#:[id number]: FDEA#:[id number] #: [phone] #:[id number] Address: [address] [id number] Contrast- OralReaction: anaphylaxisSeverity: SevereAugmentin-liquidReaction: hivesSeverity: ModerateMedicationMedication:Route: Strength:Form:doxycycline hyclate 100 mg tablet oral 100 mgtabletClass:TETRACYCLINE ANTIBIOTICSDose:Frequency / Time:I ndication:1 1 tablet oral bidNumber of Refills:Number of Units:0 Sixty (60) Tablet(s)Generic Substitution:Start Date: End Date:One Time Use:Substitution Permitted 06/07/2019NoNote to Pharmacy:Signature(s):Date(s):Electronic Signature(s)Signed: 06/07/2019 1:31:03 PM By: Maxx Gann MDEntered By: Maxx Gann on 06/07/2019 10:56:22 DIC 4TRANS:06/07/19914 WOUND CENTERTRANS BY:ABNER SIGNED:TIME SIGNED:REPORT COPY TO: Name Value Range Interpretation Code Description Data Gisela rce(s) Supporting Document(s) ID Date Data Source [id number] 05/08/2019 12:39:00 PM EST [facility] PATIENT:[id number]:MERLYN LEWIS SEC #:[id number]:[id number] OF :[birth year]SERVICE DATE:05/08/19PROVIDER:Elliot Leal M.D.LOCATION:[place] MHCHARGES:23189 EP-LEV 4 SICK - [id number] OJ-YBM-4-SICK PROFESSIONALDOCUMENT TEXT:[facility] [birth year], Age: 24, female [facility] 37BMR Number: [id number] MANI Montiel [id number]: [id number] P: [phone] Date/Time: 05/08/19, 1230 F: [phone]: Elliot Leal M.D. Patient Intake-AdultSelf ReferralProviders seen since last Jaye GARCIA [facility] ENDOCRIOLOGYMay we obtain med record?:YesChief Complaint-MED F/UAdditional complaintsPT HERE FOR MED F/U. SAW DEVON GARCIA . NO NEW ORDERS. NO COMPLAINTS. NEED REFILLS [facility] MedicationsPatient Medications ReconciledYesPharmacies On [facility] HospitalCurrent MedicationsCurrent MedicationsLast Reconciled 05/08/2019-1256 Nigel Beltre Medications:Budesonide/Formoterol Fumarate (Symbicort 160-4.5 Mcg Inhaler)10.2 GM HFA.AER.ADReported, Active2 PUFF INHALATION Twice Daily, , 0 RefillsLevothyroxine Sodium (Tirosint)100 MCG CAPSULEReported,100 MCG ORAL Daily, , 0 RefillsInsulin Lispro (Admelog Solostar)100 UNIT/1 ML INSULN.PENReported,, , 0 RefillsInstructions:SLIDING SCALE SCANNED IN CHART STARTS WITH 7UNITS 70-100 UQNL018-213 16UNInsulin Detemir (Levemir Flextouch)100 UNIT/1 ML INSULN.PENReported,, , 0 RefillsInstructions:2OUN IN AM AND 20 AT PMGabapentin (Gabapentin)300 MG CAPSULEOrdered: MG ORAL Twice Daily, #60 , 1 RefillsOmeprazole (Omeprazole)40 MG CAPSULE.DROrdered: 04/26/2039 MG ORAL Daily, #30 , 1 RefillsNoreth A-Et Estra/Fe Fumarate (Loestrin Fe 1-20 Tablet)1 EACH TABLETOrdered: TAB ORAL Daily, #28 , 2 RefillsInstructions:daily but do not start until after test has returnedasnegative ( call for results)Loratadine (Claritin)10 MG TABLETOrdered: TAB ORAL Daily, #30 , 0 RefillsDx: R21 - RashAlbuterol Sulfate (Ventolin Hfa)18 GM HFA.AER.ADReported,2 PUFF INHALATION Every 4 hrs PRN for COUGH OR WHEEZE, , 0 RefillsInstructions:FOR HOME AND SCHOOLDoes patient take any OTC MedsNoAllergies*Coded Allergies:iodine (Unknown,BREATHING DIFFICULTY 05/08/19)clavulanic acid (Unknown,HIVES 05/08/19)amoxicillin (Unknown,HIVES 05/08/19)Vitals*Date/Time:05/08/19 1257Taken by:Carol BeltreRecorded by:Carol BeltreHeight:5 ft 2 in / 157.48 cmWeight:110 lbs 0 oz / 49.895 kgBSA:1.48 m2BMI:20.1 kg/t9Hztbs:102Respiration:16Blood Pressure:100/60 / Sitti ng, Left ArmPulse Oximetry:98%, RMHealth Maint/Disease MgmtHealth Maintenance and Disease Management was reviewed and updated.New and Updated Items:General Health Maintenance Next Due Freq/Seq Last DoneBlood Pressure Diastolic (New) 05/08/2020 1Y 05/08/2019Blood Pressure Systolic (New) 05/08/2020 1Y 05/08/2019Body Mass Index (New) 05/08/2020 12M 05/08/2019Not Seen with in 1 Year (New) 05/08/2020 1Y 05/08/2019Tobacco Use Screening (New) 05/08/2020 1Y 05/08/2019LMPLast menstrual periodDefinite (04/13/19)Pain Scale*Pain fceby3Eldpbesoqr InformationAppropriate for Hep-C testing:NoHx Drug Resistant Organism?Yes (NOSE)Immunization up to dateCurrent influenza vaccination?NoDate last FLU Vaccine:UNKNOWNWant influenza Vaccination?YesAnnual Depression ScreeningDate last Sreenin08/08/18Advance Directive/Self CareAdvance DirectivesExisting Advanced Directive:No (WILL BRING IN COPY TO BE SCANN)Self carePrimary day to day Caregiver:SELFPast, Family, and Social HxAdvance Directive/Self CareAdvance DirectivesExisting Advanced Directive:No (WILL BRING IN COPY TO BE SCANN)Past Medical HistoryEndocrineREPORTS HX OF: Diabetes Type 1, Hypothyroidism.RespiratoryREPORTS HX OF: Allergies/hay fever, Asthma.CardiovascularREPORTS HX OF: Benign murmur.GastrointestinalREPORTS HX OF: GERD.Age at jzhipszr17Injjslbwb ubojjggNlphbzb3Jqat1Zgex0Ltikvfq8CAN/ZWO2Rwrs pbskpl5GucefgsgspphtpsCZAWRTH HX OF: Osteoarthritis, Other musculoskeletal hx (ARTHRITIS).NeurologicREPORTS HX OF: Headaches, Seizures, Stroke.PsychiatricREPORTS HX OF: Anxiety, Depression.Family Medical HistoryNo known family hxNo known family historyFamily historyFamily history - endocrineREPORTS HX OF: Diabetes type 2 (MOTHER , FATHER).Family history - psychiatricREPORTS HX OF: Anxiety disorder (FATHER), Depression (MOTHER).Tobacco UseSmoking StatusCurrent SmokerTobacco detailsCigarettesAlcohol UseIntakeDenies use (0-1 A WEEK)Substance UseSubstanceDenies useSafetySt. Elizabeths Medical Center heater temp set <120 degYesWorking smoke detector in homeYesFire extinguisher in homeYesCarbon monox detector in homeYesFirearms in homeNoFirearms unloaded and lockedNo (NA)Vehicle safetySeatbelt useAlwaysPersonal safetyHx of physical abuseYesHistory of Present Illness (R)Darnell is a 24 years old female with Hx of Type 1 DM on insulin, asthma,GERD, hypothyroidism, previous hx of stroke (? hemorrhagic stroke)without any residual weakness, anxiety, depression who presents today forfollow up. She presents today with her partner. She recently [facility] and lives with her partner.Since the last visit, she states that she was not in the hospital or inER.She states that she is trying to get better with her insulin shots andher medications. She does follow with endocrinology and [facility] Her insulin doses were adj usted. She onlycomplains of frequent migraine headache about 4-5 times a week. Shestates the she was on topiramate in the past but does not know why she isnot on this meds at this time. She denies any aura symptoms. She statesthat her migraine is a lot controlled when she was on topiramate.She denies any headache at this time.She would like to get the symbicort prescription. She states that she wasgiven symbicort inh when she was dmitted to the hospital last year andshe finds her breathing is better with cymbicort than the advair. Shedenies any recent asthma exacerbation.Otherwise, she denies any other medical concerns or complains today.She would like to get the flu shot.Review of Systems (R)Review of SystemsGENERAL:No weight change, change in appetite, thirst, fever or chills.HEENT:migraine headacheCARDIOPULMONARY:No chest pain, palpitations or shortness of breath.GASTROINTESTINAL:No anorexia, nausea or vomiting.GENITOURINARY:No dysuria or pyuria. Urinary frequency, suprapubic painENDOCRINE:No goiter, lethargy or heat/cold intolerance.HEMATOLOGY/ONCOLOGY:No pallor, bruising or bleeding.MUSCULOSKELETAL:No change in strength. No swelling.NEUROLOGIC:migraine headachePSYCHIATRIC:No change in personality, affect or depression.SKIN:No rashes, lesionsPhysical Exam, [place]pine (R)Physcial ExamGENERAL APPEARANCE:The patient is alert, oriented to time, place, person. is in no acutedistress.HEENT:Head is normocephalic atraumatic. Pupils are equal and reactive.NECK:Supple without lymphadenopathy. thyroid feels normal. no carotid bruits.HEART:Regular rate and rhythm. no murmurs, gallops appreciated.L UNGS:Normal breath sounds. No crackles or wheezes are heard.ABDOMEN:Soft, nontender, nondistended with good bowel sounds heard.EXTREMITIES:boot on the left leg, not opened today.NEUROLOGICAL:Grossly nonfocal.SKIN: a lot of scars noted on both arms. mild non tender localizedswelling on the arms, which the patient reports of giving the insulin.the area is not tender. No fluctuation noted.Assessment/Plan, [place]pine RAssessment/PlanProblem ListLast reviewed 05/08/19-1401 Elliot Leal SCurrent Visit Problems:* G43.919 - Intractable migraine without status migrainosus, unspecifiedmigraine type* Type 1 diabetes mellitus with unspecified complications* Z23 - Flu vaccine need* E03.9 - Hypothyroidism, unspecified type* J45.909 - Persistent asthma without complication, unspecified asthmaseverity* K21.9 - Gastroesophageal reflux disease, esophagitis presence notspecifiedOrdersPrescriptions - Last Reconciled 05/08/2019-1256 Betsey Beltre -Topiramate 25 MG TABLET, 05/08/2024 MILLIGRAM ORAL At Bedtime, #30 TABLET, Refills 3Changed -Gabapentin 300 MG CAPSULE, MILLIGRAM ORAL Twice Daily, #60 CAPSULE, Refills 3Omeprazole 40 MG CAPSULE.DR, 05/08/2039 MILLIGRAM ORAL Daily, #30 CAPSULE, Refills 3Budesonide/Formoterol Fumarate (Symbicort 160- 4.5 Mcg Inhaler)10.2 GM HFA.AER.AD, PUFF INHALATION Twice Daily, #1 EACH, Refills 3Reported -Levothyroxine Sodium (Tirosint) 100 MCG [id number] MICROGRAM ORAL DailyInsulin Lispro (Admelog Solostar) 100 UNIT/1 ML INSULN.PENInstructions - SLIDING SCALE SCANNED IN CHART STARTS WITH 7UNITS 70- 100ENDS 451-500 16UNInsulin Detemir (Levemir Flextouch) 100 UNIT/1 ML INSULN.PENInstructions - 2OUN IN AM AND 20 [facility] -Insulin Lispro (Admelog Solostar) 100 UNIT/1 ML INSULN.PEN, UNIT SUB-Q Three Times a DayInsulin Glargine,Hum.rec.anlog (Basaglar Kwikpen U-100)100 UNIT/1 ML INSULN.PEN, 08/08/1921 UNIT SUB-Q AMLevothyroxine Sodium 88 MCG TABLET, 08/09/1987 MICROGRAM ORAL DailyFluticasone/Salmeterol (Advair Hfa 115-21 Mcg Inhaler) 12 GMAER.W.ADAP, PUFF INHALATION Twice DailyOffice ProceduresFlu Adult (Today at [facility] ([facility]))Dx - Flu vaccine needAssessment/Plan# Migraine headache - restart topiramate 25 mg daily for franco raineprophylaxis.Side effects discussed# Type 1 DM with hyperglycemia and neuropathyShe is now following with endocrinology. continue with thisShe is on insulin.continue with gabapentin 300 mg bid for the neuropathy# HypothyroidismShe is now following with endocrinology for this# GERD - doing well with omeprazole# Asthma - start the symbicort 2 puff bid. D/cadvair.# Anxiety/depression - patient to follow with mental health.Flu vaccine given today.Patient was taught the correct way of injecting her insulin, has toinject subcutaneously instead of into the muscles. She is to apply theice application t o the localized swelling in arms area. Patient willstart following with the wound clinic for the skin ulcers on the bodywhich does not look infected.Plan of care discussed with the patient, patient verbalizes understandingand agree with the plan. All questions fully answered to theirsatisfaction. Follow up in 4 months for annual physical or sooner ifneeded.Patient InstructionsPlease call the LEAD NUCLEAR MEDICINE TECHNOLOGIST for an [facility] [place], [place] [address]P: [phone]/[facility] given and explainedYes at 14 05.Dictated on 05/08/19 1239 by Elliot Leal M.D.Transcribed on 05/08/19 1239 by Elliot Leal SSign by Elliot Leal M.D. on 05/08/19 1405Sign by: Elliot Leal M.D. Name Value Range Interpretation Code Description Data Gisela rce(s) Supporting Document(s) ID Date Data Source [id number] 05/04/2019 06:39:00 PM [facility] Name Value Range Interpretation Code Description Data Gisela rce(s) Supporting Document(s) Free T4 (Free Thyroxine) 0.76-1.46 Normal (applies to non -numeric results) [facility] ID Date Data Source [id number] 05/04/2019 06:39:00 PM [facility] Name Value Range Interpretation Code Description Data Gisela rce(s) Supporting Document(s) Thyroid Stimulate Hormone TSH 0.358-3.740 Above high ivana l [facility] ID Date Data Source [id number] 05/04/2019 06:18:00 PM [facility] Name Value Range Interpretation Code Description Data Gisela rce(s) Supporting Document(s) Beta HCG Screen,Qualitative Negative Normal (appli es to non-numeric results) [facility] ID Date Data Source [id number] 04/14/2019 08:23:00 PM EST [facility] Physician DocumentationClaxton-Chandan matthew CenterName: Jeovany Vaughn: 24 yrsSex: FemaleDOB: 1995MRN: [id number] Date: 04/14/2019Time: 19:54Account#: [id number] MD: Galina Houser Physician Dora RaineyDiscarleen Summary:04/14/19 20:17Discharge OrderedLocation: Home Self Care ii3Avqcprt: an ongoing problem ib8Pmdokifm: are unchanged sg1Xcvyaaytt: Stable uh6Lrdullbwk- Pain in right shoulder oz0Cwzunndl: th4- With: Marco Houser- When: 1 week- Reason: Recheck today's complaints, Continuance of careDischarge Instructions:- Discharge Summary Sheet th4- MUSCLE STRAIN, Extremity th4- SHOULDER PAIN (Uncertain Cause) qx2Tayuu:- Medication Reconciliation th4- Medication Reconciliation Form - 2nd Copy th4HPI:03/2820:13 This 24 yrs old White Female presents to ER via Private Vehicle with ht3yobzzwhsuh of Shoulder Pain.20:13 Patient reports a two-month history of intermittent right shoulder xj3vmpo. She describes the p ain as throbbing. Nothing seems to make itbetter. Moving and lifting the right upper extremity makes it worse.She has been taking ibuprofen. Denies any nausea or vomiting. Nofever or recent illness. Patient is right-hand dominant. Denies anynumbness or tingling. Denies any specific injury or trauma. Shedenies any other problems or any other complaints..Historical:- Allergies: Augmentin; IODINE; IODINE CONTAINING; oral contrast;- Home Meds:1. levothyroxine 100 mcg oral cap2. Levemir U-100 Insulin 100 unit/mL subcutaneous soln 22 units qAM,20 units qHS3. Admelog Insulin Unknown before meals sliding scale4. gabapentin 300 mg oral cap 1 cap 2 times a day- PMHx: Diabetes - Type 1; GERD; HIGH CHOLESTEROL; MIGRAINES;RHEUMATOID ARTHRITIS; THYROID PROBLEM; neuropathy;- PSHx: Adenoid excision; cleft palette; tympanostomy tubes;- Immunization history: Flu vaccine is up to date.- Social history: Smoking status: Patient uses tobacco products,light tobacco smoker.- Advance Directives:: Health Care Proxy.ROS:20:14 Constitutional: Negative for chills, fever. Neck: Negative for acute oo7fnhjhja. Abdomen/GI: Negative for nausea, vomiting. MS/extremity:Positive for pain. Skin: Negative for abrasions, ecchymosis,erythema, laceration(s). Neuro: Negative for numbness, tingling.Exam:20:15 Constitutional: This is a well developed, well nourished patient who th4is awake, alert, and in no acute distress. Head/Face: Normocephalic,atraumatic.20:15 Neck: External neck: is normal, ROM/movement: is normal, is supple.20:15 Musculoskeletal/extremity: Extremities: grossly normal except: Rightupper extremity-mild tenderness over the proximal shoulder/lateralneck area. This is in the area of the upper trapezius. There is nobony tenderness. No tenderness over the clavicle. No deformity,erythema, ecchymosis, edema, or break in the skin. Normal motor,vascular, sensory exam.20:15 Skin: Appearance: Color: normal in color, Temperature: warm,Moisture: dry.20:15 Neuro: Orientation: is normal, Mentation: is normal.20:15 Psych: Behavior/mood is pleasant, cooperative.Vital Signs:19:58 BP 117 / 87; Pulse 91; Resp 16; Temp 97.2(TE); Pulse Ox 98% on R/A; eu6Cdmhcm 47.7 kg (R); Pain 8/10;20:22 BP 115 / 85; Pulse 90; Resp 16; Pulse Ox 98% ; tp2MDM:20:05 Patient medically screened. th420:16 Data reviewed: vital signs, nurses notes. ED course: Patient remained tn6mjrous in the ER. Patient with shoulder pain most consistent withmuscle strain. I recommended that she continue NSAIDs. We discussedthe use of ice, heat, stretching. Follow up with primary care doctor.A ctivity as tolerated. No specific injury. No indication for imaging..Dispensed Medications:No medications were administeredSignatures:Dora Rainey MD MD ha8ArzadkyhqSeda Canas RN RN cm4 Name Value Range Interpretation Code Description Data Gisela rce(s) Supporting Document(s) ID Date Data Source [id number] 04/14/2019 08:23:00 PM EST [facility] Nurse[facility] NotesClaxA[facility] terName: Jeovany Singerge: 24 yrsSex: FemaleDOB: 1995MRN: [id number] Date: 04/14/2019Time: 19:54Account#: [id number] 5BPrivate MD: Irene HouseroDiagnosis: Pain in right shoulderPresentation:03/2819:55 Presenting complaint: Patient states: her right shoulder has been qn3wfkvcrv for a couple months. "the pain will go away for a little bitand then come back twice as bad so I think there is something wrongwith it". Communicable Disease Screen: Negative for fever>/= 100degrees Fahrenheit. Communicable disease screen is negative. (-) rashor unusual skin lesion (-) travel/contact with traveler (-)respiratory symptoms.19:55 Acuity: Triage 4 cm419:55 Method Of Arrival: Private Vehicle cm419:56 Acuity Assignment: Triage 4 sd9Twudlg Assessment:19:56 General: Appears in no apparent distress, Behavior is cooperative. rt5Zafmjr Screening: (1)Signs/symptoms infection No. Pain: Complains ofpain in right shoulder Pain does not radiate. Pain currently is 8 outof 10 on a pain scale. Scaled used was Verbal Quality of pain isdescribed as throbbing, Pain began a couple months ago. Pain:Aggravated by repositioning. PSS-3 Now I'm going to ask you somequestions that we ask everyone treated here, no matter what problemthey are here for. It is part of the hospital's policy and it helpsus to make sure we are not missing anything important. Over the past2 weeks, have you felt down, depressed, or hopeless? No. Over thepast 2 weeks, have had thoughts of killing yourself? No. In yourlifetime, have you ever attempted to kill yourself? No. Neuro: Levelof Consciousness is awake, alert. Respiratory: Airway is patentRespiratory effort is even, Respiratory pattern is regular.Musculoskeletal: Reports pain in right shoulder.Historical:- Allergies: Augmentin; IODINE; IODINE CONTAINING; oral contrast;- Home Meds:1. levothyroxine 100 mcg oral cap2. Levemir U-100 Insulin 100 unit/mL subcutaneous soln 22 units qAM,20 units qHS3. Admelog Insulin Unknown before meals sliding scale4. gabapentin 300 mg oral cap 1 cap 2 times a day- PMHx: Diabetes - Type 1; GERD; HIGH CHOLESTEROL; MIGRAINES;RHEUMATOID ARTHRITIS; THYROID PROBLEM; neuropathy;- PSHx: Adenoid excision; cleft palette; tympanostomy tubes;- Immunization history: Flu vaccine is up to date.- Social history: Smoking status: Patient uses tobacco products,light tobacco smoker.- Advance Directives:: Health Care Proxy.Screenin:12 Abuse screen: Denies threats or abuse. Denies injuries from another. ey4Orwneyyvnzg screening: No deficits noted. Offer of HIV testing:patient was previously offered screening. Fall Risk None identified.Assessment:20:12 Reassessment: Patient appears in no apparent distres s at this time. am3Vuxdwj Screening: Sepsis is not suspected at this time. General:Appears in no apparent distress, Behavior is appropriate for age,cooperative.20:21 Derm: multiple sites of "scabbing" noted to scalp, face, arms, hands. lr1Lbivf Signs:19:58 BP 117 / 87; Pulse 91; Resp 16; Temp 97.2(TE); Pulse Ox 98% on R/A; su6Ztfcpk 47.7 kg (R); Pain 8/10;20:22 BP 115 / 85; Pulse 90; Resp 16; Pulse Ox 98% ; tp2ED Course:19:54 Patient arrived in ED. cm419:55 Marco Houser is Private Physician. cm419:55 Seda Canas, ANN is Primary Nurse. cm419:56 Triage completed. cm420:05 Dora Rainey MD is Attending Physician. th420:12 Patient has correct armband on for positive identification. Placed in mr1xbja. Bed in low position. Call light in reach. Side rails up X2.Door closed. Noise minimized. Verbal reassurance given. Pillow given.Head of bed elevated.20:13 No Physician assisted procedures completed. tp220:17 Marco Houser is Referral Physician. uf2Lteikcmoknoh Medications:No medications were administeredOutcome:20:17 Discharge ordered by . th420:22 Disposition: Discharged to home ambulatory. tp220:22 Condition: stable, Condition: yjlndxqe60:22 Instructed on discharge instructions, follow up and referral plans.20:22 Discharge Assessment: Patient verbalized understanding of dispositioninstructions. Patient has no functional deficits.20:23 Patient left the ED. pf3Sbahpxykak:Dora Rainey MD MD zy9KleoaePerla jimenez RN RN kg5DpszdpoehSeda Canas RN RN cm4 Name Value Range Interpretation Code Description Data Gisela rce(s) Supporting Document(s) Procedure Vital Signs ID Date Data Source [id number] 04/25/2020 12:36:00 AM [facility] Name Value Range Interpretation Code Description Data Source(s) Weight (Calculated Kilograms) 45.08 45.08 [facility] Height (Calculated Centimeters) 152.4 152. 4 [facility] Body Mass Index (BMI) 19.[address] [facility] ID Date Data Source [id number] 04/01/2020 01:02:00 AM [facility] Name Value Range Interpretation Code Description Data Source(s) Weight (Calculated Kilograms) 45.08 45.08 [facility] Height (Calculated Centimeters) 152.4 152. 4 [facility] Body Mass Index (BMI) 19.[address] [facility] ID Date Data Source [id number] 03/12/2020 03:35:00 PM [facility] Name Value Range Interpretation Code Description Data Source(s) Weight (Calculated Kilograms) 45.08 45.08 [facility] Height (Calculated Centimeters) 152.4 152. 4 [facility] Body Mass Index (BMI) 19.[address] [facility] ID Date Data Source [id number] 12/07/2019 12:24:00 AM [facility] Name Value Range Interpretation Code Description Data Source(s) Weight (Calculated Kilograms) 45.08 45.08 [facility] Height (Calculated Centimeters) 152.4 152. 4 [facility] Body Mass Index (BMI) 19.[address] [facility] ID Date Data Source [id number] 10/06/2019 12:18:00 AM [facility] Name Value Range Interpretation Code Description Data Source(s) Weight (Calculated Kilograms) 45.08 45.08 [facility] Height (Calculated Centimeters) 152.4 152. 4 [facility] Body Mass Index (BMI) 19.[address] [facility] ID Date Data Source [id number] 07/05/2019 12:29:00 AM [facility] Name Value Range Interpretation Code Description Data Source(s) Weight (Calculated Kilograms) 45.08 45.08 [facility] Height (Calculated Centimeters) 152.4 152. 4 [facility] Body Mass Index (BMI) 19.[address] [facility] ID Date Data Source [id number] 06/05/2019 12:04:00 AM [facility] Name Value Range Interpretation Code Description Data Source(s) Weight (Calculated Kilograms) 45.08 45.08 [facility] Height (Calculated Centimeters) 152.4 152. 4 [facility] Body Mass Index (BMI) 19.[address] [facility] ID Date Data Source [id number] 05/23/2019 12:38:00 AM [facility] Name Value Range Interpretation Code Description Data Source(s) Weight (Calculated Kilograms) 45.08 45.08 [facility] Height (Calculated Centimeters) 152.4 152. 4 [facility] Body Mass Index (BMI) 19.[address] [facility] ID Date Data Source [id number] 06/06/2019 02:40:00 PM [facility] Name Value Range Interpretation Code Description Data Source(s) Weight (Calculated Kilograms) 45.08 45.08 [facility] Height (Calculated Centimeters) 152.4 152. 4 [facility] Body Mass Index (BMI) 19.[address] [facility] ID Date Data Source [id number] 06/01/2019 12:48:00 PM [facility] Name Value Range Interpretation Code Description Data Source(s) Weight (Calculated Kilograms) 45.08 45.08 [facility] Height (Calculated Centimeters) 152.4 152. 4 [facility] Body Mass Index (BMI) 19.[address] [facility] ID Date Data Source [id number] 09/26/2019 07:27:00 PM EDT [facility] Name Value Range Interpretation Code Description Data Source(s) WEIGHT 50.4 kilos 50.4 kilos [facility] HEIGHT 152.4 centimeters 152.4 centimeters [facility] WEIGHT 50.4 kilos 50.4 kilos [facility] HEIGHT 152.4 centimeters 152.4 centimeters [facility]
[2020-06-05 01:55] LABS: BASO % 0.7 % (0.0-1.0); EOS # 0.1 10^3/uL (0.0-0.5); HEMOGLOBIN 14.3 g/dl (12.0-15.5); LYMPH # 1.5 10^3/uL (1.5-5.0); LYMPH % 26.1 % (24.0-44.0); MEAN CORPUSCULAR HEMOGLOBIN 31.1 pg (27.0-33.0); MEAN CORPUSCULAR VOLUME 91.3 fl (80.0-96.0); MONO # 0.4 10^3/uL (0.0-0.8); MONO % 7.5 % (2.0-8.0); NEUTROPHILS # 3.7 10^3/uL (1.5-8.5); NEUTROPHILS % 63.2 % (36.0-66.0); PLATELET COUNT, AUTOMATED 258 10^3/uL (150-450); WHITE BLOOD COUNT 5.9 10^3/uL (4.0-10.0)
[2020-06-05] MEDS ORDERED: NS 1,000 ML IV ONE ×2 (02:00→04:45)
--- OUTSIDE RECORDS SUMMARY | 2020-06-05 02:01 | CCD ---
Author Author [facility] Organization [facility] Address Unknown Phone Unavailable Care Team Providers Care Contracts Administrator Name Role Phone Sunny Rainey MD Unavailable Unavailable Sunny Rainey MD Unavailable Unavailable Sunny Raieny MD Unavailable Unavailable Sunny Rainey MD Unavailable [...] Unavailable Unavailable Martha Garrett MD Unavailable Unavailable Matrha Garrett MD Unavailable Unavailable Martha Garrett MD [...] MD Unavailable Unavailable Dilshad Hyatt M.D. Unavailable [phone] Dilshad Hyatt M.D. Unavailable [phone] Dilshad Hyatt M.D. Unavailable Dilshad Hyatt M.D. Unavailable [phone] Dilshad Hyatt M.D. Unavailable VANWAGNER, SOMMER DO Unavailable Unavailable VANWAGNER, [...] Unavailable Unavailable Garcia, J Devon PA Unavailable [phone] Garcia, J Devon PA Unavailable [phone] Garcia, J Devon PA Unavailable [phone] Garcia, J Devon PA Unavailable [phone] Garcia, J Devon PA Unavailable [phone] Garcia, J Devon PA Unavailable [phone] Garcia, J Devon PA Unavailable [phone] Garcia, J Devon PA Unavailable [phone] Garcia, J Devon PA Unavailable [phone] Garcia, J Devon PA Unavailable [phone] Garcia, J Devon PA Unavailable [phone] DORA RAINEY MD Unavailable Unavailable VERÓNICA GARCIA [...] Elliot MD Unavailable Unavailable Derrick Vela Debbie RUBY DEVELOPER Unavailable Unavailable Sienkiewycz, L Debbie RUBY DEVELOPER Unavailable Unavailable Sienkiewycz, L Debbie RUBY DEVELOPER Unavailable Unavailable Sienkiewycz, L Debbie RUBY DEVELOPER Unavailable Unavailable AL-Kin, Tate ANTONIO Unavailable Unavailable [...] is protected by Article 27-F of the [facility] Public Health law. If you continue you may have access to information: Regarding HIV / AIDS; Provided by facilities licensed or operated by the [facility] Office of Mental Health; or Provided by the [facility] Office for People With Developmental Disabilities. If such information is present, then the following [facility] mandated warning applies: This information has [...] law may result in a fine or long-term sentence or both. A general authorization for the release of medical or other information is NOT sufficient authorization for further disc losure. Allergies and Adverse Reactions Type Description Substance Reaction Status Data Source(s ) Allergy Allergy Amoxicillin [facility] All[facility] Allergy clavulanic acid [facility] Allergy Allergy iodine BREATHING DIFF[facility] Encounters Encounter Providers Location Date Indications [...] PM EST - 04/24/2020 03:04:00 PM EST [facility] Patient discharged. Outpatient Attender: Devon SOTOttender: Jorge A CHANG CPSCAORT-CPSCAEND 03/12/2020 02:35:00 PM EST - 03/12/2020 02:36:00 PM ES T E10.65 [facility] E10.65 Patient discharged. Outpatient Attender: Devon CHANG CPSCAORT-CPSCAEND 02/13/2020 01:30:00 PM EDT [facility] Outpatient Attender: Devon CHANG CPSCAORT-CPSCAEND 12/06/2019 01:46:00 PM EDT - 12/06/2019 01:47:00 PM EDT [facility] Patient discharged. Outpatient Attender: Eliud Rose DO ER-WOUND 11/01/2019 01:50:0 0 PM EDT [facility] Outpatient Attender: Eliud Rose DO ER-WOUND 10/18/2019 01:46:0 0 PM EDT [facility] Outpatient Attender: Eliud Rose DO ER-WOUND 10/11/2019 01:42:0 0 PM EDT [facility] Outpatient Attender: Devon SOTOttender: Jorge A CHANG CPSCAORT-CPSCAEND 10/05/2019 01:51:00 PM EDT - 10/05/2019 01:52:00 PM ED T E10.65, E03.9, N92.6 [facility] E10.65, E03.9, N92.6 Patient discharged. Outpatient Attender: Eliud Rose DO ER-WOUND 10/04/2019 02:40:0 0 PM EDT [facility] Emergency Attender: Tate Hooper MD ER-ER 0 09/26/2019 07:17:00 PM EDT - 09/27/2019 04:34:00 AM EDT [facility] Patient discharged. Outpatient Attender: Eliud Rose DO ER-WOUND 07/06/2019 10:51:0 0 AM EDT [facility] Outpatient Attender: Devon Garcia PAAttender: Jorge A CHANG CPSCAORT-CPSCAEND 07/04/2019 02:15:00 PM EDT - 07/04/2019 02:16:00 PM ED T E11.65 [facility] E11.65 Patient discharged. Emergency Attender: Dora Rainey MDAttender: DORA RAINEY MD ER-ER 07/03/2019 03:43:00 PM EDT - 07/03/2019 03:56:00 PM EDT [facility] Patient discharged. Outpatient Attender: Eliud Rose DO ER-WOUND 06/29/2019 10:59:0 0 AM EDT [facility] Outpatient Attender: MAXX GANN MDAttender: MAXX GANN MD ER-WOUND 06/07/2019 09:05:00 AM [facility] Outpatient Attender: Devon CHANG CPSCAORT-CPSCAEND 06/04/2019 08:11:00 AM EST - 06/04/2019 08:12:00 AM EST [facility] Patient discharged. Outpatient Attender: SOMMER SANCHEZ DO CPSCAORT-CPSLAOPT 01:34:00 PM EST - 05/22/2019 01:35:00 PM EST [facility] Patient [facility]. Outpatient Attender: KIRSTEN MARTÍNEZ CNM Attender: Tom Hyatt M.D.Attender: Elliot Leal MDAttender: Debbie Vela [facility] 05/08/2019 12:09:00 PM [facility] Outpatient Attender: Devon Garcia PAAttender: Jorge A CHANG CPSCAORT-CPSCAEND 05/04/2019 02:04:00 PM EST - 05/04/2019 02:05:00 PM ES T E03.9, Z3A.01 [facility] E03.9, Z3A.01 Patient discharged. Emergency Attender: Dora Rainey MDAttender: DORA RAINEY MD ER-ER 04/14/2019 07:54:00 PM EST - 04/14/2019 08:23:00 PM EST [facility] Patient [facility] Outpatient Attender: Devon Julesender: Jorge A CHANG CPSCAORT-CPSCAEND 03/29/2019 02:18:00 PM EST - 03/29/2019 02:19:00 PM ES T E10.65 [facility] E10.65 Patient discharged. Inpatient Attender: HENOK ORTIZ MDAt tender: Tate Hooper MDAdmitter: HENOK ORTIZ MD ER-3RD 11/16/2018 04:15:00 PM EDT - 11/22/2018 01:31:00 PM EDT [facility] Patient discharged. Emergency Attender: VERÓNICA GARCIA MD ER-ER 01/2019 11:54:00 AM EDT - 08/25/2018 04:43:00 PM EDT [facility] Outpatient Attender: Elliot Leal MD ER-LAB 08/25/2018 11:14:00 AM EDT [facility] Outpatient Attender: Eliud Rose DO ER-WOUND 08/16/2018 10:25:0 0 AM [facility] Outpatient Attender: Eliud Rose DO ER-WOUND 08/10/2018 09:55:0 [facility] Att[facility]: Eliud Rose DO ER-WOUND 08/04/2018 10:01:0 0 AM [facility] Outpatient Attender: Eliud Rose DO ER-WOUND 08/02/2018 01:28:0 0 PM EDT [facility] Outpatient Attender: Eliud Rose DO ER-WOUND 07/28/2018 09:56:0 0 AM [facility] Insurance Providers Payer name Policy type / Coverage type Policy ID Covered democrat ID Covered democrat's relationship to amos Policy Amos Plan Information NORMA [id number] SP [id number] [employer] [id number] Self [id number] [facility] [id number] Unemployed [id number] [facility] [id number] [facility] [id number] SP [id number] [employer] [id number] SP [id number] [employer] [id number] S 7 [id number] [facility] [id number] S [id number] [employer] [id number] SP [id number] Problems, Conditions, and Diagnoses Code Display Name Description Problem Type Effective Dates Data Source(s) Z53.29 Procedure and treatment not carried out because of patient's decision for other reasons PROC/TRTMT NOT CRD OUT BEC PT DECISION FOR OTH REASONS Diagn osis 02/13/2020 01:30:00 PM [facility] Z91.19 Patient's noncompliance with other medic al treatment and regimen PATIENT'S NONCOMPLIANCE W OTH MEDICAL TREATMENT AND REGIMEN Diagnosis 02/13/2020 01:30:00 PM [facility] Z91.14 Patient's other noncompliance with medic ation regimen PATIENT'S OTHER NONCOMPLIANCE WITH MEDICATION REGIMEN Diagnosis 02/13/2020 01:30:00 PM [facility] Z91.11 Patient's noncompliance with dietary reg imen PATIENT'S NONCOMPLIANCE WITH DIETARY REGIMEN Diagnosis 02/13/2020 01:30:00 PM [facility] Z79.4 oil heaterman (current) use of insulin CORRECTION (CU RRENT) USE OF INSULIN Diagnosis 02/13/2020 01:30:00 PM [facility] E03.9 Hypothyroidism, unspecified HYPOTHYROIDISM, UNSPECIFIE D Diagnosis 02/13/2020 01:30:00 PM [facility] E10.65 Type 1 diabetes mellitus with hyperglyce abdi TYPE 1 DIABETES MELLITUS WITH HYPERGLYCEMIA Diagnosis 02/13/2020 01:30:00 PM [facility] 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 NON- PRESSURE CHRONIC ULCER OF RIGHT CALF W FAT LAY Diagnosis 020 01:50:00 PM [facility] I87.311 Chronic venous hypertension (idiopathic) with ulcer of right lower extremity CHRONIC VENOUS HYPERTENSION W ULCER OF R LOW EXTREM Diagnosi s 11/01/2019 01:50:00 PM [facility] S51.802A Unspecified open wound of left forearm, initial encounter UNSPECIFIED OPEN WOUND OF LEFT FOREARM, INITIAL EN Diagnosis 10/11/2019 01:42:00 P M [facility] Y99.9 Unspecified external cause status UNSPECIFIED EX TERNAL CAUSE STATUS Diagnosis 10/04/2019 02:40:00 PM [facility] Y92.[address] or not applicable UNSPECIFIED PLACE OR NOT APPLICABLE Diagnosis 10/04/2019 02:40:00 PM [facility] Y93.9 Activity, unspecified ACTIVITY, UNSPECIFIED Diagnosis 10/04/2019 02:40:00 PM [facility] X58.XXXA Exposure to other specified factors, ini tial encounter EXPOSURE TO OTHER SPECIFIED FACTORS, INITIAL ENCOU Diagnosis 10/04/2019 02:40:00 P M [facility] S21.209A Unspecified open wound of un specified back wall of thorax without penetration into thoracic cavity, initial encounter UNSP OPN WND UNSP BK WL OF THORAX W/O PENET THOR CAV, INIT Diagnosis 10/04/2019 02:40:00 PM EDT [facility] Z79.4 oil heaterman (current) use of insulin CORRECTION (CU RRENT) USE OF INSULIN Diagnosis 09/26/2019 07:17:00 PM [facility] R53.83 Other fatigue OTHER FATIGUE Diagnosis 09/26/2019 07:17:00 PM [facility] E10.649 Type 1 diabetes mellitus with hypoglycem ia without coma TYPE 1 DIABETES MELLITUS WITH HYPOGLYCEMIA WITHOUT COMA Diagnosis 09/26/2019 07:17:00 PM [facility] K02.9 Dental caries, unspecified DENTAL CARIES, UNSPECIFIED Diagnosis 07/03/2019 03:43:00 PM [facility] M19.90 Unspecified osteoarthritis, unspecified site UNSPECIFIED OSTEOARTHRITIS, UNSPECIFIED SITE Diagnosis 06/07/2019 09:05:[facility] M[facility].9 Rheumatoid arthritis, unspecified RHEUMATOID ART HRITIS, UNSPECIFIED Diagnosis 06/07/2019 09:05:00 AM [facility] I25.10 Atherosclerotic heart diseas e of [place] coronary artery without angina pectoris ATHSCL HEART DISEASE OF [place] CORONARY ARTERY W/O Diagnosis 06/07/2019 09:05:00 AM [facility] J45.909 Unspecified asthma, uncomplicated UNSPECIFIED THMA, UNCOMPLICATED Diagnosis 06/07/2019 09:05:00 AM [facility] E10.9 Type 1 diabetes mellitus without complic ations TYPE 1 DIABETES MELLITUS WITHOUT COMPLICATIONS Diagnosis 06/07/2019 09:05:[address] [facility] Z3A.01 Less than 8 weeks gestation of LESS THAN 8 WEEKS GESTATION OF Diagnosis 05/04/2019 02:04:00 PM [facility] M25.511 Pain in right shoulder PAIN IN RIGHT SHOULDER Diagnosi s 04/14/2019 07:54:00 PM [facility] Surgeries/Procedures Procedure Description Date Indications Data Source(s) OFFICE OUTPATIENT VISIT 10 MINUTES OFFICE/OUTPATIENT VISIT E ST 02/13/2020 12:00:00 AM [facility] GLUC BLD GLUC MNTR DEV CLEARED FDA SPEC HOME USE GLUCOSE BLO OD TEST 02/13/2020 12:00:00 AM [facility] OFFICE OUTPATIENT VISIT 5 MINUTES OFFICE/OUTPATIENT VISIT ES T 05/04/2019 12:00:00 AM [facility] THYROXINE FREE ASSAY OF FREE THYROXINE 05/04/2019 12:00:00 AM [facility] THYROID STIMULATING HORMONE TSH ASSAY THYROID STIM HORMONE 0 05/04/2019 12:00:00 AM [facility] COLLECTION VENOUS BLOOD VENIPUNCTURE ROUTINE VENIPUNCTURE 12:00:00 AM [facility] GONADOTROPIN CHORIONIC QUALITATIVE CHORIONIC GONADOTROPIN SAY 05/04/2019 12:00:00 AM [facility] Results ID Date Data Source [id number] 04/01/2020 01:02:00 AM [facility] Name Value Range Interpretation Code Description Data Gisela rce(s) Supporting Document(s) Hemoglobin A1C % Less than 5.7% Above high normal [facility] HBA1C: Normal: Less than 5.7% Prediabetes: 5.7% to 6.4% Diabetes: 6.5% or higher HA1C % vs Estimated Average Glucose (eAG) % eAG % eAG 6% 126 mg/dL 10% 240 mg/dL 7% 154 mg/dL 11% 269 mg/dL 8% 183 mg/dL 12% 298 mg/dL 9% 212 mg/dL Reference: [place] [employer], 2017 ID Date Data Source [id number] 04/01/2020 01:02:00 AM [facility] Name Value Range Interpretation Code Description Data Gisela rce(s) Supporting Document(s) Sodium 137 mmol/L 137-145 Normal (applies to non-numeric resul ts) [facility] Potassium 3.5-5.1 Normal (applies to non-numeric resul ts) [facility] Chloride 106 mmol/L 98-112 Normal (applies to non-numeric resul ts) [facility] Carbon Dioxide CO2 22.0-33.0 Normal (applies to non-numer ic results) [facility] Anion Gap 4.0-11.0 Normal (applies to non-numeric resul ts) [facility] BUN 9 mg/dL 7-17 Normal (applies to non-numeric resul ts) [facility] Creatinine 0.70-1.20 Below low normal [facility] GFR >60 Normal (applies to non-numeric results) [facility] Result based on MDRD formula. Glucose Level 184 mg/dL 74-99 Above high normal [facility] The reference range is only applicable w hen fasting. Calcium-Uncorrected 8.4-10.2 Normal (applies to non-nume vanessa results) [facility] Corrected Calcium 8.4-10.2 Normal (applies to non-numeri c results) [facility] ID Date Data Source [id number] 04/01/2020 01:02:00 AM [facility] Name Value Range Interpretation Code Description Data Gisela rce(s) Supporting Document(s) Free T4 (Free Thyroxine) 0.76-1.46 Normal (applies to non -numeric results) [facility] ID Date Data Source [id number] 04/01/2020 01:02:00 AM [facility] Name Value Range Interpretation Code Description Data Gisela rce(s) Supporting Document(s) Thyroid Stimulate Hormone TSH 0.358-3.740 Above high ivana l [facility] ID Date Data Source [id number] 11/01/2019 02:00:00 PM EDT [facility] [place] [place] [address]PATIENT NAME: JEOVANY LEWIS DATE OF SERVICE: 11/01/19MR#: [id number] DATE OF : [birth year]ACCOUNT #: [id number], KENDRA Lizzette ([id number])Visit Report for 11/01/2019Advanced Modalities Screening Tool DetailsPatient Name:Date of Service:JEOVANY LEWIS Lizzette 11/01/2019 2:00PMMedical Record Number:[id number] Patient of /Sex:Treating RN:1995 (24 y.o. F) Renée Quinones Care Provider: Terence Valentino Clinician:Referring Provider: TreatingProvider/Accounting Teacher:Rasheed Rose PAULWeeks in Treatment: 21Advanced Modalities Screening Check ListHyperbaric Oxygen Therapy: Reviewed LCD or HBO policy from [employer] and/or NCDTherapy Not IndicatedNo Appropriate IndicationElectronic Signature(s)Signed: 11/05/2019 3:49:19 PM By: Judith QuinonesPrevious Signature: 11/01/2019 2:05:39 PM Version By: Judith QuinonesEntermaribel By: Judith Quinones on 11/01/2019 14 :29:29 Arriv al Information DetailsPatient Name:Date of Service:JEOVANY LEWIS 11/01/2019 2:00PMMedical Record Number:[id number] Patient of /Sex:Treating RN:1995 (24 y.o. F) Susanna Rangel Care Provider: Terence Valentino Clinician:Referring Provider: TreatingProvider/Accounting Teacher:Rasheed Rose PAULWeeks in Treatment: 21Visit Information History SinceLast VisitHas Dressing in Place as Prescribed: YesPatient Arrived: AmbulatoryPain Present Now: NoArrival Time: 14:01Transfer Assistance: NonePatient Identification Verified: YesSecondary Verification Process Completed: YesElectronic Signature(s)Signed: 11/01/2019 3:51:42 PM By: Rohini Rangel By: Asia Rangel on 11/01/2019 14:01: 57 Discharge Instructions DetailsPatient Name:Date of Service:JEOVANY LEWISFrancis 11/01/20192:00 PMMedical Record Number:[id number] Patient of /Sex:Treating RN:1995 (24 y.o. F) Renée Quinones Care Provider: Sade valdovinos MyoOren Clinician:Referring Provider: TreatingProvider/Accounting Teacher:Rasheed Rose PAULWeeks in Treatment: 21Follow-up AppointmentsReturn Appointment [...] of Service:JEOVANY LEWIS Lizzette 11/01/2019 2:00PMMedical Record Number:[id number] Patient of /Sex:Treating RN:1995 (24 y.o. F) Renée Quinones Care Provider: Terence Valentino Clinician:Referring Provider: TreatingProvider/Accounting Teacher:Rasheed Rose PAULWeeks in Treatment: 21Encounter Discharge Information ItemsDischarge Condition: StableAmbulatory S tatus: AmbulatoryDischarge Destination: HomeTransportation: Private AutoAccompanied By: Jessie Follow-up Appointment: Moe esClinical Summary of Care: Patient DeclinedElectronic Signature(s)Signed: 11/05/2019 3:49:19 PM By: Yaron Quinones By: Judith Quinones on 11/01/2019 14:32:56 Low er Extremity Assessment DetailsPatient Name:Date of Service:JEOVANY LEWIS Lizzette 11/01/2019 2:00PMMedical Record Number:[id number] Patient of /Sex:Treating RN:1995 (24 y.o. F) Susanna Rangel Care Provider: Terence Valentino Clinician:Referring Provider: TreatingProvider/Accounting Teacher:Rasheed Rose PAULWeeks in Treatment: 21Electronic Signature(s)Signed: 11/01/2019 3:51:42 PM By: Rohini Rangel By: Asia Rangel on 11/01/2019 14:03:51 Mul ti Wound Chart DetailsPatient Name:Date of Service:JEOVANY LEWIS 11/01/2019 2:00 PMMedical Record Number:[id number] Patient of /Sex:Treating RN:1995 (24 y.o. F) Renée Quinones Care Provider: Sade valdovinos MyoOren Clinician:Referring Provider: TreatingProvider/Accounting Teacher:Rasheed Rose PAULWeeks in Treatment: 21Vital SignsHeight(in):Pulse(bpm):108Weight(lbs): BloodPressure(mmHg): [...] Name:Date of Service:JEOVANY LEWIS 11/01/2019 2:00PMMedical Record Number:[id number] Patient of /Sex:Treating RN:1995 (24 y.o. F) [facility] Care Provider: Sade valdovinos MyoOther Clinician:Referring Provider: TreatingProvider/Accounting Teacher:Rasheed Rose PAULWeeks in Treatment: 21Active InactiveElectronic Signature(s)Signed: 01/15/2020 2:54:47 PM By: Elba Rangelgned: 01/23/2020 2:29:21 PM By: Brock Quinones Signature: 11/05/2019 3:49:19 PM Version By: Brock Quinones Signature: 11/01/2019 2:05:35 PM Version By: Yaorn Quinones By: Asia Rangel on 12/11/2019 14:39:19 Yonis n Assessment DetailsPatient Name:Date of Service:JEOVANY LEWIS 11/01/2019 2:00PMMedical Record Number:[id number] Patient of /Sex:Treating RN:1995 (24 y.o. F) Susanna Rangel Provider: Terence Valentino Clinician:Referring Provider: TreatingProvider/Accounting Teacher:Rasheed Rose PAULWeeks in Treatment: 21Active ProblemsLocation of Pain Severity andDescription of PainPatient Has Pain? NoSite LocationsPain Management and MedicationCurrent Pain Management:Electronic Signature(s)Signed: 11/01/2019 3:51:42 PM By: Rohini Rangel By: Asia Rangel on 11/01/2019 14:06:29 Patient/Caregiver Education DetailsPatient Name:Date of Service:JEOVANY LEWIS 11/01/20196751ccpmspj3:00 PMMedical Record Number:[id number] Patient of /Gender:Treating RN:1995 (24 y.o. F) Susnana Rangel Physician: Terence Valentino Clinician:Referring Physician: TreatingPhysician/Accounting Teacher:Rasheed Rose PAULWeeks in Treatment: 21Education AssessmentEducation Provided To:PatientEducation Topics ProvidedBasic Hygiene:Methods: Explain/VerbalElectronic Signature(s)Signed: 11/01/2019 3:51:42 PM By: Rohini Rangel By: Asia Rangel on 11/01/2019 14:06:39Treatment Notes SummaryWound #2 (Proximal, Midline Back)3. Primary Dressing AppliedFoam ---Vitals DetailsPatient Name:Date of Service:JEOVANY LEWIS 11/01/2019 2:00 PMMedical Record Number:[id number] Patient of /Sex:Treating RN:1995 (24 y.o. F) Susanna Rangel Care Provider: Terence Valentino Clinician:Referring Provider: TreatingProvider/Accounting Teacher:Rasheed Rose PAULWeeks in Treatment: 21Vital SignsTime Taken: 14:02Temperature (F):97.4Pulse (bpm): 108Respiratory Rate (breaths/min): 17Blood Pressure (mmHg): 91/66Reference Range: 80 - 120 mg / dlElectronic Signature(s)Signed: 11/01/2019 3:51:42 PM By: Rohini Rangel By: Asia Rangel on 11/01/2019 14:03:43 [address] Assessment DetailsPatient Name:Date of Service:JEOVANY LEWIS 11/01/2019 2:00 PMMedical Record Number:[id number] Patient of /Sex:Treating RN:1995 (24 y.o. F) [...] of Service:JEOVANY LEWIS 11/01/2019 2:00 PMMedical Record Number:[id number] Patient of /Sex:Treating RN:1995 (24 y.o. F) Misty Rangelimarodríguez Care Provider: Sade valdovinos MyoOren Clinician:Referring Provider: TreatingProvider /Accounting Teacher:Rasheed Rose PAULWeeks in Treatment: 21Wound StatusWound Number: [...] rce(s) Supporting Document(s) ID Date Data Source [id number] 11/01/2019 02:00:00 PM EDT [place], [place] [address]PATIENT NAME: JEOVANY LEWIS DATE OF SERVICE: 11/01/19MR#: [id number] DATE OF : [birth year]ACCOUNT #: [id number] FOWLER ([id number])Visit Report for 11/01/2019Chief Complaint Document DetailsPatient Name:Date of Service:JEOVANY LEWIS 11/01/2019 2:00 PMMedical Record Number:[id number] Patient of /Sex:Treating RN:1995 (24 y.o. F)Primary Care Provider: Terence Valentino Clinician:Referring Provider: TreatingProvider/Accounting Teacher:Rasheed Rose PAULWeeks in Treatment: 21Information Obtained from: PatientChief ComplaintBack woundsRight lateral calf venous woundElectronic Signature(s)Signed: 11/02/2019 11:10:22 AM By: Ilya Rose D.O., FACSEntered By: lEiud Rose on 11/01/2019 14:10:21 HPI DetailsPatient Name:Date of Service:JEOVANY LEWIS 11/01/2019 2:00 PMMedical Record Number:[id number] Patient of /Sex:Treating RN:1995 (24 y.o. F)Primary Care Provider: Terence Valentino Clinician:Referring Provider: TreatingProvider/Accounting Teacher:Rasheed Rose PAULWeeks in Treatment: 21History of Present IllnessHPI Description: This is a poorly controlled type 1 diabetic sm[facility] with a wound onher left plantar heel area. This had been present for approximately 2-3 monthsand appears to have occurred while shewas admitted to the hospital during a diabetic coma where she was unconsciousfor approximately 4 days and requiredventilator support.She had been caring for this at home and her HgbA1c on 05/27/18 was 13.4.She had started seeing an Ui Application Developer after this to assist with her bloodsugars.Positive DiabetesPositive TobaccoNegative Obesity (BMI 19.11)Negative Rapid Weight LossNegative Steroids or Vqychekylqps36/11/19: Ankle Brachial Index: Left 0.98 Right 1.0807 [...] Name:Date of Service:JEOVANY LEWISFrancis 11/01/2019 2:00PMMedical Record Number:[id number] Patient of /Sex:Treating RN:1995 (24 y.o. F) Renée Quinones Care Provider: Sade valdovinos MyoOther Clinician:Referring Provider: TreatingProvider/Accounting Teacher:Rasheed Rose PAULWeeks in Treatment: 21Verbal / Phone [...] Name:Date of Service:JEOVANY LEWIS 11/01/2019 2:00PMMedical Record Number:[id number] Patient of /Sex:Treating RN:1995 (24 y.o. F)Primary Care Provider: Sade valdovinos MyoOther Clinician:Referring Provider: TreatingProvider/Accounting Teacher:Rasheed Rose PAULWeeks in Treatment: 21Active ProblemsICD-10Evaluated EncounterCode Description ActiveDate Today BrvtehogsI77.209A Unspecified open wound of un specified back wall of06/07/2019 No Yesthorax without penetration into thoracic cavity, aljdsdrwdvpuoatqY48.212 Non-pressure chronic ulcer of right calf with fat layer10/18/2019 No TczwkegdzfF31.311 Chronic venous hypertension (idiopathic) with ulcer of10/18/2019 [...] rce(s) Supporting Document(s) ID Date Data Source [id number] 11/01/2019 02:00:00 PM EDT [facility] [address]VUOFKYW NAME: JEOVANY LEWIS DATE OF SERVICE: 11/01/19MR#: [id number] DATE OF : [birth year]ACCOUNT #: [id number] FOWLER ([id number])Visit Report for 11/01/2019Advanced Modalities Screening Tool DetailsPatient Name:Date of Service:JEOVANY LEWIS 11/01/2019 2:00PMMedical Record Number:[id number] Patient of /Sex:Treating RN:1995 (24 y.o. F) Renée Quinones Care Provider: Terence Valentino Clinician:Referring Provider: TreatingProvider/Accounting Teacher:Rasheed Rose PAULWeeks in Treatment: 21Advanced Modalities Screening Check ListHyperbaric Oxygen Therapy: Reviewed LCD or HBO policy from Mac and/or NCDTherapy Not IndicatedNo Appropriate IndicationElectronic Signature(s)Signed: 11/05/2019 3:49:19 PM By: Judith QuinonesPrevious Signature: 11/01/2019 2:05:39 PM Version By: Yaron Quinones By: Judith Quinones on 11/01/2019 14 :29:29 Arriv al Information DetailsPatient Name:Date of Service:JEOVANY LEWISFrancis 11/01/2019 2:00PMMedical Record Number:[id number] Patient of /Sex:Treating RN:1995 (24 y.o. F) Susanna Rangel Care Provider: Terence Valentino Clinician:Referring Provider: TreatingProvider/Accounting Teacher:Rasheed Rose PAULWeeks in Treatment: 21Visit Information History SinceLast VisitHas Dressing in Place as Prescribed: YesPatient Arrived: AmbulatoryPain Present Now: NoArrival Time: 14:01Transfer Assistance: NonePatient Identification Verified: YesSecondary Verification Process Completed: YesElectronic Signature(s)Signed: 11/01/2019 3:51:42 PM By: Rohini Rangel By: Asia Rangel on 11/01/2019 14:01: 57 Discharge Instructions DetailsPatient Name:Date of Service:JEOVANY LEWISFrancis 11/01/20192:00 PMMedical Record Number:[id number] Patient of /Sex:Treating RN:1995 (24 y.o. F) Renée Quinones Care Provider: Terence Valentino Clinician:Referring Provider: TreatingProvider/Accounting Teacher:Rasheed Rose PAULWeeks in Treatment: 21Follow-up AppointmentsReturn Appointment [...] high protein dietPatient Received Instructions: YesElectronic Signature(s)Sig ysah: 11/02/2019 7:43:36 AM By: Odalys Hilled By: [place] on 11/01/2019 14:29:51 Enc ounter Discharge Information DetailsPatient Name:Date of Service:JEOVANY LEWIS 11/01/2019 2:00PMMedical Record Number:[id number] Patient of /Sex:Treating RN:1995 (24 y.o. F) Renée Quinones Care Provider: Terence Valentino Clinician:Referring Provider: TreatingProvider/Accounting Teacher:Rasheed Rose PAULWeeks in Treatment: 21Encounter Discharge Information ItemsDischarge Condition: StableAmbulatory S tatus: AmbulatoryDischarge Destination: HomeTransportation: Private AutoAccompanied By: Jessie Follow-up Appointment: Moe esClinical Summary of Care: Patient DeclinedElectronic Signature(s)Signed: 11/05/2019 3:49:19 PM By: Yaron Quinones By: Judith Quinones on 11/01/2019 14:32:56 Low er Extremity Assessment DetailsPatient Name:Date of Service:JEOVANY LEWIS 11/01/2019 2:00PMMedical Record Number:[id number] Patient of /Sex:Treating RN:1995 (24 y.o. F) Susanna Rangel Care Provider: W in, MyoOther Clinician:Referring Provider: TreatingProvider/Accounting Teacher:Rasheed Rose PAULWeeks in Treatment: 21Electronic Signature(s)Signed: 11/01/2019 3:51:42 PM By: Rohini Rangel By: Asia Rangel on 11/01/2019 14:03:51 Mul ti Wound Chart DetailsPatient Name:Date of Service:LEWISJEOVANY 11/01/2019 2:00 PMMedical Record Number:[id number] Patient of /Sex:Treating RN:1995 (24 y.o. F) Renée Quinones Care Provider: Sade valdovinos MyoOren Clinician:Referring Provider: TreatingProvider/Accounting Teacher:Rasheed Rose PAULWeeks in Treatment: 21Vital SignsHeight(in):Pulse(bpm):108Weight(lbs): BloodPressure(mmHg): [...] Name:Date of Service:JEOVANY LEWIS 11/01/2019 2:00PMMedical Record Number:[id number] Patient of /Sex:Treating RN:1995 (24 y.o. F) Renée Quinones Care Provider: Terence Valentino Clinician:Referring Provider: TreatingProvider/Accounting Teacher:Rasheed Rose PAULWeeks in Treatment: 21Active InactiveNutritionNursing Diagnoses:Impaired [...] of Service:JEOVANY LEWIS 11/01/2019 2:00 PMMedical Record Number:[id number] Patient of /Sex:Treating RN:1995 (24 y.o. F) Susanna Rangel Provider: Terence Valentino Clinician:Referring Provider: TreatingProvider/Accounting Teacher:Rasheed Rose PAULWeeks in Treatment: 21Active ProblemsLocation of Pain Severity andDescription of PainPatient Has Pain? NoSite LocationsPain Management and MedicationCurrent Pain Management:Electronic Signature(s)Signed: 11/01/2019 3:51:42 PM By: Rohini Rangel By: Asia Rangel on 11/01/2019 14:06:29 Pat ient/Caregiver Education DetailsPatient Name:Date of Service:JEOVANY LEWIS 11/01/20192045bwfpbxu9:00 PMMedical Record Number:[id number] Patient of /Gender:Treating RN:1995 (24 y.o. F) Susanna Rangel Physician: Terence Valentino Clinician:Referring Physician: TreatingPhysician/Accounting Teacher:Rasheed Rose PAULWeeks in Treatment: 21Education AssessmentEducation Provided To:PatientEducation Topics ProvidedB asic Hygiene:Methods: Explain/VerbalElectronic Signature(s)Signed: 11/01/2019 3:51:42 PM By: Rohini Rangel By: Asia Rangel on 11/01/2019 14:06:39Treatment Notes SummaryWound #2 (Proximal, Midline Back)3. Primary Dressing AppliedFoam Vitals DetailsPatient Name:Date of Service:JEOVANY LEWIS 11/01/2019 2:00 PMMedical Record Number:[id number] Patient of /Sex:Treating RN:1995 (24 y.o. F) Susanna Rangel Care Provider: Terence Valentino Clinician:Referring Provider: TreatingProvider/Ext murphy:Rasheed Rose PAULWeeks in Treatment: 21Vital SignsTime Taken: 14:02Temperature (F):97.4Pulse (bpm): 108Respiratory Rate (breaths/min): 17Blood Pressure (mmHg): 91/66Reference Range: 80 - 120 mg / dlElectronic Signature(s)Signed: 11/01/2019 3:51:42 PM By: Rohini Rangel By: Asia Rangel on 11/01/2019 14:03:43 Wound Assessment DetailsPatient Name:Date of Service:JEOVANY LEWIS 11/01/2019 2:00 PMMedical Record Number:[id number] Patient of /Sex:Treating RN:1995 (24 y.o. F) Susanna Rangel Care Provider: Terence Valentino Clinician:Referring Provider: TreatingProvider/Accounting Teacher:Rasheed Rose PAULWeeks in Treatment: 21Wound StatusWound Number: [...] of Service:JEOVANY LEWIS 11/01/2019 2:00 PMMedical Record Number:[id number] Patient of /Sex:Treating RN:1995 (24 y.o. F) Susanna Rangel Care Provider: Terence Valentino Clinician:Referring Provider: TreatingProvider/Accounting Teacher:Rasheed Rose PAULWeeks in Treatment: 21Wound StatusWound Number: [...] rce(s) Supporting Document(s) ID Date Data Source [id number] 10/18/2019 02:00:00 PM [address] [facility] [address] [address]VJFHODR NAME: JEOVANY LEWIS DATE OF SERVICE: 10/18/19MR#: [id number] DATE OF : [birth year]ACCOUNT #: [id number] FOWLER ([id number])Visit Report for 10/18/2019Advanced Modalities Screening Tool DetailsPatient Name:Date of Service:JEOVANY LEWIS 10/18/2019 2:00PMMedical Record Number:[id number] Patient of /Sex:Treating RN:1995 (24 y.o. F) Renée Quinones Care Provider: Terence Valentino Clinician:Referring Provider: TreatingProvider/Accounting Teacher:Rasheed Rose PAULWeeks in Treatment: 19Advanced Modalities Screening Check ListHyperbaric Oxygen Therapy: Reviewed LCD or HBO policy from [employer] and/or NCDTherapy Not IndicatedNo Ap propriate IndicationElectronic Signature(s)Signed: 10/18/2019 3:44:51 PM By: Yaron Quinones By: Judith Quinones on 10/18/2019 14:10:37 -----Arrival Information DetailsPatient Name:Date of Service:JEOVANY LEWIS 10/18/2019 2:00PMMedical Record Number:[id number] Patient of /Sex:Treating RN:1995 (24 y.o. F) Susanna Rangel Care Provider: Terence Valentino Clinician:Referring Provider: TreatingProvider/Accounting Teacher:Rasheed Rose PAULWeeks in Treatment: 19Visit Information History SinceLast VisitHas Dressing in Place as Prescribed: YesPatient Arrived: AmbulatoryPain Present Now: NoArrival Time: 14:03Transfer Assistance: NonePatient Identification Verified: YesSecondary Verification Process Completed: YesElectronic Signature(s)Signed: 10/18/2019 3:50:19 PM By: Rohini Rangel By: Asia Rangel on 10/18/2019 14:03:50 D ischarge Instructions DetailsPatient Name:Date of Service:JEOVANY LEWIS Lizzette 10/18/20192:00 PMMedical Record Number:[id number] Patient of /Sex:Treating RN:1995 (24 y.o. F) Renée Quinones Care Provider: Terence Valentino Clinician:Referring Provider: TreatingProvider/Accounting Teacher:Rasheed Rose PAULWeeks in Treatment: 19Follow-up AppointmentsReturn Appointment [...] put new dressing on woundPrimary Wound DressingCut FoodBuzz Ag to fit wound bed - to [...] of Service:JEOVANY LEWIS Lizzette 10/18/2019 2:00PMMedical Record Number:[id number] Patient of /Sex:Treating RN:1995 (24 y.o. F) Judith QuinonesMosanjay Angella Provider: Terence Valentino Clinician:Referring Provider: TreatingProvider/Accounting Teacher:Rasheed Rose PAULWeeks in Treatment: 19Encounter Discharge Information Items Post ProcedureVitalsDischarge Condition: Stable Temperature(F): 98.5Ambulatory Status: AmbulatoryPulse (bpm):94Discharge Destination: Home Respiratory Rate(breaths/min): 17Transportation: Private Auto Blood Pressure(mmHg): 93/63Accompanied By: selfSchberenice Follow-up Appointment: YesClinical Summary of Care: Patient DeclinedElectronic Signature(s)Signed: 10/18/2019 3:44:51 PM By: Yaron Quinones By: Judith Quinones on 10/18/2019 14:54:37 Low er Extremity Assessment DetailsPatient Name:Date of Service:LEWISJEOVANY 10/18/2019 2:00PMMedical Record Number:[id number] Patient of /Sex:Treating RN:1995 (24 y.o. F) Susanna Rangel Provi jonathan: Terence Valentino Clinician:Referring Provider: TreatingProvider/Accounting Teacher:Rasheed Rose PAULWeeks in Treatment: 19Electronic Signature(s)Signed: 10/18/2019 3:50:19 PM By: Rohini Rangel By: Asia Rangel on 10/18/2019 14:04:03 Mul ti Wound Chart DetailsPatient Name:Date of Service:JEOVANY LEWIS 10/18/2019 2:00 PMMedical Record Number:[id number] Patient of /Sex:Treating RN:1995 (24 y.o. F) Nani Quinonesimarodríguez Care Provider: Sade valdovinos, MyoOther Clinician:Referring Provider: TreatingProvider/Accounting Teacher:Rasheed Rose PAULWeeks in Treatment: 19Vital SignsHeight(in): Capillary Lpapn366Dndfqif(mg/dl):Weight(lbs):Pulse(bpm): 102Body Mass Index(BMI):Blood Pressure(mmHg): 103/71Temperature(F): 98.6Respiratory 18Rate(breaths/min):5Photos: [...] OpenMeasurements L x W x D 1x14.5x0.1 6w6c66g7.9x0.1(cm)Area (cm) : 11.388 00.707Volume (cm) : 1.139 [...] N/APressureProcedural Pain: 0 N/A0Post Procedural Pain: 1 N/Z5Rwkcuiajdqr Treatment Procedure was tolerated well N/AProcedure was tolerated wellResponse:Post Debridement 1x14.5x0.1 N/A1x0.9x0.1Measurements L x W x D(cm)Post Debridement Volume: 1.139 N/A0.071(cm)Procedures Performed: Debridement N/ACompression TherapyDebridementTreatment NotesNotesDr Rose in. Culture obtained.Electronic Signature(s)Signed: 10/18/2019 3:44:51 PM By: Yaron Quinones By: Judith Quinones on 10/18/2019 14:41:53 -------Multi-Disciplinary Care Plan DetailsPatient Name:Date of Service:JEOVANY LEWIS 10/18/20192:00 PMMedical Record Number:[id number] Patient of /Sex:Treating RN:1995 (24 y.o. F) [facility] Care Provider: Sade valdovinos, MyoOther Clinician:Referring Provider: TreatingProvider/Accounting Teacher:Brydges, KennethTEJERA, PAULWeeks in Treatment: 19Active InactiveNutritionNursing Diagnoses:Impaired [...] of Service:JEOVANY LEWIS 10/18/2019 2:00 PMMedical Record Number:[id number] Patient of /Sex:Treating RN:1995 (24 y.o. F) Susanna Rangel Care Provider: Sade valdovinos, MyoOther Clinician:Referring Provider: TreatingProvider/Accounting Teacher:Rasheed Rose PAULWeeks in Treatment: 19Active ProblemsLocation of Pain Severity andDescription of PainPatient Has Pain? NoSite LocationsPain Management and MedicationCurrent Pain Management:Electronic Signature(s)Signed: 10/18/2019 3:50:19 PM By: Rohini Rangel By: Asia Rangel on 10/18/2019 14:04:21 Patient/Caregiver Education DetailsPatient Name:Date of Service:JEOVANY LEWIS 10/18/20199721dmsvaie4:00 PMMedical Record Number:[id number] Patient of /Gender:Treating RN:1995 (24 y.o. F) [facility]y [facility]angelhel[facility] Care Physician: Sade valdovinos MyoOren Clinician:Referring Physician: TreatingPhysician/Accounting Teacher:Rasheed Rose PAULWeeks in Treatment: 19Education AssessmentEducation Provided To:PatientEducation Topics ProvidedBasic Hygiene:Methods: Explain/VerbalElectronic Signature(s)Signed: 10/18/2019 3:50:19 PM By: Rohini Rangel By: Asia Rangel on 10/18/2019 14:04:33Treatment Notes SummaryWound #2 (Proximal, Midline Back)3. Primary Dressing AppliedFoamSilver Dressings5. Secured withTapeNotestwo layer com pressionWound #5 (Right, Lateral Lower Leg)3. Primary Dressing AppliedFoamSilver Dressings5. Secured withTapeNotestwo layer compression --Vitals DetailsPatient Name:Date of Service:JEOVANY LEWIS 10/18/2019 2:00 PMMedical Record Number:[id number] Patient of /Sex:Treating RN:1995 (24 y.o. F) Susanna Rangel Care Provider: Terence Valentino Clinician:Referring Provider: TreatingProvider/Accounting Teacher:Rasheed Rose PAULWeeks in Treatment: 19Vital SignsTime Taken: 14:05Temperature (F):98.6Pulse (bpm): 102Respiratory Rate (breaths/min): 18Blood Pressure (mmHg): 103/71Capillary Blood Glucose (mg/dl): 400Reference Range: 80 - 120 mg / dlElectronic Signature(s)Signed: 10/18/2019 3:50:19 PM By: Rohini Rangel By: Asia Rangel on 10/18/2019 14:05:28 [place] Assessment DetailsPatient Name:Date of Service:JEOVANY LEWIS 10/18/2019 2:00 PMMedical Record Number:[id number] Patient of /Sex:Treating RN:1995 (24 y.o. F) Susanna Rangel Care Provider: Terence Valentino Clinician:Referring Provider: TreatingProvider/Accounting Teacher:Rasheed Rose PAULWeeks in Treatment: 19Wound StatusWound Number: [...] of Service:JEOVANY LEWIS 10/18/2019 2:00 PMMedical Record Number:[id number] Patient of /Sex:Treating RN:1995 (24 y.o. F) Susanna Rangel Care Provider: Sade valdovinos MyoOther Clinician:Referring Provider: TreatingProvider/Accounting Teacher:Rasheed Rose PAULWeeks in Treatment: 19Wound StatusWound Number: 4 Primary AtypicalEtiology:Wound Location: Left ForearmWound Healed - EpithelializedWounding Event: Gradually AppearedStatus:Date Acquired: 09/19/2019Comorbid Type I Diabetes, Asthma, Coronary ArteryWeeks Of Treatment: 2History: Disease, Rheumatoid Arthritis, Osteoarth ritisClustered Wound: NoPhotosWound MeasurementsLength: (cm) 0 % Mbza986%Width: (cm) 0 % ReduVolume: 100%Depth: (cm) 0Area: (cm) 0Volume: (cm) 0Wound DescriptionClassification: Full Thickness Without Exposed SupportStructuresWound BedGranulation Amount: None Present (0%)Necrotic Amount: None Present (0%)ction in Area:ction inElectronic Signature(s)Signed: 10/18/2019 3:50:19 PM By: Diony Rangelntered By: Asia Rangel on 10/18/2019 14:08:15 [place] Assessment DetailsPatient Name:Date of Service:JEOVANY LEWIS 10/18/2019 2:00 PMMedical Record Number:[id number] Patient of /Sex:Treating RN:1995 (24 y.o. F) Susanna Ranegl Care Provider: Sade valdovinos MyoOther Clinician:Referring Provider: TreatingPr ovider/Accounting Teacher:Rasheed Rose PAULWeeks in Treatment: 19Wound StatusWound Number: [...] rce(s) Supporting Document(s) ID Date Data Source [id number] 10/18/2019 02:00:00 PM EDT [facility] [place], [place] [address]PATIENT NAME: JEOVANY LEWIS DATE OF SERVICE: 10/18/19MR#: [id number] DATE OF : [birth year]ACCOUNT #: [id number] FOWLER ([id number])Visit Report for 10/18/2019Chief Complaint Document DetailsPatient Name:Date of Service:JEOVANY LEWIS 10/18/2019 2:00 PMMedical Record Number:[id number] Patient of /Sex:Treating RN:1995 (24 y.o. F)Primary Care Provider: Sade valdovinos, MyoOther Clinician:Referring Provider: TreatingProvider/Accounting Teacher:Rasheed Rose PAULWeeks in Treatment: 19Information Obtained from: PatientChief ComplaintBack woundsRight lateral calf venous woundElectronic Signature(s)Signed: 10/22/2019 4:14:25 PM By: Eliud Rose D.O., FACSEntered By: Eliud Rose on 10/18/2019 14:40:00 HPI DetailsPatient Name:Date of Service:JEOVANY LEWIS 10/18/2019 2:00 PMMedical Record Number:[id number] Patient of /Sex:Treating RN:1995 (24 y.o. F)Primary Care Provider: Sade valdovinos MyoOther Clinician:Referring Provider: TreatingProvider/Accounting Teacher:Rasheed Rose PAULWeeks in Treatment: 19History of Present IllnessHPI Description: This is a poorly controlled type 1 diabetic sm[facility] with a wound onher left plantar heel area. This had been present for approximately 2-3 monthsand appears to have occurred while shewas admitted to the hospital during a diabetic coma where she was unconsciousfor approximately 4 days and requiredventilator support.She had been caring for this at home and her HgbA1c on 05/27/18 was 13.4.She had started seeing an Ui Application Developer after this to assist with her bloodsugars.Positive DiabetesPositive TobaccoNegative Obesity (BMI 19.11)Negative Rapid Weight LossNegative Steroids or Vtgmneeakphy08/11/19: Ankle Brachial Index: Left 0.98 Right 1.083: [...] of Service:JEOVANY LEWIS Lizzette 10/18/20192:00 PMMedical Record Number:[id number] Patient of /Sex:Treating RN:1995 (24 y.o. 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 F)Primary Care Provider: Elliot Valentino OtherClinician:Referring Provider: TreatingProvider/Accounting Teacher:Rasheed Rose PAULWeeks in Treatment: 19Active ProblemsICD-10Evaluated EncounterCode Description ActiveDate Today YwyoalkkoF41.209A Unspecified open wound of unspecified back wall of06/07/2019 No Yesthorax without penetration into thoracic cavity, ezhwxqxyerbcgdcaR39.212 Non-pressure chronic ulcer of right calf with fat layer10/18/2019 No RerqusairhI90.311 Chronic venous hypertension (idiopathic) with ulcer of10/18/2019 [...] rce(s) Supporting Document(s) ID Date Data Source [id number] 10/18/2019 02:00:00 PM EDT [facility] [place], [place] [address]PATIENT NAME: JEOVANY LEWIS DATE OF SERVICE: 10/18/19MR#: [id number] DATE OF : [birth year]ACCOUNT #: [id number] FOWLER ([id number])Visit Report for 10/18/2019Compression Therapy DetailsPatient Name:Date of Service:JEOVANY LEWIS 10/18/2019 2:00 PMMedical Record Number:[id number] Patient of /Sex:Treating RN:1995 (24 y.o. F) Nani Quinonesimarodríguez Care Provider: Sade valdovinos, MyoOther Clinician:Referring Provider: TreatingProvider/Accounting Teacher:Rasheed Rose PAULWeeks in Treatment: 19Compression Therapy Performed for Wound Assessment: Wound #5 Right,LateralLower LegPerformed By: Clinician Judith Quinones, ANNCompression Type: Double LayerPost Procedure DiagnosisSame as Pre-procedureElectronic Signature(s)Signed: 10/18/2019 3:44:51 PM By: Judith QuinonesEntered By: Judith Quinones on 10/18/2019 14:38:49 Debridement DetailsPatient Name:Date of Service:JEOVANY LEWIS Lizzette 10/18/2019 2:00 PMMedical Record Number:[id number] Patient of /Sex:Treating RN:1995 (24 y.o. F) Renée Quinones Care Provider: Terence Valentino Clinician:Referring Provider: TreatingProvider/Accounting Teacher:Rasheed Rose PAULWeeks in Treatment: 19Debridement Performed for [...] of Service:JEOVANY LEWISFrancis 10/18/2019 2:00 PMMedical Record Number:[id number] Patient of /Sex:Treating RN:1995 (24 y.o. F) [facility]: Terence Valentino Clinician:Referring Provider: TreatingProvider/Accounting Teacher:Rasheed Rose PAULWeeks in Treatment: 19Debridement Performed for [...] rce(s) Supporting Document(s) ID Date Data Source [id number] 10/20/2019 12:06:00 PM EDT [facility] Name Value Range Interpretation Code Description Data Gisela rce(s) Supporting Document(s) ORGANISM [employer] [facility] COLONY COUNT N [facility] ID Date Data Source [id number] 10/11/2019 02:00:00 PM EDT [address] [address]FVUREFX NAME: JEOVANY LEWIS DATE OF SERVICE: 10/11/19MR#: [id number] DATE OF : [birth year]ACCOUNT #: [id number] LEWIS ([id number])Visit Report for 10/11/2019Debridement DetailsPatient Name:Date of Service:JEOVANY LEWIS 10/11/2019 2:00 PMMedical Record Number:[id number] Patient of /Sex:Treating RN:1995 (24 y.o. F) Judith QuinonesPrimarodríguez Care Provider: Sade valdovnios, MyoOther Clinician:Referring Provider: TreatingProvider/Accounting Teacher:Rasheed Rose PAULWeeks in Treatment: 18Debridement Performed for [...] of Service:JEOVANY LEWIS 10/11/2019 2:00 PMMedical Record Number:[id number] Patient of /Sex:Treating RN:1995 (24 y.o. F) Renée Quinones Care Provider: Sade valdovinos, MyoOther Clinician:Referring Provider: TreatingProvider/Accounting Teacher:Rasheed Rose PAULWeeks in Treatment: 18Debridement Performed for [...] rce(s) Supporting Document(s) ID Date Data Source [id number] 10/11/2019 02:00:00 PM EDT [facility] [address]AN[address] [address]QJCITNZ NAME: JEOVANY LEWIS DATE OF SERVICE: 10/11/19MR#: [id number] DATE OF : [birth year]ACCOUNT #: [id number] LEWIS ([id number])Visit Report for 10/11/2019Chi Complaint Document DetailsPatient Name:Date of Service:JEOVANY LEWIS 10/11/2019 2:00 PMMedical Record Number:[id number] Patient of /Sex:Treating RN:1995 (24 y.o. F)Primary Care Provider: Terence Valentino Clinician:Referring Provider: TreatingProvider/Accounting Teacher:Rasheed Rose PAULWeeks in Treatment: 18Information Obtained from: [facility] ComplaintLeft heel diabetic foot wound for approximately 3 months.Electronic Signature(s)Signed: 10/12/2019 10:13:48 AM By: Eliud Rose D.O., FACSEntered By: Eliud Rose on 10/11/2019 14:16:22 HPI DetailsPatient Name:Date of Service:JEOVANY LEWISFrancis 10/11/2019 2:00 PMMedical Record Number:[id number] Patient of /Sex:Treating RN:1995 (24 y.o. F)Primary Care Provider: Terence Valentino Clinician:Referring Provider: TreatingProvider/Accounting Teacher:Rasheed Rose PAULWeeks in Treatment: 18History of Present IllnessHPI Description: This is a poorly controlled type 1 diabetic smoker [facility] with a wound onher left plantar heel area. This had been present for approximately 2-3 monthsand appears to have occurred while shewas admitted to the hospital during a diabetic coma where she was unconsciousfor approximately 4 days and requiredventilator support.She had been caring for this at home and her HgbA1c on 05/27/18 was 13.4.She had started seeing an Ui Application Developer after this to assist with her bloodsugars.Positive DiabetesPositive TobaccoNegative Obesity (BMI 19.11)Negative Rapid Weight LossNegative Steroids or Adabebfrbglu86/11/19: Ankle Brachial Index: Left 0.98 Right 1.0807/06/2019: [...] Name:Date of Service:JEOVANY LEWIS 10/11/2019 2:00PMMedical Record Number:[id number] Patient of /Sex:Treating RN:1995 (24 y.o. F) Renée Quinones Care Provider: Terence Valentino Clinician:Referring Provider: TreatingProvider/Accounting Teacher:Rasheed Rose PAULWeeks in Treatment: 18Verbal / Phone [...] dietElectronic Signature(s)Signed: 10/12/2019 10:13:48 AM By: Eliud Rose D.O., FACSSigned: 10/18/2019 3:52:46 PM By: Yaron Quinones By: Judith Quinones on 10/11/2019 14:25:41 Problem List DetailsPatient Name:Date of Service:JEOVANY LEWIS 10/11/2019 2:00PMMedical Record Number:[id number] Patient of /Sex:Treating RN:1995 (24 y.o. F)Primary Care Provider: Terence Valentino Clinician:Referring Provider: TreatingProvider/Accounting Teacher:Rasheed Rose PAULWeeks in Treatment: 18Active ProblemsICD-10Evaluated EncounterCode Description ActiveDate Today JlvpabjjpP08.209A Unspecified open wound of unspecified back wall of06/07/2019 No Yesthorax without penetration into thoracic cavity, rafragnvdrkjurytC79.802A Unspecified open wound of left forearm, initial encounter 10/04/2019No YesS51.802S Unspecified open wound of left forearm, sequela 10/04/2019 NoYesInactive ProblemsResolved ProblemsElectronic Signature(s)Signed: 10/12/2019 10:13:48 AM By: Eliud Rose D.O., FACSEntered By: Eliud Rose on 10/11/2019 14:16:18 DIC 1400TRANS:10/11/19 1400 WOUND CENTERTRANS BY:ABNER SIGNED:TIME SIGNED:REPORT COPY TO: Name Value Range Interpretation Code Description Data Gisela rce(s) Supporting Document(s) ID Date Data Source [id number] 10/11/2019 02:00:00 PM EDT [facility] [place], [place] [address]PATIENT NAME: JEOVANY LEWIS DATE OF SERVICE: 10/11/19MR#: [id number] DATE OF : [birth year]ACCOUNT #: [id number] LEWIS ([id number])Visit Report for 10/11/2019Advanced Modalities Screening Tool DetailsPatient Name:Date of Service:JEOVANY LEWIS 10/11/2019 2:00PMMedical Record Number:[id number] Patient of /Sex:Treating RN:1995 (24 y.o. F) Renée Quinones Care Provider: Sade valdovinos MyoOther Clinician:Referring Provider: TreatingProvider/Accounting Teacher:Rasheed Rose PAULWeeks in Treatment: 18Advanced Modalities Screening Check ListHyperbaric Oxygen Therapy: Reviewed LCD or HBO policy from Mac and/or NCDTherapy Not IndicatedNo Appropriate IndicationElectronic Signature(s)Signed: 10/18/2019 3:52:46 PM By: Yaron Quinones By: Judith Quinones on 10/11/2019 14:26:02 -------Arrival Information DetailsPatient Name:Date of Service:JEOVANY LEWIS 10/11/2019 2:00PMMedical Record Number:[id number] Patient of /Sex:Treating RN:1995 (24 y.o. F) Susanna Rangel Care Provider: Terence Valentino Clinician:Referring Provider: TreatingProvider/Accounting Teacher:Rasheed Rose PAULWeeks in Treatment: 18Visit Information History SinceLast VisitHas Dressing in Place as Prescribed: YesPatient Arrived: AmbulatoryPain Present Now: YesArrival Time: 13:55Transfer Assistance: NonePatient Identification Verified: YesSecondary Verification Proc ess Completed: YesElectronic Signature(s)Signed: 10/11/2019 3:22:58 PM By: Rohini Rangel By: Asia Rangel on 10/11/2019 13:56:19 ----Discharge Instructions DetailsPatient Name:Date of Service:JEOVANY LEWIS 10/11/20192:00 PMMedical Record Number:[id number] Patient of /Sex:Treating RN:1995 (24 y.o. F) Renée Quinones Care Provider: Terence Valentino Clinician:Referring Provider: TreatingProvider/Accounting Teacher:Rasheed Rose PAULWeeks in Treatment: 18Follow-up AppointmentsReturn Appointment [...] put new dressing on woundPrimary Wound DressingCut FoodBuzz Ag to fit wound bed - to both wounds, cover with MepilexAdditional Orders / InstructionsOther: - high protein dietPatient Received Instructions: YesElectronic Signature(s)Signed: 10/11/2019 3:34:40 PM By: Holly HillEntered By: Holly Hill on 10/11/2019 14:55:33 Lower Extremity Assessment DetailsPatient Name:Date of Service:JEOVANY LEWIS 10/11/2019 2:00PMMedical Record Number:[id number] Patient of /Sex:Treating RN:1995 (24 y.o. F) Susanna Rangel Care Provider: Terence Valentino Clinician:Referring Provider: TreatingProvider/Accounting Teacher:Rasheed Rose PAULWeeks in Treatment: 18Electronic Signature(s)Signed: 10/11/2019 3:22:58 PM By: Rohini Rangel By: Asia Rangel on 10/11/2019 13:57:58 Mul ti Wound Chart DetailsPatient Name:Date of Service:JEOVANY LEWIS 10/11/2019 2:00PMMedical Record Number:[id number] Patient of /Sex:Treating RN:1995 (24 y.o. F) Renée Quinones Care Provider: Sade valdovinos, MyoOther Clinician:Referring Provider: TreatingProvider/Accounting Teacher:Rasheed Rose PAULWeeks in Treatment: 18Vital SignsHeight(in): Capillary Wbpwm622Hyzcsqe(mg/dl):Weight(lbs):Pulse(bpm): 103Body Mass Index(BMI):Blood Pressure(mmHg): 124/85Temperature(F):Respiratory 18Rate(breaths/min):N/APhotos: [2:No [...] Name:Date of Service:JEOVANY LEWISFrancis 10/11/2019 2:00PMMedical Record Number:[id number] Patient of /Sex:Treating RN:1995 (24 y.o. F) Renée Quinones Care Provider: Terence Valentino Clinician:Referring Provider: TreatingProvider/Accounting Teacher:Rasheed Rose PAULWeeks in Treatment: 18Active InactiveNutritionNursing Diagnoses:Impaired [...] Patient/Caregiver Education DetailsPatient Name:Date of Service:JEOVANY LEWIS 10/11/20190306mxhitfj8:00PMMedical Record Number:[id number] Patient of /Gender:Treating RN:1995 (24 y.o. F) [facility]: Terence Valentino Clinician:Referring Physician: TreatingPhysician/Accounting Teacher:Rasheed Rose PAULWeeks in Treatment: 18Education AssessmentEducation Provided To:PatientEducation Topics ProvidedWound/Skin Impairment:Methods: Explain/VerbalResponses: State content correctlyElectronic Signature(s)Signed: 10/18/2019 3:52:46 PM By: Yaron Quinones By: Judith Quinones on 10/11/2019 14:26:57 Vit als DetailsPatient Name:Date of Service:JEOVANY LEWIS 10/11/20192:00 PMMedical Record Number:[id number] Patient of /Sex:Treating RN:1995 (24 y.o. F) Susanna Rangel Provider: Terence Valentino Clinician:Referring Provider: TreatingProvider/Accounting Teacher:Rasheed Rose PAULWeeks in Treatment: 18Vital SignsTime Taken: 13:56Pulse (bpm):103Respiratory Rate (breaths/min): 18Blood Pressure (mmHg): 124/85Capillary Blood Glucose (mg/dl): 200Reference Range: 80 - 120 mg / dlElectronic Signature(s)Signed: 10/11/2019 3:22:58 PM By: Rohini Rangel By: Asia Rangel on 10/11/2019 13:56:59 Wound Assessment DetailsPatient Name:Date of Service:JEOVANY LEWIS Lizzette 10/11/2019 2:00 PMMedical Record Number:[id number] Patient of /Sex:Treating RN:1995 (24 y.o. F) Susanna Rangel Care Provider: Terence Valentino Clinician:Referring Provider: TreatingProvider/Accounting Teacher:Rasheed Rose PAULWeeks in Treatment: 18Wound StatusWound Number: [...] of Service:JEOVANY LEWIS 10/11/2019 2:00 PMMedical Record Number:[id number] Patient of /Sex:Treating RN:1995 (24 y.o. F) Susanna Rangel Care Provider: Terence Valentino Clinician:Referring Provider: TreatingProvider/Accounting Teacher:Rasheed Rose PAULWeeks in Treatment: 18Wound StatusWound Number: [...] rce(s) Supporting Document(s) ID Date Data Source [id number] 10/05/2019 06:59:[address] [facility] Name Value Range Interpretation Code Description Data Gisela rce(s) Supporting Document(s) Sodium 133 mmol/L 137-145 Below low normal [facility] Potassium 3.5-5.1 Normal (applies to non-numeric resul ts) [facility] Chloride 100 mmol/L 98-112 Normal (applies to non-numeric resul ts) [facility] Carbon Dioxide CO2 22.0-33.0 Normal (applies to non-numer ic results) [facility] Anion Gap 4.0-11.0 Normal (applies to non-numeric resul ts) [facility] BUN 9 mg/dL 7-17 Normal (applies to non-numeric resul ts) [facility] Creatinine 0.70-1.20 Normal (applies to non-numeric resul ts) [facility] GFR 84 mL/min >60 Normal (applies to non-numeric resul ts) [facility] Result based on MDRD formula. Glucose Level 321 mg/dL 74-99 Above high normal [facility] The reference range is only applicable w hen fasting. Calcium-Uncorrected 8.4-10.2 Normal (applies to non-nume vanessa results) [facility] Corrected Calcium 8.4-10.2 Normal (applies to non-numeri c results) [facility] ID Date Data Source [id number] 10/05/2019 06:59:[address] [facility] Name Value Range Interpretation Code Description Data Gisela rce(s) Supporting Document(s) Thyroid Stimulate Hormone TSH 0.358-3.740 Above high ivana l [facility] ID Date Data Source [id number] 10/05/2019 06:59:[address] [facility] Name Value Range Interpretation Code Description Data Gisela rce(s) Supporting Document(s) Free T4 (Free Thyroxine) 0.76-1.46 Normal (applies to non -numeric results) [facility] ID Date Data Source [id number] 10/05/2019 06:46:[address] [facility] Name Value Range Interpretation Code Description Data Gisela rce(s) Supporting Document(s) Hemoglobin A1C % Less than 5.7% Above high normal [facility] HBA1C: Normal: Less than 5.7% Prediabetes: 5.7% to 6.4% Diabetes: 6.5% or higher HA1C % vs Estimated Average Glucose (eAG) % eAG % eAG 6% 126 mg/dL 10% 240 mg/dL 7% 154 mg/dL 11% 269 mg/dL 8% 183 mg/dL 12% 298 mg/dL 9% 212 mg/dL Reference: [place] [employer], 2017 ID Date Data Source [id number] 10/05/2019 06:44:[address] [facility] Name Value Range Interpretation Code Description Data Gisela rce(s) Supporting Document(s) Beta HCG Screen,Qualitative Negative Normal (appli es to non-numeric results) [facility] ID Date Data Source [id number] 10/04/2019 03:00:00 PM EDT [place], [place] [address]PATIENT NAME: JEOVANY LEWSI DATE OF SERVICE: 10/04/19MR#: [id number] DATE OF : [birth year]ACCOUNT #: [id number] LEWIS ([id number])Visit Report for 10/04/2019Debridement DetailsPatient Name:Date of Service:JEOVANY LEWIS 10/04/2019 3:00 PMMedical Record Number:[id number] Patient of /Sex:Treating RN:1995 (24 y.o. F) Renée Quinones Care Provider: Terence Valentino Clinician:Referring Provider: TreatingProvider/Accounting Teacher:Rasheed Rose PAULWeeks in Treatment: 17Debridement Performed for [...] rce(s) Supporting Document(s) ID Date Data Source [id number] 10/04/2019 03:00:00 PM EDT [facility] [address] [address]OMBUQTP NAME: JEOVANY LEWIS DATE OF SERVICE: 10/04/19MR#: [id number] DATE OF : [birth year]ACCOUNT #: [id number] LEWIS ([id number])Visit Report for 10/04/2019[facility] Complaint Document DetailsPatient Name:Date of Service:JEOVANY LEWIS 10/04/2019 3:00 PMMedical Record Number:[id number] Patient of /Sex:Treating RN:1995 (24 y.o. F)Primary Care Provider: Terence Valentino Clinician:Referring Provider: TreatingProvider/Accounting Teacher:Rasheed Rose PAULWeeks in Treatment: 17Information Obtained from: [facility] ComplaintLeft heel diabetic foot wound for approximately 3 months.Electronic Signature(s)Signed: 10/05/2019 8:51:03 AM By: Eliud Rose D.O., FACSEntered By: Eliud Rose on 10/04/2019 14:42:03 HPI DetailsPatient Name:Date of Service:JEOVANY LEWISFrancis 10/04/2019 3:00 PMMedical Record Number:[id number] Patient of /Sex:Treating RN:1995 (24 y.o. F)Primary Care Provider: Terence Valentino Clinician:Referring Provider: TreatingProvider/Accounting Teacher:Rasheed Rose PAULWeeks in Treatment: 17History of Present IllnessHPI Description: This is a poorly controlled type 1 diabetic smoker [facility] with a wound onher left plantar heel area. This had been present for approximately 2-3 monthsand appears to have occurred while shewas admitted to the hospital during a diabetic coma where she was unconsciousfor approximately 4 days and requiredventilator support.She had been caring for this at home and her HgbA1c on 05/27/18 was 13.4.She had started seeing an Ui Application Developer after this to assist with her bloodsugars.Positive DiabetesPositive TobaccoNegative Obesity (BMI 19.11)Negative Rapid Weight LossNegative Steroids or Bkcgdzdgeyjb40/11/19: Ankle Brachial Index: Left 0.98 Right 1.0807/06/2019: [...] Name:Date of Service:JEOVANY LEWIS 10/04/20193:00 PMMedical Record Number:[id number] Patient of /Sex:Treating RN:1995 (24 y.o. F) Renée Quinones Care Provider: Terence Valentino Clinician:Referring Provider: TreatingProvider/Accounting Teacher:Rasheed Rose PAULWeeks in Treatment: 17Verbal / Phone [...] Name:Date of Service:JEOVANY LEWIS 10/04/20193:00 PMMedical Record Number:[id number] Patient of /Sex:Treating RN:1995 (24 y.o. 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, zfwsilukhrqlwnpbO00.802A Unspecified open wound of left forearm, initial encounter 10/04/2019No YesS51.802S Unspecified open wound of left forearm, sequela 10/04/2019No YesInactive ProblemsResolved ProblemsElectronic Signature(s)Signed: 10/05/2019 8:51:03 AM By: Eliud Rose D.O., FACSEntered By: Eliud Rose on 10/04/2019 15:11:25 DIC 1500TRANS:10/04/19 1500 WOUND CENTERTRANS BY:ABNER SIGNED:TIME SIGNED:REPORT COPY TO: Name Value Range Interpretation Code Description Data Gisela rce(s) Supporting Document(s) ID Date Data Source [id number] 10/04/2019 03:00:00 PM EDT [place], [place] [address]PATIENT NAME: JEOVANY LEWIS DATE OF SERVICE: 10/04/19MR#: [id number] DATE OF : [birth year]ACCOUNT #: [id number] LEWIS ([id number])Visit Report for 10/04/2019Advanced Modalities Screening Tool DetailsPatient Name:Date of Service:JEOVANY LEWIS 10/04/20193:00 PMMedical Record Number:[id number] Patient of /Sex:Treating RN:1995 (24 y.o. F) Renée Quinones Care Provider: Sade valdovinos, MyoOther Clinician:Referring Provider: TreatingProvider/Accounting Teacher:Rasheed Rose PAULWeeks in Treatment: 17Advanced Modalities Screening Check ListHyperbaric Oxygen Therapy: Reviewed LCD or HBO policy from [employer] and/or NCDTherapy Not IndicatedNo Appropriate IndicationElectronic Signature(s)Signed: 10/10/2019 3:52:07 PM By: Yaron Quinones By: Judith Quinones on 10/04/2019 15:09:57 --------Arrival Information DetailsPatient Name:Date of Service:JEOVANY LEWIS 10/04/20193:00 PMMedical Record Number:[id number] Patient of /Sex:Treating RN:1995 (24 y.o. F) Susanna Rangel Care Provider: Terence Valentino Clinician:Referring Provider: TreatingProvider/Accounting Teacher:Rasheed Rose PAULWeeks in Treatment: 17Visit Information History SinceLast VisitHas Dressing in Place as Prescribed: NoPatient Arrived: AmbulatoryPain Present Now: NoArrival Time: 14:51Transfer Assistance: NonePatient Identification Verified: YesSecondary Verification Process Completed: YesElectronic Signature(s)Signed: 10/04/2019 3:15:04 PM By: Rohini Rangel By: Asia Rangel on 10/04/2019 14:52:14 --Discharge Instructions DetailsPatient Name:Date of Service:JEOVANY LEWIS 10/04/20193:00 PMMedical Record Number:[id number] Patient of /Sex:Treating RN:1995 (24 y.o. F) Renée Quinones Care Provider: Terence Valentino Clinician:Referring Provider: TreatingProvider/Accounting Teacher:Rasheed Rose PAULWeeks in Treatment: 17Follow-up AppointmentsReturn Appointment [...] YesElectronic Signature(s)Signed: 10/04/2019 3:36:40 PM By: Holly iHllEntered By: Holly Hill on 10/04/2019 15:16:45--------- Encounter Discharge Information DetailsPatient Name:Date of Service:DEBBIE JEOVANY Lizzette 10/04/2019 3:00PMMedical Record Number:[id number] Patient of /Sex:Treating RN:1995 (24 y.o. F) Renée Quinones Care Provider: Terence Valentino Clinician:Referring Provider: TreatingProvider/Accounting Teacher:Rasheed Rose PAULWeeks in Treatment: 17Encounter Discharge Information Items Post ProcedureVitalsDischarge Condition: Stable Temperature(F): 98.6Ambulatory Status: AmbulatoryPulse (bpm):103Discharge Destination: Home Respiratory Rate(breaths/min): 16Transportation: Private Auto Blood Pressure(mmHg): 105/70Accompanied By: selfSchedule Follow-up Appointment: YesClinical Summary of Care: Patient DeclinedElectronic Signature(s)Signed: 10/10/2019 3:52:07 PM By: Yaron Quinones By: Judith Quinones on 10/04/2019 15:20:07 Low er Extremity Assessment DetailsPatient Name:Date of Service:JEOVANY LEWIS 10/04/2019 3:00PMMedical Record Number:[id number] Patient of /Sex:Treating RN:1995 (24 y.o. F) Susanna Rangel Care Provider: Terence Valentino Clinician:Referring Provider: TreatingProvider/Accounting Teacher:Rasheed Rose PAULWeeks in Treatment: 17Electronic Signature(s)Signed: 10/04/2019 3:15:04 PM By: Rohini Rangel By: Asia Rangel on 10/04/2019 14:53:07 Mul ti Wound Chart DetailsPatient Name:Date of Service:JEOVANY LEWIS 10/04/2019 3:00 PMMedical Record Number:[id number] Patient of /Sex:Treating RN:1995 (24 y.o. F) Renée Quinones Care Provider: Terence Valentino Clinician:Referring Provider: TreatingProvider/Accounting Teacher:Rasheed Rose PAULWeeks in Treatment: 17Vital SignsHeight(in):Pulse(bpm):108Weight(lbs): BloodPressure(mmHg): [...] ConvertedOpenMeasurements L x W x D 2x15.5x0.1 6x4a34d3.7x0.1(cm)Area (cm) : 24.347 00.55Volume (cm) : 2.435 00.055%Reduction in Area: -726.70% 100.00%N/A%Reduction in Volume: -725.40% 100.00%N/AClassification: Full Thickness Without Full ThicknessWithout Full Thickness WithoutExposed Support Structures Exposed Support Structures Exposed SupportStructuresExudate Amount: Medium N/AMediumExudate Type: Serosanguineous N/ASerosanguineousExudate Color: red, brown N/Ared, brownGranulation Amount: Medium (34-66%) N/ANone Present (0%)Granulation Quality: [place] N/AN/ANecrotic Amount: Medium (34-66%) N/ALarge (67-100%)Debridement: Debridement [...] Name:Date of Service:JEOVANY LEWISFrancis 10/04/20193:00 PMMedical Record Number:[id number] Patient of /Sex:Treating RN:1995 (24 y.o. F) [facility] Care Provider: Sade valdovinos, MyoOther Clinician:Referring Provider: TreatingProvider/Accounting Teacher:Rasheed Rose PAULWeeks in Treatment: 17Active InactiveNutritionNursing Diagnoses:Impaired [...] Name:Date of Service:JEOVANY LEWIS 10/04/2019 3:00PMMedical Record Number:[id number] Patient of /Sex:Treating RN:1995 (24 y.o. F) Susanna Rangel Care Provider:Other Clinician:Sade valdovinos MyoReferrsalvador Provider: TreatingProvider/Accounting Teacher:Rasheed Rose PAULWeeks in Treatment: 17Active ProblemsLocation of Pain Severity andDescription of PainPatient Has Pain? NoSite LocationsPain Management and MedicationCurrent Pain Management:Electronic Signature(s)Signed: 10/04/2019 3:15:04 PM By: Rohini Rangel By: Asia Rangel on 10/04/2019 15:00:39 Pat ient/Caregiver Education DetailsPatient Name:Date of Service:JEOVANY LEWIS 10/04/20199216zwbtxfv4:00 PMMedical Record Number:[id number] Patient of /Gender:Treating RN:1995 (24 y.o. F) Susanna Rangel Care Physician: Terence Valentino Clinician:Referring Physician: TreatingPhysician/Accounting Teacher:Rasheed Rose PAULWeeks in Treatment: 17Education AssessmentEducation Provided [...] of Service:JEOVANY LEWIS 10/04/2019 3:00 PMMedical Record Number:[id number] Patient of /Sex:Treating RN:1995 (24 y.o. F) Susanna Rangel Care Provider: Terence Valentino Clinician:Referring Provider: TreatingProvider/Accounting Teacher:Rasheed Rose PAULWeeks in Treatment: 17Vital SignsTime Taken: 14:40Temperature (F):98.4Pulse (bpm): 108Respiratory Rate (breaths/min): 17Blood Pressure (mmHg): 114/74Reference Range: 80 - 120 mg / dlElectronic Signature(s)Signed: 10/04/2019 3:15:04 PM By: Rohini Rangel By: Asia Rangel on 10/04/2019 14:52:53 Wou [address] Assessment DetailsPatient Name:Date of Service:JEOVANY LEWISFrancis 10/04/2019 3:00 PMMedical Record Number:[id number] Patient of /Sex:Treating RN:1995 (24 y.o. F) Susanna Rangel Care Provider: Terence Valentino Clinician:Referring Provider: TreatingProvider/Accounting Teacher:Rasheed Rose PAULWeeks in Treatment: 17Wound StatusWound Number: [...] Name:Date of Service:JEOVANY LEWIS 10/04/2019 3:00PMMedical Record Number:[id number] Patient of /Sex:Treating RN:1995 (24 y.o. F) Susanna Rangel Care Provider: Terence Valentino Clinician:Referring Provider: TreatingProvider/Accounting Teacher:Rasheed Rose PAULWeeks in Treatment: 17Wound StatusWound Number: [...] of Service:JEOVANY LEWIS 10/04/2019 3:00 PMMedical Record Number:[id number] Patient of /Sex:Treating RN:1995 (24 y.o. F) Susanna Rangel Care Provider: Terence Valentino Clinician:Referring Provider: TreatingProvider/Accounting Teacher:Rasheed Rose PAULWeeks in Treatment: 17Wound StatusWound Number: [...] rce(s) Supporting Document(s) ID Date Data Source [id number] 10/03/2019 10:02:00 AM EDT [facility] Exam Number: [id number] Reporte d By: Neil NORTH MD Signed By: GWEN NORTH MD Name Value Range Interpretation Code Description Data Gisela rce(s) Supporting Document(s) ID Date Data Source [id number] 09/27/2019 07:38:00 AM EDT [facility] Exam Number: [id number] OF EXAMINATIO N: 09/26/2019 21:29 EDTCHEST SINGLE [...] rce(s) Supporting Document(s) ID Date Data Source [id number] 09/27/2019 07:14:00 AM EDT [facility] Exam Number: [id number] OF EXAMINATIO N: 09/26/2019 19:17 EDTCT BRAIN [...] rce(s) Supporting Document(s) ID Date Data Source [id number] 09/27/2019 03:27:00 AM EDT [facility] Name Value Range Interpretation Code Description Data Gisela rce(s) Supporting Document(s) FGLU 197 mg/dL 70-110 [facility] ID Date Data Source [id number] 09/27/2019 01:56:00 AM EDT [facility] Name Value Range Interpretation Code Description Data Gisela rce(s) Supporting Document(s) FGLU 131 mg/dL 70-110 H [facility] ID Date Data Source [id number] 09/26/2019 11:51:00 PM EDT [facility] Name Value Range Interpretation Code Description Data Gisela rce(s) Supporting Document(s) FGLU 196 mg/dL 70-110 [facility] ID Date Data Source [id number] 09/26/2019 10:25:00 PM EDT [facility] Name Value Range Interpretation Code Description Data Gisela rce(s) Supporting Document(s) FGLU 204 mg/dL 70-110 [facility] ID Date Data Source [id number] 09/26/2019 10:27:00 PM EDT [facility] Name Value Range Interpretation Code Description Data Gisela rce(s) Supporting Document(s) PCP VISTA NEG NEGATIVE [facility] MINIMUM LEVEL OF DETECTION IS 25 ng/ml BENZODIAZEPINES [facility] LEVEL OF DETECTION IS 200 ng/ml COCAINE VISTA NEG NEGATIVE [facility] MINIMUM LEVEL OF DETECTION IS 300 ng/ml AMPHETAMINES NEG NEGATIVE [facility] MINIMUM LEVEL OF DETECTION IS 1000 ng/ml BARBITURATES NEG NEGATIVE [facility] CUTOFF CONCENTRATION IS 200 ng/ml CANNABINOIDS NEG NEGATIVE [facility] CUTOFF CONCENTRATION IS 50 ng/ml METHADONE VISTA NEG NEGATIVE [facility] MINIMUM LEVEL OF DETECTION IS 300 ng/ml OPIATE VISTA NEG NEGATIVE [facility] MINIMUM DETECTION LEVEL IS 300 ng/ml ID Date Data Source [id number] 09/26/2019 10:20:00 PM EDT [facility] Name Value Range Interpretation Code Description Data Gisela rce(s) Supporting Document(s) URINE COLOR Yellow N [facility] UAPR Clear N [facility] UGLU 2+ NEGATIVE [facility] URINE BILIRUBIN [facility] NE[facility] UKET 2+ NEGATIVE [facility] USG 1.011 1.010-1.025 [facility] UBLO Negative NEGATIVE [facility] UpH 5.0 5.0-8.0 [facility] UPRO Negative Negative [facility] UUB 0.2 mg/dL 0.2-1.0 [facility] UNIT Negative Negative [facility] ULEU Trace Negative [facility] ID Date Data Source [id number] 09/26/2019 10:20:00 PM [facility]T [facility] Name Value Range Interpretation Code Description Data Gisela rce(s) Supporting Document(s) URINE RBC 0-5 RBCs/HPF NONE SEEN [facility] URINE WBC 0-5 WBCs/HPF NONE SEEN [facility] URINE BACTERIA Few [facility] EPI. Few NONE SEEN [facility] ID Date Data Source [id number] 09/26/2019 09:30:00 PM EDT [facility] Name Value Range Interpretation Code Description Data Gisela rce(s) Supporting Document(s) FGLU 198 mg/dL 70-110 H [facility] ID Date Data Source [id number] 09/26/2019 08:59:00 PM [facility] Name Value Range Interpretation Code Description Data Gisela rce(s) Supporting Document(s) FGLU 225 mg/dL 70-110 [facility] ID Date Data Source [id number] 09/26/2019 08:23:00 PM EDT [facility] Name Value Range Interpretation Code Description Data Gisela rce(s) Supporting Document(s) FGLU 55 mg/dL 70-110 [facility] ID Date Data Source [id number] 09/26/2019 08:45:00 PM EDT [facility] Name Value Range Interpretation Code Description Data Gisela rce(s) Supporting Document(s) TROPI < 0.015 ng/mL 0.000-0.079 [facility] ID Date Data Source [id number] 09/26/2019 08:45:00 PM EDT [facility] Name Value Range Interpretation Code Description Data Gisela rce(s) Supporting Document(s) MAGNESIUM 2.0 mg/dL 1.6-2.6 [facility] ID Date Data Source [id number] 09/26/2019 08:45:00 PM EDT [facility] Name Value Range Interpretation Code Description Data Gisela rce(s) Supporting Document(s) SALICYLATE < 1.7 mg/dL 2.8-20.0 [facility] ID Date Data Source [id number] 09/26/2019 08:45:00 PM EDT [facility] Name Value Range Interpretation Code Description Data Gisela rce(s) Supporting Document(s) ACETAMINOPHEN < 2.0 ug/mL 0-30 [facility] ID Date Data Source [id number] 09/26/2019 08:45:00 PM EDT [facility] Name Value Range Interpretation Code Description Data Gisela rce(s) Supporting Document(s) HCG QUAL SERUM Negative Negative N [facility] l ID Date Data Source [id number] 09/26/2019 08:45:00 PM EDT [facility] Name Value Range Interpretation Code Description Data Gisela rce(s) Supporting Document(s) ETOH NONE DETECTED [facility] NONE DETECTED ID Date Data Source [id number] 09/26/2019 08:45:00 PM EDT [facility] Name Value Range Interpretation Code Description Data Gisela rce(s) Supporting Document(s) GLU 53 mg/dL 70-110 [facility] Patients taking Sulfasalazine may have f alsely depressedGlucose levels. Patients taking Sulfapyridine may havefalsely elevated Glucose levels. Patients should be drawnfor Glucose before the initial administration of eitherdrug. BUN 13 mg/dL 7-23 [facility] CRE 0.960 mg/dL 0.500-1.300 [facility] GFR > 60 mL/min [facility] CHLORIDE 106 mmol/L 99-110 [facility] NA 139 mmol/L 136-147 [facility] POTASSIUM 4.1 mmol/L 3.5-5.1 [facility] TCO2 22 mmol/L 20-33 [facility] ANION GAP 15.1 10.0-20.0 [facility] CA 9.9 mg/dL 8.3-10.7 [facility] ALKALINE PHOS 119 U/L 45-117 [facility] TP 8.2 g/dL 6.0-7.8 [facility] ALB 3.8 g/dL 3.5-5.0 [facility] ESRD Dialysis patient Albumin reference range: 2.9-4.4 g/dL GL 4.4 g/dL 2.3-3.5 [facility] A/G 0.9 1.0-2.5 [facility] T. BILIRUBIN 0.4 mg/dL 0.1-1.1 [facility] The [employer] [place] Total Bilirubin is n ot recommended forpatients undergoing treatment with eltrombopag (Promacta)due to the potential for falsely elevated results. ALTI 23 U/L 6-54 [facility] Patients taking Sulfasalazine and/or Sul fapyridine may havefalsely depressed ALT levels. Patients should be drawn forALT before the initial administration of either drug. AST 14 U/L 6-38 [facility] Patients taking Sulfasalazine and/or Sul fapyridine may havefalsely depressed AST levels. Patients should be drawn forAST before the initial administration of either drug. ID Date Data Source [id number] 09/26/2019 08:22:00 PM EDT [facility] Name Value Range Interpretation Code Description Data Gisela rce(s) Supporting Document(s) WBC 10.21 x10E3/uL 4.0-10.5 [facility] l RBC 4.42 x10E6/uL 4.20-5.40 [facility] Hemoglobin 13.0 g/dL 12.0-16.0 [facility] Hematocrit 40.3 % 37.0-47.0 [facility] MCV 91.2 fL 81.0-99.0 [facility] MCH 29.4 pg 27.0-31.0 [facility] MCHC 32.3 g/dL 32.7-35.6 [facility] RDW 14.7 % 11.5-14.0 [facility] Platelet count 296 x10E3/uL 150-450 [facility] ital MPV 11.4 fl 6.9-9.5 [facility] Neutrophils 83.0 % 34-64 [facility] Lymphocytes 9.2 % 25-45 L [facility] Monocytes 6.5 % 1.7-10.6 N [facility] Eosinophils 0.5 % 0.4-7.0 N [facility] Basophils 0.5 % 0.1-2.0 [facility] Imm. Gran. 0.3 % 0.1-2.0 [facility] Abs. Neutro. 8.5 x10E3/uL 1.2-7.6 [facility] Abs. Lymph. 0.9 x10E3/uL 1.0-3.5 [facility] Abs. [place]. 0.7 x10E3/uL 0.1-1.0 [facility] Abs. Eosin. 0.1 x10E3/uL 0.1-0.7 [facility] Abs. Baso. 0.1 x10E3/uL 0.0-0.1 [facility] Abs. Imm. Gran. 0.0 x10E3/uL 0.0-0.1 N [facility] pital ANRBC% 0 % 0 [facility] ID Date Data Source [id number] 09/27/2019 04:34:00 AM EDT [facility] Physician DocumentationClmaryann-Chandan Westbrook edical CenterName: Jeovany BarberAge: 24 yrsSex: FemaleDOB: 1995MRN: [id number] Date: 09/26/2019Time: 19:17Account#: [id number] MD:ED Physician Juan Hooper Summary:09/27/19 03:40Discharge OrderedLocation: Home Self Care re0Xuvhnqp: new gg9Twtscnjf: are resolved gy7Xxtpoxqow: Stable ym0Cvwrgoofr- Hypoglycemia, unspecified tm4Ggmbtkhf: na1- With: Private Physician- When: 2 - 3 days- Reason: Recheck today's complaints, Continuance of care, Changein ConditionDischarge Instructions:- Discharge Summary Sheet na1- HYPOGLYCEMIC REACTION [Child] wq5Sowue:- Medication Reconciliation na1- Medication Reconciliation Form - 2nd Copy na1HPI:09/1018:40 This 24 yrs old White Female presents to ER via Ambulance with yh0sfiqunytes of Unresponsive.19:40 PT. BROUGHT TO ED BY [...] Normocephalic, atraumatic. Eyes: Pupils equal round and ch0diqxaqfr to light, extra-ocular motions intact. Lids and [...] MON; Resp 15; Temp 98.2(TE); Pulse Ox mu8048% on R/A; Pain 0/10;MDM:09/1018:34 Patient medically screened. [...] WBC 10.21; Hemoglobin 13.0; Hematocrit 40.3; Platelet rh6wrsde 296; Neutrophils 83.0.09/1018:49 Order name: CMP; Complete Time: 21:28 na9:49 Order name: HCG Qualitative - Serum; Complete Time: 21:28 na106/1019:54 Order name: Troponin-I; Complete Time: 21:28 na106/1019:54 O rder name: Magnesium Level; Complete Time: 21:28 na106/1020:24 Order name: FGLU; Complete Time: 20:07HENY62/1020:28 Interpretation: FGLU 55. na106/1020:59 Order name: FGLU; Complete Time: 21:29HVQQ19/1021:30 Order name: FGLU; Complete Time: 22:55VOZP59/1022:25 Order name: FGLU; Complete Time: 22:66JVXF96/1019:49 Order name: Accucheck; Complete Time: 19:55 na106/1019:49 Order name: EKG in Patient's Room na106/1019:49 Order name: EKG.; Complete Time: 19:55 na106/1020:15 Order name: Accucheck; Complete Time: 20:19 kk306/1020:28 Order name: Other: D10W & 100 ML/HR; Complete Time: 20:56nk4171020:32 Order name: Accucheck: complete at 2044; Complete Time: 20:56 kk3061021:29 Order name: CT Brain - without IV na106/1021:29 Order name: CXR-Single View na106/1021:45 Order name: Accucheck; Complete Time: 21:45 kk306/1023:51 Order name: FGLU; Complete Time: 00:35XWCB38/1100:49 Interpretation: FGLU 196. na106/1101:56 Order name: FGLU; Complete Time: 02:03DMBG48/1102:15 Interpretation: FGLU 131. na106/1103:27 Order name: FGLU; Complete Time: 03:22MQSZ11/1103:38 Interpretation: FGLU 197. na106/1022:18 Order name: Accucheck; Complete Time: 22:22 kk306/1023:43 Order name: Accucheck; Complete Time: 23:43 kk306/1101:49 Order name: Accucheck; Complete Time: 01:53 kk306/1103:24 Order name: Accucheck; Complete Time: 03:24 jh1Snubzsqtn Medications:09/1018:05 Drug: NS 0.9% 1000 ml [sodium chloride 0.9 % intravenous solution] rx4Nksps: IV; Rate: bolus; Site: left antecubital;20:10 Follow up: Response: No adverse reaction; IV Status: Completed se9ivxetrhq; IV converted to saline lock; IV Intake: 4647cc81:27 Drug: D50W 1 amp Route: IVP; Site: left antecubital; kk320:57 Follow up: Response: No adverse reaction jw520:47 Drug: Dextrose 10 % in Water 1000 ml Route: IV; Rate: 100 mL/hr; er8Dprl: left antecubital;09/1099:31 Follow up: Response: No adverse reaction; IV Status: Infusion nz1jijptximjays; IV Intake: 208vi34:31 Drug: NS 0.9% 1000 ml [sodium chloride 0.9 % intravenous solution] ys0Hurzr: IV; Rate: bolus; Site: left antecubital;01:37 Follow up: IV Status: Completed infusion; IV Intake: 1000ml jw5EC09/1018:50 Rate is 102 beats/min. Rhythm is regular, Sinus tachycardia. QRS [place] na1is Normal. [place] interval is normal. QRS interval is normal. [...] 131 mg/dL; kk303:21 Blood Glucose: 197 mg/dL; ts6Zmqwio:Critical Glucose Levels:Adult <50 mg/dl or >400 mg/dl <40mg/dl or >180 mg/dlSignatures:Dispatcher [employer] Tate Washington MD MD ru1DscujConstantino Alfonso RN RN dj1KemcbMarian, RN RN kk3 Name Value Range Interpretation Code Description Data Gisela rce(s) Supporting Document(s) ID Date Data Source [id number] 09/27/2019 04:34:00 AM EDT [facility]Name: Jeovany Vaughn: 24 yrsSex: FemaleDOB: 1995MRN: [id number] Date: 09/26/2019Time: 19:17Account#: [id number] 2Private MD:Diagnosis: Hypoglycemia, unspecifiedPresentation:09/1018:21 Presenting complaint: EMS states: on arrival reported patient vr6loluovjfh as unresponsive to EMS but was responsive to painfulstimuli did fail the arm drop test is reported to have taken insulinabout an hour prior glucose check 82. Coronavirus Screening: Patientnegative for fever and symptoms of lower respiratory illness (e.g.,cough, difficulty breathing). Patient denies exposure to infectiousperson. Patient denies travel to [place] or affected areas in the 14days before illness onset. No symptoms or risks identified at thistime. Care prior to arrival: See EMS report. IV initiated. Glucosecheck. 82. Communicable Disease Screen: Negative for fever>/= 100degrees Fahrenheit. Communicable disease screen is negative. (-) rashor unusual skin lesion (-) travel/contact with traveler (-)respiratory symptoms.19:21 Acuity: Triage 2 jw519:21 Method Of Arrival: Ambulance: [facility] jw519:24 Acuity Assignment: Triage 2 ra2Gmcnah Assessment:19:25 General: Appears slender, unkempt, Behavior is listless. Sepsis jo3Sxbmcxeme: (1)Signs/symptoms infection No. Pain: Denies pain. PSS-3Now I'm going to ask you some questions that we ask everyone treatedhere, no matter what problem they are here for. It is part of [facility]'s policy and it helps us to [...] Smoking status: Patient states was never smoker of[employer]. ETOH status Denies use of ETOH.- Advance Directives:: None.Screenin:27 Abuse screen: Denies threats or abuse. Denies injuries from another. vs6Ybucjpzcjwm screening: No deficits noted. Offer of HIV testing:patient was previously offered screening.19:27 Fall Risk No fall in past 12 months (0 pts). Secondary diagnosis (15 ln1uetmfp) syncopal episode. IV access (20 points). Ambulatory [...] Derm: Skin is diaphoretic, Skin temperature is tc1nemw Patient has small open area on chest above right breast thatpatient states is from her cat. General: Appears ill, slender,Behavior is drowsy, Smells of ketones, Denies fatigue. Neuro: Levelof Consciousness is awake, confused, lethargic, Oriented to person,place, Digital Strategy Manager are weak bilaterally Moves all extremities. Gait isunsteady, Speech is slurred, Facial symmetry appears normal, Facialsymmetry: tongue is midline, Pupils are sluggish, right eye and lefteye Denies blurred vision dizziness, headache. Cardiovascular:Capillary refill < 3 seconds in bilateral fingers Heart tones S1 X8yeotrdt Edema is absent. Pulses are palpable in [...] in no apparent distress at this time. ot4Qomykyq states feeling better. Patient states symptoms have improved.patient more alert and oriented.21:20 Reassessment: Patient lethargic and unresponsive to questions, ab8covwyzrgc to arouse; provider notified.22:06 Reassessment: Patient appears in no apparent distress at this time. ol0Hzksqfd denies pain at this time. Patient states feeling better.Patient states symptoms have improved. Patient awake and alert.23:45 Reassessment: Patient appears in no apparent distress at this time. yl7Evuyknj denies pain at this time. Patient is resting quietly.09/1099:32 Reassessment: Patient appears in no apparent distress at this time. ye6Hgjnuxh denies pain at this time.00:33 Reassessment: Provider notified of abnormal vital signs. jw501:11 Reassessment: Patient appears in no apparent distress at this time. qq6Abddlxj denies pain at this time. Patient states feeling better.Opal ent states symptoms have improved. Patient is sitting up in bedeating a snack.02:15 Reassessment: Patient appears in no apparent distress at this time. cq4Aiiyplq denies pain at this time. Patient states [...] MON; Resp 15; Temp 98.2(TE); Pulse Ox xy4683% on R/A; Pain 0/10;ED Course:09/1018:18 Patient arrived in ED. jw519:21 Constantino Alfonso, RN is Primary Nurse. jw519:24 Triage completed. jw519:27 Patient placed on stretcher. jw519:27 Placed in gown. Bed in low position. Call light in reach. Side rails jw5up X2. property assessment monitor on. Pulse ox on. NIBP on. Verbal reassurancegiven.19:28 EKG done. (by ED staff). Reviewed by Tate Sanderson MD. Maintain my3yrctb IV. Dressing intact. Good blood return noted. Site clean & dry.Gauge & site: 20 gauge Left AC.19:34 Tate Hooper MD is Attending Physician. na120:00 Spoke with patient who gave permission to speak with her boyfriend Ken [phone]:10 Labs drawn. Collected by lab. kk321:40 Urine collected. Clean catch specimen. kk321:42 Patient moved to [place]. kk306/1100:34 No Physician assisted procedures completed. jw503:24 Warm blanket given. kk303:58 Discontinued lock intact, bleeding controlled, pressure dressing ff7rndwjho, No redness/swelling at site.04:05 waiting for ride. lr2Etvudampxwck Medications:09/1018:05 Drug: NS 0.9% 1000 ml [sodium chloride 0.9 % intravenous solution] uf7Kergf: IV; Rate: bolus; Site: left antecubital;20:10 Follow up: Response: No adverse reaction; IV Status: Completed ut1lohifwjf; IV converted to saline lock; IV Intake: 7341ru25:27 Drug: D50W 1 amp Route: IVP; Site: left antecubital; kk320:57 Follow up: Response: No adverse reaction jw520:47 Drug: Dextrose 10 % in Water 1000 ml Route: IV; Rate: 100 mL/hr; mw9Qjtz: left antecubital;09/1099:31 Follow up: Response: No adverse reaction; IV Status: Infusion fj4quntfarvuodf; IV Intake: 537va21:31 Drug: NS 0.9% 1000 ml [sodium chloride 0.9 % intravenous solution] vm1Mcpvb: IV; Rate: bolus; Site: left antecubital;01:37 Follow up: IV Status: Completed infusion; IV Intake: 1000ml en0Ztvwa of Care Testing:Blood Glucos e:09/1018:26 Blood Glucose: 70 mg/dL; jw520:19 Blood Glucose: 55 mg/dL; kk320:54 Blood Glucose: 225 mg/dL; kk321:21 Blood Glucose: 198 mg/dL; kk322:22 Blood Glucose: 204 mg/dL; kk323:43 Blood Glucose: 196 mg/dL; kk306/1101:53 Blood Glucose: 131 mg/dL; kk303:21 Blood Glucose: 197 mg/dL; jq7Jbrsxg:Critical Glucose Levels:Adult <50 mg/dl or >400 mg/dl <40mg/dl or >180 mg/dlIntake:09/1019:10 IV: 1000ml; Total: 1000ml. kk306/1100:31 IV: 373ml; Total: 1373ml. jw501:37 IV: 1000ml; Total: 2373ml. zg9Hysqsxx:03:40 Discharge ordered by . na103:51 Disposition: Discharged to home ambulatory, with significant other. kk303:51 Condition: orealeor56:51 Discharge instructions given to patient, Instructed on dischargeinstructions, follow up and referral plans. Demonstratedunderstanding of instructions.03:51 Discharge Assessment: Patient awake, alert and oriented x 3. Nocognitive and/or functional deficits noted. Patient verbalizedunderstanding of disposition instructions. Patient verbalizedunderstanding of disposition instructions. Patient has no functionaldeficits.04:34 Patient left the ED. ot4Dvpgzxybuf:Tate Hooper MD MD yl8KwdaaConstantino humphreys RN RN hy2IkhckMarian Gudino RN RN tm4Awawqppcahg: (The following items were deleted from the chart)09/1019:10 20:00 Spoke with patient who gave permission to speak with her cb9kqlwiovcxmimi Edwards jw521:26 21:20 Reassessment: Patient lethargic and unresponsive to questions, ez7mxjqlgpeo to arouse. kk323:45 20:01 BP 110 / 81 Auto; Pulse 99bpm; MonitorResp 15bpm; Pulse Ox 99%; rf8uy835:45 21:01 BP 105 / 71 Auto; Pulse 94bpm; MonitorResp 13bpm; Pulse Ox 98%; dq9fa004:45 22:07 Pulse 100bpm; MonitorResp 17bpm; Pulse Ox 99%; kk3 kk323:48 23:31 BP 95 / 66 Auto; Pulse 92bpm; Monitor; kk3 kk306/1101:12 00:01 BP 102 / 71 Auto; Pulse 89bpm; Monitor; jw5 kk301:12 01:01 Pulse 89bpm; MonitorResp 13bpm; Pulse Ox 100%; kk3 kk3 Name Value Range Interpretation Code Description Data Gisela rce(s) Supporting Document(s) ID Date Data Source [id number] 07/06/2019 11:00:00 AM EDT [facility] [place], [place] [address]PATIENT NAME: JEOVANY LEWIS DATE OF SERVICE: 07/06/19MR#: [id number] DATE OF : [birth year]ACCOUNT #: [id number], KENDRA ([id number])Visit Report for 07/06/2019Advanced Modalities Screening Tool DetailsPatient Name:Date of Service:JEOVANY LEWIS 07/06/2019 11:00 AMMedical Record Number:[id number] Patient of /Sex:Treating RN:1995 (24 y.o. F) Feliciano Cervantes Care Provider: Sade valdovinos MyoOren Clinician:Referring Provider: TreatingProvider/Accounting Teacher:Rasheed Rsoe PAULWeeks in Treatment: 4Advanced Modalities Screening Check ListHyperbaric Oxygen Therapy: Reviewed LCD or HBO policy from [employer] and/or NCDTherapy Not IndicatedNo Appro priate IndicationElectronic Signature(s)Signed: 07/06/2019 2:41:25 PM By: Chelita CervantesEntered By: Chelita Cervantes on 07/06/2019 11:14:26 ---Allergy List DetailsPatient Name:Date of Service:JEOVANY LEWIS 07/06/2019 11:00 AMMedical Record Number:[id number] Patient of /Sex:Treating RN:1995 (24 y.o. F) Feliciano Cervantes Care Provider: Terence Valentino Clinician:Referring Provider: TreatingProvider/Accounting Teacher:Rasheed Rose PAULWeeks in Treatment: 4AllergiesActive AllergiesAugmentin-liquidReaction: hivesSeverity: ModerateIodinated Contrast- OralReaction: anaphylaxisSeverity: SevereadhesiveReaction: itching, soreness,rednessSeverity: ModerateAllergy NotesElectronic Signature(s)Signed: 07/06/2019 2:41:25 PM By: Chelita CervantesEntered By: Chelita Cervantes on 07/06/2019 10:57:20 Arr ival Information DetailsPatient Name:Date of Service:LEWISJEOVANY 07/06/201911:00 AMMedical Record Number:[id number] Patient of /Sex:Treating RN:1995 (24 y.o. F) Renée Quinones Care Provider: Terence Valentino Clinician:Referring Provider: TreatingProvider/Accounting Teacher:Rasheed Rose PAULWeeks in Treatment: 4Visit Information History [...] Name:Date of Service:JEOVANY LEWIS 07/06/2019 11:00AMMedical Record Number:[id number] Patient of /Sex:Treating RN:1995 (24 y.o. F) Feliciano Cervantes Care Provider: Sade valdovinos MyoOren Clinician:Referring Provider: TreatingProvider/Accounting Teacher:Rasheed Rose PAULWeeks in Treatment: 4Follow-up AppointmentsReturn Appointment [...] YesElectronic Signature(s)Signed: 07/06/2019 3:46:11 PM By: Holly iHllEntered By: Holly Hill on 07/06/2019 11:19:17 Encounter Discharge Information DetailsPatient Name:Date of Service:JEOVANY LEWIS 07/06/2019 11:00AMMedical Record Number:[id number] Patient of /Sex:Treating RN:1995 (24 y.o. F) Feliciano Cervantes Care Provider: Terence Valentino Clinician:Referring Provider: TreatingProvider/Accounting Teacher:Rasheed Rose PAULWeeks in Treatment: 4Encounter Discharge Information Items Post ProcedureVitalsDischarge Condition: StableTemperature (F):97.6Ambulatory Status: AmbulatoryPulse (bpm):62Discharge Destination: Home Respiratory Rate(breaths/min): 17Transportation: Private Auto Blood Pressure(mmHg): 106/56Accompanied By: selfSchedule Follow-up Appointment: YesClinical Summary of Care: Patient DeclinedElectronic Signature(s)Signed: 07/06/2019 2:41:25 PM By: Nguyen Cervantes By: Chelita Cervantes on 07/06/2019 11:20:37 Low er Extremity Assessment DetailsPatient Name:Date of Service:JEOVANY LEWIS 07/06/2019 11:00AMMedical Record Number:[id number] Patient of /Sex:Treating RN:1995 (24 y.o. F) Feliciano Cervantes Care Provider: Terence Valentino Clinician:Referring Provider: TreatingProvider/Accounting Teacher:Rasheed Rose PAULWeeks in Treatment: 4Electronic Signature(s)Signed: 07/06/2019 2:41:25 PM By: Nguyen Cervantes By: Chelita Cervantes on 07/06/2019 10:57: 42 Multi Wound Chart DetailsPatient Name:Date of Service:JEOVANY LEWIS 07/06/2019 11:00AMMedical Record Number:[id number] Patient of /Sex:Treating RN:1995 (24 y.o. F) Feliciano Cervantes Care Provider: Sade valdovinos MyoOren Clinician:Referring Provider: TreatingProvider/Accounting Teacher:Rasheed Rose PAULWeeks in Treatment: 4Vital SignsHeight(in):Pulse(bpm):108Weight(lbs): BloodPressure(mmHg): [...] Large (67-100%) Large (67- 100%)N/AGranulation Quality: Red, [place] Red, PinkN/ANecrotic Amount: None Present (0%) Small [...] Name:Date of Service:JEOVANY LEWIS 07/06/201911:00 AMMedical Record Number:[id number] Patient of /Sex:Treating RN:1995 (24 y.o. F) Feliciano Cervantes Care Provider: Sade valdovinos MyoOther Clinician:Referring Provider: TreatingProvider/Accounting Teacher:Rasheed Rose PAULWeeks in Treatment: 4Active InactiveNutritionNursing Diagnoses:Impaired [...] of Service:JEOVANY LEWIS 07/06/2019 11:00 AMMedical Record Number:[id number] Patient of /Sex:Treating RN:1995 (24 y.o. F) Feliciano Cervantes Care Provider: Terence Valentino Clinician:Referring Provider: TreatingProvider/Accounting Teacher:Rasheed Rose PAULWeeks in Treatment: 4Active ProblemsLocation of Pain Severity andDescription of PainPatient Has Pain? NoSite LocationsPain Management and MedicationCurrent Pain Management:Electronic Signature(s)Signed: 07/06/2019 2:41:25 PM By: Nguyen Cervantes By: Chelita Cervantes on 07/06/2019 10:55:39 Pat ient/Caregiver Education DetailsPatient Name:Date of Service:GERALDO LEWIS07/06/20192238nnidrjs84:00 AMMedical Record Number:[id number] Patient of /Gender:Treating RN:1995 (24 y.o. F) Feliciano Cervantes Care Physician: Terence Valentino Clinician:Referring Physician: TreatingPhysician/Accounting Teacher:Rasheed Rose PAULWeeks in Treatment: 4Education AssessmentEducation Provided [...] DetailsPatient Name:Date of Service:LEWISJEOVANY 07/06/201911:00 AMMedical Record Number:[id number] Patient of /Sex:Treating RN:1995 (24 y.o. F) Renée Quinones Care Provider: Terence Valentino Clinician:Referring Provider: TreatingProvider/Accounting Teacher:Rasheed Rose PAULWeeks in Treatment: 4Vital SignsTime Taken: 10:52 Temperature(F): 97.7Pulse (bpm): 108Respiratory Rate (breaths/min): 17Blood Pressure (mmHg): 120/79Reference Range: 80 - 120 mg / dlElectronic Signature(s)Signed: 07/10/2019 3:29:34 PM By: Judith QuinonesWexner Medical Centermaribel By: Judith Quinones on 07/06/2019 10:52:58-- Wound Assessment DetailsPatient Name:Date of Service:JEOVANY LEWIS 07/06/2019 11:00AMMedical Record Number:[id number] Patient of /Sex:Treating RN:1995 (24 y.o. F) Feliciano Cervantes Care Provider: W in, MyoOther Clinician:Referring Provider: TreatingProvider/Accounting Teacher:Rasheed Rose PAULWeeks in Treatment: 4Wound StatusWound Number: [...] BedGranulation Amount: Large (67-100%)Exposed StructureGranulation Quality: Red, [place] Fa(Subcutaneous Tissue) Exposed: YesNecrotic Amount: None Present (0%)P eriwound Skin TextureTexture CNo Abnormalities Noted: No NoNoted: NoMoistureNo Abnormalities Noted: NoWound PreparationUlcer Cleansing: Rinswith SalineTopical Anesthetic Applied: LidoOintmentl Odor Aftert LayerolorAbnormalitiesed/Irrigatedcaine 2%duction induction inElectronic Signature(s)Signed: 07/06/2019 2:41:25 PM By: Chelita CervantesEntered By: Chelita Cervantes on 07/06/2019 11:03:11 Wound Assessment DetailsPatient Name:Date of Service:JEOVANY LEWIS 07/06/201911:00 AMMedical Record Number:[id number] Patient of /Sex:Treating RN:1995 (24 y.o. F) [facility]Pr[facility] Care Provider: Sade valdovinos, MyoOther Clinician:Referring Provider: TreatingProvider/Accounting Teacher:Rasheed Rose PAULWeeks in Treatment: 4Wound StatusWound Number: [...] BedGranulation Amount: Large (67-100%)Exposed StructureGranulation Quality: Red, [place] Fat(Subcutaneous Tissue) Exposed: YesNecrotic Amount: Small (1-33%)Necrotic [...] rce(s) Supporting Document(s) ID Date Data Source [id number] 07/06/2019 11:00:00 AM EDT [facility] [address] NAME: JEOVANY LEWIS DATE OF SERVICE: 07/06/19MR#: [id number] DATE OF : [birth year]ACCOUNT #: [id number], JEOVANY ([id number])Visit Report for 07/06/2019Debridement DetailsPatient Name:Date of Service:JEOVANY LEWIS 07/06/2019 11:00 AMMedical Record Number:[id number] Patient of /Sex:Treating RN:1995 (24 y.o. F) Feliciano Cervantes Care Provider: Sade valdovinos MyoOther Clinician:Referring Provider: TreatingProvider/Accounting Teacher:Rasheed Rose PAULWeeks in Treatment: 4Debridement Performed for [...] of Service:JEOVANY LEWIS 07/06/2019 11:00 AMMedical Record Number:[id number] Patient of /Sex:Treating RN:1995 (24 y.o. F) Feliciano Cervantes Care Provider: Sade valdovinos MyoOren Clinician:Referring Provider: TreatingProvider/Accounting Teacher:Rasheed Rose PAULWeeks in Treatment: 4Debridement Performed for [...] rce(s) Supporting Document(s) ID Date Data Source [id number] 07/06/2019 11:00:00 AM EDT [facility] [place], [place] [address]PATIENT NAME: JEOVANY LEWIS DATE OF SERVICE: 07/06/19MR#: [id number] DATE OF : [birth year]ACCOUNT #: [id number], KENDRA ([id number])Visit Report for 07/06/2019Chief Complaint Document DetailsPatient Name:Date of Service:JEOVANY LEWIS 07/06/2019 11:00AMMedical Record Number:[id number] Patient of /Sex:Treating RN:1995 (24 y.o. F)Primary Care Provider: Sade valdovinos, MyoOther Clinician:Referring Provider: TreatingProvider/Accounting Teacher:Brydges, KennethTEJERA, PAULWeeks in Treatment: 4Information Obtained from: PatientChief ComplaintLeft heel diabetic foot wound for approximately 3 months.Electronic Signature(s)Signed: 07/09/2019 9:22:41 AM By: Eliud Rose D.O., FACSEntered By: Eliud Rose on 07/06/2019 10:50:11 HPI DetailsPatient Name:Date of Service:JEOVANY LEWIS 07/06/2019 11:00AMMedical Record Number:[id number] Patient of /Sex:Treating RN:1995 (24 y.o. F)Primary Care Provider: Terence Valentino Clinician:Referring Provider: TreatingProvider/Accounting Teacher:Rasheed Rose PAULWeeks in Treatment: 4History of Present IllnessHPI Description: This is a poorly controlled type 1 diabetic smoker [facility] with a wound onher left plantar heel area. This had been present for approximately 2-3 monthsand appears to have occurred while shewas admitted to the hospital during a diabetic coma where she was unconsciousfor approximately 4 days and requiredventilator support.She had been caring for this at home and her HgbA1c on 05/27/18 was 13.4.She had started seeing an Ui Application Developer after this to assist with her bloodsugars.Positive DiabetesPositive TobaccoNegative Obesity (BMI 19.11)Negative Rapid Weight LossNegative Steroids or Bfngojbsijsq73/11/19: Ankle Brachial Index: Left 0.98 Right 1.08AllergiesAugmentin-liquid [...] Name:Date of Service:JEOVANY LEWIS 07/06/201911:00 AMMedical Record Number:[id number] Patient of /Sex:Treating RN:1995 (24 y.o. F) Feliciano Cervantes Care Provider: Sade valdovinos, MyoOther Clinician:Referring Provider: TreatingProvider/Accounting Teacher:Rasheed Rose PAULWeeks in Treatment: 4Verbal / Phone [...] Name:Date of Service:JEOVANY LEWIS 07/06/201911:00 AMMedical Record Number:[id number] Patient of /Sex:Treating RN:1995 (24 y.o. F)Primary Care Provider: Terence Valentino Clinician:Referring Provider: TreatingProvider/Accounting Teacher:Rasheed Rose PAULWeeks in Treatment: 4Active ProblemsICD-10Evaluated EncounterCode Description ActiveDate Today BkxhkqozqY96.209A Unspecified open wound of unspecified back wall of06/07/2019 No Yesthorax without penetration into thoracic cavity, initialencounterInactive ProblemsResolved ProblemsElectronic Signature( s)Signed: 07/09/2019 9:22:41 AM By: Eliud oRse D.O., FACSEntered By: Eliud Rose on 07/06/2019 10:50:02 DIC 1100TRANS:07/06/19 1100 WOUND CENTERTRANS BY:ABNER SIGNED:TIME SIGNED:REPORT COPY TO: Name Value Range Interpretation Code Description Data Gisela rce(s) Supporting Document(s) ID Date Data Source [id number] 07/04/2019 06:13:[address] [facility] Name Value Range Interpretation Code Description Data Gisela rce(s) Supporting Document(s) Hemoglobin A1C % Less than 5.7% Above high normal [facility] HBA1C: Normal: Less than 5.7% Prediabetes: 5.7% to 6.4% Diabetes: 6.5% or higher HA1C % vs Estimated Average Glucose (eAG) % eAG % eAG 6% 126 mg/dL 10% 240 mg/dL 7% 154 mg/dL 11% 269 mg/dL 8% 183 mg/dL 12% 298 mg/dL 9% 212 mg/dL Reference: [place] [employer], 2017 ID Date Data Source [id number] 07/04/2019 06:01:[address] [facility] Name Value Range Interpretation Code Description Data Gisela rce(s) Supporting Document(s) Sodium 137 mmol/L 137-145 Normal (applies to non-numeric resul ts) [facility] Potassium 3.5-5.1 Normal (applies to non-numeric resul ts) [facility] Chloride 103 mmol/L 98-112 Normal (applies to non-numeric resul ts) [facility] Carbon Dioxide CO2 22.0-33.0 Normal (applies to non-numer ic results) [facility] Anion Gap 4.0-11.0 Normal (applies to non-numeric resul ts) [facility] BUN 3 mg/dL 7-17 Below low normal [facility] Creatinine 0.70-1.20 Normal (applies to non-numeric resul ts) [facility] GFR >60 Normal (applies to non-numeric results) [facility] Result based on MDRD formula. Glucose Level 264 mg/dL 74-99 Above high normal [facility] The reference range is only applicable w hen fasting. Calcium-Uncorrected 8.4-10.2 Normal (applies to non-nume vanessa results) [facility] Corrected Calcium 8.4-10.2 Normal (applies to non-numeri c results) [facility] ID Date Data Source [id number] 07/04/2019 06:01:[address] [facility] Name Value Range Interpretation Code Description Data Gisela rce(s) Supporting Document(s) Free T4 (Free Thyroxine) 0.76-1.46 Normal (applies to non -numeric results) [facility] ID Date Data Source [id number] 07/04/2019 06:01:[address] [facility] Name Value Range Interpretation Code Description Data Gisela rce(s) Supporting Document(s) Thyroid Stimulate Hormone TSH 0.358-3.740 Above high ivana l [facility] ID Date Data Source [id number] 07/03/2019 03:56:00 PM EDT [facility] Physician DocumentationClaxnatalia-Chandan [facility] edical CenterName: Jeovany Singerge: 24 yrsSex: FemaleDOB: 1995MRN: [id number] Date: 07/03/2019Time: 15:43Account#: [id number] MD: Out of town provider, -ED [...] I was available for consultation throughout this dj3hgcjhuq's ED visit.HPI:06/1714:52 This 24 yrs old White [...] Smoking status: Patient states was never smoker of[employer]. ETOH status Denies use of ETOH.- Advance [...] rce(s) Supporting Document(s) ID Date Data Source [id number] 07/03/2019 03:56:00 PM EDT [facility] terName: Jeovany BarberAge: 24 yrsSex: FemaleDOB: 1995MRN: [id number] Date: 07/03/2019Time: 15:43Account#: [id number] ANTONIO: Out of town provider, -Diagnosis: [...] Smoking status: Patient states was never smoker ofto[employer]. ETOH status Denies use of ETOH.- Advance [...] Triage completed. fbg15:45 Sangeeta Wetzel FNP-C is PSYCHIATRICP. mk15:46 Arm band placed on right wrist. [...] rce(s) Supporting Document(s) ID Date Data Source [id number] 06/29/2019 11:15:00 AM EDT [facility] [address] [address]TBVNTBE NAME: JEOVANY LEWIS DATE OF SERVICE: 06/29/19MR#: [id number] DATE OF : [birth year]ACCOUNT #: [id number], KENDRA ([id number])Visit Report for 06/29/2019Advanced Modalities Screening Tool DetailsPatient Name:Date of Service:JEOVANY LEWIS 06/29/2019 11:15 AMMedical Record Number:[id number] Patient of /Sex:Treating RN:1995 (24 y.o. F) Susanna Rangel Care Provider: Terence Valentino Clinician:Referring Provider: TreatingProvider/Accounting Teacher:Rasheed Rose PAULWeeks in Treatment: 3Advanced Modalities Screening Check ListHyperbaric Oxygen Therapy: Reviewed LCD or HBO policy from [employer] and/or NCDTherapy Not IndicatedNo Appr opriate IndicationElectronic Signature(s)Signed: 06/29/2019 3:31:06 PM By: Rohini Rangel By: Asia Rangel on 06/29/2019 11:25:00 ------Arrival Information DetailsPatient Name:Date of Service:JEOVANY LEWIS 06/29/2019 11:15 AMMedical Record Number:[id number] Patient of /Sex:Treating RN:1995 (24 y.o. F) Renée Quinones Care Provider: Terence Valentino Clinician:Referring Provider: TreatingProvider/Accounting Teacher:Rasheed Rose PAULWeeks in Treatment: 3Visit Information History [...] Name:Date of Service:JEOVANY LEWIS 06/29/2019 11:15AMMedical Record Number:[id number] Patient of /Sex:Treating RN:1995 (24 y.o. F) Susanna Rangel Care Provider: Terence Valentino Clinician:Referring Provider: TreatingProvider/Accounting Teacher:Rasheed Rose PAULWeeks in Treatment: 3Follow-up AppointmentsReturn Appointment in 1 week. Should you experience any significant changes inyour wound(s) or have anyquestions regarding your home care instructions please contact the [facility] r. If after regular business hours,please [...] Name:Date of Service:JEOVANY LEWIS 06/29/2019 11:15AMMedical Record Number:[id number] Patient of /Sex:Treating RN:1995 (24 y.o. F) Renée Quinones Care Provider: Terence Vlaentino Clinician:Referring Provider: MoizProamyder/Accounting Teacher:Rasheed Rose PAULWeeks in Treatment: 3Encounter Discharge Information ItemsDischarge Condition: StableAmbulatory Status: AmbulatoryDischarge Destination: HomeTransportation: Private AutoAccompanied By: selfSchedule Follow-up Appointment: YesClinical Summary of Care:Electronic Signature(s)Signed: 06/29/2019 3:54:07 PM By: Quinton Quinones ed By: Judith Quinones on 06/29/2019 11:37:00 Low er Extremity Assessment DetailsPatient Name:Date of Service:JEOVANY LEWIS 06/29/2019 11:15AMMedical Record Number:[id number] Patient of /Sex:Treating RN:1995 (24 y.o. F) Renée Quinones Care Provider: Terence Valentino Clinician:Referring Provider: Dank cottoProamyder/Accounting Teacher:Rasheed Rose PAULWeeks in Treatment: 3Notesmidline backElectronic Signature(s)Signed: 06/29/2019 3:54:07 PM By: Yaron Quinones By: Judith Quinones on 06/29/2019 1 1:13:19 Phi i Wound Chart DetailsPatient Name:Date of Service:JEOVANY LEWIS 06/29/201911:15 AMMedical Record Number:[id number] Patient of /Sex:Treating RN:1995 (24 y.o. F) Susanna Rangel Care Provider: Sade valdovinos MyoOren Clinician:Referring Provider: TreatingProvider/Accounting Teacher:Rasheed Rose PAULWeeks in Treatment: 3Vital SignsHeight(in):Pulse(bpm):106Weight(lbs): BloodPressure(mmHg): [...] N/AN/AGranulation Amount: Large (67-100%) N/AN/AGranulation Quality: Red, [place] N/AN/ANecrotic Amount: None Present (0%) N/AN/AExposed Structures: [...] Name:Date of Service:JEOVANY LEWIS 06/29/201911:15 AMMedical Record Number:[id number] Patient of /Sex:Treating RN:1995 (24 y.o. F) Susanna Rangel Care Provider: Sade valdovinos MyoOther Clinician:Referring Provider: TreatingProvider/Accounting Teacher:Rasheed Rose PAULWeeks in Treatment: 3Active InactiveNutritionNursing Diagnoses:Impaired [...] Name:Date of Service:JEOVANY LEWIS 06/29/201911:15 AMMedical Record Number:[id number] Patient of /Sex:Treating RN:1995 (24 y.o. F) Renée Quinones Care Provider: Sade valdovinos, MyoOther Clinician:Referring Provider: TreatingProvider/Accounting Teacher:Rasheed Rose PAULWeeks in Treatment: 3Active ProblemsLocation of Pain Severity andDescription of PainPatient Has Pain? NoSite LocationsPain Management and MedicationCurrent Pain Management:Electronic Signature(s)Signed: 06/29/2019 3:54:07 PM By: Yaron Quinones By: Judith Quinones on 06/29/2019 11:18:51 Pat ient/Caregiver Education DetailsPatient Name:Date of Service:JEOVANY LEWIS06/29/20195064yselzhv57:15 AMMedical Record Number:[id number] Patient of /Gender:Treating RN:1995 (24 y.o. F) Renée Quinones Care Physician: Terence Valentino Clinician:Referring Physician: TreatingPhysician/Accounting Teacher:Rashede Rose PAULWeeks in Treatment: 3Education AssessmentEducation Provided To:PatientEducation Topics ProvidedWound/Skin Impairment:Methods: Explain/VerbalResponses: State content correctlyElectronic Signature(s)Signed: 06/29/2019 3:54:07 PM By: Judith QuinonesEntered By: Judith Quinones on 06/29/2019 11:19:20Treatment Notes SummaryWound #2 (Midline Back)3. Primary Dressing AppliedFoamSilver Dressings Vi tals DetailsPatient Name:Date of Service:JEOVANY LEWIS 06/29/2019 11:15AMMedical Record Number:[id number] Patient of /Sex:Treating RN:1995 (24 y.o. F) Renée Quinones Care Provider: Terence Valentino Clinician:Referring Provider: TreatingProvider/Accounting Teacher:Rasheed Rose PAULWeeks in Treatment: 3Vital SignsTime Taken: [...] of Service:JEOVANY LEWIS 06/29/2019 11:15 AMMedical Record Number:[id number] Patient of /Sex:Treating RN:1995 (24 y.o. F) Renée Quinones Care Provider:Other Clinician:Sade valdovinos MyoReferring Provider: TreatingProvider/Accounting Teacher:Rasheed Rose PAULWeeks in Treatment: 3Wound StatusWound Number: [...] BedGranulation Amount: Large (67-100%)Exposed StructureGranulation Quality: Red, [place] Fat(Subcutaneous Tissue) Exposed: YesNecrotic Amount: None Present (0%)Periwound Skin TextureTextureNo Abnormalities Noted: Yes NoNoted: YesMoisture TemperaturNo Abnormalities Noted: Yes TemNo AbnormalityWound PreparationUlcer Cl eansing: Rinsewith SalineTopical Anesthetic Applied: LidocOintmentl Odor AfterLayerColorAbnormalitiese / Painperature:d/Irrigatedaine 2%eduction ineduction inneling:dermining:Treatment NotesWound #2 (Midline Back)3. Primary Dressing AppliedFoamSilver DressingsElectronic Signature(s)Signed: 06/29/2019 3:54:07 PM By: Judith QuinonesEntered By: Judith Quinones on 06/29/2019 11:18:22 DICT: 06/29/19 1115TRANS:06/29/19 [facility] WOUND CENTERTRANS BY:ABNER SIGNED:TIME SIGNED:REPORT COPY TO: Name Value Range Interpretation Code Description Data Gisela rce(s) Supporting Document(s) ID Date Data Source [id number] 06/29/2019 11:15:00 AM [place] [address]PATIENT NAME: JEOVANY LEWIS DATE OF SERVICE: 06/29/19MR#: [id number] DATE OF : [birth year]ACCOUNT #: [id number], KENDRA ([id number])Visit Report for 06/29/2019Chief Complaint Document DetailsPatient Name:Date of Service:JEOVANY LEWIS 06/29/2019 11:15AMMedical Record Number:[id number] Patient of /Sex:Treating RN:1995 (24 y.o. F)Primary Care Provider: Terence Valentino Clinician:Referring Provider: TreatingProvider/Accounting Teacher:Rasheed Rose PAULWeeks in Treatment: 3Information Obtained from: PatientChief ComplaintLeft heel diabetic foot wound for approximately 3 months.Electronic Signature(s)Signed: 07/02/2019 12:45:22 PM By: Eliud Rose D.O., FACSEntered By: Eliud Rose on 06/29/2019 11:01:22 HPI DetailsPatient Name:Date of Service:JEOVANY LEWIS 06/29/2019 11:15AMMedical Record Number:[id number] Patient of /Sex:Treating RN:1995 (24 y.o. F)Primary Care Provider: Sade valdovinos MyoOren Clinician:Referring Provider: TreatingProvider/Accounting Teacher:Rasheed Rose PAULWeeks in Treatment: 3History of Present IllnessHPI Description: This is a poorly controlled type 1 diabetic smoker [facility] with a wound onher left plantar heel area. This had been present for approximately 2-3 monthsand appears to have occurred while shewas admitted to the hospital during a diabetic coma where she was unconsciousfor approximately 4 days and requiredventilator support.She had been caring for this at home and her HgbA1c on 05/27/18 was 13.4.She had started seeing an Ui Application Developer after this to assist with her bloodsugars.Positive DiabetesPositive TobaccoNegative Obesity (BMI 19.11)Negative Rapid Weight LossNegative Steroids or Vfabvibyeyne99/11/19: Ankle Brachial Index: Left 0.98 Right 1.08AllergiesAugmentin-liquid [...] Name:Date of Service:JEOVANY LEWIS 06/29/201911:15 AMMedical Record Number:[id number] Patient of /Sex:Treating RN:1995 (24 y.o. F) Susanna Rangel Care Provider: Sade valdovinos MyoOther Clinician:Referring Provider: TreatingProvider/Accounting Teacher:Rasheed Rose PAULWeeks in Treatment: 3Verbal / Phone [...] Name:Date of Service:JEOVANY LEWIS 06/29/201911:15 AMMedical Record Number:[id number] Patient of /Sex:Treating RN:1995 (24 y.o. F)Primary Care Provider: Terence Valentino Clinician:Referring Provider: TreatingProvider/Accounting Teacher:Rasheed Rose PAULWeeks in Treatment: 3Active ProblemsICD-10Evaluated EncounterCode Description ActiveDate Today YwjyxzxcoI34.209A Unspecified open wound of unspecified back wall of06/07/2019 No Yesthorax without penetration into thoracic cavity, initialencounterInactive ProblemsResolved ProblemsElectronic Signature(s)Signed: 07/02/2019 12:45:22 PM By: Eliud Rose D.O., FACSEntered By: Eliud Rose on 06/29/2019 11:01:04 DIC 1115TRANS:06/29/19 1115 WOUND CENTERTRANS BY:ABNER SIGNED:TIME SIGNED:REPORT COPY TO: Name Value Range Interpretation Code Description Data Gisela rce(s) Supporting Document(s) ID Date Data Source [id number] 06/07/2019 09:15:00 AM EST [facility] [place] [id number] NAME: JEOVANY LEWIS DATE OF SERVICE: 06/07/19MR#: [id number] DATE OF : [birth year]ACCOUNT #: [id number], KENDRA ([id number])Visit Report for 06/07/2019Abuse/Suicide Risk Screen DetailsPatient Name:Date of Service:JEOVANY LEWIS 06/07/2019 9:15 AMMedical Record Number:[id number] Patient of /Sex:Treating RN:1995 (24 y.o. F) Susanna Rangel Care Provider: Terence Valentino Clinician:Referring Provider: TreatingProvider/Accounting Teacher:GABRIELA GANN PAULWeeks in Treatment: 0Abuse/Suicide Risk Screen [...] of Service:JEOVANY LEWIS 06/07/2019 9:15 AMMedical Record Number:[id number] Patient of /Sex:Treating RN:1995 (24 y.o. F) Danielle Rangel Care Provider: Terence Valentino Clinician:Referring Provider: TreatingProvider/Accounting Teacher:GABRIELA GANN PAULWeeks in Treatment: 0Activities of Daily [...] Name:Date of Service:JEOVANY LEWIS 06/07/20199:15 AMMedical Record Number:[id number] Patient of /Sex:Treating RN:1995 (24 y.o. F) Feliciano Cervantes Care Provider: Terence Valentino Clinician:Referring Provider: MoizProvider/Accounting Teacher:GABRIELA GANN PAULWeeks in Treatment: 0Advanced Modalities Screening Check ListHyperbaric Oxygen Therapy: Reviewed LCD or HBO policy from [employer] and/or NCDTherapy Not IndicatedNo Appropriate IndicationElectronic Signature(s)Signed: 06/07/2019 2:57:37 PM By: Nguyen Cervantes By: Chelita Cervantes on 06/07/2019 10:07:33 All ergy List DetailsPatient Name:Date of Service:JEOVANY LEWIS 06/07/2019 9:15 AMMedical Record Number:[id number] Patient of /Sex:Treating RN:1995 (24 y.o. F) Susanna Rangel Care Provider: Terence Valentino Clinician:Referring Provider: Ivonne Pierre/Accounting Teacher:GABRIELA GANN PAULWeeks in Treatment: 0AllergiesActive AllergiesAugmentin-liquidReaction: hivesSeverity: ModerateIodinated Contrast- OralReaction: anaphylaxisSeverity: SevereAllergy NotesElectronic Signature(s)Signed: 06/07/2019 1:49:24 PM By: Rohini Rangel By: Asia Rangel on 06/07/2019 09:17:14 --Arrival Information DetailsPatient Name:Date of Service:JEOVANY LEWIS 06/07/2019 9:15 AMMedical Record Number:[id number] Patient of /Sex:Treating RN:1995 (24 y.o. F) Susanna Rangel Care Provider: Terence Valentino Clinician:Referring Provider: TreatingProvider/Accounting Teacher:GABRIELA GANN PAULWeeks in Treatment: 0Visit Information History Since LastVisitPain Present Now: NoPatient Arrived: AmbulatoryArrival Time: 09:08Arrival Time: 09:08Transfer Assistance: NonePatient Identification Verified: YesSecondary Verification Process Completed: YesElectronic Signature(s)Signed: 06/07/2019 1:49:24 PM By: Rohini Rangel By: Asia Rangel on 06/07/2019 09:08:59 Dis charge Instructions DetailsPatient Name:Date of Service:JEOVANY LEWIS 06/07/2019 9:15 AMMedical Record Number:[id number] Patient of /Sex:Treating RN:1995 (24 y.o. F) Feliciano Cervantes Care Provider: Terence Valentino Clinician:Referring Provider: TreatingProvider/Accounting Teacher:GABRIELA GANN PAULWeeks in Treatment: 0Follow-up AppointmentsReturn Appointment [...] of Service:JEOVANY LEWIS 06/07/2019 9:15 AMMedical Record Number:[id number] Patient of /Sex:Treating RN:1995 (24 y.o. F) Tammy Shen Care Provider: Terence Valentino Clinician:Referring Provider: TreatingProvider/Accounting Teacher:GABRIELA GANN PAULWeeks in Treatment: 0Learning Preferences/Education Level/Primary LanguageLearning Preference: ExplanationHighest Education Level: High SchoolPreferred Language: EnglishCognitive Barrier Assessment/BeliefsLanguage Barrier: NoTranslator Needed: NoMemory Deficit: NoEmotional Barrier: NoCultural/Gnosticist Beliefs Affecting Medical Care: NoPhysical Barrier AssessmentDecreased Hand dexterity: NoKnowledge/Comprehension AssessmentKnowledge Level: MediumComprehension Level: MediumAbility to understand written Mediuminstructions:Ability to understand verbal Mediuminstructions:Motivation AssessmentAnxiety Level: CalmCooperation: CooperativePerception: CoherentElectronic Signature(s)Signed: 06/08/2019 4:14:48 PM By: Felisha Shen RNEntered By: Felisha Shen on 06/07/2019 08:50:12 Enc ounter Discharge Information DetailsPatient Name:Date of Service:JEOVANY LEWIS 06/07/20199:15 AMMedical Record Number:[id number] Patient of /Sex:Treating RN:1995 (24 y.o. F) Feliciano Cervantes Care Provider: Terence Valentino Clinician:Referring Provider: TreatingProvider/Accounting Teacher:GABRIELA GANN PAULWeeks in Treatment: 0Encounter Discharge Information Items Post ProcedureVitalsDischarge Condition: Stable Temperature(F): 97.8Ambulatory Status: AmbulatoryPulse (bpm):66Discharge Destination: Home Respiratory Rate(breaths/min): 17Transportation: Private Auto Blood Pressure(mmHg): 110/68Accompanied By: Jovanna Follow-up Appointment: YesClinical Summary of Care: Patient DeclinedElectronic Signature(s)Signed: 06/07/2019 2:57:37 PM By: Marizol Cervantesed By: Chelita Cervantes on 06/07/2019 10:28:33 Fal l Risk Assessment DetailsPatient Name:Date of Service:JEOVANY LEWIS :15 AMMedical Record Number:[id number] Patient of /Sex:Treating RN:1995 (24 y.o. F) Susanna Rangel Care Provider: Terence Valentino Clinician:Referring Provider: TreatingProvider/Accounting Teacher:GABRIELA GANN PAULWeeks in Treatment: 0Fall Risk Assessment [...] Rangel Care Provider: Terence Valentino Clinician:Referring Provider: TreatingProvider/Accounting Teacher:GABRIELA GANN PAULWeeks in Treatment: 0Foot Assessment ItemsSite [...] of Service:JEOVANY LEWIS 06/07/2019 9:15 AMMedical Record Number:[id number] Patient of /Sex:Treating RN:1995 (24 y.o. F) Jorge A Rangel Care Provider: Terence Valentino Clinician:Referring Provider: TreatingProvider/Accounting Teacher:GABRIELA GANN PAULWeeks in Treatment: 0Electronic Signature(s)Signed: 06/07/2019 1:49:24 PM By: Rohini Rangel By: Asia Rangel on 06/07/2019 09:22:25 Mul ti Wound Chart DetailsPatient Name:Date of Service:JEOVANY LEWIS 06/07/2019 9:15 AMMedical Record Number:[id number] Patient of /Sex:Treating RN:1995 (24 y.o. F) Feliciano Cervantes Care Provider: Terence Valentino Clinician:Referring Provider: TreatingProvider/Accounting Teacher:GABRIELA GANN PAULWeeks in Treatment: 0Vital SignsHeight(in): 61 Capillary Uptpd432Dzqwhnr(mg/dl):Weight(lbs): 106Pulse(bpm): 103Body Mass Index(BMI): 20Blood Pressure(mmHg): 108/71Temperature(F): [...] brown N/AN/AGranulation Amount: Small (1-33%) N/AN/AGranulation Quality: [place] N/AN/ANecrotic Amount: Large (67-100%) N/AN/APeriwound Skin Texture: No Abnormalities Noted N/AN/APeriwound Skin Moisture: No Abnormalities Noted N/AN/APeriwound Skin Color: No Abnormalities Noted N/AN/ATenderness on Palpation: No N/AN/AWound Preparation:Ulcer Cleansing: N/AN/ARinsed/Irrigated with SalineTopical Anesthetic Applied:Lidocaine 2% OintmentTreatment NotesElectronic Signature(s)Signed: 06/07/2019 2:57:37 PM By: Chelita CervantesEntered By: Chelita Cervantes on 06/07/2019 10:07:46 Mul ti-Disciplinary Care Plan DetailsPatient Name:Date of Service:JEOVANY LEWIS 06/07/20199:15 AMMedical Record Number:[id number] Patient of /Sex:Treating RN:1995 (24 y.o. F) Feliciaon Cervantes Care Provider: Sade valdovinos MyoOther Clinician:Referring Provider: TreatingProvider/Accounting Teacher:GABRIELA GANN PAULWeeks in Treatment: 0Active InactiveNutritionNursing Diagnoses:Impaired [...] Name:Date of Service:GERALDO LEWISRA 06/07/20199:15 AMMedical Record Number:[id number] Patient of /Sex:Treating RN:1995 (24 y.o. F) Susanna Rangel Care Provider: Sade valdovinos MyoOther Clinician:Referring Provider: TreatingProvider/Accounting Teacher:GABRIELA GANN PAULWeeks in Treatment: 0Height (in):Weight (lbs):Body [...] take three or more different prescribed or titr-ycd-xcnngcd drugs a day0 NoWithout wanting to, I have lost or gained 10 pounds in the last six months0 Wai am not always physically able to shop, cook and/or feed myself0 NoNutrition ProtocolsGood Risk ProtocolModerate Risk ProtocolElectronic Signature(s)Signed: 06/07/2019 1:49:24 PM By: Rohini Rangel By: Asia Rangel on 06/07/2019 09:22:13 Yonis n Assessment DetailsPatient Name:Date of Service:LEWISJEOVANY 06/07/2019 9:15 AMMedical Record Number:[id number] Patient of /Sex:Treating RN:1995 (24 y.o. F) Susanna Rangel Care Provider: Terence Valentino Clinician:Referring Provider: TreatingProvider/Accounting Teacher:GABRIELA GANN PAULWeeks in Treatment: 0Active ProblemsLocation of Pain Severity andDescription of PainPatient Has Pain? NoSite LocationsPain Management and MedicationCurrent Pain Management:Electronic Signature(s)Signed: 06/07/2019 1:49:24 PM By: Rohini Rangel By: Asia Rangel on 06/07/2019 09:33:12 Patient/Caregiver Education DetailsPatient Name:Date of Service:GERALDO LEWIS06/07/20197484mzuyhrd5:15 AMMedical Record Number:[id number] Patient of /Gender:Treating RN:1995 (24 y.o. F) Susanna Rangel Care Physician: Terence Valentino Clinician:Referring Physician: TreatingPhysician/Accounting Teacher:GABRIELA GANN PAULWeeks in Treatment: 0Education AssessmentEducation Provided [...] of Service:JEOVANY LEWIS 06/07/2019 9:15 AMMedical Record Number:[id number] Patient of /Sex:Treating RN:1995 (24 y.o. F) Susanna Rangel Care Provider: Terence Valentino Clinician:Referring Provider: TreatingProvider/Accounting Teacher:GABRIELA GANN PAULWeeks in Treatment: 0Vital SignsTime Taken: 09:27Temperature (F):98.3Height (in): 61Pulse (bpm):103Weight (lbs): 106 Respiratory Rate(breaths/min): 17Body Mass Index (BMI): 20 Blood Pressure(mmHg): 108/71Capillary Blood Glucose (mg/dl): 300Refer ence Range: 80 - 120 mg / dlAirwayElectronic Signature(s)Signed: 06/07/2019 1:49:24 PM By: Rohini Rangel By: Asia Rangel on 06/07/2019 09:28:48 Wound Assessment DetailsPatient Name:Date of Service:JEOVANY LEWIS 06/07/2019 9:15 AMMedical Record Number:[id number] Patient of /Sex:Treating RN:1995 (24 y.o. F) Susanna Rangel Care Provider: Terence Valentino Clinician:Referring Provider: TreatingProvider/Accounting Teacher:GABRIELA GANN PAULWeeks in Treatment: 0Wound StatusWound Number: [...] rce(s) Supporting Document(s) ID Date Data Source [id number] 06/07/2019 09:15:00 AM EST [facility] [id number] NAME: JEOVANY LEWIS DATE OF SERVICE: 06/07/19MR#: [id number] DATE OF : [birth year]ACCOUNT #: [id number], KENDRA ([id number])Visit Report for 06/07/2019Debridement DetailsPatient Name:Date of Service:JEOVANY LEWIS 06/07/2019 9:15 AMMedical Record Number:[id number] Patient of /Sex:Treating RN:1995 (24 y.o. F) Feliciano Cervantes Care Provider: Terence Valentino Clinician:Referring Provider: TreatingProvider/Accounting Teacher:GABRIELA GANN PAULWeeks in Treatment: 0Debridement Performed for [...] Chelita CervantesEntered By: Chelita Cervantes on 06/07/2019 10:09:42 DICT: 06/07/19 0915TRANS:06/07/19 0915 WOUND CENTERTRANS BY:ABNER SIGNED:TIME SIGNED:REPORT COPY TO: Name Value Range Interpretation Code Description Data Gisela rce(s) Supporting Document(s) ID Date Data Source [id number] 06/07/2019 09:15:00 AM EST [address] [id number] NAME: JEOVANY LEWIS DATE OF SERVICE: 06/07/19MR#: [id number] DATE OF : [birth year]ACCOUNT #: [id number], KENDRA ([id number])Visit Report for 06/07/2019Chief Complaint Document DetailsPatient Name:Date of Service:JEOVANY LEWIS 06/07/2019 9:15AMMedical Record Number:[id number] Patient of /Sex:Treating RN:1995 (24 y.o. F)Primary Care Provider: Sade valdovinos, MyoOther Clinician:Referring Provider: TreatingProvider/Accounting Teacher:GABRIELA GANN PAULWeeks in Treatment: 0Information [facility]: [facility] ComplaintLeft heel diabetic foot wound for [...] Name:Date of Service:JEOVANY LEWIS 06/07/2019 9:15AMMedical Record Number:[id number] Patient of /Sex:Treating RN:1995 (24 y.o. F)Primary Care Provider: Sade valdovions, MyoOther Clinician:Referring Provider: TreatingProvider/Accounting Teacher:GABRIELA GANN PAULWeeks in Treatment: 0History of Present IllnessLocation: wounds on backQuality: no painSeverity: No cellulitisDuration: a couple of monthsHPI Desc ription: This is a poorly controlled type 1 diabetic smoker [facility]op[facility] with a wound onher left plantar heel area. This had been present for approximately 2-3 monthsand appears to have occurred while shewas admitted to the hospital during a diabetic coma where she was unconsciousfor approximately 4 days and requiredventilator support.She had been caring for this at home and her HgbA1c on 05/27/18 was 13.4.She had started seeing an Ui Application Developer after this to assist with her bloodsugars.Positive DiabetesPositive TobaccoNegative Obesity (BMI 19.11)Negative Rapid Weight LossNe gative Steroids or Whvdrvcvvrkk86/11/19: Ankle Brachial Index: Left 0.98 Right 1.08AllergiesAugmentin-liquid [...] Name:Date of Service:JEOVANY LEWIS 06/07/20199:15 AMMedical Record Number:[id number] Patient of /Sex:Treating RN:1995 (24 y.o. F)Primary Care Provider: Terence Valentino Clinician:Referring Provider: TreatingProvider/Accounting Teacher:GABRIELA GANN PAULWeeks in Treatment: 0ConstitutionalSitting or standing [...] Name:Date of Service:JEOVANY LEWIS 06/07/20199:15 AMMedical Record Number:[id number] Patient of /Sex:Treating RN:1995 (24 y.o. F) Feliciano Cervantes Care Provider: Terence Valentino Clinician:Referring Provider: TreatingProvider/Accounting Teacher:GABRIELA GANN PAULWeeks in Treatment: 0Verbal / Phone [...] Name:Date of Service:JEOVANY LEWIS 06/07/2019 9:15AMMedical Record Number:[id number] Patient of /Sex:Treating RN:1995 (24 y.o. F)Primary Care Provider: Terence Valentino Clinician:Referring Provider: TreatingProvider/Accounting Teacher:GABRIELA GANN PAULWeeks in Treatment: 0Active ProblemsICD-10Evaluated EncounterCode Description ActiveDate Today AdrwwzuubF79.209A Unspecified open wound of unspecified back wall [...] Name: JEOVANY LEWISProvider:MAXX GANN MDDate of : 1995NPI#:[id number]: FDEA#:[id number] #: [phone] #:[id number] Address: [address] [phone] Contrast- OralReaction: anaphylaxisSeverity: SevereAugmentin-liquidReaction: hivesSeverity: ModerateMedicationMedication:Route: Strength:Form:doxycycline [...] rce(s) Supporting Document(s) ID Date Data Source [id number] 05/08/2019 12:39:00 PM EST [facility] PATIENT:[id number]:MERLYN LEWIS SEC #:[id number]:[id number] OF :[birth year]SERVICE DATE:05/08/19PROVIDER:Elliot Leal M.D.[facility] MHCHARGES:[id number] EP-LEV 4 SICK - [id number] U[facility]-NCO-8-SICK PROFESSIONALDOCUMENT TEXT:[facility] Lewis [facility] [birth year], Age: 24, female [facility] 37BMR Number: [id number] MANI Montiel [id number]: [id number] P: [phone] Date/Time: 05/08/19, 1230 F: [phone]: Elliot Leal M.D. Patient Intake-AdultSelf ReferralProviders seen since last Jaye GARCIA [facility] ENDOCRIOLOGYMay we obtain med record?:YesChief Complaint-MED F/UAdditional complaintsPT HERE FOR MED F/U. SAW DEVON GARCIA . NO NEW ORDERS. NO COMPLAINTS. NEED REFILLS [facility] MedicationsPatient Medications ReconciledYesPharmacies On [facility], [facility] HospitalCurrent MedicationsCurrent MedicationsLast Reconciled 05/08/2019-1256 Nigel Beltre Medications:Budesonide/Formoterol Fumarate (Symbicort 160-4.5 Mcg Inhaler)10.2 GM HFA.AER.ADReported, Active2 PUFF INHALATION Twice Daily, , 0 RefillsLevothyroxine Sodium (Tirosint)100 MCG CAPSULEReported,100 MCG ORAL Daily, , 0 RefillsInsulin Lispro (Admelog Solostar)100 UNIT/1 ML INSULN.PENReported,, , 0 RefillsInstructions:SLIDING SCALE SCANNED IN CHART STARTS WITH 7UNITS 70-100 [id number] 16UNInsulin Detemir (Levemir Flextouch)100 UNIT/1 ML INSULN.PENReported,, [...] lbs 0 oz / 49.895 kgBSA:1.48 m2BMI:20.1 kg/p1Lrvuv:102Respiration:16Blood Pressure:100/60 / Sitti ng, Left ArmPulse Oximetry:98%, [...] 05/08/2020 1Y 05/08/2019LMPLast menstrual periodDefinite (04/13/19)Pain Scale*Pain qiowc5Cwiwsdgdve InformationAppropriate for Hep-C testing:NoHx Drug Resistant Organism?Yes [...] OF: Benign murmur.GastrointestinalREPORTS HX OF: GERD.Age at coifhmue10Lifwwzioa okkkbzcAucwrio7Wuvp4Slbc2Mpvorog4DCU/GED7Jued eduekq7EevckvjkmmzqmvqGYMKECP HX OF: Osteoarthritis, Other musculoskeletal hx (ARTHRITIS).NeurologicREPORTS HX OF: Headaches, Seizures, Stroke.PsychiatricREPORTS HX OF: Anxiety, Depression.Family Medical HistoryNo known family hxNo known family historyFamily historyFamily history - endocrineREPORTS HX OF: Diabetes type 2 (MOTHER , FATHER).Family history - psychiatricREPORTS HX OF: Anxiety disorder (FATHER), Depression (MOTHER).Tobacco UseSmoking StatusCurrent SmokerTobacco detailsCigarettesAlcohol UseIntakeDenies use (0-1 A WEEK)Substance UseSubstanceDenies useSafetyPaynesville Hospital heater temp set <120 degYesWorking smoke detector [...] today with her partner. She recently moves [facility] and lives with her partner.Since the last visit, she states that she was not in the hospital or inER.She states that she is trying to get better with her insulin shots andher medications. She does follow with endocrinology and recent seesPatrick Garcia at [facility]. Her insulin doses were adj usted. She [...] personality, affect or depression.SKIN:No rashes, lesionsPhysical Exam, Seeley (R)Physcial ExamGENERAL APPEARANCE:The patient is alert, oriented [...] area is not tender. No fluctuation noted.Assessment/Plan, Seeley RAssessment/PlanProblem ListLast reviewed 05/08/19-1401 Elliot Leal SCurrent [...] Refills 3Reported -Levothyroxine Sodium (Tirosint) 100 MCG [id number] MICROGRAM ORAL DailyInsulin Lispro (Admelog Solostar) 100 UNIT/1 ML INSULN.PENInstructions - SLIDING SCALE SCANNED IN CHART STARTS WITH 7UNITS 70- 100ENDS 451-500 16UNInsulin Detemir (Levemir Flextouch) 100 UNIT/1 ML INSULN.PENInstructions - 2OUN IN AM AND 20 AT [facility]ENTERanceled -Insulin Lispro (Admelog Solostar) 100 UNIT/1 ML INSULN.PEN, UNIT SUB-Q Three Times a DayInsulin Glargine,Hum.rec.anlog (Basaglar Kwikpen U-100)100 UNIT/1 ML INSULN.PEN, 08/08/1921 UNIT SUB-Q AMLevothyroxine Sodium 88 MCG TABLET, 08/09/1987 MICROGRAM ORAL DailyFluticasone/Salmeterol (Advair Hfa 115-21 Mcg Inhaler) 12 GMAER.W.ADAP, PUFF INHALATION Twice DailyOffice ProceduresFlu Adult (Today at [facility]))Dx - Flu vaccine needAssessment/Plan# Migraine headache [...] physical or sooner ifneeded.Patient InstructionsPlease call the KNITTING MACHINE OPERATOR for an [facility] [place], [place] [address]P: [phone]/[facility] given and explainedYes at 14 05.Dictated on 05/08/19 1239 by Elliot Leal M.D.Transcribed on 05/08/19 1239 by Elliot Leal SSign by Elliot Leal M.D. on 05/08/19 1405Sign by: Elliot Leal M.D. Name Value Range Interpretation Code Description Data Gislea rce(s) Supporting Document(s) ID Date Data Source [id number] 05/04/2019 06:39:00 PM [facility] Name Value Range Interpretation Code Description Data Gisela rce(s) Supporting Document(s) Free T4 (Free Thyroxine) 0.76-1.46 Normal (applies to non -numeric results) [facility] ID Date Data Source [id number] 05/04/2019 06:39:00 PM [facility] Name Value Range Interpretation Code Description Data Gisela rce(s) Supporting Document(s) Thyroid Stimulate Hormone TSH 0.358-3.740 Above high ivana l [facility] ID Date Data Source [id number] 05/04/2019 06:18:00 PM [facility] Name Value Range Interpretation Code Description Data Gisela rce(s) Supporting Document(s) Beta HCG Screen,Qualitative Negative Normal (appli es to non-numeric results) [facility] ID Date Data Source [id number] 04/14/2019 08:23:00 PM EST [facility] Physician DocumentationClaxton-Chandan matthew CenterName: Jeovany Vaughn: 24 yrsSex: FemaleDOB: 1995MRN: [id number] Date: 04/14/2019Time: 19:54Account#: [id number] 5BPrivate MD: Galina Houser Physician Dora RaineyDiscarleen Summary:04/14/19 20:17Discharge OrderedLocation: Home Self Care ol8Iqcudir: an ongoing problem rn8Thrtvtvk: are unchanged op9Zwozmjjpc: Stable sq0Vlguarsel- Pain in right shoulder se8Xhsremlc: th4- With: Marco Houser- When: 1 week- Reason: Recheck today's complaints, Continuance of careDischarge Instructions:- Discharge Summary Sheet th4- MUSCLE STRAIN, Extremity th4- SHOULDER PAIN (Uncertain Cause) tg8Ptlmx:- Medication Reconciliation th4- Medication Reconciliation Form - 2nd Copy th4HPI:03/2820:13 This 24 yrs old White Female presents to ER via Private Vehicle with uj8gtjitflcaf of Shoulder Pain.20:13 Patient reports a two-month history of intermittent right shoulder hf1brdu. She describes the p ain as throbbing. [...] for chills, fever. Neck: Negative for acute pq3rzpzpcq. Abdomen/GI: Negative for nausea, vomiting. MS/extremity:Positive for [...] Temp 97.2(TE); Pulse Ox 98% on R/A; kw6Yhcnxh 47.7 kg (R); Pain 8/10;20:22 BP 115 / 85; Pulse 90; Resp 16; Pulse Ox 98% ; tp2MDM:20:05 Patient medically screened. th420:16 Data reviewed: vital signs, nurses notes. ED course: Patient remained jb2xhxdfr in the ER. Patient with shoulder pain most consistent withmuscle strain. I recommended that she continue NSAIDs. We discussedthe use of ice, heat, stretching. Follow up with primary care doctor.A ctivity as tolerated. No specific injury. No indication for imaging..Dispensed Medications:No medications were administeredSignatures:Dora Rainey MD MD qn6KeboewyzsSdea Canas RN RN cm4 Name Value Range Interpretation Code Description Data Gisela rce(s) Supporting Document(s) ID Date Data Source [id number] 04/14/2019 08:23:00 PM EST [facility]Cl[facility]Cr[facility] terName: Jeovany Singerge: 24 yrsSex: FemaleDOB: 1995MRN: [id number] Date: 04/14/2019Time: 19:54Account#: [id number] 5BPrivate MD: Irene HouseroDiagnosis: Pain in right shoulderPresentation:03/2819:55 Presenting complaint: Patient states: her right shoulder has been ie5kjzcxnj for a couple months. "the pain will [...] Private Vehicle cm419:56 Acuity Assignment: Triage 4 dm4Smqqik Assessment:19:56 General: Appears in no apparent distress, Behavior is cooperative. iw9Bnghwp Screening: (1)Signs/symptoms infection No. Pain: Complains ofpain [...] threats or abuse. Denies injuries from another. qw0Vfbwubulsdg screening: No deficits noted. Offer of HIV testing:patient was previously offered screening. Fall Risk None identified.Assessment:20:12 Reassessment: Patient appears in no apparent distres s at this time. sn3Kxtduj Screening: Sepsis is not suspected at this time. General:Appears in no apparent distress, Behavior is appropriate for age,cooperative.20:21 Derm: multiple sites of "scabbing" noted to scalp, face, arms, hands. zb4Uumnr Signs:19:58 BP 117 / 87; Pulse 91; Resp 16; Temp 97.2(TE); Pulse Ox 98% on R/A; hh6Wbmerv 47.7 kg (R); Pain 8/10;20:22 BP 115 / 85; Pulse 90; Resp 16; Pulse Ox 98% ; tp2ED Course:19:54 Patient arrived in ED. cm419:55 Marco Houser is Private Physician. cm419:55 Seda Canas, ANN is Primary Nurse. cm419:56 Triage completed. cm420:05 Dora Rainey MD is Attending Physician. th420:12 Patient has correct armband on for positive identification. Placed in hs9oamc. Bed in low position. Call light in reach. Side rails up X2.Door closed. Noise minimized. Verbal reassurance given. Pillow given.Head of bed elevated.20:13 No Physician assisted procedures completed. tp220:17 Marco Houser is Referral Physician. iu5Ppumwcjazbsz Medications:No medications were administeredOutcome:20:17 Discharge ordered by . th420:22 Disposition: Discharged to home ambulatory. tp220:22 Condition: stable, Condition: epkcslpf61:22 Instructed on discharge instructions, follow up and referral plans.20:22 Discharge Assessment: Patient verbalized understanding of dispositioninstructions. Patient has no functional deficits.20:23 Patient left the ED. yf8Raouqnviul:Dora Rainey MD MD jr0UkzrcmPerla jimenez RN RN ni2QjqzqddbkSeda Canas RN RN cm4 Name Value Range Interpretation Code Description Data Gisela rce(s) Supporting Document(s) Procedure Vital Signs ID Date Data Source [id number] 04/25/2020 12:36:00 AM [facility] Name Value Range Interpretation Code Description Data Source(s) Weight (Calculated Kilograms) 45.08 45.08 [facility] Height (Calculated Centimeters) 152.4 152. 4 [facility] Body Mass Index (BMI) 19.4 19.4 [facility] ID Date Data Source [id number] 04/01/2020 01:02:00 AM [facility] Name Value Range Interpretation Code Description Data Source(s) Weight (Calculated Kilograms) 45.08 45.08 [facility] Height (Calculated Centimeters) 152.4 152. 4 [facility] Body Mass Index (BMI) 19.4 19.4 [facility] ID Date Data Source [id number] 03/12/2020 03:35:00 PM [facility] Name Value Range Interpretation Code Description Data Source(s) Weight (Calculated Kilograms) 45.08 45.08 [facility] Height (Calculated Centimeters) 152.4 152. 4 [facility] Body Mass Index (BMI) 19.4 19.4 [facility] ID Date Data Source [id number] 12/07/2019 12:24:00 AM [facility] Name Value Range Interpretation Code Description Data Source(s) Weight (Calculated Kilograms) 45.08 45.08 [facility] Height (Calculated Centimeters) 152.4 152. 4 [facility] Body Mass Index (BMI) 19.4 19.4 [facility] ID Date Data Source [id number] 10/06/2019 12:18:00 AM [facility] Name Value Range Interpretation Code Description Data Source(s) Weight (Calculated Kilograms) 45.08 45.08 [facility] Height (Calculated Centimeters) 152.4 152. 4 [facility] Body Mass Index (BMI) 19.4 19.4 [facility] ID Date Data Source [id number] 07/05/2019 12:29:00 AM [facility] Name Value Range Interpretation Code Description Data Source(s) Weight (Calculated Kilograms) 45.08 45.08 [facility] Height (Calculated Centimeters) 152.4 152. 4 [facility] Body Mass Index (BMI) 19.4 19.4 [facility] ID Date Data Source [id number] 06/05/2019 12:04:00 AM [facility] Name Value Range Interpretation Code Description Data Source(s) Weight (Calculated Kilograms) 45.08 45.08 [facility] Height (Calculated Centimeters) 152.4 152. 4 [facility] Body Mass Index (BMI) 19.4 19.4 [facility] ID Date Data Source [id number] 05/23/2019 12:38:00 AM [facility] Name Value Range Interpretation Code Description Data Source(s) Weight (Calculated Kilograms) 45.08 45.08 [facility] Height (Calculated Centimeters) 152.4 152. 4 [facility] Body Mass Index (BMI) 19.4 19.4 [facility] ID Date Data Source [id number] 06/06/2019 02:40:00 PM [facility] Name Value Range Interpretation Code Description Data Source(s) Weight (Calculated Kilograms) 45.08 45.08 [facility] Height (Calculated Centimeters) 152.4 152. 4 [facility] Body Mass Index (BMI) 19.4 19.4 [facility] ID Date Data Source [id number] 06/01/2019 12:48:00 PM [facility] Name Value Range Interpretation Code Description Data Source(s) Weight (Calculated Kilograms) 45.08 45.08 [facility] Height (Calculated Centimeters) 152.4 152. 4 [facility] Body Mass Index (BMI) 19.4 19.4 [facility] ID Date Data Source [id number] 09/26/2019 07:27:00 PM EDT [facility] Name Value Range Interpretation Code Description Data Source(s) WEIGHT 50.4 kilos 50.4 kilos [facility] HEIGHT 152.4 centimeters 152.4 centimeters [facility] WEIGHT 50.4 kilos 50.4 kilos [facility] HEIGHT 152.4 centimeters 152.4 centimeters [facility]
[2020-06-05 02:28] LABS: OSMOLALITY SERUM 293 MOSM/KG (275-295)
[2020-06-05 02:33] LABS: ALBUMIN 3.7 GM/DL (3.2-5.2); ALT/SGPT 45 U/L (12-78); BILIRUBIN,DIRECT < 0.1 MG/DL (0.0-0.2); BILIRUBIN,TOTAL 0.4 MG/DL (0.2-1.0); LIPASE 94 U/L (73-393); TOTAL PROTEIN 7.7 GM/DL (6.4-8.2)
[2020-06-05 02:52] LABS: ACETONE/KETONE > 46.00 MG/DL (<2.81)
[2020-06-05 03:03] LABS: CPK CREATINE PHOSPHOKINASE 20 U/L (26-192)
[2020-06-05] MEDS ORDERED: INSU100I28 SQ (03:06)
[2020-06-05 03:27] LABS: HEMOGLOBIN A1c > 14.0 %
[2020-06-05 03:38] LABS: VENOUS PH 7.298 UNITS (7.330-7.430)
[2020-06-05 03:39] LABS: VENOUS BASE EXCESS -9.6 (-2.0-2.0); VENOUS HCO3 15.7 MEQ/L (23.0-27.0); VENOUS O2 SATURATION 99.1 % (60.0-80.0); VENOUS PARTIAL PRESSURE CO2 32.8 mmHg (38.0-50.0); VENOUS PARTIAL PRESSURE O2 187.1 mmHg (30.0-50.0); VENOUS STANDARD HCO3 16.8 MEQ/L; VENOUS TOTAL CO2 16.7 MEQ/L (24.0-28.0)
[2020-06-05 04:03] LABS: BLOOD UREA NITROGEN 12 MG/DL (7-18); CALCIUM LEVEL 7.5 MG/DL (8.5-10.1); CARBON DIOXIDE LEVEL 17 MEQ/L (21-32); CHLORIDE LEVEL 109 MEQ/L (98-107); CREATININE FOR GFR 0.78 MG/DL (0.55-1.30); GLOMERULAR FILTRATION RATE > 60.0 (>60); GLUCOSE, FASTING 120 MG/DL (70-100); POTASSIUM SERUM 3.6 MEQ/L (3.5-5.1); SODIUM LEVEL 138 MEQ/L (136-145)
[2020-06-05] MEDS ORDERED: POTASSIUM CHLORIDE 10 MEQ SR TABLET PO ONE (04:45)
[2020-06-05 06:51] LABS: AMPHETAMINES LEVEL URINE NEGATIVE (NEGATIVE); BARBITURATES URINE NEGATIVE (NEGATIVE); BENZODIAZEPINES URINE NEGATIVE (NEGATIVE); CANNABINOIDS URINE NEGATIVE (NEGATIVE); COCAINE METABOLITE URINE NEGATIVE (NEGATIVE); METHADONE URINE NEGATIVE (NEGATIVE); OPIATES URINE NEGATIVE (NEGATIVE); PHENCYCLIDINE URINE NEGATIVE (NEGATIVE)
[2020-06-05] MEDS ORDERED: INVE234I IM (10:06)
[2020-06-05] MEDS ORDERED: HumaLOG INSULIN (NovoLOG) PER UNIT SC STA ×2 (12:03→13:27)
[2020-06-05] MEDS ORDERED: LEVEMIR (INSULIN DETEMIR) 1 UNITS/0.01ML SC ONE (12:15)
[2020-06-05] MEDS ORDERED: GLUCAGON INJ 1MG VIAL SC PRN (16:15)
[2020-06-05] MEDS ORDERED: DEXTROSE 50% 50 ML SYRINGE IV PRN (16:15)
[2020-06-05] MEDS ORDERED: GLUCOSE 4GM CHEW TABLET PO PRN (16:15)
--- OUTSIDE RECORDS SUMMARY | 2020-06-05 16:28 | CCD ---
Author Author [facility] Organization [facility] Address Unknown Phone Unavailable Care Team Providers Care Striper Name Role Phone Sunny Rainey MD Unavailable [...] MD Unavailable Unavailable Dilshad Hyatt M.D. Unavailable Dilshad Hyatt M.D. Unavailable [phone] Dilshad Hyatt M.D. Unavailable Dilshad Hyatt M.D. Unavailable Dilshad Hyatt M.D. Unavailable VANWAGNER, SOMMER DO [...] Unavailable Unavailable Garcia, J Devon PA Unavailable [phone] Garcia, J Devon PA Unavailable [phone] Garcia, J Devon PA Unavailable [phone] Garcia, J Devon PA Unavailable [phone] Garcia, J Devon PA Unavailable [phone] Garcia, J Devon PA Unavailable [phone] Garcia, J Devon PA Unavailable [phone] Garcia, J Devon PA Unavailable [phone] Garcia, J Devon PA Unavailable [phone] Garcia, J Devon PA Unavailable [phone] Garcia, J Devon PA Unavailable [phone] DORA RAINEY MD Unavailable Unavailable VERÓNICA GARCIA [...] Elliot MD Unavailable Unavailable Derrick Vela Debbie MANAGER FINE DINING Unavailable Unavailable Sienkiewycz, L Debbie MANAGER FINE DINING Unavailable Unavailable Sienkiewycz, L Debbie MANAGER FINE DINING Unavailable Unavailable Sienkiewycz, L Debbie MANAGER FINE DINING Unavailable Unavailable AL-Kin, Tate ANTONIO Unavailable Unavailable [...] is protected by Article 27-F of the [place] Public Health law. If you continue you may have access to information: Regarding HIV / AIDS; Provided by facilities licensed or operated by the [place] Office of Mental Health; or Provided by the [place] Office for People With Developmental Disabilities. If such information is present, then the following [place] mandated warning applies: This information has been [...] law may result in a fine or correction sentence or both. A general authorization for the release of medical or other information is NOT sufficient authorization for further disc losure. Allergies and Adverse Reactions Type Description Substance Reaction Status Data Source(s ) Allergy Allergy Amoxicillin [facility] Allergy Allergy clavulanic acid [facility] Allergy Allergy iodine BREATHING DIFFICULTY [facility] Encounters Encounter Providers Location Date Indications [...] PM EST - 04/24/2020 03:04:[address] [facility] Patient discharged. Outpatient Attender: Devon SOTOttender: Jorge A CHANG CPSCAORT-CPSCAEND 03/12/2020 02:35:00 PM EST - 03/12/2020 02:36:00 PM ES T E10.65 [facility] E10.65 Patient discharged. Outpatient Attender: Devon CHANG CPSCAORT-CPSCAEND 02/13/2020 01:30:00 PM EDT [facility] Outpatient Attender: Devon CHANG CPSCAORT-CPSCAEND 12/06/2019 01:46:00 PM EDT - 12/06/2019 01:47:[address] [facility] Patient discharged. Outpatient Attender: Eliud Rose DO ER-WOUND 11/01/2019 01:50:0 0 PM EDT [facility] Outpatient Attender: Eliud Rose DO ER-WOUND 10/18/2019 01:46:0 0 PM EDT [facility] Outpatient Attender: Eliud Rose DO ER-WOUND 10/11/2019 01:42:0 0 PM EDT [facility] Outpatient Attender: Devon SOTOttender: Jorge A CHANG CPSCAORT-CPSCAEND 10/05/2019 01:51:00 PM EDT - 10/05/2019 01:52:00 PM ED T E10.65, E03.9, N92.6 [facility] E10.65, E03.9, N92.6 Patient discharged. Outpatient Attender: Eliud Rose DO ER-WOUND 10/04/2019 02:40:0 0 PM EDT [facility] Emergency Attender: Tate Hooper MD ER-ER 0 09/26/2019 07:17:00 PM EDT - 09/27/2019 04:34:00 AM EDT [facility] Patient discharged. Outpatient Attender: Eliud Rose DO ER-WOUND 07/06/2019 10:51:0 0 AM EDT [facility] Outpatient Attender: Devon Garcia PAAttender: Jorge A CHANG CPSCAORT-CPSCAEND 07/04/2019 02:15:00 PM EDT - 07/04/2019 02:16:00 PM ED T E11.65 [facility] E11.65 Patient discharged. Emergency Attender: Dora Rainey MDAttender: DORA RAINEY MD ER-ER 07/03/2019 03:43:00 PM EDT - 07/03/2019 03:56:00 PM EDT [facility] Patient discharged. Outpatient Attender: Eliud Rose DO ER-WOUND 06/29/2019 10:59:0 0 AM EDT [facility] Outpatient Attender: MAXX GANN MDAttender: MAXX GANN MD ER-WOUND 06/07/2019 09:05:00 AM [facility] Outpatient Attender: Devon CHANG CPSCAORT-CPSCAEND 06/04/2019 08:11:00 AM EST - 06/04/2019 08:12:[address] [facility] Patient discharged. Outpatient Attender: SOMMER SANCHEZ DO CPSCAORT-CPSLAOPT 01:34:00 PM EST - 05/22/2019 01:35:[address] [facility] Patient discharged. Outpatient Attender: KIRSTEN MARTÍNEZ CNM Attender: Tom Hyatt M.D.Attender: Elliot Leal MDAttender: Debbie Vela NP [facility] 05/08/2019 12:09:00 PM [facility] Outpatient Attender: Devon Garcia PAAttender: Jorge A CHANG CPSCAORT-CPSCAEND 05/04/2019 02:04:00 PM EST - 05/04/2019 02:05:00 PM ES T E03.9, Z3A.01 [facility] E03.9, Z3A.01 Patient discharged. Emergency Attender: Dora Rainey MDAttender: DORA RAINEY MD ER-ER 04/14/2019 07:54:00 PM EST - 04/14/2019 08:23:00 PM EST [facility] Patient discharged[facility] Outpatient Attender: Devon Julesender: Jorge A CHANG CPSCAORT-CPSCAEND 03/29/2019 02:18:00 PM EST - 03/29/2019 02:19:00 PM ES T E10.65 [facility] E10.65 Patient discharged. Inpatient Attender: HENOK ORTIZ MDAt tender: Tate Hooper MDAdmitter: HENOK ORTIZ MD ER-3RD 11/16/2018 04:15:00 PM EDT - 11/22/2018 01:31:00 PM EDT [facility] Patient discharged. Emergency Attender: VERÓNICA GARCIA MD ER-ER 01/2019 11:54:00 AM EDT - 08/25/2018 04:43:00 PM EDT [facility] Outpatient Attender: Elliot Leal MD ER-LAB 08/25/2018 11:14:00 AM EDT [facility] Outpatient Attender: Eliud Rose DO ER-WOUND 08/16/2018 10:25:0 0 AM [facility] Outpatient Attender: Eliud Rose DO ER-WOUND 08/10/2018 [facility]ud Rose DO ER-WOUND 08/04/2018 10:01:0 0 AM [facility] Outpatient Attender: Eliud Rose DO ER-WOUND 08/02/2018 01:28:0 0 PM EDT [facility] Outpatient Attender: Eliud Rose DO ER-WOUND 07/28/2018 09:56:0 0 AM [facility] Insurance Providers Payer name Policy type / Coverage type Policy ID Covered constitution party ID Covered constitution party's relationship to amos Policy Amos Plan Information NORMA [id number] SP [id number] [employer] [id number] Self [id number] [facility] [id number] Unemployed [id number] [facility] [id number] 74 [id number] [facility] [id number] SP [id number] [employer] [id number] SP [id number] [employer] [id number] S 7 [id number] IRA [facility] [id number] S [id number] [employer] [id number] SP [id number] Problems, Conditions, and Diagnoses Code Display Name Description Problem Type Effective Dates Data Source(s) Z53.29 Procedure and treatment not carried out because of patient's decision for other reasons PROC/TRTMT NOT CRD OUT BEC PT DECISION FOR OTH REASONS Diagn osis 02/13/2020 01:30:00 PM [facility] Z91.19 Patient's noncompliance with other medic al treatment and regimen PATIENT'S NONCOMPLIANCE W OTH MEDICAL TREATMENT AND REGIMEN Diagnosis 02/13/2020 01:30:00 PM [facility] Z91.14 Patient's other noncompliance with medic ation regimen PATIENT'S OTHER NONCOMPLIANCE WITH MEDICATION REGIMEN Diagnosis 02/13/2020 01:30:00 PM [facility] Z91.11 Patient's noncompliance with dietary reg imen PATIENT'S NONCOMPLIANCE WITH DIETARY REGIMEN Diagnosis 02/13/2020 01:30:00 PM [facility] 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 [facility] (CU RRENT) USE OF INSULIN Diagnosis 02/13/2020 01:30:00 PM [facility] E03.9 Hypothyroidism, unspecified HYPOTHYROIDISM, UNSPECIFIE D Diagnosis 02/13/2020 01:30:00 PM [facility] E10.65 Type 1 diabetes mellitus with hyperglyce abdi TYPE 1 DIABETES MELLITUS WITH HYPERGLYCEMIA Diagnosis 02/13/2020 01:30:00 PM [facility] 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 NON- PRESSURE CHRONIC ULCER OF RIGHT CALF W FAT LAY Diagnosis 020 01:50:00 PM [facility] I87.311 Chronic venous hypertension (idiopathic) with ulcer of right lower extremity CHRONIC VENOUS HYPERTENSION W ULCER OF R LOW EXTREM Diagnosi s 11/01/2019 01:50:00 PM [facility] S51.802A Unspecified open wound of left forearm, initial encounter UNSPECIFIED OPEN WOUND OF LEFT FOREARM, INITIAL EN Diagnosis 10/11/2019 01:42:00 P M [facility] Y99.9 Unspecified external cause status UNSPECIFIED EX TERNAL CAUSE STATUS Diagnosis 10/04/2019 02:40:00 PM [facility] Y92.[address] or not applicable UNSPECIFIED PLACE OR NOT APPLICABLE Diagnosis 10/04/2019 02:40:00 PM [facility] Y93.9 Activity, unspecified ACTIVITY, UNSPECIFIED Diagnosis 10/04/2019 02:40:00 PM [facility] X58.XXXA Exposure to other specified factors, ini tial encounter EXPOSURE TO OTHER SPECIFIED FACTORS, INITIAL ENCOU Diagnosis 10/04/2019 02:40:00 P M [facility] S21.209A Unspecified open wound of un specified back wall of thorax without penetration into thoracic cavity, initial encounter UNSP OPN WND UNSP BK WL OF THORAX W/O PENET THOR CAV, INIT Diagnosis 10/04/2019 02:40:00 PM EDT [facility] 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 [facility] (CU RRENT) USE OF INSULIN Diagnosis 09/26/2019 07:17:00 PM [facility] R53.83 Other fatigue OTHER FATIGUE Diagnosis 09/26/2019 07:17:00 PM [facility] E10.649 Type 1 diabetes mellitus with hypoglycem ia without coma TYPE 1 DIABETES MELLITUS WITH HYPOGLYCEMIA WITHOUT COMA Diagnosis 09/26/2019 07:17:00 PM [facility] K02.9 Dental caries, unspecified DENTAL CARIES, UNSPECIFIED Diagnosis 07/03/2019 03:43:00 PM [facility] M19.90 Unspecified osteoarthritis, unspecified site UNSPECIFIED OSTEOARTHRITIS, UNSPECIFIED SITE Diagnosis 06/07/2019 09:05:[facility] M[facility].9 Rheumatoid arthritis, unspecified RHEUMATOID ART HRITIS, UNSPECIFIED Diagnosis 06/07/2019 09:05:00 AM [facility] I25.10 Atherosclerotic heart diseas e of [place] coronary artery without angina pectoris ATHSCL HEART DISEASE OF [place] CORONARY ARTERY W/O Diagnosis 06/07/2019 09:05:00 AM [facility] J45.909 Unspecified asthma, uncomplicated UNSPECIFIED THMA, UNCOMPLICATED Diagnosis 06/07/2019 09:05:00 AM [facility] E10.9 Type 1 diabetes mellitus without complic ations TYPE 1 DIABETES MELLITUS WITHOUT COMPLICATIONS Diagnosis 06/07/2019 09:05:00 AM [facility] Z3A.01 Less than 8 weeks gestation of LESS THAN 8 WEEKS GESTATION OF Diagnosis 05/04/2019 02:04:[address] [facility] M25.511 Pain in right shoulder PAIN IN RIGHT SHOULDER Diagnosi s 04/14/2019 07:54:00 PM [facility] Surgeries/Procedures Procedure Description Date Indications Data Source(s) OFFICE OUTPATIENT VISIT 10 MINUTES OFFICE/OUTPATIENT VISIT E ST 02/13/2020 12:00:00 AM [facility] GLUC BLD GLUC MNTR DEV CLEARED FDA SPEC HOME USE GLUCOSE BLO OD TEST 02/13/2020 12:00:00 AM [facility] OFFICE OUTPATIENT VISIT 5 MINUTES OFFICE/OUTPATIENT VISIT ES T 05/04/2019 12:00:00 AM [facility] THYROXINE FREE ASSAY OF FREE THYROXINE 05/04/2019 12:00:00 AM [facility] THYROID STIMULATING HORMONE TSH ASSAY THYROID STIM HORMONE 0 05/04/2019 12:00:00 AM [facility] COLLECTION VENOUS BLOOD VENIPUNCTURE ROUTINE VENIPUNCTURE 12:00:00 AM [facility] GONADOTROPIN CHORIONIC QUALITATIVE CHORIONIC GONADOTROPIN SAY 05/04/2019 12:00:00 AM [facility] Results ID Date Data Source [id number] 04/01/2020 01:02:00 AM [facility] Name Value Range Interpretation Code Description Data Gisela rce(s) Supporting Document(s) Hemoglobin A1C % Less than 5.7% Above high normal [facility] HBA1C: Normal: Less than 5.7% Prediabetes: 5.7% to 6.4% Diabetes: 6.5% or higher HA1C % vs Estimated Average Glucose (eAG) % eAG % eAG 6% 126 mg/dL 10% 240 mg/dL 7% 154 mg/dL 11% 269 mg/dL 8% 183 mg/dL 12% 298 mg/dL 9% 212 mg/dL Reference: [employer], 2017 ID Date Data Source [id number] 04/01/2020 01:02:00 AM [facility] Name Value Range Interpretation Code Description Data Gisela rce(s) Supporting Document(s) Sodium 137 mmol/L 137-145 Normal (applies to non-numeric resul ts) [facility] Potassium 3.5-5.1 Normal (applies to non-numeric resul ts) [facility] Chloride 106 mmol/L 98-112 Normal (applies to non-numeric resul ts) [facility] Carbon Dioxide CO2 22.0-33.0 Normal (applies to non-numer ic results) [facility] Anion Gap 4.0-11.0 Normal (applies to non-numeric resul ts) [facility] BUN 9 mg/dL 7-17 Normal (applies to non-numeric resul ts) [facility] Creatinine 0.70-1.20 Below low normal [facility] GFR >60 Normal (applies to non-numeric results) [facility] Result based on MDRD formula. Glucose Level 184 mg/dL 74-99 Above high normal [facility] The reference range is only applicable w hen fasting. Calcium-Uncorrected 8.4-10.2 Normal (applies to non-nume vanessa results) [facility] Corrected Calcium 8.4-10.2 Normal (applies to non-numeri c results) [facility] ID Date Data Source [id number] 04/01/2020 01:02:00 AM [facility] Name Value Range Interpretation Code Description Data Gisela rce(s) Supporting Document(s) Free T4 (Free Thyroxine) 0.76-1.46 Normal (applies to non -numeric results) [facility] ID Date Data Source [id number] 04/01/2020 01:02:00 AM [facility] Name Value Range Interpretation Code Description Data Gisela rce(s) Supporting Document(s) Thyroid Stimulate Hormone TSH 0.358-3.740 Above high ivana l [facility] ID Date Data Source [id number] 11/01/2019 02:00:00 PM EDT [facility] [place], [place] [address]PATIENT NAME: JEOVANY LEWIS DATE OF SERVICE: 11/01/19MR#: [id number] DATE OF : [birth year]ACCOUNT #: [id number], KENDRA Lizzette ([id number])Visit Report for 11/01/2019Advanced Modalities Screening Tool DetailsPatient Name:Date of Service:JEOVANY LEWIS Lizzette 11/01/2019 2:00PMMedical Record Number:[id number] Patient of /Sex:Treating RN:1995 (24 y.o. F) Reneé Quinones Care Provider: Terence Valentino Clinician:Referring Provider: TreatingProvider/Warranty Administrator:Rasheed Rose PAULWeeks in Treatment: 21Advanced Modalities Screening Check ListHyperbaric Oxygen Therapy: Reviewed LCD or HBO policy from [employer] and/or NCDTherapy Not IndicatedNo Appropriate IndicationElectronic Signature(s)Signed: 11/05/2019 3:49:19 PM By: Judith QuinonesPrevious Signature: 11/01/2019 2:05:39 PM Version By: Judith QuinonesEntermaribel By: Judith Quinones on 11/01/2019 14 :29:29 Arriv al Information DetailsPatient Name:Date of Service:JEOVANY LEWIS 11/01/2019 2:00PMMedical Record Number:[id number] Patient of /Sex:Treating RN:1995 (24 y.o. F) Susanna Rangel Care Provider: Terence Valentino Clinician:Referring Provider: TreatingProvider/Warranty Administrator:Rasheed Rose PAULWeeks in Treatment: 21Visit Information History SinceLast VisitHas Dressing in Place as Prescribed: YesPatient Arrived: AmbulatoryPain Present Now: NoArrival Time: 14:01Transfer Assistance: NonePatient Identification Verified: YesSecondary Verification Process Completed: YesElectronic Signature(s)Signed: 11/01/2019 3:51:42 PM By: Rohini Rangel By: Asia Rangel on 11/01/2019 14:01: 57 Discharge Instructions DetailsPatient Name:Date of Service:JEOVANY LEWISFrancis 11/01/20192:00 PMMedical Record Number:[id number] Patient of /Sex:Treating RN:1995 (24 y.o. F) Renée Quinones Care Provider: Sade valdovinos MyoOren Clinician:Referring Provider: TreatingProvider/Warranty Administrator:Rasheed Rose PAULWeeks in Treatment: 21Follow-up AppointmentsReturn Appointment [...] of Service:JEOVANY LEWIS Lizzette 11/01/2019 2:00PMMedical Record Number:[id number] Patient of /Sex:Treating RN:1995 (24 y.o. F) Renée Quinones Care Provider: Terecne Valentino Clinician:Referring Provider: TreatingProvider/Warranty Administrator:Rasheed Rose PAULWeeks in Treatment: 21Encounter Discharge Information ItemsDischarge Condition: StableAmbulatory S tatus: AmbulatoryDischarge Destination: HomeTransportation: Private AutoAccompanied By: Jessie Follow-up Appointment: Moe esClinical Summary of Care: Patient DeclinedElectronic Signature(s)Signed: 11/05/2019 3:49:19 PM By: Yaron Quinones By: Judith Quinones on 11/01/2019 14:32:56 Low er Extremity Assessment DetailsPatient Name:Date of Service:JEOVANY LEWIS Lizzette 11/01/2019 2:00PMMedical Record Number:[id number] Patient of /Sex:Treating RN:1995 (24 y.o. F) Susanna Rangel Care Provider: Terence Valentino Clinician:Referring Provider: TreatingProvider/Warranty Administrator:Rasheed Rose PAULWeeks in Treatment: 21Electronic Signature(s)Signed: 11/01/2019 3:51:42 PM By: Rohini Rangel By: Asia Rangel on 11/01/2019 14:03:51 Mul ti Wound Chart DetailsPatient Name:Date of Service:JEOVANY LEWIS 11/01/2019 2:00 PMMedical Record Number:[id number] Patient of /Sex:Treating RN:1995 (24 y.o. F) Renée Quinones Care Provider: Sade valdovinos MyoOren Clinician:Referring Provider: TreatingProvider/Warranty Administrator:Rasheed Rose PAULWeeks in Treatment: 21Vital SignsHeight(in):Pulse(bpm):108Weight(lbs): BloodPressure(mmHg): [...] Name:Date of Service:JEOVANY LEWIS 11/01/2019 2:00PMMedical Record Number:[id number] Patient of /Sex:Treating RN:1995 (24 y.o. F) [facility] Care Provider: Sade valdovinos MyoOther Clinician:Referring Provider: TreatingProvider/Warranty Administrator:Rasheed Rose PAULWeeks in Treatment: 21Active InactiveElectronic Signature(s)Signed: 01/15/2020 2:54:47 PM By: Elba Rangelgned: 01/23/2020 2:29:21 PM By: Brock Quinones Signature: 11/05/2019 3:49:19 PM Version By: Brock Quinones Signature: 11/01/2019 2:05:35 PM Version By: Yaron Quinones By: Asia Rangel on 12/11/2019 14:39:19 Yonis n Assessment DetailsPatient Name:Date of Service:JEOVANY LEWIS 11/01/2019 2:00PMMedical Record Number:[id number] Patient of /Sex:Treating RN:1995 (24 y.o. F) Susanna Rangel Provider: Terence Valentino Clinician:Referring Provider: TreatingProvider/Warranty Administrator:Rasheed Rose PAULWeeks in Treatment: 21Active ProblemsLocation of Pain Severity andDescription of PainPatient Has Pain? NoSite LocationsPain Management and MedicationCurrent Pain Management:Electronic Signature(s)Signed: 11/01/2019 3:51:42 PM By: Rohini Rangel By: Asia Rangel on 11/01/2019 14:06:29 Patient/Caregiver Education DetailsPatient Name:Date of Service:JEOVANY LEWIS 11/01/20193333szihnfm3:00 PMMedical Record Number:[id number] Patient of /Gender:Treating RN:1995 (24 y.o. F) Susanna Rangel Physician: Terence Valentino Clinician:Referring Physician: TreatingPhysician/Warranty Administrator:Rasheed Rose PAULWeeks in Treatment: 21Education AssessmentEducation Provided To:PatientEducation Topics ProvidedBasic Hygiene:Methods: Explain/VerbalElectronic Signature(s)Signed: 11/01/2019 3:51:42 PM By: Rohini Rangel By: Asia Rangel on 11/01/2019 14:06:39Treatment Notes SummaryWound #2 (Proximal, Midline Back)3. Primary Dressing AppliedFoam ---Vitals DetailsPatient Name:Date of Service:JEOVANY LEWIS 11/01/2019 2:00 PMMedical Record Number:[id number] Patient of /Sex:Treating RN:1995 (24 y.o. F) Susanna Rangel Care Provider: Terence Valentino Clinician:Referring Provider: TreatingProvider/Warranty Administrator:Rasheed Rose PAULWeeks in Treatment: 21Vital SignsTime Taken: 14:02Temperature (F):97.4Pulse (bpm): 108Respiratory Rate (breaths/min): 17Blood Pressure (mmHg): 91/66Reference Range: 80 - 120 mg / dlElectronic Signature(s)Signed: 11/01/2019 3:51:42 PM By: Rohini Rangel By: Asia Rangel on 11/01/2019 14:03:43 W[address] Assessment DetailsPatient Name:Date of Service:JEOVANY LEWIS 11/01/2019 2:00 PMMedical Record Number:[id number] Patient of /Sex:Treating RN:1995 (24 y.o. F) [...] of Service:JEOVANY LEWIS 11/01/2019 2:00 PMMedical Record Number:[id number] Patient of /Sex:Treating RN:1995 (24 y.o. F) Misty Rangelimarodríguez Care Provider: Sade valdovinos MyoOren Clinician:Referring Provider: TreatingProvider /Warranty Administrator:Rasheed Rose PAULWeeks in Treatment: 21Wound StatusWound Number: [...] rce(s) Supporting Document(s) ID Date Data Source [id number] 11/01/2019 02:00:00 PM [place] [place] [address]PATIENT NAME: JEOVANY LEWIS DATE OF SERVICE: 11/01/19MR#: [id number] DATE OF : [birth year]ACCOUNT #: [id number] FOWLER ([id number])Visit Report for 11/01/2019Chief Complaint Document DetailsPatient Name:Date of Service:JEOVANY LEWIS 11/01/2019 2:00 PMMedical Record Number:[id number] Patient of /Sex:Treating RN:1995 (24 y.o. F)Primary Care Provider: Terence Valentino Clinician:Referring Provider: TreatingProvider/Warranty Administrator:Rasheed Rose PAULWeeks in Treatment: 21Information Obtained from: PatientChief ComplaintBack woundsRight lateral calf venous woundElectronic Signature(s)Signed: 11/02/2019 11:10:22 AM By: Ilya Rose D.O., FACSEntered By: Eliud Rose on 11/01/2019 14:10:21 HPI DetailsPatient Name:Date of Service:JEOVANY LEWIS 11/01/2019 2:00 PMMedical Record Number:[id number] Patient of /Sex:Treating RN:1995 (24 y.o. F)Primary Care Provider: Terence Valentino Clinician:Referring Provider: TreatingProvider/Warranty Administrator:Rasheed Rose PAULWeeks in Treatment: 21History of Present IllnessHPI Description: This is a poorly controlled type 1 diabetic smoker [facility] with a wound onher left plantar heel area. This had been present for approximately 2-3 monthsand appears to have occurred while shewas admitted to the hospital during a diabetic coma where she was unconsciousfor approximately 4 days and requiredventilator support.She had been caring for this at home and her HgbA1c on 05/27/18 was 13.4.She had started seeing an [facility] after this to assist with her bloodsugars.Positive DiabetesPositive TobaccoNegative Obesity (BMI 19.11)Negative Rapid Weight LossNegative Steroids or Xtvoyyvdaphu87/11/19: Ankle Brachial Index: Left 0.98 Right 1.0807 [...] Name:Date of Service:JEOVANY LEWISFrancis 11/01/2019 2:00PMMedical Record Number:[id number] Patient of /Sex:Treating RN:1995 (24 y.o. F) Renée Quinones Care Provider: Sade valdovinos MyoOther Clinician:Referring Provider: TreatingProvider/Warranty Administrator:Rasheed Rose PAULWeeks in Treatment: 21Verbal / Phone [...] Name:Date of Service:JEOVANY LEWIS 11/01/2019 2:00PMMedical Record Number:[id number] Patient of /Sex:Treating RN:1995 (24 y.o. F)Primary Care Provider: Sade valdovinos MyoOther Clinician:Referring Provider: TreatingProvider/Warranty Administrator:Rasheed Rose PAULWeeks in Treatment: 21Active ProblemsICD-10Evaluated EncounterCode Description ActiveDate Today MeoacwieyM42.209A Unspecified open wound of un specified back wall of06/07/2019 No Yesthorax without penetration into thoracic cavity, qbsopmipmqydgkenA83.212 Non-pressure chronic ulcer of right calf with fat layer10/18/2019 No RtgxlkseliZ13.311 Chronic venous hypertension (idiopathic) with ulcer of10/18/2019 [...] rce(s) Supporting Document(s) ID Date Data Source [id number] 11/01/2019 02:00:00 PM EDT [facility] [address]UEEOUYB NAME: JEOVANY LEWIS DATE OF SERVICE: 11/01/19MR#: [id number] DATE OF : [birth year]ACCOUNT #: [id number] FOWLER ([id number])Visit Report for 11/01/2019Advanced Modalities Screening Tool DetailsPatient Name:Date of Service:JEOVANY LEWIS 11/01/2019 2:00PMMedical Record Number:[id number] Patient of /Sex:Treating RN:1995 (24 y.o. F) Renée Quinones Care Provider: Terence Valentino Clinician:Referring Provider: TreatingProvider/Warranty Administrator:Rasheed Rose PAULWeeks in Treatment: 21Advanced Modalities Screening Check ListHyperbaric Oxygen Therapy: Reviewed LCD or HBO policy from Mac and/or NCDTherapy Not IndicatedNo Appropriate IndicationElectronic Signature(s)Signed: 11/05/2019 3:49:19 PM By: Judith QuinonesPrevious Signature: 11/01/2019 2:05:39 PM Version By: Yaron Quinones By: Judith Quinones on 11/01/2019 14 :29:29 Arriv al Information DetailsPatient Name:Date of Service:JEOVANY LEWISFrancis 11/01/2019 2:00PMMedical Record Number:[id number] Patient of /Sex:Treating RN:1995 (24 y.o. F) Susanna Rangel Care Provider: Terence Valentino Clinician:Referring Provider: TreatingProvider/Warranty Administrator:Rasheed Rose PAULWeeks in Treatment: 21Visit Information History SinceLast VisitHas Dressing in Place as Prescribed: YesPatient Arrived: AmbulatoryPain Present Now: NoArrival Time: 14:01Transfer Assistance: NonePatient Identification Verified: YesSecondary Verification Process Completed: YesElectronic Signature(s)Signed: 11/01/2019 3:51:42 PM By: Rohini Rangel By: Asia Rangel on 11/01/2019 14:01: 57 Discharge Instructions DetailsPatient Name:Date of Service:JEOVANY LEWISFrancis 11/01/20192:00 PMMedical Record Number:[id number] Patient of /Sex:Treating RN:1995 (24 y.o. F) Renée Quinones Care Provider: Terence Valentino Clinician:Referring Provider: TreatingProvider/Warranty Administrator:Rasheed Rose PAULWeeks in Treatment: 21Follow-up AppointmentsReturn Appointment [...] Name:Date of Service:JEOVANY LEWIS 11/01/2019 2:00PMMedical Record Number:[id number] Patient of /Sex:Treating RN:1995 (24 y.o. F) Renée Quinones Care Provider: Terence Valentino Clinician:Referring Provider: TreatingProvider/Warranty Administrator:Rasheed Rose PAULWeeks in Treatment: 21Encounter Discharge Information ItemsDischarge Condition: StableAmbulatory S tatus: AmbulatoryDischarge Destination: HomeTransportation: Private AutoAccompanied By: Jessie Follow-up Appointment: Moe esClinical Summary of Care: Patient DeclinedElectronic Signature(s)Signed: 11/05/2019 3:49:19 PM By: Yaron Quinones By: Judith Quinones on 11/01/2019 14:32:56 Low er Extremity Assessment DetailsPatient Name:Date of Service:JEOVANY LEWIS 11/01/2019 2:00PMMedical Record Number:[id number] Patient of /Sex:Treating RN:1995 (24 y.o. F) Susanna Rangel Care Provider: W in, MyoOther Clinician:Referring Provider: TreatingProvider/Warranty Administrator:Rasheed Rose PAULWeeks in Treatment: 21Electronic Signature(s)Signed: 11/01/2019 3:51:42 PM By: Rohini Rangel By: Asia Rangel on 11/01/2019 14:03:51 Mul ti Wound Chart DetailsPatient Name:Date of Service:LEWISJEOVANY 11/01/2019 2:00 PMMedical Record Number:[id number] Patient of /Sex:Treating RN:1995 (24 y.o. F) Renée Quinones Care Provider: Sade valdovinos MyoOren Clinician:Referring Provider: TreatingProvider/Warranty Administrator:Rasheed Rose PAULWeeks in Treatment: 21Vital SignsHeight(in):Pulse(bpm):108Weight(lbs): BloodPressure(mmHg): [...] Name:Date of Service:JEOVANY LEWIS 11/01/2019 2:00PMMedical Record Number:[id number] Patient of /Sex:Treating RN:1995 (24 y.o. F) Renée Quinones Care Provider: Terence Valentino Clinician:Referring Provider: TreatingProvider/Warranty Administrator:Rasheed Rose PAULWeeks in Treatment: 21Active InactiveNutritionNursing Diagnoses:Impaired [...] of Service:JEOVANY LEWIS 11/01/2019 2:00 PMMedical Record Number:[id number] Patient of /Sex:Treating RN:1995 (24 y.o. F) Susanna Rangel Provider: Terence Valentino Clinician:Referring Provider: TreatingProvider/Warranty Administrator:Rasheed Rose PAULWeeks in Treatment: 21Active ProblemsLocation of Pain Severity andDescription of PainPatient Has Pain? NoSite LocationsPain Management and MedicationCurrent Pain Management:Electronic Signature(s)Signed: 11/01/2019 3:51:42 PM By: Rohini Rangel By: Asia Rangel on 11/01/2019 14:06:29 Pat ient/Caregiver Education DetailsPatient Name:Date of Service:JEOVANY LEWIS 11/01/20191113duevjbz0:00 PMMedical Record Number:[id number] Patient of /Gender:Treating RN:1995 (24 y.o. F) Susanna Rangel Physician: Terence Valentino Clinician:Referring Physician: TreatingPhysician/Warranty Administrator:Rasheed Rose PAULWeeks in Treatment: 21Education AssessmentEducation Provided To:PatientEducation Topics ProvidedB asic Hygiene:Methods: Explain/VerbalElectronic Signature(s)Signed: 11/01/2019 3:51:42 PM By: Rohini Rangel By: Asia Rangel on 11/01/2019 14:06:39Treatment Notes SummaryWound #2 (Proximal, Midline Back)3. Primary Dressing AppliedFoam Vitals DetailsPatient Name:Date of Service:JEOVANY LEWIS 11/01/2019 2:00 PMMedical Record Number:[id number] Patient of /Sex:Treating RN:1995 (24 y.o. F) [...] of Service:JEOVANY LEWIS 11/01/2019 2:00 PMMedical Record Number:[id number] Patient of /Sex:Treating RN:1995 (24 y.o. F) Susanna Rangel Care Provider: Terence Valentino Clinician:Referring Provider: TreatingProvider/Warranty Administrator:Rasheed Rose PAULWeeks in Treatment: 21Wound StatusWound Number: [...] of Service:JEOVANY LEWIS 11/01/2019 2:00 PMMedical Record Number:[id number] Patient of /Sex:Treating RN:1995 (24 y.o. F) Susanna Rangel Care Provider: Terence Valentino Clinician:Referring Provider: TreatingProvider/Warranty Administrator:Rasheed Rose PAULWeeks in Treatment: 21Wound StatusWound Number: [...] rce(s) Supporting Document(s) ID Date Data Source [id number] 10/18/2019 02:00:00 PM EDT [facility] [address] [address]ECOFIKV NAME: JEOVANY LEWIS DATE OF SERVICE: 10/18/19MR#: [id number] DATE OF : [birth year]ACCOUNT #: [id number] FOWLER ([id number])Visit Report for 10/18/2019Advanced Modalities Screening Tool DetailsPatient Name:Date of Service:JEOVANY LEWIS 10/18/2019 2:00PMMedical Record Number:[id number] Patient of /Sex:Treating RN:1995 (24 y.o. F) Renée Quinones Care Provider: Terence Valentino Clinician:Referring Provider: TreatingProvider/Warranty Administrator:Rasheed Rose PAULWeeks in Treatment: 19Advanced Modalities Screening Check ListHyperbaric Oxygen Therapy: Reviewed LCD or HBO policy from [employer] and/or NCDTherapy Not IndicatedNo Ap propriate IndicationElectronic Signature(s)Signed: 10/18/2019 3:44:51 PM By: Yaron Quinones By: Judith Quinones on 10/18/2019 14:10:37 -----Arrival Information DetailsPatient Name:Date of Service:JEOVANY LEWIS 10/18/2019 2:00PMMedical Record Number:[id number] Patient of /Sex:Treating RN:1995 (24 y.o. F) Susanna Rangel Care Provider: Terence Valentino Clinician:Referring Provider: TreatingProvider/Warranty Administrator:Rasheed Rose PAULWeeks in Treatment: 19Visit Information History SinceLast VisitHas Dressing in Place as Prescribed: YesPatient Arrived: AmbulatoryPain Present Now: NoArrival Time: 14:03Transfer Assistance: NonePatient Identification Verified: YesSecondary Verification Process Completed: YesElectronic Signature(s)Signed: 10/18/2019 3:50:19 PM By: Rohini Rangel By: Asia Rangel on 10/18/2019 14:03:50 D ischarge Instructions DetailsPatient Name:Date of Service:JEOVANY LEWIS Lizzette 10/18/20192:00 PMMedical Record Number:[id number] Patient of /Sex:Treating RN:1995 (24 y.o. F) Renée Quinones Care Provider: Terence Valentino Clinician:Referring Provider: TreatingProvider/Warranty Administrator:Rasheed Rose PAULWeeks in Treatment: 19Follow-up AppointmentsReturn Appointment [...] put new dressing on woundPrimary Wound DressingCut Fourteen IP Ag to fit wound bed - to [...] of Service:JEOVANY LEWIS Lizzette 10/18/2019 2:00PMMedical Record Number:[id number] Patient of /Sex:Treating RN:1995 (24 y.o. F) Judith QuinonesNmsanjay Angella Provider: Terence Valentino Clinician:Referring Provider: TreatingProvider/Warranty Administrator:Rasheed Rose PAULWeeks in Treatment: 19Encounter Discharge Information Items Post ProcedureVitalsDischarge Condition: Stable Temperature(F): 98.5Ambulatory Status: AmbulatoryPulse (bpm):94Discharge Destination: Home Respiratory Rate(breaths/min): 17Transportation: Private Auto Blood Pressure(mmHg): 93/63Accompanied By: selfSchberenice Follow-up Appointment: YesClinical Summary of Care: Patient DeclinedElectronic Signature(s)Signed: 10/18/2019 3:44:51 PM By: Yaron Quinones By: Judith Quinones on 10/18/2019 14:54:37 Low er Extremity Assessment DetailsPatient Name:Date of Service:LEWISJEOVANY 10/18/2019 2:00PMMedical Record Number:[id number] Patient of /Sex:Treating RN:1995 (24 y.o. F) Susanna Ragnel Provi jonathan: Terence Valentino Clinician:Referring Provider: TreatingProvider/Warranty Administrator:Rasheed Rose PAULWeeks in Treatment: 19Electronic Signature(s)Signed: 10/18/2019 3:50:19 PM By: Rohini Rangel By: Asia Rangel on 10/18/2019 14:04:03 Mul ti Wound Chart DetailsPatient Name:Date of Service:JEOVANY LEWIS 10/18/2019 2:00 PMMedical Record Number:[id number] Patient of /Sex:Treating RN:1995 (24 y.o. F) Nani Quinonesimarodríguez Care Provider: Sade valdovinos, MyoOther Clinician:Referring Provider: TreatingProvider/Warranty Administrator:Rasheed Rose PAULWeeks in Treatment: 19Vital SignsHeight(in): Capillary Nvxwe648Wbivywq(mg/dl):Weight(lbs):Pulse(bpm): 102Body Mass Index(BMI):Blood Pressure(mmHg): 103/71Temperature(F): 98.6Respiratory 18Rate(breaths/min):5Photos: [...] OpenMeasurements L x W x D 1x14.5x0.1 4q8d75d5.9x0.1(cm)Area (cm) : 11.388 00.707Volume (cm) : 1.139 [...] N/APressureProcedural Pain: 0 N/A0Post Procedural Pain: 1 N/B2Fdastfhpuwk Treatment Procedure was tolerated well N/AProcedure was tolerated wellResponse:Post Debridement 1x14.5x0.1 N/A1x0.9x0.1Measurements L x W x D(cm)Post Debridement Volume: 1.139 N/A0.071(cm)Procedures Performed: Debridement N/ACompression TherapyDebridementTreatment NotesNotesDr Rose in. Culture obtained.Electronic Signature(s)Signed: 10/18/2019 3:44:51 PM By: Yaron Quinones By: Judith Quinones on 10/18/2019 14:41:53 -------Multi-Disciplinary Care Plan DetailsPatient Name:Date of Service:JEOVANY LEWIS 10/18/20192:00 PMMedical Record Number:[id number] Patient of /Sex:Treating RN:1995 (24 y.o. F) [facility] Provider: Sade valdovinos, MyoOther Clinician:Referring Provider: TreatingProvider/Warranty Administrator:Brydges, KennethTEJERA, PAULWeeks in Treatment: 19Active InactiveNutritionNursing Diagnoses:Impaired [...] of Service:JEOVANY LEWIS 10/18/2019 2:00 PMMedical Record Number:[id number] Patient of /Sex:Treating RN:1995 (24 y.o. F) Susanna Rangel Care Provider: Sade valdovinos, MyoOther Clinician:Referring Provider: TreatingProvider/Warranty Administrator:Rasheed Rose PAULWeeks in Treatment: 19Active ProblemsLocation of Pain Severity andDescription of PainPatient Has Pain? NoSite LocationsPain Management and MedicationCurrent Pain Management:Electronic Signature(s)Signed: 10/18/2019 3:50:19 PM By: Rohini Rangel By: Asia Rangel on 10/18/2019 14:04:21 Patient/Caregiver Education DetailsPatient Name:Date of Service:JEOVANY LEWIS 10/18/20194742pddppxz4:00 PMMedical Record Number:[id number] Patient of /Gender:Treating RN:1995 (24 y.o. F) [facility] Physician: Sade valdovinos MyoOren Clinician:Referring Physician: TreatingPhysician/Warranty Administrator:Rasheed Rose PAULWeeks in Treatment: 19Education AssessmentEducation Provided To:PatientEducation Topics ProvidedBasic Hygiene:Methods: Explain/VerbalElectronic Signature(s)Signed: 10/18/2019 3:50:19 PM By: Rohini Rangel By: Asia Rangel on 10/18/2019 14:04:33Treatment Notes SummaryWound #2 (Proximal, Midline Back)3. Primary Dressing AppliedFoamSilver Dressings5. Secured withTapeNotestwo layer com pressionWound #5 (Right, Lateral Lower Leg)3. Primary Dressing AppliedFoamSilver Dressings5. Secured withTapeNotestwo layer compression --Vitals DetailsPatient Name:Date of Service:JEOVANY LEWIS 10/18/2019 2:00 PMMedical Record Number:[id number] Patient of /Sex:Treating RN:1995 (24 y.o. F) Susanna Rangel Care Provider: Terence Valentino Clinician:Referring Provider: TreatingProvider/Warranty Administrator:Rasheed Rose PAULWeeks in Treatment: 19Vital SignsTime Taken: 14:05Temperature (F):98.6Pulse (bpm): 102Respiratory Rate (breaths/min): 18Blood Pressure (mmHg): 103/71Capillary Blood Glucose (mg/dl): 400Reference Range: 80 - 120 mg / dlElectronic Signature(s)Signed: 10/18/2019 3:50:19 PM By: Rohini Rangel By: Asia Rangel on 10/18/2019 14:05:28 [place] Assessment DetailsPatient Name:Date of Service:JEOVANY LEWIS 10/18/2019 2:00 PMMedical Record Number:[id number] Patient of /Sex:Treating RN:1995 (24 y.o. F) Susanna Rangel Care Provider: Terence Valentino Clinician:Referring Provider: TreatingProvider/Warranty Administrator:Rasheed Rose PAULWeeks in Treatment: 19Wound StatusWound Number: [...] of Service:JEOVANY LEWIS 10/18/2019 2:00 PMMedical Record Number:[id number] Patient of /Sex:Treating RN:1995 (24 y.o. F) Susanna Rangel Care Provider: Sade valdovinos MyoOther Clinician:Referring Provider: TreatingProvider/Warranty Administrator:Rasheed Rose PAULWeeks in Treatment: 19Wound StatusWound Number: 4 Primary AtypicalEtiology:Wound Location: Left ForearmWound Healed - EpithelializedWounding Event: Gradually AppearedStatus:Date Acquired: 09/19/2019Comorbid Type I Diabetes, Asthma, Coronary ArteryWeeks Of Treatment: 2History: Disease, Rheumatoid Arthritis, Osteoarth ritisClustered Wound: NoPhotosWound MeasurementsLength: (cm) 0 % Gnye351%Width: (cm) 0 % ReduVolume: 100%Depth: (cm) 0Area: (cm) 0Volume: (cm) 0Wound DescriptionClassification: Full Thickness Without Exposed SupportStructuresWound BedGranulation Amount: None Present (0%)Necrotic Amount: None Present (0%)ction in Area:ction inElectronic Signature(s)Signed: 10/18/2019 3:50:19 PM By: Diony Rangelntered By: Asia Rangel on 10/18/2019 14:08:15 [place] Assessment DetailsPatient Name:Date of Service:JEOVANY LEWIS 10/18/2019 2:00 PMMedical Record Number:[id number] Patient of /Sex:Treating RN:1995 (24 y.o. F) Susanna Rangel Care Provider: Sade valdovinos MyoOther Clinician:Referring Provider: TreatingPr ovider/Warranty Administrator:Rasheed Rsoe PAULWeeks in Treatment: 19Wound StatusWound Number: 5 [...] rce(s) Supporting Document(s) ID Date Data Source [id number] 10/18/2019 02:00:00 PM EDT [facility] [address]PATIENT NAME: JEOVANY LEWIS DATE OF SERVICE: 10/18/19MR#: [id number] DATE OF : [birth year]ACCOUNT #: [id number] FOWLER ([id number])Visit Report for 10/18/2019Chief Complaint Document DetailsPatient Name:Date of Service:JEOVANY LEWIS 10/18/2019 2:00 PMMedical Record Number:[id number] Patient of /Sex:Treating RN:1995 (24 y.o. F)Primary Care Provider: Sade valdovinos, MyoOther Clinician:Referring Provider: TreatingProvider/Warranty Administrator:Rasheed Rose PAULWeeks in Treatment: 19Information Obtained from: PatientChief ComplaintBack woundsRight lateral calf venous woundElectronic Signature(s)Signed: 10/22/2019 4:14:25 PM By: Eliud Rose D.O., FACSEntered By: Eliud Rose on 10/18/2019 14:40:00 HPI DetailsPatient Name:Date of Service:JEOVANY LEWIS 10/18/2019 2:00 PMMedical Record Number:[id number] Patient of /Sex:Treating RN:1995 (24 y.o. F)Primary Care Provider: Sade valdovinos MyoOther Clinician:Referring Provider: TreatingProvider/Warranty Administrator:Rasheed Rose PAULWeeks in Treatment: 19History of Present IllnessHPI Description: This is a poorly controlled type 1 diabetic smoker [facility] with a wound onher left plantar heel area. This had been present for approximately 2-3 monthsand appears to have occurred while shewas admitted to the hospital during a diabetic coma where she was unconsciousfor approximately 4 days and requiredventilator support.She had been caring for this at home and her HgbA1c on 05/27/18 was 13.4.She had started seeing an [facility] after this to assist with her bloodsugars.Positive DiabetesPositive TobaccoNegative Obesity (BMI 19.11)Negative Rapid Weight LossNegative Steroids or Yhgoaoqvxtzu30/11/19: Ankle Brachial Index: Left 0.98 Right 1.083: [...] of Service:JEOVANY LEWIS Lizzette 10/18/20192:00 PMMedical Record Number:[id number] Patient of /Sex:Treating RN:1995 (24 y.o. 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 F)Primary Care Provider: Elliot Valentino OtherClinician:Referring Provider: TreatingProvider/Warranty Administrator:Rasheed Rose PAULWeeks in Treatment: 19Active ProblemsICD-10Evaluated EncounterCode Description ActiveDate Today UjsgpvpjaT41.209A Unspecified open wound of unspecified back wall of06/07/2019 No Yesthorax without penetration into thoracic cavity, zfpsadjgzazhoetbT23.212 Non-pressure chronic ulcer of right calf with fat layer10/18/2019 No SecbloqncfG05.311 Chronic venous hypertension (idiopathic) with ulcer of10/18/2019 [...] rce(s) Supporting Document(s) ID Date Data Source [id number] 10/18/2019 02:00:00 PM EDT [facility] [place] [address]PATIENT NAME: JEOVANY LEWIS DATE OF SERVICE: 10/18/19MR#: [id number] DATE OF : [birth year]ACCOUNT #: [id number] FOWLER ([id number])Visit Report for 10/18/2019Compression Therapy DetailsPatient Name:Date of Service:JEOVANY LEWIS 10/18/2019 2:00 PMMedical Record Number:[id number] Patient of /Sex:Treating RN:1995 (24 y.o. F) Nani Quinonesimarodríguez Care Provider: Sade valdovinos, MyoOther Clinician:Referring Provider: TreatingProvider/Warranty Administrator:Rasheed Rose PAULWeeks in Treatment: 19Compression Therapy Performed for Wound Assessment: Wound #5 Right,LateralLower LegPerformed By: Clinician Judith Quinones, ANNCompression Type: Double LayerPost Procedure DiagnosisSame as Pre-procedureElectronic Signature(s)Signed: 10/18/2019 3:44:51 PM By: Judith QuinonesEntered By: Judith Quinones on 10/18/2019 14:38:49 Debridement DetailsPatient Name:Date of Service:JEOVANY LEWIS Lizzette 10/18/2019 2:00 PMMedical Record Number:[id number] Patient of /Sex:Treating RN:1995 (24 y.o. F) Renée Quinones Care Provider: Terence Valentino Clinician:Referring Provider: TreatingProvider/Warranty Administrator:Rasheed Rose PAULWeeks in Treatment: 19Debridement Performed for [...] of Service:JEOVANY LEWISFrancis 10/18/2019 2:00 PMMedical Record Number:[id number] Patient of /Sex:Treating RN:1995 (24 y.o. F) [facility]: Terence Valentino Clinician:Referring Provider: TreatingProvider/Warranty Administrator:Rasheed Rose PAULWeeks in Treatment: 19Debridement Performed for [...] rce(s) Supporting Document(s) ID Date Data Source [id number] 10/20/2019 12:06:00 PM EDT [facility] Name Value Range Interpretation Code Description Data Gisela rce(s) Supporting Document(s) ORGANISM [facility] COLONY COUNT N [facility] ID Date Data Source [id number] 10/11/2019 02:00:00 PM EDT [address] [address]CBZVOEU NAME: JEOVANY LEWIS DATE OF SERVICE: 10/11/19MR#: [id number] DATE OF : [birth year]ACCOUNT #: [id number] LEWIS ([id number])Visit Report for 10/11/2019Debridement DetailsPatient Name:Date of Service:JEOVANY LEWIS 10/11/2019 2:00 PMMedical Record Number:[id number] Patient of /Sex:Treating RN:1995 (24 y.o. F) Judith QuinonesPrimarodríguez Care Provider: Sade valdovinos, MyoOther Clinician:Referring Provider: TreatingProvider/Warranty Administrator:Rasheed Rose PAULWeeks in Treatment: 18Debridement Performed for [...] of Service:JEOVANY LEWIS 10/11/2019 2:00 PMMedical Record Number:[id number] Patient of /Sex:Treating RN:1995 (24 y.o. F) Renée Quinones Care Provider: Sade valdovinos, MyoOther Clinician:Referring Provider: TreatingProvider/Warranty Administrator:Rasheed Rose PAULWeeks in Treatment: 18Debridement Performed for [...] rce(s) Supporting Document(s) ID Date Data Source [id number] 10/11/2019 02:00:00 PM EDT [facility] [address]ANDA[address] [address]MZEPBHZ NAME: JEOVANY LEWIS DATE OF SERVICE: 10/11/19MR#: [id number] DATE OF : [birth year]ACCOUNT #: [id number] LEWIS ([id number])Visit Report for 10/11/2019Chi Complaint Document DetailsPatient Name:Date of Service:JEOVANY LEWIS 10/11/2019 2:00 PMMedical Record Number:[id number] Patient of /Sex:Treating RN:1995 (24 y.o. F)Primary Care Provider: Terence Valentino Clinician:Referring Provider: TreatingProvider/Warranty Administrator:Rasheed Rose PAULWeeks in Treatment: 18Information Obtained from: [facility] ComplaintLeft heel diabetic foot wound for approximately 3 months.Electronic Signature(s)Signed: 10/12/2019 10:13:48 AM By: Eliud Rose D.O., FACSEntered By: Eliud Rose on 10/11/2019 14:16:22 HPI DetailsPatient Name:Date of Service:JEOVANY LEWISFrancis 10/11/2019 2:00 PMMedical Record Number:[id number] Patient of /Sex:Treating RN:1995 (24 y.o. F)Primary Care Provider: Terence Valentino Clinician:Referring Provider: TreatingProvider/Warranty Administrator:Rasheed Rose PAULWeeks in Treatment: 18History of Present IllnessHPI Description: This is a poorly controlled type 1 diabetic smoker [facility] with a wound onher left plantar heel area. This had been present for approximately 2-3 monthsand appears to have occurred while shewas admitted to the hospital during a diabetic coma where she was unconsciousfor approximately 4 days and requiredventilator support.She had been caring for this at home and her HgbA1c on 05/27/18 was 13.4.She had started seeing an [facility] after this to assist with her bloodsugars.Positive DiabetesPositive TobaccoNegative Obesity (BMI 19.11)Negative Rapid Weight LossNegative Steroids or Jjtepywaoyid37/11/19: Ankle Brachial Index: Left 0.98 Right 1.0807/06/2019: [...] Name:Date of Service:JEOVANY LEWIS 10/11/2019 2:00PMMedical Record Number:[id number] Patient of /Sex:Treating RN:1995 (24 y.o. F) Renée Quinones Care Provider: Terence Valentino Clinician:Referring Provider: TreatingProvider/Warranty Administrator:Rasheed Rose PAULWeeks in Treatment: 18Verbal / Phone [...] Name:Date of Service:JEOVANY LEWIS 10/11/2019 2:00PMMedical Record Number:[id number] Patient of /Sex:Treating RN:1995 (24 y.o. F)Primary Care Provider: Terence Valentino Clinician:Referring Provider: TreatingProvider/Warranty Administrator:Rasheed Rose PAULWeeks in Treatment: 18Active ProblemsICD-10Evaluated EncounterCode Description ActiveDate Today PzysmwkmbS92.209A Unspecified open wound of unspecified back wall of06/07/2019 No Yesthorax without penetration into thoracic cavity, rufricxwcgccieanK79.802A Unspecified open wound of left forearm, initial encounter 10/04/2019No YesS51.802S Unspecified open wound of left forearm, sequela 10/04/2019 NoYesInactive ProblemsResolved ProblemsElectronic Signature(s)Signed: 10/12/2019 10:13:48 AM By: Eliud Rose D.O., FACSEntered By: Eliud Rose on 10/11/2019 14:16:18 DIC 1400TRANS:10/11/19 1400 WOUND CENTERTRANS BY:ABNER SIGNED:TIME SIGNED:REPORT COPY TO: Name Value Range Interpretation Code Description Data Gisela rce(s) Supporting Document(s) ID Date Data Source [id number] 10/11/2019 02:00:00 PM EDT [facility] [place], [place] [address]PATIENT NAME: JEOVANY LEWIS DATE OF SERVICE: 10/11/19MR#: [id number] DATE OF : [birth year]ACCOUNT #: [id number] LEWIS ([id number])Visit Report for 10/11/2019Advanced Modalities Screening Tool DetailsPatient Name:Date of Service:JEOVANY LEWIS 10/11/2019 2:00PMMedical Record Number:[id number] Patient of /Sex:Treating RN:1995 (24 y.o. F) Renée Quinones Care Provider: Sade valdovinos MyoOther Clinician:Referring Provider: TreatingProvider/Warranty Administrator:Rasheed Rose PAULWeeks in Treatment: 18Advanced Modalities Screening Check ListHyperbaric Oxygen Therapy: Reviewed LCD or HBO policy from [employer] and/or NCDTherapy Not IndicatedNo Appropriate IndicationElectronic Signature(s)Signed: 10/18/2019 3:52:46 PM By: Yaron Quinones By: Judith Quinones on 10/11/2019 14:26:02 -------Arrival Information DetailsPatient Name:Date of Service:JEOVANY LEWIS 10/11/2019 2:00PMMedical Record Number:[id number] Patient of /Sex:Treating RN:1995 (24 y.o. F) Susanna Rangel Care Provider: Terence Valentino Clinician:Referring Provider: TreatingProvider/Warranty Administrator:Rasheed Rose PAULWeeks in Treatment: 18Visit Information History SinceLast VisitHas Dressing in Place as Prescribed: YesPatient Arrived: AmbulatoryPain Present Now: YesArrival Time: 13:55Transfer Assistance: NonePatient Identification Verified: YesSecondary Verification Proc ess Completed: YesElectronic Signature(s)Signed: 10/11/2019 3:22:58 PM By: Rohini Rangel By: Asia Rangel on 10/11/2019 13:56:19 ----Discharge Instructions DetailsPatient Name:Date of Service:JEOVANY LEWIS 10/11/20192:00 PMMedical Record Number:[id number] Patient of /Sex:Treating RN:1995 (24 y.o. F) Renée Quinones Care Provider: Terence Valentino Clinician:Referring Provider: TreatingProvider/Warranty Administrator:Rasheed Rose PAULWeeks in Treatment: 18Follow-up AppointmentsReturn Appointment [...] put new dressing on woundPrimary Wound DressingCut Fourteen IP Ag to fit wound bed - to both wounds, cover with MepilexAdditional Orders / InstructionsOther: - high protein dietPatient Received Instructions: YesElectronic Signature(s)Signed: 10/11/2019 3:34:40 PM By: Holly HillEntered By: Holly Hill on 10/11/2019 14:55:33 Lower Extremity Assessment DetailsPatient Name:Date of Service:JEOVANY LEWIS 10/11/2019 2:00PMMedical Record Number:[id number] Patient of /Sex:Treating RN:1995 (24 y.o. F) Susanna Ranegl Care Provider: Terence Valentino Clinician:Referring Provider: TreatingProvider/Warranty Administrator:Rasheed Rose PAULWeeks in Treatment: 18Electronic Signature(s)Signed: 10/11/2019 3:22:58 PM By: Rohini Rangel By: Asia Rangel on 10/11/2019 13:57:58 Mul ti Wound Chart DetailsPatient Name:Date of Service:JEOVANY LEWIS 10/11/2019 2:00PMMedical Record Number:[id number] Patient of /Sex:Treating RN:1995 (24 y.o. F) Renée Quinones Care Provider: Sade valdovinos, MyoOther Clinician:Referring Provider: TreatingProvider/Warranty Administrator:Rasheed oRse PAULWeeks in Treatment: 18Vital SignsHeight(in): Capillary Zffqy484Msqheof(mg/dl):Weight(lbs):Pulse(bpm): 103Body Mass Index(BMI):Blood Pressure(mmHg): 124/85Temperature(F):Respiratory 18Rate(breaths/min):N/APhotos: [2:No [...] Name:Date of Service:JEOVANY LEWISFrancis 10/11/2019 2:00PMMedical Record Number:[id number] Patient of /Sex:Treating RN:1995 (24 y.o. F) Renée Quinones Care Provider: Terence Valentino Clinician:Referring Provider: TreatingProvider/Warranty Administrator:Rasheed Rose PAULWeeks in Treatment: 18Active InactiveNutritionNursing Diagnoses:Impaired [...] Patient/Caregiver Education DetailsPatient Name:Date of Service:JEOVANY LEWIS 10/11/20193139hhhspwf8:00PMMedical Record Number:[id number] Patient of /Gender:Treating RN:1995 (24 y.o. F) [facility] Physician: Terence Valentino Clinician:Referring Physician: TreatingPhysician/Warranty Administrator:Rasheed Rose PAULWeeks in Treatment: 18Education AssessmentEducation Provided To:PatientEducation Topics ProvidedWound/Skin Impairment:Methods: Explain/VerbalResponses: State content correctlyElectronic Signature(s)Signed: 10/18/2019 3:52:46 PM By: Yaron Quinones By: Judith Quinones on 10/11/2019 14:26:57 Vit als DetailsPatient Name:Date of Service:JEOVANY LEWIS 10/11/20192:00 PMMedical Record Number:[id number] Patient of /Sex:Treating RN:1995 (24 y.o. F) Susanna Rangel Provider: Terence Valentino Clinician:Referring Provider: TreatingProvider/Warranty Administrator:Rasheed Rose PAULWeeks in Treatment: 18Vital SignsTime Taken: 13:56Pulse (bpm):103Respiratory Rate (breaths/min): 18Blood Pressure (mmHg): 124/85Capillary Blood Glucose (mg/dl): 200Reference Range: 80 - 120 mg / dlElectronic Signature(s)Signed: 10/11/2019 3:22:58 PM By: Rohini Rangel By: Asia Rangel on 10/11/2019 13:56:59 Wound Assessment DetailsPatient Name:Date of Service:JEOVANY LEWIS Lizzette 10/11/2019 2:00 PMMedical Record Number:[id number] Patient of /Sex:Treating RN:1995 (24 y.o. F) Susanna Rangel Care Provider: Terence Valentino Clinician:Referring Provider: TreatingProvider/Warranty Administrator:Rasheed Rose PAULWeeks in Treatment: 18Wound StatusWound Number: [...] 14:02:17- Wound Assessment DetailsPatient Name:Date of Service:JEOVANY LWEIS 10/11/2019 2:00 PMMedical Record Number:[id number] Patient of /Sex:Treating RN:1995 (24 y.o. F) Susanna Rangel Care Provider: Terence Valentino Clinician:Referring Provider: TreatingProvider/Warranty Administrator:Rasheed Rose PAULWeeks in Treatment: 18Wound StatusWound Number: [...] rce(s) Supporting Document(s) ID Date Data Source [id number] 10/05/2019 06:59:00 PM EDT [facility] Name Value Range Interpretation Code Description Data Gisela rce(s) Supporting Document(s) Sodium 133 mmol/L 137-145 Below low normal [facility] Potassium 3.5-5.1 Normal (applies to non-numeric resul ts) [facility] Chloride 100 mmol/L 98-112 Normal (applies to non-numeric resul ts) [facility] Carbon Dioxide CO2 22.0-33.0 Normal (applies to non-numer ic results) [facility] Anion Gap 4.0-11.0 Normal (applies to non-numeric resul ts) [facility] BUN 9 mg/dL 7-17 Normal (applies to non-numeric resul ts) [facility] Creatinine 0.70-1.20 Normal (applies to non-numeric resul ts) [facility] GFR 84 mL/min >60 Normal (applies to non-numeric resul ts) [facility] Result based on MDRD formula. Glucose Level 321 mg/dL 74-99 Above high normal [facility] The reference range is only applicable w hen fasting. Calcium-Uncorrected 8.4-10.2 Normal (applies to non-nume vanessa results) [facility] Corrected Calcium 8.4-10.2 Normal (applies to non-numeri c results) [facility] ID Date Data Source [id number] 10/05/2019 06:59:00 PM EDT [facility] Name Value Range Interpretation Code Description Data Gisela rce(s) Supporting Document(s) Thyroid Stimulate Hormone TSH 0.358-3.740 Above high ivana l [facility] ID Date Data Source [id number] 10/05/2019 06:59:00 PM EDT [facility] Name Value Range Interpretation Code Description Data Gisela rce(s) Supporting Document(s) Free T4 (Free Thyroxine) 0.76-1.46 Normal (applies to non -numeric results) [facility] ID Date Data Source [id number] 10/05/2019 06:46:00 PM EDT [facility] Name Value Range Interpretation Code Description Data Gisela rce(s) Supporting Document(s) Hemoglobin A1C % Less than 5.7% Above high normal [facility] HBA1C: Normal: Less than 5.7% Prediabetes: 5.7% to 6.4% Diabetes: 6.5% or higher HA1C % vs Estimated Average Glucose (eAG) % eAG % eAG 6% 126 mg/dL 10% 240 mg/dL 7% 154 mg/dL 11% 269 mg/dL 8% 183 mg/dL 12% 298 mg/dL 9% 212 mg/dL Reference: [employer], 2017 ID Date Data Source [id number] 10/05/2019 06:44:00 PM EDT [facility] Name Value Range Interpretation Code Description Data Gisela rce(s) Supporting Document(s) Beta HCG Screen,Qualitative Negative Normal (appli es to non-numeric results) [facility] ID Date Data Source [id number] 10/04/2019 03:00:00 PM EDT [place], [place] [address]PATIENT NAME: JEOVANY LEWIS DATE OF SERVICE: 10/04/19MR#: [id number] DATE OF : [birth year]ACCOUNT #: [id number] LEWIS ([id number])Visit Report for 10/04/2019Debridement DetailsPatient Name:Date of Service:JEOVANY LEWIS 10/04/2019 3:00 PMMedical Record Number:[id number] Patient of /Sex:Treating RN:1995 (24 y.o. F) Renée Quinones Care Provider: Terence Valentino Clinician:Referring Provider: TreatingProvider/Warranty Administrator:Rasheed Rose PAULWeeks in Treatment: 17Debridement Performed for [...] rce(s) Supporting Document(s) ID Date Data Source [id number] 10/04/2019 03:00:00 PM EDT [facility] [address] [address]DHFSNHM NAME: JEOVANY LEWIS DATE OF SERVICE: 10/04/19MR#: [id number] DATE OF : [birth year]ACCOUNT #: [id number] LEWIS ([id number])Visit Report for 10/04/2019[facility] Complaint Document DetailsPatient Name:Date of Service:JEOVANY LEWIS 10/04/2019 3:00 PMMedical Record Number:[id number] Patient of /Sex:Treating RN:1995 (24 y.o. F)Primary Care Provider: Terence Valentino Clinician:Referring Provider: TreatingProvider/Warranty Administrator:Rasheed Rose PAULWeeks in Treatment: 17Information Obtained from: [facility] ComplaintLeft heel diabetic foot wound for approximately 3 months.Electronic Signature(s)Signed: 10/05/2019 8:51:03 AM By: Eliud Rose D.O., FACSEntered By: Eliud Rose on 10/04/2019 14:42:03 HPI DetailsPatient Name:Date of Service:JEOVANY LEWISFrancis 10/04/2019 3:00 PMMedical Record Number:[id number] Patient of /Sex:Treating RN:1995 (24 y.o. F)Primary Care Provider: Terence Valentino Clinician:Referring Provider: TreatingProvider/Warranty Administrator:Rasheed Rose PAULWeeks in Treatment: 17History of Present IllnessHPI Description: This is a poorly controlled type 1 diabetic smoker [facility] with a wound onher left plantar heel area. This had been present for approximately 2-3 monthsand appears to have occurred while shewas admitted to the hospital during a diabetic coma where she was unconsciousfor approximately 4 days and requiredventilator support.She had been caring for this at home and her HgbA1c on 05/27/18 was 13.4.She had started seeing an [facility] after this to assist with her bloodsugars.Positive DiabetesPositive TobaccoNegative Obesity (BMI 19.11)Negative Rapid Weight LossNegative Steroids or Kueszcmqmfip43/11/19: Ankle Brachial Index: Left 0.98 Right 1.0807/06/2019: [...] Name:Date of Service:JEOVANY LEWIS 10/04/20193:00 PMMedical Record Number:[id number] Patient of /Sex:Treating RN:1995 (24 y.o. F) Renée Quinones Care Provider: Terence Valentino Clinician:Referring Provider: TreatingProvider/Warranty Administrator:Rasheed Rose PAULWeeks in Treatment: 17Verbal / Phone [...] Name:Date of Service:JEOVANY LEWIS 10/04/20193:00 PMMedical Record Number:[id number] Patient of /Sex:Treating RN:1995 (24 y.o. 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 penetration into thoracic cavity, wbapqtxoohacboelU82.802A Unspecified open wound of left forearm, initial encounter 10/04/2019No YesS51.802S Unspecified open wound of left forearm, sequela 10/04/2019No YesInactive ProblemsResolved ProblemsElectronic Signature(s)Signed: 10/05/2019 8:51:03 AM By: Eliud Rose D.O., FACSEntered By: Eliud Rose on 10/04/2019 15:11:25 DIC 1500TRANS:10/04/19 1500 WOUND CENTERTRANS BY:ABNER SIGNED:TIME SIGNED:REPORT COPY TO: Name Value Range Interpretation Code Description Data Gisela rce(s) Supporting Document(s) ID Date Data Source [id number] 10/04/2019 03:00:00 PM EDT [facility] [place], [place] [address]PATIENT NAME: JEOVANY LEWIS DATE OF SERVICE: 10/04/19MR#: [id number] DATE OF : [birth year]ACCOUNT #: [id number] LEWIS ([id number])Visit Report for 10/04/2019Advanced Modalities Screening Tool DetailsPatient Name:Date of Service:JEOVANY LEWIS 10/04/20193:00 PMMedical Record Number:[id number] Patient of /Sex:Treating RN:1995 (24 y.o. F) Renée Quinones Care Provider: Sade valdovinos, MyoOther Clinician:Referring Provider: TreatingProvider/Warranty Administrator:Rasheed Rose PAULWeeks in Treatment: 17Advanced Modalities Screening Check ListHyperbaric Oxygen Therapy: Reviewed LCD or HBO policy from [employer] and/or NCDTherapy Not IndicatedNo Appropriate IndicationElectronic Signature(s)Signed: 10/10/2019 3:52:07 PM By: Yaron Quinones By: Judith Quinones on 10/04/2019 15:09:57 --------Arrival Information DetailsPatient Name:Date of Service:JEOVANY LEWIS 10/04/20193:00 PMMedical Record Number:[id number] Patient of /Sex:Treating RN:1995 (24 y.o. F) Susanna Rangel Care Provider: Terence Valentino Clinician:Referring Provider: TreatingProvider/Warranty Administrator:Rasheed Rose PAULWeeks in Treatment: 17Visit Information History SinceLast VisitHas Dressing in Place as Prescribed: NoPatient Arrived: AmbulatoryPain Present Now: NoArrival Time: 14:51Transfer Assistance: NonePatient Identification Verified: YesSecondary Verification Process Completed: YesElectronic Signature(s)Signed: 10/04/2019 3:15:04 PM By: Rohini Rangel By: Asia Rangel on 10/04/2019 14:52:14 --Discharge Instructions DetailsPatient Name:Date of Service:JEOVANY LEWIS 10/04/20193:00 PMMedical Record Number:[id number] Patient of /Sex:Treating RN:1995 (24 y.o. F) Renée Quinones Care Provider: Terence Valentino Clinician:Referring Provider: TreatingProvider/Warranty Administrator:Rasheed Rose PAULWeeks in Treatment: 17Follow-up AppointmentsReturn Appointment [...] of Service:DEBBIE JEOVANY Lizzette 10/04/2019 3:00PMMedical Record Number:[id number] Patient of /Sex:Treating RN:1995 (24 y.o. F) Renée Quinones Care Provider: Terence Valentino Clinician:Referring Provider: TreatingProvider/Warranty Administrator:Rasheed Rose PAULWeeks in Treatment: 17Encounter Discharge Information Items Post ProcedureVitalsDischarge Condition: Stable Temperature(F): 98.6Ambulatory Status: AmbulatoryPulse (bpm):103Discharge Destination: Home Respiratory Rate(breaths/min): 16Transportation: Private Auto Blood Pressure(mmHg): 105/70Accompanied By: selfSchedule Follow-up Appointment: YesClinical Summary of Care: Patient DeclinedElectronic Signature(s)Signed: 10/10/2019 3:52:07 PM By: Yaron Quinones By: Judith Quinones on 10/04/2019 15:20:07 Low er Extremity Assessment DetailsPatient Name:Date of Service:JEOVANY LEWIS 10/04/2019 3:00PMMedical Record Number:[id number] Patient of /Sex:Treating RN:1995 (24 y.o. F) Susanna Rangel Care Provider: Terence Valentino Clinician:Referring Provider: TreatingProvider/Warranty Administrator:Rasheed Rose PAULWeeks in Treatment: 17Electronic Signature(s)Signed: 10/04/2019 3:15:04 PM By: Rohini Rangel By: Asia Rangel on 10/04/2019 14:53:07 Mul ti Wound Chart DetailsPatient Name:Date of Service:JEOVANY LEWIS 10/04/2019 3:00 PMMedical Record Number:[id number] Patient of /Sex:Treating RN:1995 (24 y.o. F) Renée Quinones Care Provider: Terence Valentino Clinician:Referring Provider: TreatingProvider/Warranty Administrator:Rasheed Rose PAULWeeks in Treatment: 17Vital SignsHeight(in):Pulse(bpm):108Weight(lbs): BloodPressure(mmHg): [...] ConvertedOpenMeasurements L x W x D 2x15.5x0.1 9a0p13g5.7x0.1(cm)Area (cm) : 24.347 00.55Volume (cm) : 2.435 00.055%Reduction in Area: -726.70% 100.00%N/A%Reduction in Volume: -725.40% 100.00%N/AClassification: Full Thickness Without Full ThicknessWithout Full Thickness WithoutExposed Support Structures Exposed Support Structures Exposed SupportStructuresExudate Amount: Medium N/AMediumExudate Type: Serosanguineous N/ASerosanguineousExudate Color: red, brown N/Ared, brownGranulation Amount: Medium (34-66%) N/ANone Present (0%)Granulation Quality: [place] N/AN/ANecrotic Amount: Medium (34-66%) N/ALarge (67-100%)Debridement: Debridement [...] Name:Date of Service:JEOVANY LEWISFrancis 10/04/20193:00 PMMedical Record Number:[id number] Patient of /Sex:Treating RN:1995 (24 y.o. F) [facility] Care Provider: Sade valdovinos, MyoOther Clinician:Referring Provider: TreatingProvider/Warranty Administrator:Rasheed Rose PAULWeeks in Treatment: 17Active InactiveNutritionNursing Diagnoses:Impaired [...] Name:Date of Service:JEOVANY LEWIS 10/04/2019 3:00PMMedical Record Number:[id number] Patient of /Sex:Treating RN:1995 (24 y.o. F) Susanna Rangel Care Provider:Other Clinician:Sade valdovinos MyoReferrsalvador Provider: TreatingProvider/Warranty Administrator:Rasheed Rose PAULWeeks in Treatment: 17Active ProblemsLocation of Pain Severity andDescription of PainPatient Has Pain? NoSite LocationsPain Management and MedicationCurrent Pain Management:Electronic Signature(s)Signed: 10/04/2019 3:15:04 PM By: Rohini Rangel By: Asia Rangel on 10/04/2019 15:00:39 Pat ient/Caregiver Education DetailsPatient Name:Date of Service:JEOVANY LEWIS 10/04/20193588nhmtksm1:00 PMMedical Record Number:[id number] Patient of /Gender:Treating RN:1995 (24 y.o. F) Susanna Rangel Care Physician: Terence Valentino Clinician:Referring Physician: TreatingPhysician/Warranty Administrator:aRsheed Rose PAULWeeks in Treatment: 17Education AssessmentEducation Provided [...] of Service:JEOVANY LEWIS 10/04/2019 3:00 PMMedical Record Number:[id number] Patient of /Sex:Treating RN:1995 (24 y.o. F) Susanna Rangel Care Provider: Terence Valentino Clinician:Referring Provider: TreatingProvider/Warranty Administrator:Rasheed Rose PAULWeeks in Treatment: 17Vital SignsTime Taken: 14:40Temperature (F):98.4Pulse (bpm): 108Respiratory Rate (breaths/min): 17Blood Pressure (mmHg): 114/74Reference Range: 80 - 120 mg / dlElectronic Signature(s)Signed: 10/04/2019 3:15:04 PM By: Rohini Rangel By: Asia Rangel on 10/04/2019 14:52:53 Wou nd Assessment DetailsPatient Name:Date of Service:JEOVANY LEWISFrancis 10/04/2019 3:00 PMMedical Record Number:[id number] Patient of /Sex:Treating RN:1995 (24 y.o. F) Susanna Rangel Care Provider: Terence Valentino Clinician:Referring Provider: TreatingProvider/Warranty Administrator:Rasheed Rose PAULWeeks in Treatment: 17Wound StatusWound Number: [...] to back.Electronic Signature(s)Signed: 10/04/2019 3:15:04 PM By: Rohiin Rangel By: Asia Rangel on 10/04/2019 14:57:23 Wo und Assessment DetailsPatient Name:Date of Service:JEOVANY LEWIS 10/04/2019 3:00PMMedical Record Number:[id number] Patient of /Sex:Treating RN:1995 (24 y.o. F) Susanna Rangel Care Provider: Terence Valentino Clinician:Referring Provider: TreatingProvider/Warranty Administrator:Rasheed Rose PAULWeeks in Treatment: 17Wound StatusWound Number: [...] of Service:JEOVANY LEWIS 10/04/2019 3:00 PMMedical Record Number:[id number] Patient of /Sex:Treating RN:1995 (24 y.o. F) Susanna Rangel Care Provider: Terence Valentino Clinician:Referring Provider: TreatingProvider/Warranty Administrator:Rasheed Rose PAULWeeks in Treatment: 17Wound StatusWound Number: [...] rce(s) Supporting Document(s) ID Date Data Source [id number] 10/03/2019 10:02:00 AM EDT [facility] Exam Number: [id number] Reporte d By: Neil NORTH MD Signed By: GWEN NORTH MD Name Value Range Interpretation Code Description Data Gisela rce(s) Supporting Document(s) ID Date Data Source [id number] 09/27/2019 07:38:00 AM EDT [facility] Exam Number: [id number] OF EXAMINATIO N: 09/26/2019 21:29 EDTCHEST SINGLE [...] rce(s) Supporting Document(s) ID Date Data Source [id number] 09/27/2019 07:14:00 AM EDT [facility] Exam Number: [id number] OF EXAMINATIO N: 09/26/2019 19:17 EDTCT BRAIN [...] rce(s) Supporting Document(s) ID Date Data Source [id number] 09/27/2019 03:27:00 AM EDT [facility] Name Value Range Interpretation Code Description Data Gisela rce(s) Supporting Document(s) FGLU 197 mg/dL 70-110 [facility] ID Date Data Source [id number] 09/27/2019 01:56:00 AM EDT [facility] Name Value Range Interpretation Code Description Data Gisela rce(s) Supporting Document(s) FGLU 131 mg/dL 70-110 H [facility] ID Date Data Source [id number] 09/26/2019 11:51:00 PM EDT [facility] Name Value Range Interpretation Code Description Data Gisela rce(s) Supporting Document(s) FGLU 196 mg/dL 70-110 H [facility] ID Date Data Source [id number] 09/26/2019 10:25:00 PM EDT [facility] Name Value Range Interpretation Code Description Data Gisela rce(s) Supporting Document(s) FGLU 204 mg/dL 70-110 H [facility] ID Date Data Source [id number] 09/26/2019 10:27:00 PM EDT [facility] Name Value Range Interpretation Code Description Data Gisela rce(s) Supporting Document(s) PCP VISTA NEG NEGATIVE [facility] MINIMUM LEVEL OF DETECTION IS 25 ng/ml BENZODIAZEPINES [facility] LEVEL OF DETECTION IS 200 ng/ml COCAINE VISTA NEG NEGATIVE [facility] MINIMUM LEVEL OF DETECTION IS 300 ng/ml AMPHETAMINES NEG NEGATIVE [facility] MINIMUM LEVEL OF DETECTION IS 1000 ng/ml BARBITURATES NEG NEGATIVE [facility] CUTOFF CONCENTRATION IS 200 ng/ml CANNABINOIDS NEG NEGATIVE [facility] CUTOFF CONCENTRATION IS 50 ng/ml METHADONE VISTA NEG NEGATIVE [facility] MINIMUM LEVEL OF DETECTION IS 300 ng/ml OPIATE VISTA NEG NEGATIVE [facility] MINIMUM DETECTION LEVEL IS 300 ng/ml ID Date Data Source [id number] 09/26/2019 10:20:00 PM EDT [facility] Name Value Range Interpretation Code Description Data Gisela rce(s) Supporting Document(s) URINE COLOR Yellow N [facility] UAPR Clear N [facility] UGLU 2+ NEGATIVE [facility] URINE BILIRUBIN [facility] UKET [facility]+ NEGATIVE [facility] USG 1.011 1.010-1.025 [facility] UBLO Negative NEGATIVE [facility] UpH 5.0 5.0-8.0 [facility] UPRO Negative Negative [facility] UUB 0.2 mg/dL 0.2-1.0 [facility] UNIT Negative Negative [facility] ULEU Trace Negative [facility] ID Date Data Source [id number] 09/26/2019 10:20:00 [facility] Name Value Range Interpretation Code Description Data Gisela rce(s) Supporting Document(s) URINE RBC 0-5 RBCs/HPF NONE SEEN [facility] URINE WBC 0-5 WBCs/HPF NONE SEEN [facility] URINE BACTERIA Few [facility] EPI. Few NONE SEEN [facility] ID Date Data Source [id number] 09/26/2019 09:30:00 PM [facility]T [facility] Name Value Range Interpretation Code Description Data Gisela rce(s) Supporting Document(s) FGLU 198 mg/dL 70-110 H [facility] ID Date Data Source [id number] 09/26/2019 08:59:00 PM EDT [facility] Name Value Range Interpretation Code Description Data Gisela rce(s) Supporting Document(s) FGLU 225 mg/dL 70-110 H [facility] ID Date Data Source [id number] 09/26/2019 08:23:00 PM EDT [facility] Name Value Range Interpretation Code Description Data Gisela rce(s) Supporting Document(s) FGLU 55 mg/dL 70-110 L [facility] ID Date Data Source [id number] 09/26/2019 08:45:00 PM [facility]T [facility] Name Value Range Interpretation Code Description Data Gisela rce(s) Supporting Document(s) TROPI < 0.015 ng/mL 0.000-0.079 [facility] ID Date Data Source [id number] 09/26/2019 08:45:00 PM EDT [facility] Name Value Range Interpretation Code Description Data Gisela rce(s) Supporting Document(s) MAGNESIUM 2.0 mg/dL 1.6-2.6 [facility] ID Date Data Source [id number] 09/26/2019 08:45:00 PM EDT [facility] Name Value Range Interpretation Code Description Data Gisela rce(s) Supporting Document(s) SALICYLATE < 1.7 mg/dL 2.8-20.0 [facility] ID Date Data Source [id number] 09/26/2019 08:45:00 PM EDT [facility] Name Value Range Interpretation Code Description Data Gisela rce(s) Supporting Document(s) ACETAMINOPHEN < 2.0 ug/mL 0-30 [facility] al ID Date Data Source [id number] 09/26/2019 08:45:00 PM EDT [facility] Name Value Range Interpretation Code Description Data Gisela rce(s) Supporting Document(s) HCG QUAL SERUM Negative Negative [facility] l ID Date Data Source [id number] 09/26/2019 08:45:00 PM EDT [facility] Name Value Range Interpretation Code Description Data Gisela rce(s) Supporting Document(s) ETOH NONE DETECTED [facility] NONE DETECTED ID Date Data Source [id number] 09/26/2019 08:45:00 PM EDT [facility] Name Value Range Interpretation Code Description Data Gisela rce(s) Supporting Document(s) GLU 53 mg/dL 70-110 [facility] Patients taking Sulfasalazine may have f alsely depressedGlucose levels. Patients taking Sulfapyridine may havefalsely elevated Glucose levels. Patients should be drawnfor Glucose before the initial administration of eitherdrug. BUN 13 mg/dL 7-23 [facility] CRE 0.960 mg/dL 0.500-1.300 [facility] GFR > 60 mL/min [facility] CHLORIDE 106 mmol/L 99-110 [facility] NA 139 mmol/L 136-147 [facility] POTASSIUM 4.1 mmol/L 3.5-5.1 [facility] TCO2 22 mmol/L 20-33 [facility] ANION GAP 15.1 10.0-20.0 [facility] CA 9.9 mg/dL 8.3-10.7 [facility] ALKALINE PHOS 119 U/L 45-117 [facility] TP 8.2 g/dL 6.0-7.8 [facility] ALB 3.8 g/dL 3.5-5.0 [facility] ESRD Dialysis patient Albumin reference range: 2.9-4.4 g/dL GL 4.4 g/dL 2.3-3.5 [facility] A/G 0.9 1.0-2.5 [facility] T. BILIRUBIN 0.4 mg/dL 0.1-1.1 [facility] [place] Total Bilirubin is n ot recommended forpatients undergoing treatment with eltrombopag (Promacta)due to the potential for falsely elevated results. ALTI 23 U/L 6-54 [facility] Patients taking Sulfasalazine and/or Sul fapyridine may havefalsely depressed ALT levels. Patients should be drawn forALT before the initial administration of either drug. AST 14 U/L 6-38 [facility] Patients taking Sulfasalazine and/or Sul fapyridine may havefalsely depressed AST levels. Patients should be drawn forAST before the initial administration of either drug. ID Date Data Source [id number] 09/26/2019 08:22:00 PM EDT [facility] Name Value Range Interpretation Code Description Data Gisela rce(s) Supporting Document(s) WBC 10.21 x10E3/uL 4.0-10.5 [facility] l RBC 4.42 x10E6/uL 4.20-5.40 [facility] Hemoglobin 13.0 g/dL 12.0-16.0 [facility] Hematocrit 40.3 % 37.0-47.0 [facility] MCV 91.2 fL 81.0-99.0 [facility] MCH 29.4 pg 27.0-31.0 [facility] MCHC 32.3 g/dL 32.7-35.6 [facility] RDW 14.7 % 11.5-14.0 [facility] Platelet count 296 x10E3/uL 150-450 [facility] MPV 11.4 fl 6.9-9.5 [facility] Neutrophils 83.0 % 34-64 [facility] Lymphocytes 9.2 % 25-45 [facility] Monocytes 6.5 % 1.7-10.6 [facility] Eosinophils 0.5 % 0.4-7.0 [facility] Basophils 0.5 % 0.1-2.0 [facility] Imm. Gran. 0.3 % 0.1-2.0 [facility] Abs. Neutro. 8.5 x10E3/uL 1.2-7.6 [facility] Abs. Lymph. 0.9 x10E3/uL 1.0-3.5 [facility] Abs. [place]. 0.7 x10E3/uL 0.1-1.0 [facility] Abs. Eosin. 0.1 x10E3/uL 0.1-0.7 [facility] Abs. Baso. 0.1 x10E3/uL 0.0-0.1 [facility] Abs. Imm. Gran. 0.0 x10E3/uL 0.0-0.1 N [facility] pital ANRBC% 0 % 0 [facility] ID Date Data Source [id number] 09/27/2019 04:34:00 AM EDT [facility] Physician DocumentationClmaryann-Chandan Westbrook edical CenterName: Jeovany BarberAge: 24 yrsSex: FemaleDOB: 1995MRN: [id number] Date: 09/26/2019Time: 19:17Account#: [id number] 2Private MD:ED Physician Juan Hooper Summary:09/27/19 03:40Discharge OrderedLocation: Home Self Care oy9Kyahpbz: new fl9Tvlzqaiv: are resolved ka6Hlmpykjfx: Stable my9Blysxyffa- Hypoglycemia, unspecified wn6Vpnzcsnu: na1- With: Private Physician- When: 2 - 3 days- Reason: Recheck today's complaints, Continuance of care, Changein ConditionDischarge Instructions:- Discharge Summary Sheet na1- HYPOGLYCEMIC REACTION [Child] gs1Eoijm:- Medication Reconciliation na1- Medication Reconciliation Form - 2nd Copy na1HPI:09/1018:40 This 24 yrs old White Female presents to ER via Ambulance with hw3yyyxlipjbj of Unresponsive.19:40 PT. BROUGHT TO ED BY [...] Normocephalic, atraumatic. Eyes: Pupils equal round and rd1umioowny to light, extra-ocular motions intact. Lids and [...] MON; Resp 15; Temp 98.2(TE); Pulse Ox lg6050% on R/A; Pain 0/10;MDM:09/1018:34 Patient medically screened. [...] WBC 10.21; Hemoglobin 13.0; Hematocrit 40.3; Platelet oe6fbrck 296; Neutrophils 83.0.09/1018:49 Order name: CMP; Complete Time: 21:28 na9:49 Order name: HCG Qualitative - Serum; Complete Time: 21:28 na106/1019:54 Order name: Troponin-I; Complete Time: 21:28 na106/1019:54 O rder name: Magnesium Level; Complete Time: 21:28 na106/1020:24 Order name: FGLU; Complete Time: 20:56ALZT74/1020:28 Interpretation: FGLU 55. na106/1020:59 Order name: FGLU; Complete Time: 21:55YFZK18/1021:30 Order name: FGLU; Complete Time: 22:65LBZQ50/1022:25 Order name: FGLU; Complete Time: 22:65PQUZ04/1019:49 Order name: Accucheck; Complete Time: 19:55 na106/1019:49 Order name: EKG in Patient's Room na106/1019:49 Order name: EKG.; Complete Time: 19:55 na106/1020:15 Order name: Accucheck; Complete Time: 20:19 kk306/1020:28 Order name: Other: D10W & 100 ML/HR; Complete Time: 20:39dj3171020:32 Order name: Accucheck: complete at 2044; Complete Time: 20:56 kk3061021:29 Order name: CT Brain - without IV na106/1021:29 Order name: CXR-Single View na106/1021:45 Order name: Accucheck; Complete Time: 21:45 kk306/1023:51 Order name: FGLU; Complete Time: 00:44VIUT46/1100:49 Interpretation: FGLU 196. na106/1101:56 Order name: FGLU; Complete Time: 02:74ACOJ64/1102:15 Interpretation: FGLU 131. na106/1103:27 Order name: FGLU; Complete Time: 03:56ZGYW49/1103:38 Interpretation: FGLU 197. na106/1022:18 Order name: Accucheck; Complete Time: 22:22 kk306/1023:43 Order name: Accucheck; Complete Time: 23:43 kk306/1101:49 Order name: Accucheck; Complete Time: 01:53 kk306/1103:24 Order name: Accucheck; Complete Time: 03:24 cv7Yundemqwk Medications:09/1018:05 Drug: NS 0.9% 1000 ml [sodium chloride 0.9 % intravenous solution] hx3Puxgh: IV; Rate: bolus; Site: left antecubital;20:10 Follow up: Response: No adverse reaction; IV Status: Completed ex7sgfyehjt; IV converted to saline lock; IV Intake: 8664qc72:27 Drug: D50W 1 amp Route: IVP; Site: left antecubital; kk320:57 Follow up: Response: No adverse reaction jw520:47 Drug: Dextrose 10 % in Water 1000 ml Route: IV; Rate: 100 mL/hr; qr6Lsvy: left antecubital;09/1099:31 Follow up: Response: No adverse reaction; IV Status: Infusion wa0bdvzphbtibzs; IV Intake: 140cp43:31 Drug: NS 0.9% 1000 ml [sodium chloride 0.9 % intravenous solution] uw4Ncwls: IV; Rate: bolus; Site: left antecubital;01:37 Follow up: IV Status: Completed infusion; IV Intake: 1000ml jw5EC09/1018:50 Rate is 102 beats/min. Rhythm is regular, Sinus tachycardia. QRS [place] na1is Normal. MS interval is normal. QRS interval is normal. [...] 131 mg/dL; kk303:21 Blood Glucose: 197 mg/dL; px9Hqccdk:Critical Glucose Levels:Adult <50 mg/dl or >400 mg/dl <40mg/dl or >180 mg/dlSignatures:Dispatcher [employer] Tate Washington MD MD gf2MhghwConstantino Alfonso RN RN vb5VqjruMarian, RN RN kk3 Name Value Range Interpretation Code Description Data Gisela rce(s) Supporting Document(s) ID Date Data Source [id number] 09/27/2019 04:34:00 AM EDT [facility]Name: Jeovany Vaughn: 24 yrsSex: FemaleDOB: 1995MRN: [id number] Date: 09/26/2019Time: 19:17Account#: [id number] 2Private MD:Diagnosis: Hypoglycemia, unspecifiedPresentation:09/1018:21 Presenting complaint: EMS states: on arrival reported patient dc3uluxufzkn as unresponsive to EMS but was responsive to painfulstimuli did fail the arm drop test is reported to have taken insulinabout an hour prior glucose check 82. Coronavirus Screening: Patientnegative for fever and symptoms of lower respiratory illness (e.g.,cough, difficulty breathing). Patient denies exposure to infectiousperson. Patient denies travel to [place] or affected areas in the 14days before illness onset. No symptoms or risks identified at thistime. Care prior to arrival: See EMS report. IV initiated. Glucosecheck. 82. Communicable Disease Screen: Negative for fever>/= 100degrees Fahrenheit. Communicable disease screen is negative. (-) rashor unusual skin lesion (-) travel/contact with traveler (-)respiratory symptoms.19:21 Acuity: Triage 2 jw519:21 Method Of Arrival: Ambulance: [facility] jw519:24 Acuity Assignment: Triage 2 gb8Sjrkus Assessment:19:25 General: Appears slender, unkempt, Behavior is listless. Sepsis ef4Hqpnildnr: (1)Signs/symptoms infection No. Pain: Denies pain. PSS-3Now I'm going to ask you some questions that we ask everyone treatedhere, no matter what problem they are here for. It is part of [facility]'s policy and it helps us to [...] Smoking status: Patient states was never smoker [employer]. ETOH status Denies use of ETOH.- Advance Directives:: None.Screenin:27 Abuse screen: Denies threats or abuse. Denies injuries from another. sz6Ibcnblhicpv screening: No deficits noted. Offer of HIV testing:patient was previously offered screening.19:27 Fall Risk No fall in past 12 months (0 pts). Secondary diagnosis (15 zf3nstmna) syncopal episode. IV access (20 points). Ambulatory [...] Derm: Skin is diaphoretic, Skin temperature is ys0kqrf Patient has small open area on chest above right breast thatpatient states is from her cat. General: Appears ill, slender,Behavior is drowsy, Smells of ketones, Denies fatigue. Neuro: Levelof Consciousness is awake, confused, lethargic, Oriented to person,place, Refrigeration Specialist are weak bilaterally Moves all extremities. Gait isunsteady, Speech is slurred, Facial symmetry appears normal, Facialsymmetry: tongue is midline, Pupils are sluggish, right eye and lefteye Denies blurred vision dizziness, headache. Cardiovascular:Capillary refill < 3 seconds in bilateral fingers Heart tones S1 L8wanavry Edema is absent. Pulses are palpable in [...] in no apparent distress at this time. ye1Rxgtyqv states feeling better. Patient states symptoms have improved.patient more alert and oriented.21:20 Reassessment: Patient lethargic and unresponsive to questions, ok0ljzzjwsws to arouse; provider notified.22:06 Reassessment: Patient appears in no apparent distress at this time. ld4Jymyzqg denies pain at this time. Patient states feeling better.Patient states symptoms have improved. Patient awake and alert.23:45 Reassessment: Patient appears in no apparent distress at this time. zy8Ydioevk denies pain at this time. Patient is resting quietly.09/1099:32 Reassessment: Patient appears in no apparent distress at this time. sw1Dyswzcp denies pain at this time.00:33 Reassessment: Provider notified of abnormal vital signs. jw501:11 Reassessment: Patient appears in no apparent distress at this time. eq0Mblhenr denies pain at this time. Patient states feeling better.Opal ent states symptoms have improved. Patient is sitting up in bedeating a snack.02:15 Reassessment: Patient appears in no apparent distress at this time. nq6Qajulfq denies pain at this time. Patient states [...] MON; Resp 15; Temp 98.2(TE); Pulse Ox vc4618% on R/A; Pain 0/10;ED Course:09/1018:18 Patient arrived in ED. jw519:21 Constantino Alfonso, RN is Primary Nurse. jw519:24 Triage completed. jw519:27 Patient placed on stretcher. jw519:27 Placed in gown. Bed in low position. Call light in reach. Side rails jw5up X2. panel monitor on. Pulse ox on. NIBP on. Verbal reassurancegiven.19:28 EKG done. (by ED staff). Reviewed by Tate Sanderson MD. Maintain dc3zkwkg IV. Dressing intact. Good blood return noted. Site clean & dry.Gauge & site: 20 gauge Left AC.19:34 Tate Hooper MD is Attending Physician. na120:00 Spoke with patient who gave permission to speak with her boyfriend Ken [phone]:10 Labs drawn. Collected by lab. kk321:40 Urine collected. Clean catch specimen. kk321:42 Patient moved to PA. kk306/1100:34 No Physician assisted procedures completed. jw503:24 Warm blanket given. kk303:58 Discontinued lock intact, bleeding controlled, pressure dressing hr2hbfsvsr, No redness/swelling at site.04:05 waiting for ride. ds4Fbilvebdatvr Medications:09/1018:05 Drug: NS 0.9% 1000 ml [sodium chloride 0.9 % intravenous solution] hb7Szuij: IV; Rate: bolus; Site: left antecubital;20:10 Follow up: Response: No adverse reaction; IV Status: Completed tq6qstyhfze; IV converted to saline lock; IV Intake: 8298xr23:27 Drug: D50W 1 amp Route: IVP; Site: left antecubital; kk320:57 Follow up: Response: No adverse reaction jw520:47 Drug: Dextrose 10 % in Water 1000 ml Route: IV; Rate: 100 mL/hr; wp9Oevw: left antecubital;09/1099:31 Follow up: Response: No adverse reaction; IV Status: Infusion lm4vhmvgbxavufi; IV Intake: 320uc30:31 Drug: NS 0.9% 1000 ml [sodium chloride 0.9 % intravenous solution] qu9Rqpku: IV; Rate: bolus; Site: left antecubital;01:37 Follow up: IV Status: Completed infusion; IV Intake: 1000ml cx9Kgpan of Care Testing:Blood Glucos e:09/1018:26 Blood Glucose: 70 mg/dL; jw520:19 Blood Glucose: 55 mg/dL; kk320:54 Blood Glucose: 225 mg/dL; kk321:21 Blood Glucose: 198 mg/dL; kk322:22 Blood Glucose: 204 mg/dL; kk323:43 Blood Glucose: 196 mg/dL; kk306/1101:53 Blood Glucose: 131 mg/dL; kk303:21 Blood Glucose: 197 mg/dL; pp9Qjfspb:Critical Glucose Levels:Adult <50 mg/dl or >400 mg/dl <40mg/dl or >180 mg/dlIntake:09/1019:10 IV: 1000ml; Total: 1000ml. kk306/1100:31 IV: 373ml; Total: 1373ml. jw501:37 IV: 1000ml; Total: 2373ml. db0Yhfhajd:03:40 Discharge ordered by . na103:51 Disposition: Discharged to home ambulatory, with significant other. kk303:51 Condition: nalhlnqm85:51 Discharge instructions given to patient, Instructed on dischargeinstructions, follow up and referral plans. Demonstratedunderstanding of instructions.03:51 Discharge Assessment: Patient awake, alert and oriented x 3. Nocognitive and/or functional deficits noted. Patient verbalizedunderstanding of disposition instructions. Patient verbalizedunderstanding of disposition instructions. Patient has no functionaldeficits.04:34 Patient left the ED. wf4Qisjfgdoyb:Tate Hooper MD MD aa4HbmcrConstantino humphreys RN RN tc6MawksMarian Gudino RN RN mq6Ovjrxklwqob: (The following items were deleted from the chart)09/1019:10 20:00 Spoke with patient who gave permission to speak with her kj3qtumltlvjmimi Edwards jw521:26 21:20 Reassessment: Patient lethargic and unresponsive to questions, hr6ldjuixzhb to arouse. kk323:45 20:01 BP 110 / 81 Auto; Pulse 99bpm; MonitorResp 15bpm; Pulse Ox 99%; vn7is858:45 21:01 BP 105 / 71 Auto; Pulse 94bpm; MonitorResp 13bpm; Pulse Ox 98%; tu4hx144:45 22:07 Pulse 100bpm; MonitorResp 17bpm; Pulse Ox 99%; kk3 kk323:48 23:31 BP 95 / 66 Auto; Pulse 92bpm; Monitor; kk3 kk306/1101:12 00:01 BP 102 / 71 Auto; Pulse 89bpm; Monitor; jw5 kk301:12 01:01 Pulse 89bpm; MonitorResp 13bpm; Pulse Ox 100%; kk3 kk3 Name Value Range Interpretation Code Description Data Gisela rce(s) Supporting Document(s) ID Date Data Source [id number] 07/06/2019 11:00:00 AM EDT [facility] [place], [place] [address]PATIENT NAME: JEOVANY LEWIS DATE OF SERVICE: 07/06/19MR#: [id number] DATE OF : [birth year]ACCOUNT #: [id number], KENDRA ([id number])Visit Report for 07/06/2019Advanced Modalities Screening Tool DetailsPatient Name:Date of Service:JEOVANY LEWIS 07/06/2019 11:00 AMMedical Record Number:[id number] Patient of /Sex:Treating RN:1995 (24 y.o. F) Feliciano Cervantes Care Provider: Sade valdovinos MyoOren Clinician:Referring Provider: TreatingProvider/Warranty Administrator:Rasheed Rose PAULWeeks in Treatment: 4Advanced Modalities Screening Check ListHyperbaric Oxygen Therapy: Reviewed LCD or HBO policy from [employer] and/or NCDTherapy Not IndicatedNo Appro priate IndicationElectronic Signature(s)Signed: 07/06/2019 2:41:25 PM By: Chelita CervantesEntered By: Chelita Cervantes on 07/06/2019 11:14:26 ---Allergy List DetailsPatient Name:Date of Service:JEOVANY LEWIS 07/06/2019 11:00 AMMedical Record Number:[id number] Patient of /Sex:Treating RN:1995 (24 y.o. F) Feliciano Cervantes Care Provider: Terence Valentino Clinician:Referring Provider: TreatingProvider/Warranty Administrator:Rasheed Rose PAULWeeks in Treatment: 4AllergiesActive AllergiesAugmentin-liquidReaction: hivesSeverity: ModerateIodinated Contrast- OralReaction: anaphylaxisSeverity: SevereadhesiveReaction: itching, soreness,rednessSeverity: ModerateAllergy NotesElectronic Signature(s)Signed: 07/06/2019 2:41:25 PM By: Chelita CervantesEntered By: Chelita Cervantes on 07/06/2019 10:57:20 Arr ival Information DetailsPatient Name:Date of Service:LEWISJEOVANY 07/06/201911:00 AMMedical Record Number:[id number] Patient of /Sex:Treating RN:1995 (24 y.o. F) Renée Quinones Care Provider: Terence Valentino Clinician:Referring Provider: TreatingProvider/Warranty Administrator:Rasheed Rose PAULWeeks in Treatment: 4Visit Information History [...] Name:Date of Service:JEOVANY LEWIS 07/06/2019 11:00AMMedical Record Number:[id number] Patient of /Sex:Treating RN:1995 (24 y.o. F) Feliciano Cervantes Care Provider: Sade valdovinos MyoOren Clinician:Referring Provider: TreatingProvider/Warranty Administrator:Rasheed Rose PAULWeeks in Treatment: 4Follow-up AppointmentsReturn Appointment [...] Name:Date of Service:JEOVANY LEWIS 07/06/2019 11:00AMMedical Record Number:[id number] Patient of /Sex:Treating RN:1995 (24 y.o. F) Feliciano Cervantes Care Provider: Terence Valentino Clinician:Referring Provider: TreatingProvider/Warranty Administrator:Rasheed Rose PAULWeeks in Treatment: 4Encounter Discharge Information Items Post ProcedureVitalsDischarge Condition: StableTemperature (F):97.6Ambulatory Status: AmbulatoryPulse (bpm):62Discharge Destination: Home Respiratory Rate(breaths/min): 17Transportation: Private Auto Blood Pressure(mmHg): 106/56Accompanied By: selfSchedule Follow-up Appointment: YesClinical Summary of Care: Patient DeclinedElectronic Signature(s)Signed: 07/06/2019 2:41:25 PM By: Nguyen Cervantes By: Chelita Cervantes on 07/06/2019 11:20:37 Low er Extremity Assessment DetailsPatient Name:Date of Service:JEOVANY LEWIS 07/06/2019 11:00AMMedical Record Number:[id number] Patient of /Sex:Treating RN:1995 (24 y.o. F) Feliciano Cervantes Care Provider: Terence Valentino Clinician:Referring Provider: TreatingProvider/Warranty Administrator:Rasheed Rose PAULWeeks in Treatment: 4Electronic Signature(s)Signed: 07/06/2019 2:41:25 PM By: Nguyen Cervantes By: Chelita Cervantes on 07/06/2019 10:57: 42 Multi Wound Chart DetailsPatient Name:Date of Service:JEOVANY LEWIS 07/06/2019 11:00AMMedical Record Number:[id number] Patient of /Sex:Treating RN:1995 (24 y.o. F) Fleiciano Cervantes Care Provider: Sade valdovinos MyoOren Clinician:Referring Provider: TreatingProvider/Warranty Administrator:Rasheed Rose PAULWeeks in Treatment: 4Vital SignsHeight(in):Pulse(bpm):108Weight(lbs): BloodPressure(mmHg): [...] Large (67-100%) Large (67- 100%)N/AGranulation Quality: Red, [place] Red, PinkN/ANecrotic Amount: None Present (0%) Small [...] Name:Date of Service:JEOVANY LEWIS 07/06/201911:00 AMMedical Record Number:[id number] Patient of /Sex:Treating RN:1995 (24 y.o. F) Feliciano Cervantes Care Provider: Sade valdovinos MyoOther Clinician:Referring Provider: TreatingProvider/Warranty Administrator:Rasheed Rose PAULWeeks in Treatment: 4Active InactiveNutritionNursing Diagnoses:Impaired [...] of Service:JEOVANY LEWIS 07/06/2019 11:00 AMMedical Record Number:[id number] Patient of /Sex:Treating RN:1995 (24 y.o. F) Feliciano Cervantes Care Provider: Terence Valentino Clinician:Referring Provider: TreatingProvider/Warranty Administrator:Rasheed Rose PAULWeeks in Treatment: 4Active ProblemsLocation of Pain Severity andDescription of PainPatient Has Pain? NoSite LocationsPain Management and MedicationCurrent Pain Management:Electronic Signature(s)Signed: 07/06/2019 2:41:25 PM By: Nguyen Cervantes By: Chelita Cervantes on 07/06/2019 10:55:39 Pat ient/Caregiver Education DetailsPatient Name:Date of Service:GERALDO LEWIS07/06/20198907fetqdem27:00 AMMedical Record Number:[id number] Patient of /Gender:Treating RN:1995 (24 y.o. F) Feliciano Cervantes Care Physician: Terence Valentino Clinician:Referring Physician: TreatingPhysician/Warranty Administrator:Rasheed Rose PAULWeeks in Treatment: 4Education AssessmentEducation Provided To:PatientEducation Topics ProvidedWound/Skin Impairment:Methods: Explain/VerbalResponses: State content correctlyElectronic Signature(s)Signed: 07/06/2019 2:41:25 PM By: Nguyen Cervantes By: Chelita Cervanets on 07/06/2019 10:55:14Treatment Notes SummaryWound #2 (Proximal, Midline Back)3. Primary Dressing AppliedSilver Dressings4. Secondary DressingFoamNotesAG, proximels to both wounds; pt tolerated well.Wound #3 (Distal, Midline Back)3. Primary Dressing AppliedSilver Dressings4. Secondary DressingFoamNotesAG, proximels to both wounds; pt tolerated well. Vitals DetailsPatient Name:Date of Service:LEWISJEOVANY 07/06/201911:00 AMMedical Record Number:[id number] Patient of /Sex:Treating RN:1995 (24 y.o. F) Renée Quinones Care Provider: Terence Valentino Clinician:Referring Provider: TreatingProvider/Warranty Administrator:Rasheed Rose PAULWeeks in Treatment: 4Vital SignsTime Taken: 10:52 Temperature(F): 97.7Pulse (bpm): 108Respiratory Rate (breaths/min): 17Blood Pressure (mmHg): 120/79Reference Range: 80 - 120 mg / dlElectronic Signature(s)Signed: 07/10/2019 3:29:34 PM By: Judith QuinonesMercy Health St. Charles Hospitalmaribel By: Judith Quinones on 07/06/2019 10:52:58-- Wound Assessment DetailsPatient Name:Date of Service:JEOVANY LEWIS 07/06/2019 11:00AMMedical Record Number:[id number] Patient of /Sex:Treating RN:1995 (24 y.o. F) Feliciano Cervantes Care Provider: W in, MyoOther Clinician:Referring Provider: TreatingProvider/Warranty Administrator:Rasheed Rose PAULWeeks in Treatment: 4Wound StatusWound Number: [...] BedGranulation Amount: Large (67-100%)Exposed StructureGranulation Quality: Red, [place] Fa(Subcutaneous Tissue) Exposed: YesNecrotic Amount: None Present (0%)P eriwound Skin TextureTexture CNo Abnormalities Noted: No NoNoted: NoMoistureNo Abnormalities Noted: NoWound PreparationUlcer Cleansing: Rinswith SalineTopical Anesthetic Applied: LidoOintmentl Odor Aftert LayerolorAbnormalitiesed/Irrigatedcaine 2%duction induction inElectronic Signature(s)Signed: 07/06/2019 2:41:25 PM By: Chelita CervantesEntered By: Chelita Cervantes on 07/06/2019 11:03:11 Wound Assessment DetailsPatient Name:Date of Service:JEOVANY LEWIS 07/06/201911:00 AMMedical Record Number:[id number] Patient of /Sex:Treating RN:1995 (24 y.o. F) [facility] Provider: Sade valdovinos, MyoOther Clinician:Referring Provider: TreatingProvider/Warranty Administrator:Rasheed Rose PAULWeeks in Treatment: 4Wound StatusWound Number: [...] BedGranulation Amount: Large (67-100%)Exposed StructureGranulation Quality: Red, [place] Fat(Subcutaneous Tissue) Exposed: YesNecrotic Amount: Small (1-33%)Necrotic [...] rce(s) Supporting Document(s) ID Date Data Source [id number] 07/06/2019 11:00:00 AM EDT [facility] [address] [address]TBYICMH NAME: JEOVANY LEWIS DATE OF SERVICE: 07/06/19MR#: [id number] DATE OF : [birth year]ACCOUNT #: [id number], JEOVANY ([id number])Visit Report for 07/06/2019Debridement DetailsPatient Name:Date of Service:JEOVANY LEWIS 07/06/2019 11:00 AMMedical Record Number:[id number] Patient of /Sex:Treating RN:1995 (24 y.o. F) Feliciano Cervantes Care Provider: Sade valdovinos MyoOther Clinician:Referring Provider: TreatingProvider/Warranty Administrator:Rasheed Rose PAULWeeks in Treatment: 4Debridement Performed for [...] of Service:JEOVANY LEWIS 07/06/2019 11:00 AMMedical Record Number:[id number] Patient of /Sex:Treating RN:1995 (24 y.o. F) Feliciano Cervantes Care Provider: Sade valdovinos MyoOren Clinician:Referring Provider: TreatingProvider/Warranty Administrator:Rasheed Rose PAULWeeks in Treatment: 4Debridement Performed for [...] rce(s) Supporting Document(s) ID Date Data Source [id number] 07/06/2019 11:00:00 AM EDT [facility] [place], [place] [address]PATIENT NAME: JEOVANY LEWIS DATE OF SERVICE: 07/06/19MR#: [id number] DATE OF : [birth year]ACCOUNT #: [id number], KENDRA ([id number])Visit Report for 07/06/2019Chief Complaint Document DetailsPatient Name:Date of Service:JEOVANY LEWIS 07/06/2019 11:00AMMedical Record Number:[id number] Patient of /Sex:Treating RN:1995 (24 y.o. F)Primary Care Provider: Sade valdovinos, MyoOther Clinician:Referring Provider: TreatingProvider/Warranty Administrator:Brydges, KennethTEJERA, PAULWeeks in Treatment: 4Information Obtained from: PatientChief ComplaintLeft heel diabetic foot wound for approximately 3 months.Electronic Signature(s)Signed: 07/09/2019 9:22:41 AM By: Eliud Rose D.O., FACSEntered By: Eliud Rose on 07/06/2019 10:50:11 HPI DetailsPatient Name:Date of Service:JEOVANY LEWIS 07/06/2019 11:00AMMedical Record Number:[id number] Patient of /Sex:Treating RN:1995 (24 y.o. F)Primary Care Provider: Terence Valentino Clinician:Referring Provider: TreatingProvider/Warranty Administrator:Rasheed Rose PAULWeeks in Treatment: 4History of Present IllnessHPI Description: This is a poorly controlled type 1 diabetic smoker [facility] with a wound onher left plantar heel area. This had been present for approximately 2-3 monthsand appears to have occurred while shewas admitted to the hospital during a diabetic coma where she was unconsciousfor approximately 4 days and requiredventilator support.She had been caring for this at home and her HgbA1c on 05/27/18 was 13.4.She had started seeing an [facility] after this to assist with her bloodsugars.Positive DiabetesPositive TobaccoNegative Obesity (BMI 19.11)Negative Rapid Weight LossNegative Steroids or Veuyiulyheor30/11/19: Ankle Brachial Index: Left 0.98 Right 1.08AllergiesAugmentin-liquid [...] Name:Date of Service:JEOVANY LEWIS 07/06/201911:00 AMMedical Record Number:[id number] Patient of /Sex:Treating RN:1995 (24 y.o. F) Feliciano Cervantes Care Provider: Sade valdovinos, MyoOther Clinician:Referring Provider: TreatingProvider/Warranty Administrator:Rasheed Rose PAULWeeks in Treatment: 4Verbal / Phone [...] Name:Date of Service:JEOVANY LEWIS 07/06/201911:00 AMMedical Record Number:[id number] Patient of /Sex:Treating RN:1995 (24 y.o. F)Primary Care Provider: Terence Valentino Clinician:Referring Provider: TreatingProvider/Warranty Administrator:Rasheed Rose PAULWeeks in Treatment: 4Active ProblemsICD-10Evaluated EncounterCode Description ActiveDate Today PqmhzpmrxM70.209A Unspecified open wound of unspecified back wall of06/07/2019 No Yesthorax without penetration into thoracic cavity, initialencounterInactive ProblemsResolved ProblemsElectronic Signature( s)Signed: 07/09/2019 9:22:41 AM By: Eliud Rose D.O., FACSEntered By: Eliud Rose on 07/06/2019 10:50:02 DIC 1100TRANS:07/06/19 1100 WOUND CENTERTRANS BY:ABNER SIGNED:TIME SIGNED:REPORT COPY TO: Name Value Range Interpretation Code Description Data Gisela rce(s) Supporting Document(s) ID Date Data Source [id number] 07/04/2019 06:13:00 PM EDT [facility] Name Value Range Interpretation Code Description Data Gisela rce(s) Supporting Document(s) Hemoglobin A1C % Less than 5.7% Above high normal [facility] HBA1C: Normal: Less than 5.7% Prediabetes: 5.7% to 6.4% Diabetes: 6.5% or higher HA1C % vs Estimated Average Glucose (eAG) % eAG % eAG 6% 126 mg/dL 10% 240 mg/dL 7% 154 mg/dL 11% 269 mg/dL 8% 183 mg/dL 12% 298 mg/dL 9% 212 mg/dL Reference: [employer], 2017 ID Date Data Source [id number] 07/04/2019 06:01:00 PM EDT [facility] Name Value Range Interpretation Code Description Data Gisela rce(s) Supporting Document(s) Sodium 137 mmol/L 137-145 Normal (applies to non-numeric resul ts) [facility] Potassium 3.5-5.1 Normal (applies to non-numeric resul ts) [facility] Chloride 103 mmol/L 98-112 Normal (applies to non-numeric resul ts) [facility] Carbon Dioxide CO2 22.0-33.0 Normal (applies to non-numer ic results) [facility] Anion Gap 4.0-11.0 Normal (applies to non-numeric resul ts) [facility] BUN 3 mg/dL 7-17 Below low normal [facility] Creatinine 0.70-1.20 Normal (applies to non-numeric resul ts) [facility] GFR >60 Normal (applies to non-numeric results) [facility] Result based on MDRD formula. Glucose Level 264 mg/dL 74-99 Above high normal [facility] The reference range is only applicable w hen fasting. Calcium-Uncorrected 8.4-10.2 Normal (applies to non-nume vanessa results) [facility] Corrected Calcium 8.4-10.2 Normal (applies to non-numeri c results) [facility] ID Date Data Source [id number] 07/04/2019 06:01:00 PM EDT [facility] Name Value Range Interpretation Code Description Data Gisela rce(s) Supporting Document(s) Free T4 (Free Thyroxine) 0.76-1.46 Normal (applies to non -numeric results) [facility] ID Date Data Source [id number] 07/04/2019 06:01:00 PM EDT [facility] Name Value Range Interpretation Code Description Data Gisela rce(s) Supporting Document(s) Thyroid Stimulate Hormone TSH 0.358-3.740 Above high ivana l [facility] ID Date Data Source [id number] 07/03/2019 03:56:00 PM EDT [facility] Physician DocumentationClaxnatalia-Chandan [facility] ed[facility] CenterName: Jeovany Singerge: 24 yrsSex: FemaleDOB: 1995MRN: [id number] Date: 07/03/2019Time: 15:43Account#: [id number] 1Private MD: Out of town provider, -ED [...] I was available for consultation throughout this cj3zntliar's ED visit.HPI:06/1714:52 This 24 yrs old White [...] Smoking status: Patient states was never smoker ofCellity. ETOH status Denies use of ETOH.- Advance [...] rce(s) Supporting Document(s) ID Date Data Source [id number] 07/03/2019 03:56:00 PM EDT [facility]ClBay[facility] terName: Jeovany BarberAge: 24 yrsSex: FemaleDOB: 1995MRN: [id number] Date: 07/03/2019Time: 15:43Account#: [id number] 1Pulises ANTONIO: Out of town provider, -Diagnosis: [...] Smoking status: Patient states was never smoker oftoCellity. ETOH status Denies use of ETOH.- Advance [...] Triage completed. fbg15:45 Sangeeta Wetzel F[facility]-C [facility] mk[facility]46 Arm band placed on right wrist. [...] rce(s) Supporting Document(s) ID Date Data Source [id number] 06/29/2019 11:15:00 AM EDT [facility] [address] [address]GMGOPJL NAME: JEOVANY LEWIS DATE OF SERVICE: 06/29/19MR#: [id number] DATE OF : [birth year]ACCOUNT #: [id number], KENDRA ([id number])Visit Report for 06/29/2019Advanced Modalities Screening Tool DetailsPatient Name:Date of Service:JEOVANY LEWIS 06/29/2019 11:15 AMMedical Record Number:[id number] Patient of /Sex:Treating RN:1995 (24 y.o. F) Susanna Rangel Care Provider: Terence Valentino Clinician:Referring Provider: TreatingProvider/Warranty Administrator:Rasheed Rose PAULWeeks in Treatment: 3Advanced Modalities Screening Check ListHyperbaric Oxygen Therapy: Reviewed LCD or HBO policy from [employer] and/or NCDTherapy Not IndicatedNo Appr opriate IndicationElectronic Signature(s)Signed: 06/29/2019 3:31:06 PM By: Rohini Rangel By: Asia Rangel on 06/29/2019 11:25:00 ------Arrival Information DetailsPatient Name:Date of Service:JEOVANY LEWIS 06/29/2019 11:15 AMMedical Record Number:[id number] Patient of /Sex:Treating RN:1995 (24 y.o. F) Renée Quinones Care Provider: Terence Valentino Clinician:Referring Provider: TreatingProvider/Warranty Administrator:Rasheed Rose PAULWeeks in Treatment: 3Visit Information History [...] Name:Date of Service:JEOVANY LEWIS 06/29/2019 11:15AMMedical Record Number:[id number] Patient of /Sex:Treating RN:1995 (24 y.o. F) Susanna Rangel Care Provider: Terence Valentino Clinician:Referring Provider: TreatingProvider/Warranty Administrator:Rasheed Rose PAULWeeks in Treatment: 3Follow-up AppointmentsReturn Appointment in 1 week. Should you experience any significant changes inyour wound(s) or have anyquestions regarding your home care instructions please contact the [facility]. If after regular business hours,please call [...] Name:Date of Service:JEOVANY LEWIS 06/29/2019 11:15AMMedical Record Number:[id number] Patient of /Sex:Treating RN:1995 (24 y.o. F) Renée Quinones Care Provider: Terence Valentino Clinician:Referring Provider: MoizProamyder/Warranty Administrator:Rasheed Rose PAULWeeks in Treatment: 3Encounter Discharge Information ItemsDischarge Condition: StableAmbulatory Status: AmbulatoryDischarge Destination: HomeTransportation: Private AutoAccompanied By: selfSchedule Follow-up Appointment: YesClinical Summary of Care:Electronic Signature(s)Signed: 06/29/2019 3:54:07 PM By: Quinton Quinones ed By: Judith Quinones on 06/29/2019 11:37:00 Low er Extremity Assessment DetailsPatient Name:Date of Service:JEOVANY LEWIS 06/29/2019 11:15AMMedical Record Number:[id number] Patient of /Sex:Treating RN:1995 (24 y.o. F) Renée Quinones Care Provider: Terence Valentino Clinician:Referring Provider: Dank cottoProamyder/Warranty Administrator:Rasheed Rose PAULWeeks in Treatment: 3Notesmidline backElectronic Signature(s)Signed: 06/29/2019 3:54:07 PM By: Yaron Quinones By: Judith Quinones on 06/29/2019 1 1:13:19 Phi i Wound Chart DetailsPatient Name:Date of Service:JEOVANY LEWIS 06/29/201911:15 AMMedical Record Number:[id number] Patient of /Sex:Treating RN:1995 (24 y.o. F) Susanna Rangel Care Provider: Sade valdovinos MyoOren Clinician:Referring Provider: TreatingProvider/Warranty Administrator:Rasheed Rose PAULWeeks in Treatment: 3Vital SignsHeight(in):Pulse(bpm):106Weight(lbs): BloodPressure(mmHg): [...] N/AN/AGranulation Amount: Large (67-100%) N/AN/AGranulation Quality: Red, [place] N/AN/ANecrotic Amount: None Present (0%) N/AN/AExposed Structures: [...] Name:Date of Service:JEOVANY LEWIS 06/29/201911:15 AMMedical Record Number:[id number] Patient of /Sex:Treating RN:1995 (24 y.o. F) Susanna Rangel Care Provider: Sade valdovinos MyoOther Clinician:Referring Provider: TreatingProvider/Warranty Administrator:Rasheed Rose PAULWeeks in Treatment: 3Active InactiveNutritionNursing Diagnoses:Impaired [...] Name:Date of Service:JEOVANY LEWIS 06/29/201911:15 AMMedical Record Number:[id number] Patient of /Sex:Treating RN:1995 (24 y.o. F) Renée Quinones Care Provider: Sade valdovinos, MyoOther Clinician:Referring Provider: TreatingProvider/Warranty Administrator:Rasheed Rose PAULWeeks in Treatment: 3Active ProblemsLocation of Pain Severity andDescription of PainPatient Has Pain? NoSite LocationsPain Management and MedicationCurrent Pain Management:Electronic Signature(s)Signed: 06/29/2019 3:54:07 PM By: Yaron Quinones By: Judith Quinones on 06/29/2019 11:18:51 Pat ient/Caregiver Education DetailsPatient Name:Date of Service:JEOVANY LEWIS06/29/20193748ychfllc56:15 AMMedical Record Number:[id number] Patient of /Gender:Treating RN:1995 (24 y.o. F) Renée Quinones Care Physician: Terence Valentino Clinician:Referring Physician: TreatingPhysician/Warranty Administrator:Rasheed Rose PAULWeeks in Treatment: 3Education AssessmentEducation Provided To:PatientEducation Topics ProvidedWound/Skin Impairment:Methods: Explain/VerbalResponses: State content correctlyElectronic Signature(s)Signed: 06/29/2019 3:54:07 PM By: Judith QuinonesEntered By: Judith Quinones on 06/29/2019 11:19:20Treatment Notes SummaryWound #2 (Midline Back)3. Primary Dressing AppliedFoamSilver Dressings Vi tals DetailsPatient Name:Date of Service:JEOVANY LEWIS 06/29/2019 11:15AMMedical Record Number:[id number] Patient of /Sex:Treating RN:1995 (24 y.o. F) Renée Quinones Care Provider: Terence Valentino Clinician:Referring Provider: TreatingProvider/Warranty Administrator:Rasheed Rose PAULWeeks in Treatment: 3Vital SignsTime Taken: [...] of Service:JEOVANY LEWIS 06/29/2019 11:15 AMMedical Record Number:[id number] Patient of /Sex:Treating RN:1995 (24 y.o. F) Renée Quinones Care Provider:Other Clinician:Sade valdovinos MyoReferring Provider: TreatingProvider/Warranty Administrator:Rasheed Rose PAULWeeks in Treatment: 3Wound StatusWound Number: [...] BedGranulation Amount: Large (67-100%)Exposed StructureGranulation Quality: Red, [place]ee[place]on Fat(Subcutaneous Tissue) Exposed: YesNecrotic Amount: None Present (0%)Periwound Skin TextureTextureNo Abnormalities Noted: Yes NoNoted: YesMoisture TemperaturNo Abnormalities Noted: Yes TemNo AbnormalityWound PreparationUlcer Cl eansing: Rinsewith SalineTopical Anesthetic Applied: LidocOintmentl Odor AfterLayerColorAbnormalitiese / Painperature:d/Irrigatedaine 2%eduction ineduction inneling:dermining:Treatment NotesWound #2 (Midline Back)3. Primary Dressing AppliedFoamSilver DressingsElectronic Signature(s)Signed: 06/29/2019 3:54:07 PM By: Judith QuinonesEntered By: Judith Quinones on 06/29/2019 11:18:22 DICT: 06/29/19 1115TRANS:06/29/19 [facility] WOUND CENTERTRANS BY:ABNER SIGNED:TIME SIGNED:REPORT COPY TO: Name Value Range Interpretation Code Description Data Gisela rce(s) Supporting Document(s) ID Date Data Source [id number] 06/29/2019 11:15:00 AM EDT [place] [address]PATIENT NAME: JEOVANY LEWIS DATE OF SERVICE: 06/29/19MR#: [id number] DATE OF : [birth year]ACCOUNT #: [id number], KENDRA ([id number])Visit Report for 06/29/2019Chief Complaint Document DetailsPatient Name:Date of Service:JEOVANY LEWIS 06/29/2019 11:15AMMedical Record Number:[id number] Patient of /Sex:Treating RN:1995 (24 y.o. F)Primary Care Provider: Terence Valentino Clinician:Referring Provider: TreatingProvider/Warranty Administrator:Rasheed Rose PAULWeeks in Treatment: 3Information Obtained from: PatientChief ComplaintLeft heel diabetic foot wound for approximately 3 months.Electronic Signature(s)Signed: 07/02/2019 12:45:22 PM By: Eliud Rose D.O., FACSEntered By: Eliud Rose on 06/29/2019 11:01:22 HPI DetailsPatient Name:Date of Service:JEOVANY LEWIS 06/29/2019 11:15AMMedical Record Number:[id number] Patient of /Sex:Treating RN:1995 (24 y.o. F)Primary Care Provider: Sade valdovinos MyoOren Clinician:Referring Provider: TreatingProvider/Warranty Administrator:Rasheed Rose PAULWeeks in Treatment: 3History of Present IllnessHPI Description: This is a poorly controlled type 1 diabetic smoker [facility] with a wound onher left plantar heel area. This had been present for approximately 2-3 monthsand appears to have occurred while shewas admitted to the hospital during a diabetic coma where she was unconsciousfor approximately 4 days and requiredventilator support.She had been caring for this at home and her HgbA1c on 05/27/18 was 13.4.She had started seeing an [facility] after this to assist with her bloodsugars.Positive DiabetesPositive TobaccoNegative Obesity (BMI 19.11)Negative Rapid Weight LossNegative Steroids or Llpwfomuomwk28/11/19: Ankle Brachial Index: Left 0.98 Right 1.08AllergiesAugmentin-liquid [...] Name:Date of Service:JEOVANY LEWIS 06/29/201911:15 AMMedical Record Number:[id number] Patient of /Sex:Treating RN:1995 (24 y.o. F) Susanna Rangel Care Provider: Sade valdovinos MyoOther Clinician:Referring Provider: TreatingProvider/Warranty Administrator:Rasheed Rose PAULWeeks in Treatment: 3Verbal / Phone [...] Name:Date of Service:JEOVANY LEWIS 06/29/201911:15 AMMedical Record Number:[id number] Patient of /Sex:Treating RN:1995 (24 y.o. F)Primary Care Provider: Terence Valentino Clinician:Referring Provider: TreatingProvider/Warranty Administrator:Rasheed Rose PAULWeeks in Treatment: 3Active ProblemsICD-10Evaluated EncounterCode Description ActiveDate Today HbvxmagbpX81.209A Unspecified open wound of unspecified back wall of06/07/2019 No Yesthorax without penetration into thoracic cavity, initialencounterInactive ProblemsResolved ProblemsElectronic Signature(s)Signed: 07/02/2019 12:45:22 PM By: Eliud Rose D.O., FACSEntered By: Eliud Rose on 06/29/2019 11:01:04 DIC 1115TRANS:06/29/19 1115 WOUND CENTERTRANS BY:ABNER SIGNED:TIME SIGNED:REPORT COPY TO: Name Value Range Interpretation Code Description Data Gisela rce(s) Supporting Document(s) ID Date Data Source [id number] 06/07/2019 09:15:00 AM EST [facility] [place] [id number] NAME: JEOVANY LEWIS DATE OF SERVICE: 06/07/19MR#: [id number] DATE OF : [birth year]ACCOUNT #: [id number], KENDRA ([id number])Visit Report for 06/07/2019Abuse/Suicide Risk Screen DetailsPatient Name:Date of Service:JEOVANY LEWIS 06/07/2019 9:15 AMMedical Record Number:[id number] Patient of /Sex:Treating RN:1995 (24 y.o. F) Susanna Rangel Care Provider: Terence Valentino Clinician:Referring Provider: TreatingProvider/Warranty Administrator:GABRIELA GANN PAULWeeks in Treatment: 0Abuse/Suicide Risk Screen [...] of Service:JEOVANY LEWIS 06/07/2019 9:15 AMMedical Record Number:[id number] Patient of /Sex:Treating RN:1995 (24 y.o. F) Danielle Rangel Care Provider: Terence Valentino Clinician:Referring Provider: TreatingProvider/Warranty Administrator:GABRIELA GANN PAULWeeks in Treatment: 0Activities of Daily [...] Name:Date of Service:JEOVANY LEWIS 06/07/20199:15 AMMedical Record Number:[id number] Patient of /Sex:Treating RN:1995 (24 y.o. F) Feliciano Cervantes Care Provider: Terence Valentino Clinician:Referring Provider: MoizProvider/Warranty Administrator:GABRIELA GANN PAULWeeks in Treatment: 0Advanced Modalities Screening Check ListHyperbaric Oxygen Therapy: Reviewed LCD or HBO policy from [employer] and/or NCDTherapy Not IndicatedNo Appropriate IndicationElectronic Signature(s)Signed: 06/07/2019 2:57:37 PM By: Nguyen Cervantes By: Chelita Cervantes on 06/07/2019 10:07:33 All ergy List DetailsPatient Name:Date of Service:JEOVANY LEWIS 06/07/2019 9:15 AMMedical Record Number:[id number] Patient of /Sex:Treating RN:1995 (24 y.o. F) Susanna Rangel Care Provider: Terence Valentino Clinician:Referring Provider: Ivonne Pierre/Warranty Administrator:GABRIELA GANN PAULWeeks in Treatment: 0AllergiesActive AllergiesAugmentin-liquidReaction: hivesSeverity: ModerateIodinated Contrast- OralReaction: anaphylaxisSeverity: SevereAllergy NotesElectronic Signature(s)Signed: 06/07/2019 1:49:24 PM By: Rohini Rangel By: Asia Rangel on 06/07/2019 09:17:14 --Arrival Information DetailsPatient Name:Date of Service:JEOVANY LEWIS 06/07/2019 9:15 AMMedical Record Number:[id number] Patient of /Sex:Treating RN:1995 (24 y.o. F) Susanna Rangel Care Provider: Terence Valentino Clinician:Referring Provider: TreatingProvider/Warranty Administrator:GABRIELA GANN PAULWeeks in Treatment: 0Visit Information History Since LastVisitPain Present Now: NoPatient Arrived: AmbulatoryArrival Time: 09:08Arrival Time: 09:08Transfer Assistance: NonePatient Identification Verified: YesSecondary Verification Process Completed: YesElectronic Signature(s)Signed: 06/07/2019 1:49:24 PM By: Rohini Rangel By: Asia Rangel on 06/07/2019 09:08:59 Dis charge Instructions DetailsPatient Name:Date of Service:JEOVANY LEWIS 06/07/2019 9:15 AMMedical Record Number:[id number] Patient of /Sex:Treating RN:1995 (24 y.o. F) Feliciano Cervantes Care Provider: Terence Valentino Clinician:Referring Provider: TreatingProvider/Warranty Administrator:GABRIELA GANN PAULWeeks in Treatment: 0Follow-up AppointmentsReturn Appointment [...] of Service:JEOVANY LEWIS 06/07/2019 9:15 AMMedical Record Number:[id number] Patient of /Sex:Treating RN:1995 (24 y.o. F) Tammy Shen Care Provider: Terence Valentino Clinician:Referring Provider: TreatingProvider/Warranty Administrator:GABRIELA GANN PAULWeeks in Treatment: 0Learning Preferences/Education Level/Primary LanguageLearning Preference: ExplanationHighest Education Level: High SchoolPreferred Language: EnglishCognitive Barrier Assessment/BeliefsLanguage Barrier: NoTranslator Needed: NoMemory Deficit: NoEmotional Barrier: NoCultural/Anglican Beliefs Affecting Medical Care: NoPhysical Barrier AssessmentDecreased Hand dexterity: NoKnowledge/Comprehension AssessmentKnowledge Level: MediumComprehension Level: MediumAbility to understand written Mediuminstructions:Ability to understand verbal Mediuminstructions:Motivation AssessmentAnxiety Level: CalmCooperation: CooperativePerception: CoherentElectronic Signature(s)Signed: 06/08/2019 4:14:48 PM By: Felisha Shen RNEntered By: Felisha Shen on 06/07/2019 08:50:12 Enc ounter Discharge Information DetailsPatient Name:Date of Service:JEOVANY LEWIS 06/07/20199:15 AMMedical Record Number:[id number] Patient of /Sex:Treating RN:1995 (24 y.o. F) Feliciano Cervantes Care Provider: Terence Valentino Clinician:Referring Provider: TreatingProvider/Warranty Administrator:GABRIELA GANN PAULWeeks in Treatment: 0Encounter Discharge Information Items Post ProcedureVitalsDischarge Condition: Stable Temperature(F): 97.8Ambulatory Status: AmbulatoryPulse (bpm):66Discharge Destination: Home Respiratory Rate(breaths/min): 17Transportation: Private Auto Blood Pressure(mmHg): 110/68Accompanied By: Jovanna Follow-up Appointment: YesClinical Summary of Care: Patient DeclinedElectronic Signature(s)Signed: 06/07/2019 2:57:37 PM By: Marizol Cervantesed By: Chelita Cervantes on 06/07/2019 10:28:33 Fal l Risk Assessment DetailsPatient Name:Date of Service:JEOVANY LEWIS :15 AMMedical Record Number:[id number] Patient of /Sex:Treating RN:1995 (24 y.o. F) Susanna Rangel Care Provider: Terence Valentino Clinician:Referring Provider: TreatingProvider/Warranty Administrator:GABRIELA GANN PAULWeeks in Treatment: 0Fall Risk Assessment [...] Rangel Care Provider: Terence Valentino Clinician:Referring Provider: TreatingProvider/Warranty Administrator:GABRIELA GANN PAULWeeks in Treatment: 0Foot Assessment ItemsSite [...] of Service:JEOVANY LEWIS 06/07/2019 9:15 AMMedical Record Number:[id number] Patient of /Sex:Treating RN:1995 (24 y.o. F) Jorge A Rangel Care Provider: Terence Valentino Clinician:Referring Provider: TreatingProvider/Warranty Administrator:GABRIELA GANN PAULWeeks in Treatment: 0Electronic Signature(s)Signed: 06/07/2019 1:49:24 PM By: Rohini Rangel By: Asia Rangel on 06/07/2019 09:22:25 Mul ti Wound Chart DetailsPatient Name:Date of Service:JEOVANY LEWIS 06/07/2019 9:15 AMMedical Record Number:[id number] Patient of /Sex:Treating RN:1995 (24 y.o. F) Feliciano Cervantes Care Provider: Terence Valentino Clinician:Referring Provider: TreatingProvider/Warranty Administrator:GABRIELA GANN PAULWeeks in Treatment: 0Vital SignsHeight(in): 61 Capillary Vfmtn340Xiuyart(mg/dl):Weight(lbs): 106Pulse(bpm): 103Body Mass Index(BMI): 20Blood Pressure(mmHg): 108/71Temperature(F): [...] brown N/AN/AGranulation Amount: Small (1-33%) N/AN/AGranulation Quality: [place]on N/AN/ANecrotic Amount: Large (67-100%) N/AN/APeriwound Skin Texture: No Abnormalities Noted N/AN/APeriwound Skin Moisture: No Abnormalities Noted N/AN/APeriwound Skin Color: No Abnormalities Noted N/AN/ATenderness on Palpation: No N/AN/AWound Preparation:Ulcer Cleansing: N/AN/ARinsed/Irrigated with SalineTopical Anesthetic Applied:Lidocaine 2% OintmentTreatment NotesElectronic Signature(s)Signed: 06/07/2019 2:57:37 PM By: Chelita CervantesEntered By: Chelita Cervantes on 06/07/2019 10:07:46 Mul ti-Disciplinary Care Plan DetailsPatient Name:Date of Service:JEOVANY LEWIS 06/07/20199:15 AMMedical Record Number:[id number] Patient of /Sex:Treating RN:1995 (24 y.o. F) Feliciano Cervantes Care Provider: Sade valdovinos MyoOther Clinician:Referring Provider: TreatingProvider/Warranty Administrator:GABRIELA GANN PAULWeeks in Treatment: 0Active InactiveNutritionNursing Diagnoses:Impaired [...] Name:Date of Service:GERALDO LEWISRA 06/07/20199:15 AMMedical Record Number:[id number] Patient of /Sex:Treating RN:1995 (24 y.o. F) Susanna Rangel Care Provider: Sade valdovinos MyoOther Clinician:Referring Provider: TreatingProvider/Warranty Administrator:GABRIELA GANN PAULWeeks in Treatment: 0Height (in):Weight (lbs):Body [...] take three or more different prescribed or nvcq-sue-fwgngcm drugs a day0 NoWithout wanting to, I have lost or gained 10 pounds in the last six months0 Wai am not always physically able to shop, cook and/or feed myself0 NoNutrition ProtocolsGood Risk ProtocolModerate Risk ProtocolElectronic Signature(s)Signed: 06/07/2019 1:49:24 PM By: Rohini Rangel By: Asia Rangel on 06/07/2019 09:22:13 Yonis n Assessment DetailsPatient Name:Date of Service:LEWISJEOVANY 06/07/2019 9:15 AMMedical Record Number:[id number] Patient of /Sex:Treating RN:1995 (24 y.o. F) Susanna Rangel Care Provider: Terence Valentino Clinician:Referring Provider: TreatingProvider/Warranty Administrator:GABRIELA GANN PAULWeeks in Treatment: 0Active ProblemsLocation of Pain Severity andDescription of PainPatient Has Pain? NoSite LocationsPain Management and MedicationCurrent Pain Management:Electronic Signature(s)Signed: 06/07/2019 1:49:24 PM By: Rohini Rangel By: Asia Rangel on 06/07/2019 09:33:12 Patient/Caregiver Education DetailsPatient Name:Date of Service:GERALDO LEWIS06/07/20193719kihuvqt9:15 AMMedical Record Number:[id number] Patient of /Gender:Treating RN:1995 (24 y.o. F) Susanna Rangel Care Physician: Terence Valentino Clinician:Referring Physician: TreatingPhysician/Warranty Administrator:GABRIELA GANN PAULWeeks in Treatment: 0Education AssessmentEducation Provided To:PatientEducation Topics ProvidedBasic Hygiene:Methods: Explain/VerbalWound Debridement:Methods: Explain/VerbalResponses: State content correctlyWound/Skin Impairment:Methods: Explain/VerbalResponses: State content correctlyElectronic Signature(s)Signed: 06/07/2019 2:57:37 PM By: hCelita CervantesEntermaribel By: Chelita Cervantes on 06/07/2019 10:15:38Treatment Notes SummaryWound #2 (Midline Back)3. Primary Dressing AppliedSilver Dressings4. Secondary DressingFoamNotesAG, proximel applied to wound per order; pt tolerated well. Vitals DetailsPatient Name:Date of Service:JEOVANY LEWIS 06/07/2019 9:15 AMMedical Record Number:[id number] Patient of /Sex:Treating RN:1995 (24 y.o. F) Susanna Rangel Care Provider: Terence Valentino Clinician:Referring Provider: TreatingProvider/Warranty Administrator:GABRIELA GANN PAULWeeks in Treatment: 0Vital SignsTime Taken: 09:27Temperature (F):98.3Height (in): 61Pulse (bpm):103Weight (lbs): 106 Respiratory Rate(breaths/min): 17Body Mass Index (BMI): 20 Blood Pressure(mmHg): 108/71Capillary Blood Glucose (mg/dl): 300Refer ence Range: 80 - 120 mg / dlAirwayElectronic Signature(s)Signed: 06/07/2019 1:49:24 PM By: Rohini Rangel By: Asia Rangel on 06/07/2019 09:28:48 Wound Assessment DetailsPatient Name:Date of Service:JEOVANY LEWIS 06/07/2019 9:15 AMMedical Record Number:[id number] Patient of /Sex:Treating RN:1995 (24 y.o. F) Susanna Rangel Care Provider: Terence Valentino Clinician:Referring Provider: TreatingProvider/Warranty Administrator:GABRIELA GANN PAULWeeks in Treatment: 0Wound StatusWound Number: [...] rce(s) Supporting Document(s) ID Date Data Source [id number] 06/07/2019 09:15:00 AM EST [facility] [address]KYATVAN NAME: JEOVANY LEWIS DATE OF SERVICE: 06/07/19MR#: [id number] DATE OF : [birth year]ACCOUNT #: [id number], KENDRA ([id number])Visit Report for 06/07/2019Debridement DetailsPatient Name:Date of Service:JEOVANY LEWIS 06/07/2019 9:15 AMMedical Record Number:[id number] Patient of /Sex:Treating RN:1995 (24 y.o. F) Feliciano Cervantes Care Provider: Terence Valentino Clinician:Referring Provider: TreatingProvider/Warranty Administrator:GABRIELA GANN PAULWeeks in Treatment: 0Debridement Performed for [...] rce(s) Supporting Document(s) ID Date Data Source [id number] 06/07/2019 09:15:00 AM EST [address] [address]VHGYXAQ NAME: JEOVANY LEWIS DATE OF SERVICE: 06/07/19MR#: [id number] DATE OF : [birth year]ACCOUNT #: [id number], KENDRA ([id number])Visit Report for 06/07/2019Chief Complaint Document DetailsPatient Name:Date of Service:JEOVANY LEWIS 06/07/2019 9:15AMMedical Record Number:[id number] Patient of /Sex:Treating RN:1995 (24 y.o. F)Primary Care Provider: Sade valdovinos, MyoOther Clinician:Referring Provider: TreatingProvider/Warranty Administrator:GABRIELA GANN PAULWeeks in Treatment: 0Information [facility]: [facility] ComplaintLeft heel diabetic foot wound for approximately [...] Name:Date of Service:JEOVANY LEWIS 06/07/2019 9:15AMMedical Record Number:[id number] Patient of /Sex:Treating RN:1995 (24 y.o. F)Primary Care Provider: Sade valdovinos, MyoOther Clinician:Referring Provider: TreatingProvider/Warranty Administrator:GABRIELA GANN PAULWeeks in Treatment: 0History of Present IllnessLocation: wounds on backQuality: no painSeverity: No cellulitisDuration: a couple of monthsHPI Desc ription: This is a poorly controlled type 1 diabetic smoker [facility] with a wound onher left plantar heel area. This had been present for approximately 2-3 monthsand appears to have occurred while shewas admitted to the hospital during a diabetic coma where she was unconsciousfor approximately 4 days and requiredventilator support.She had been caring for this at home and her HgbA1c on 05/27/18 was 13.4.She had started seeing an [facility] after this to assist with her bloodsugars.Positive DiabetesPositive TobaccoNegative Obesity (BMI 19.11)Negative Rapid Weight LossNe gative Steroids or Tquunmqstrwy47/11/19: Ankle Brachial Index: Left 0.98 Right 1.08AllergiesAugmentin-liquid [...] Name:Date of Service:JEOVANY LEWIS 06/07/20199:15 AMMedical Record Number:[id number] Patient of /Sex:Treating RN:1995 (24 y.o. F)Primary Care Provider: Terence Valentino Clinician:Referring Provider: TreatingProvider/Warranty Administrator:GABRIELA GANN PAULWeeks in Treatment: 0ConstitutionalSitting or standing [...] Name:Date of Service:JEOVANY LEWIS 06/07/20199:15 AMMedical Record Number:[id number] Patient of /Sex:Treating RN:1995 (24 y.o. F) Feliciano Cervantes Care Provider: Terence Valentino Clinician:Referring Provider: TreatingProvider/Warranty Administrator:GABRIELA GANN PAULWeeks in Treatment: 0Verbal / Phone [...] Name:Date of Service:JEOVANY LEWIS 06/07/2019 9:15AMMedical Record Number:[id number] Patient of /Sex:Treating RN:1995 (24 y.o. F)Primary Care Provider: Terence Valentino Clinician:Referring Provider: TreatingProvider/Warranty Administrator:GABRIELA GANN PAULWeeks in Treatment: 0Active ProblemsICD-10Evaluated EncounterCode Description ActiveDate Today OoqcjnwbsQ30.209A Unspecified open wound of unspecified back wall [...] Name: JEOVANY LEWISProvider:MAXX GANN MDDate of : 1995NPI#:[id number]: FDEA#:[id number] #: [phone] #:[id number] Address: [address] [phone] Contrast- OralReaction: anaphylaxisSeverity: SevereAugmentin-liquidReaction: hivesSeverity: ModerateMedicationMedication:Route: Strength:Form:doxycycline [...] rce(s) Supporting Document(s) ID Date Data Source [id number] 05/08/2019 12:39:00 PM EST [facility] PATIENT:[id number]:MERLYN LEWIS SEC #:[id number]:[id number] OF :[birth year]SERVICE DATE:05/08/19PROVIDER:Elliot Leal M.D.LOCATION:[place] MHCHARGES:[id number] EP-LEV 4 SICK - [id number] TP-FAR-9-SICK PROFESSIONALDOCUMENT TEXT:Jeovany Lewis FirsthealthDOB: [birth year], Age: 24, female [address] [facility] 37BMR Number: [id number] MANI Montiel [address]Yahqegwhg: [id number] P: [phone] Date/Time: 05/08/19, 1230 F: [phone]: Elliot Leal M.D. Patient Intake-AdultSelf ReferralProviders seen since last Jaye GARCIA [facility] ENDOCRIOLOGYMay we obtain med record?:YesChief Complaint-MED F/UAdditional complaintsPT HERE FOR MED F/U. SAW DEVON GARCIA . NO NEW ORDERS. NO COMPLAINTS. NEED REFILLS [facility] MedicationsPatient Medications ReconciledYesPharmacies On [facility] HospitalCurrent MedicationsCurrent MedicationsLast Reconciled 05/08/2019-1256 Nigel Beltre Medications:Budesonide/Formoterol Fumarate (Symbicort 160-4.5 Mcg Inhaler)10.2 GM HFA.AER.ADReported, Active2 PUFF INHALATION Twice Daily, , 0 RefillsLevothyroxine Sodium (Tirosint)100 MCG CAPSULEReported,100 MCG ORAL Daily, , 0 RefillsInsulin Lispro (Admelog Solostar)100 UNIT/1 ML INSULN.PENReported,, , 0 RefillsInstructions:SLIDING SCALE SCANNED IN CHART STARTS WITH 7UNITS 70-100 [id number] 16UNInsulin Detemir (Levemir Flextouch)100 UNIT/1 ML INSULN.PENReported,, [...] lbs 0 oz / 49.895 kgBSA:1.48 m2BMI:20.1 kg/i1Aoozn:102Respiration:16Blood Pressure:100/60 / Sitti ng, Left ArmPulse Oximetry:98%, [...] 05/08/2020 1Y 05/08/2019LMPLast menstrual periodDefinite (04/13/19)Pain Scale*Pain zwjer3Enmxrkngsw InformationAppropriate for Hep-C testing:NoHx Drug Resistant Organism?Yes [...] OF: Benign murmur.GastrointestinalREPORTS HX OF: GERD.Age at qtgpazzn28Cvjdsasib xuyrahrNzwvdbe1Lvrc6Jlfh1Bbqnalf9YMT/JUQ4Amyz kjmrvx5ZrsnumzjuehiruySIVDEGS HX OF: Osteoarthritis, Other musculoskeletal hx (ARTHRITIS).NeurologicREPORTS HX OF: Headaches, Seizures, Stroke.PsychiatricREPORTS HX OF: Anxiety, Depression.Family Medical HistoryNo known family hxNo known family historyFamily historyFamily history - endocrineREPORTS HX OF: Diabetes type 2 (MOTHER , FATHER).Family history - psychiatricREPORTS HX OF: Anxiety disorder (FATHER), Depression (MOTHER).Tobacco UseSmoking StatusCurrent SmokerTobacco detailsCigarettesAlcohol UseIntakeDenies use (0-1 A WEEK)Substance UseSubstanceDenies useSafetyMeeker Memorial Hospital heater temp set <120 degYesWorking smoke [...] today with her partner. She recently moves [facility] and lives with her partner.Since the last visit, she states that she was not in the hospital or inER.She states that she is trying to get better with her insulin shots andher medications. She does follow with endocrinology and recent seesPatrick Garcia at [facility]. Her insulin doses were adj [...] personality, affect or depression.SKIN:No rashes, lesionsPhysical Exam, Marianna (R)Physcial ExamGENERAL APPEARANCE:The patient is alert, oriented [...] area is not tender. No fluctuation noted.Assessment/Plan, Marianna RAssessment/PlanProblem ListLast reviewed 05/08/19-1401 Elliot Leal SCurrent [...] Refills 3Reported -Levothyroxine Sodium (Tirosint) 100 MCG [id number] MICROGRAM ORAL DailyInsulin Lispro (Admelog Solostar) 100 UNIT/1 ML INSULN.PENInstructions - SLIDING SCALE SCANNED IN CHART STARTS WITH 7UNITS 70- 100ENDS 451-500 16UNInsulin Detemir (Levemir Flextouch) 100 UNIT/1 ML INSULN.PENInstructions - 2OUN IN AM AND [address] [facility]PITALanceled -Insulin Lispro (Admelog Solostar) 100 UNIT/1 ML INSULN.PEN, UNIT SUB-Q Three Times a DayInsulin Glargine,Hum.rec.anlog (Basaglar Kwikpen U-100)100 UNIT/1 ML INSULN.PEN, 08/08/1921 UNIT SUB-Q AMLevothyroxine Sodium 88 MCG TABLET, 08/09/1987 MICROGRAM ORAL DailyFluticasone/Salmeterol (Advair Hfa 115-21 Mcg Inhaler) 12 GMAER.W.ADAP, PUFF INHALATION Twice DailyOffice ProceduresFlu Adult (Today at [facility]))Dx - Flu vaccine needAssessment/Plan# Migraine headache - [...] physical or sooner ifneeded.Patient InstructionsPlease call the LICENSED PRACTICAL NURSE for an [facility] [place], [place] [address]P: [phone]/[facility] given and explainedYes at 14 05.Dictated on 05/08/19 1239 by Elliot Leal M.D.Transcribed on 05/08/19 1239 by Elliot Leal SSign by Elliot Leal M.D. on 05/08/19 1405Sign by: Elliot Leal M.D. Name Value Range Interpretation Code Description Data Gisela rce(s) Supporting Document(s) ID Date Data Source [id number] 05/04/2019 06:39:00 PM [facility] Name Value Range Interpretation Code Description Data Gisela rce(s) Supporting Document(s) Free T4 (Free Thyroxine) 0.76-1.46 Normal (applies to non -numeric results) [facility] ID Date Data Source [id number] 05/04/2019 06:39:00 PM [facility] Name Value Range Interpretation Code Description Data Gisela rce(s) Supporting Document(s) Thyroid Stimulate Hormone TSH 0.358-3.740 Above high ivana l [facility] ID Date Data Source [id number] 05/04/2019 06:18:00 PM [facility] Name Value Range Interpretation Code Description Data Gsiela rce(s) Supporting Document(s) Beta HCG Screen,Qualitative Negative Normal (appli es to non-numeric results) [facility] ID Date Data Source [id number] 04/14/2019 08:23:00 PM EST [facility] Physician DocumentationClaxton-Chandan matthew CenterName: Jeovany Vaughn: 24 yrsSex: FemaleDOB: 1995MRN: [id number] Date: 04/14/2019Time: 19:54Account#: [id number] 5BPrivate MD: Galina Houser Physician Dora RaineyDiscarleen Summary:04/14/19 20:17Discharge OrderedLocation: Home Self Care cs4Dqejrum: an ongoing problem vd1Ztnpmkyi: are unchanged dj1Zhqjwgeln: Stable is4Ofyaflyrv- Pain in right shoulder jw4Xvrywysb: th4- With: Marco Houser- When: 1 week- Reason: Recheck today's complaints, Continuance of careDischarge Instructions:- Discharge Summary Sheet th4- MUSCLE STRAIN, Extremity th4- SHOULDER PAIN (Uncertain Cause) gs2Erjze:- Medication Reconciliation th4- Medication Reconciliation Form - 2nd Copy th4HPI:03/2820:13 This 24 yrs old White Female presents to ER via Private Vehicle with nt6phzrfqmdzi of Shoulder Pain.20:13 Patient reports a two-month history of intermittent right shoulder wr6qwnw. She describes the p ain as throbbing. [...] for chills, fever. Neck: Negative for acute gq4wmgexow. Abdomen/GI: Negative for nausea, vomiting. MS/extremity:Positive for [...] Temp 97.2(TE); Pulse Ox 98% on R/A; ka4Knektk 47.7 kg (R); Pain 8/10;20:22 BP 115 / 85; Pulse 90; Resp 16; Pulse Ox 98% ; tp2MDM:20:05 Patient medically screened. th420:16 Data reviewed: vital signs, nurses notes. ED course: Patient remained ig3algwap in the ER. Patient with shoulder pain most consistent withmuscle strain. I recommended that she continue NSAIDs. We discussedthe use of ice, heat, stretching. Follow up with primary care doctor.A ctivity as tolerated. No specific injury. No indication for imaging..Dispensed Medications:No medications were administeredSignatures:Dora Rainey MD MD ck6IevezbltwSeda Canas RN RN cm4 Name Value Range Interpretation Code Description Data Gisela rce(s) Supporting Document(s) ID Date Data Source [id number] 04/14/2019 08:23:00 PM EST [facility] Nurse's NotesClaxIra [facility] terName: Jeovany Singerge: 24 yrsSex: FemaleDOB: 1995MRN: [id number] Date: 04/14/2019Time: 19:54Account#: [id number] 5BPrivate MD: Irene HouseroDiagnosis: Pain in right shoulderPresentation:03/2819:55 Presenting complaint: Patient states: her right shoulder has been uu3elxmron for a couple months. "the pain will [...] Private Vehicle cm419:56 Acuity Assignment: Triage 4 zw4Xdvabr Assessment:19:56 General: Appears in no apparent distress, Behavior is cooperative. vp2Ubbkrm Screening: (1)Signs/symptoms infection No. Pain: Complains ofpain [...] threats or abuse. Denies injuries from another. qj6Unalcxkryfz screening: No deficits noted. Offer of HIV testing:patient was previously offered screening. Fall Risk None identified.Assessment:20:12 Reassessment: Patient appears in no apparent distres s at this time. bh6Ouvtlm Screening: Sepsis is not suspected at this time. General:Appears in no apparent distress, Behavior is appropriate for age,cooperative.20:21 Derm: multiple sites of "scabbing" noted to scalp, face, arms, hands. dw9Wasov Signs:19:58 BP 117 / 87; Pulse 91; Resp 16; Temp 97.2(TE); Pulse Ox 98% on R/A; dt0Eygatz 47.7 kg (R); Pain 8/10;20:22 BP 115 / 85; Pulse 90; Resp 16; Pulse Ox 98% ; tp2ED Course:19:54 Patient arrived in ED. cm419:55 Marco Houser is Private Physician. cm419:55 Seda Canas, ANN is Primary Nurse. cm419:56 Triage completed. cm420:05 Dora Rainey MD is Attending Physician. th420:12 Patient has correct armband on for positive identification. Placed in qt4mlib. Bed in low position. Call light in reach. Side rails up X2.Door closed. Noise minimized. Verbal reassurance given. Pillow given.Head of bed elevated.20:13 No Physician assisted procedures completed. tp220:17 Marco Houser is Referral Physician. uh4Szhvuziumfwo Medications:No medications were administeredOutcome:20:17 Discharge ordered by . th420:22 Disposition: Discharged to home ambulatory. tp220:22 Condition: stable, Condition: gxqeczet35:22 Instructed on discharge instructions, follow up and referral plans.20:22 Discharge Assessment: Patient verbalized understanding of dispositioninstructions. Patient has no functional deficits.20:23 Patient left the ED. pn6Pfkjllqcev:Dora Rainey MD MD vt7ZwhljnPerla jimenez RN RN eu8ObzmrjqdsSeda Canas RN RN cm4 Name Value Range Interpretation Code Description Data Gisela rce(s) Supporting Document(s) Procedure Vital Signs ID Date Data Source [id number] 04/25/2020 12:36:[address] [facility] Name Value Range Interpretation Code Description Data Source(s) Weight (Calculated Kilograms) 45.08 45.08 [facility] Height (Calculated Centimeters) 152.4 152. 4 [facility] Body Mass Index (BMI) 19.4 19.4 [facility] ID Date Data Source [id number] 04/01/2020 01:02:[address] [facility] Name Value Range Interpretation Code Description Data Source(s) Weight (Calculated Kilograms) 45.08 45.08 [facility] Height (Calculated Centimeters) 152.4 152. 4 [facility] Body Mass Index (BMI) 19.4 19.4 [facility] ID Date Data Source [id number] 03/12/2020 03:35:00 PM [facility] Name Value Range Interpretation Code Description Data Source(s) Weight (Calculated Kilograms) 45.08 45.08 [facility] Height (Calculated Centimeters) 152.4 152. 4 [facility] Body Mass Index (BMI) 19.4 19.4 [facility] ID Date Data Source [id number] 12/07/2019 12:24:00 AM [facility] Name Value Range Interpretation Code Description Data Source(s) Weight (Calculated Kilograms) 45.08 45.08 [facility] Height (Calculated Centimeters) 152.4 152. 4 [facility] Body Mass Index (BMI) 19.4 19.4 [facility] ID Date Data Source [id number] 10/06/2019 12:18:00 AM [facility] Name Value Range Interpretation Code Description Data Source(s) Weight (Calculated Kilograms) 45.08 45.08 [facility] Height (Calculated Centimeters) 152.4 152. 4 [facility] Body Mass Index (BMI) 19.4 19.4 [facility] ID Date Data Source [id number] 07/05/2019 12:29:00 AM [facility] Name Value Range Interpretation Code Description Data Source(s) Weight (Calculated Kilograms) 45.08 45.08 [facility] Height (Calculated Centimeters) 152.4 152. 4 [facility] Body Mass Index (BMI) 19.4 19.4 [facility] ID Date Data Source [id number] 06/05/2019 12:04:00 AM [facility] Name Value Range Interpretation Code Description Data Source(s) Weight (Calculated Kilograms) 45.08 45.08 [facility] Height (Calculated Centimeters) 152.4 152. 4 [facility] Body Mass Index (BMI) 19.4 19.4 [facility] ID Date Data Source [id number] 05/23/2019 12:38:[address] [facility] Name Value Range Interpretation Code Description Data Source(s) Weight (Calculated Kilograms) 45.08 45.08 [facility] Height (Calculated Centimeters) 152.4 152. 4 [facility] Body Mass Index (BMI) 19.4 19.4 [facility] ID Date Data Source [id number] 06/06/2019 02:40:00 PM [facility] Name Value Range Interpretation Code Description Data Source(s) Weight (Calculated Kilograms) 45.08 45.08 [facility] Height (Calculated Centimeters) 152.4 152. 4 [facility] Body Mass Index (BMI) 19.4 19.4 [facility] ID Date Data Source [id number] 06/01/2019 12:48:[address] [facility] Name Value Range Interpretation Code Description Data Source(s) Weight (Calculated Kilograms) 45.08 45.08 [facility] Height (Calculated Centimeters) 152.4 152. 4 [facility] Body Mass Index (BMI) 19.4 19.4 [facility] ID Date Data Source [id number] 09/26/2019 07:27:00 PM EDT [facility] Name Value Range Interpretation Code Description Data Source(s) WEIGHT 50.4 kilos 50.4 kilos [facility] HEIGHT 152.4 centimeters 152.4 centimeters [facility] WEIGHT 50.4 kilos 50.4 kilos [facility] HEIGHT 152.4 centimeters 152.4 centimeters [facility]
[2020-06-05] MEDS: HumaLOG INSULIN (NovoLOG) PER UNIT SC SCH ×2 (17:30→21:00)
[2020-06-05 18:00] VITALS: BP 118/65
[2020-06-05 18:19] LABS: BLOOD UREA NITROGEN 13 MG/DL (7-18); CALCIUM LEVEL 8.7 MG/DL (8.5-10.1); CARBON DIOXIDE LEVEL 21 MEQ/L (21-32); CHLORIDE LEVEL 104 MEQ/L (98-107); GLOMERULAR FILTRATION RATE > 60.0 (>60); GLUCOSE, FASTING 158 MG/DL (70-100); POTASSIUM SERUM 3.5 MEQ/L (3.5-5.1); SODIUM LEVEL 135 MEQ/L (136-145)
[2020-06-05 19:33] VITALS: BP 105/72
[2020-06-05] MEDS: GABAPENTIN 300 MG CAP PO SCH (19:46)
[2020-06-05] MEDS: LEVEMIR (INSULIN DETEMIR) 1 UNITS/0.01ML SC SCH (19:46)
[2020-06-05] MEDS: SYMBICORT 160/4.5MCG INHALER 6GM INH SCH (19:55)
[2020-06-06] MEDS: LEVOTHYROXINE 100MCG TABLET (0.1MG) PO SCH (05:37)
[2020-06-06 05:57] LABS: HEMATOCRIT 37.9 % (36.0-47.0); HEMOGLOBIN 12.6 g/dl (12.0-15.5); MEAN CORPUSCULAR HEMOGLOBIN 30.5 pg (27.0-33.0); MEAN CORPUSCULAR HGB CONC 33.2 g/dl (32.0-36.5); MEAN CORPUSCULAR VOLUME 91.8 fl (80.0-96.0); PLATELET COUNT, AUTOMATED 206 10^3/uL (150-450); RED BLOOD COUNT 4.13 10^6/uL (4.00-5.40)
[2020-06-06 06:00] VITALS: BP 95/63
[2020-06-06 06:28] LABS: BLOOD UREA NITROGEN 8 MG/DL (7-18); CALCIUM LEVEL 8.8 MG/DL (8.5-10.1); CARBON DIOXIDE LEVEL 26 MEQ/L (21-32); CHLORIDE LEVEL 106 MEQ/L (98-107); CREATININE FOR GFR 0.67 MG/DL (0.55-1.30); GLOMERULAR FILTRATION RATE > 60.0 (>60); GLUCOSE, FASTING 137 MG/DL (70-100); MAGNESIUM LEVEL 2.1 MG/DL (1.8-2.4); POTASSIUM SERUM 3.3 MEQ/L (3.5-5.1); SODIUM LEVEL 139 MEQ/L (136-145)
[2020-06-06] MEDS: SYMBICORT 160/4.5MCG INHALER 6GM INH SCH ×2 (08:00→20:38)
--- NOTE | 2020-06-06 08:18 | IPN ---
PROGRESS NOTE DATE: 06/06/2020 SUBJECTIVE: Diann is seen on [address]. She was admitted with hypoglycemia. The nursing staff has talked with her and I agree with their assessment that this was an unintentional excess dosing of her insulin, not an attempt at self-harm. As noted above, she has sporadic primary care and it is not unusual for her to inject herself with insulin coverage based upon what she thinks her blood sugar as she does not have adequate chem strips to monitor this closely. PHYSICAL EXAMINATION: VITAL SIGNS: Stable. GENERAL: She is alert, conversant, feels well. LUNGS: Clear. HEART: Regular rate and rhythm. ABDOMEN: Soft, nontender. EXTREMITIES: No peripheral edema. LABORATORY DATA: Potassium 3.3. Blood sugar was 500 yesterday, it was down to 137 this morning. IMPRESSION: Patient is recovering well and I expect she will hopefully be able to be discharged tomorrow. I think she needs another day of observation to monitor her blood sugars. [facility] needs to get involved in helping this patient meet the needs of her diabetes. She apparently does not have adequate medication or supplies at home. She also would probably benefit from a primary care provider in the area rather than up in [place], [place].
[2020-06-06] MEDS: ATORVASTATIN 10 MG TAB PO SCH (08:27)
[2020-06-06] MEDS: GABAPENTIN 300 MG CAP PO SCH ×2 (08:27→20:48)
[2020-06-06] MEDS: HumaLOG INSULIN (NovoLOG) PER UNIT SC SCH ×4 (08:28→20:48)
[2020-06-06] MEDS: POTASSIUM CHLORIDE 10 MEQ SR TABLET PO SCH ×2 (08:28→20:47)
[2020-06-06] MEDS: ENOXAPARIN 40MG/0.4ML SYRINGE (J1650 PER 10MG) SC SCH (08:29)
[2020-06-06] MEDS ORDERED: INFLUENZA QUADRIVALENT PF VACCINE 0.5ML SYRINGE IM ONE (09:00)
--- NOTE | 2020-06-06 10:17 | HPE ---
HISTORY AND PHYSICAL DATE OF ADMISSION: 06/05/2020 CHIEF COMPLAINT: Hypoglycemia secondary to insulin. HISTORY: Diann Cason is a 25-year-old type 1 diabetic. She has sporadic primary care. Apparently her primary care provider is currently in [place], [place], and she has no way to get there. She is noncompliant with her insulin therapy with a hemoglobin A1c more than 14. Sometimes she just estimates her blood sugar rather than checking it with a monitor, and she is concerned about running short of glucose strips. Apparently last evening she estimated her blood sugar and gave herself a dose of insulin and become hyperglycemic. She came to the emergency room. She has been here now for about 18 hours. Per discussion with the emergency room (ER) physician, the plan was to send her home, but they checked her blood sugar around noon, and it was 506, and so she is being admitted for further therapy and observation. She specifically indicates that there was no intent of self-harm with the insulin injection. She just "got lazy" and did not check her sugar before giving herself an insulin dose. She has a history of type 1 diabetes. Has had several admissions for diabetic ketoacidosis in the last year. She had inpatient mental health unit admission for bipolar disorder in March. MEDICAL HISTORY: 1. 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 2. 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 3. She has hypothyroidism. 4. Hyperlipidemia. 5. Chronic intermittent urticaria. SURGICAL HISTORY: 1. Cleft palate repair. 2. Adenoids removed. 3. Ventilation tubes in tympanic membranes. SOCIAL HISTORY: Former smoker. Quit several years ago. Drinks occasional alcohol. Occasional marijuana use. FAMILY HISTORY: Father with type 2 diabetes. Mother with type 2 diabetes, hypertension, hyperlipidemia. REVIEW OF SYSTEMS: Denies depressive symptoms of suicidal ideation, intent, self-harm, or depressed mood. No cough, wheeze, shortness of breath, taste disturbance, or smell disturbance. MEDICATIONS: - glargine insulin 10 units twice a day - Lispro insulin sliding scale before meals - levothyroxine 100 mcg daily - Invega 234 mg intramuscularly (IM) monthly - gabapentin 300 mg twice a day - Symbicort 160/4.5 two inhalations twice a day - atorvastatin 10 mg daily ALLERGIES: IODINATED CONTRAST MATERIAL and AUGMENTIN. PHYSICAL EXAMINATION: VITAL SIGNS: Per flow sheet. Shows she is only 47 kg. GENERAL APPEARANCE: She is lying comfortably in bed in no distress. There is an expressive aphasia but answers are appropriate and goal directed. HEENT: Grossly unremarkable. LUNGS: Clear. HEART: Regular without murmur. ABDOMEN: Soft, nontender. No masses. No peripheral edema. Moves arm and legs with equal strength. LABORATORY DATA: Her glucose upon arriving to the emergency room was 33. She has been here about 18 hours. It is now 506. Hemoglobin A1c is 14%. Not sure what it was when she arrived in the emergency room. White count is 5.9, hemoglobin 14.3, platelets 258. Sodium 138, potassium 3.6, BUN 12, creatinine 0.8, bicarbonate 17, anion gap 12. Toxicology screen negative. Respiratory panel negative for COVID. IMPRESSION: Hypoglycemia secondary to unmeasured insulin dosing followed by hyperglycemia due to prolonged emergency room stay. PLAN: 1. She is a brittle diabetic, prone to diabetic ketoacidosis (DKA). I think the safest thing to do is admit the patient overnight for frequent blood sugar monitoring insulin dosing based on fingerstick blood sugar. Give her a dose of Lantus insulin tonight at bedtime, 10 units. If her blood sugar stabilizes, she can be discharged in the morning. 2. Hypothyroidism give dose of levothyroxine. 3. Hyperlipidemia. Continue dose of atorvastatin. 4. Bipolar disorder. I do not think there was any attempt to self-harm. It was more lax approach to her diabetes that led to the hypoglycemia.
[2020-06-06 14:00] VITALS: BP 111/63
[2020-06-06 19:52] VITALS: BP 109/77
[2020-06-06] MEDS: LEVEMIR (INSULIN DETEMIR) 1 UNITS/0.01ML SC SCH (20:48)
[2020-06-07] MEDS: LEVOTHYROXINE 100MCG TABLET (0.1MG) PO SCH (05:49)
[2020-06-07 05:59] VITALS: BP 96/61
[2020-06-07 06:29] LABS: HEMOGLOBIN 12.2 g/dl (12.0-15.5); MEAN CORPUSCULAR HEMOGLOBIN 30.7 pg (27.0-33.0); MEAN CORPUSCULAR VOLUME 93.2 fl (80.0-96.0); PLATELET COUNT, AUTOMATED 194 10^3/uL (150-450); RED BLOOD COUNT 3.97 10^6/uL (4.00-5.40); WHITE BLOOD COUNT 3.6 10^3/uL (4.0-10.0)
[2020-06-07 07:03] LABS: BLOOD UREA NITROGEN 6 MG/DL (7-18); CALCIUM LEVEL 8.7 MG/DL (8.5-10.1); CARBON DIOXIDE LEVEL 27 MEQ/L (21-32); CHLORIDE LEVEL 104 MEQ/L (98-107); CREATININE FOR GFR 0.68 MG/DL (0.55-1.30); GLOMERULAR FILTRATION RATE > 60.0 (>60); GLUCOSE, FASTING 232 MG/DL (70-100); SODIUM LEVEL 141 MEQ/L (136-145)
[2020-06-07] MEDS: ENOXAPARIN 40MG/0.4ML SYRINGE (J1650 PER 10MG) SC SCH (07:27)
[2020-06-07] MEDS: SYMBICORT 160/4.5MCG INHALER 6GM INH SCH (07:38)
[2020-06-07] MEDS: ATORVASTATIN 10 MG TAB PO SCH (08:00)
[2020-06-07] MEDS: GABAPENTIN 300 MG CAP PO SCH (08:00)
[2020-06-07] MEDS: POTASSIUM CHLORIDE 10 MEQ SR TABLET PO SCH (08:01)
[2020-06-07] MEDS: HumaLOG INSULIN (NovoLOG) PER UNIT SC SCH (08:01)
--- NOTE | 2020-06-07 09:20 | DSES ---
DISCHARGE SUMMARY DATE OF ADMISSION: 06/05/2020 DATE OF ANTICIPATED DISCHARGE: 06/07/2020 PRINCIPAL DIAGNOSES: Hypoglycemia secondary to excessive dose of insulin (accidental). HISTORY: Diann Cason was admitted with hypoglycemia. 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 She has some social circumstances that interfere with her diabetic care. She took an excessive dose of insulin based upon an estimation of the dose she needed rather than an accurate blood sugar measurement and she became hypoglycemic. HOSPITAL COURSE: We admitted her to the hospital to monitor her blood sugars and they came under good control. On the day of discharge, her blood sugars have been adequately controlled, 223 this morning. Lab work is unremarkable. Vital signs are stable. Her lungs are clear. Heart: Regular rhythm. Abdomen: Soft, nontender. No peripheral edema. DISPOSITION: Discharged home, improved, in stable condition. Followup with primary care provider in a week. Activity as tolerated. Consistent carbohydrate diet. MEDICATIONS ON DISCHARGE: The same as before admission: - atorvastatin 10 mg daily - Symbicort 160-4.5 two puffs twice a day - gabapentin 300 mg twice a day - glargine insulin 10 units twice a day - Lispro insulin based on sliding scale - levothyroxine 100 mcg daily - Invega injection monthly She received a flu shot before discharge.
== END 2020-06-07 10:10 | disposition home health service (06) | DRG 812 ==
LOC: M ED 23:45 → M ED INP 06-05 16:02 → M MS5PR 06-05 18:05
PROVIDERS: ADMIT Family Medicine; ATTEND Family Medicine
DX: T38.3X1A Poisoning by insulin and oral hypoglycemic [antidiabetic] drugs, accidental (unintentional), initial encounter (principal); E10.649 Type 1 diabetes mellitus with hypoglycemia without coma; F31.9 Bipolar disorder, unspecified; E03.9 Hypothyroidism, unspecified; F80.1 Expressive language disorder; E78.5 Hyperlipidemia, unspecified; L50.8 Other urticaria; F79 Unspecified intellectual disabilities; Z87.891 Personal history of nicotine dependence; Z79.4 Long term (current) use of insulin; Z79.899 Other long term (current) drug therapy; Z88.0 Allergy status to penicillin; Z87.820 Personal history of traumatic brain injury; Z91.041 Radiographic dye allergy status